=== PATIENT | male | born 1945 | race American Indian/Alaskan Native ===

== ENCOUNTER 2021-12-02 13:11 | Inpatient (IN) | payer OTHER, MEDICARE ==
[2021-12-02] MEDS ORDERED: fentaNYL 100 MCG/2 ML INJ IV ONE (13:50)
[2021-12-02] MEDS ORDERED: ONDANSETRON 4 MG/2 ML INJ IV ONE (13:50)
--- NOTE | 2021-12-02 13:57 | Emergency Department Report ---
HPI - General Time Seen by Provider: 12/02/21 13:38 - HPI HPI: Room 19 The patient is a 76-year-old male present with a chief complaint of back pain and shortness of breath. Patient has a history of lung CA and states he last received chemotherapy approximately 2.5 months ago. Patient also states he had a drain placed at the [place] 8 months ago to drain his lungs. The patient states approximate 4 hours ago he developed diffuse back pain. The patient states approximate 2 hours ago he developed shortness of breath. Patient denies history of cough or fever. Patient denies chest pain. Patient currently gives his back pain a score of 10/10. EMS was called and found the patient hypoxic in the 60s. The patient was placed on a nonrebreather and his sats increased to 87% ED Past Medical Hx - Past Medical History Hx Diabetes: Yes Hx of Cancer: Yes (Lung CA xrt ) - Surgical History Additional Surgical History: Bilateral BKA's, "drain for lungs" - Family History Family history: no significant - Social History Smoking Status: Former Smoker Substance Use Type: None ED Review of Systems ROS: Stated complaint: REA Other details as noted in HPI Constitutional: denies: fever Eyes: denies: eye pain ENT: denies: throat pain Respiratory: shortness of breath. denies: cough Cardiovascular: denies: chest pain Endocrine: no symptoms reported Gastrointestinal: denies: abdominal pain Genitourinary: denies: dysuria Musculoskeletal: back pain Neurological: denies: headache Physical Exam - Physical Exam Physical Exam: GENERAL: The patient is well-developed well-nourished male sitting on stretcher with nonrebreather in place exhibiting increased work of breathing HEENT: Normocephalic. Atraumatic. Extraocular motions are intact. Patient has moist mucous membranes. NECK: Supple. Trachea midline CHEST/LUNGS: Clear to auscultation. There is increased work of breathing HEART/CARDIOVASCULAR: Regular. There is no tachycardia. There is no gallop rub or murmur. ABDOMEN: Abdomen is soft, nontender. Patient has normal bowel sounds. There is no abdominal distention. SKIN: There is no rash. There is no edema. There is no diaphoresis. NEURO: The patient is awake, alert, and oriented. The patient is cooperative. The patient has no focal neurologic deficits. The patient has normal speech. GCS 15 MUSCULOSKELETAL: Bilateral BKA's ED Course - Consultations Consultation #1: 12/02/21 18:35 Nephrology paged 12/02/21 18:53 Case discussed with academic advising director Dr. Jaimes-recommends Kayexalate in addition to medications already administered. Redraw labs at approximately 2000/2099 ED Medical Decision Making - Lab Data Result diagrams: 12/02/21 15:21 12/02/21 17:22 Laboratory Tests 12/02/21 12/02/21 12/02/21 14:10 15:21 15:21 WBC 22.7 H RBC 4.96 Hgb 12.2 Hct 38.8 MCV 78 L MCH 25 L MCHC 32 RDW 20.2 H Plt Count 327 Add Manual Diff Complete Total Counted 100 Seg Neuts % (Manual) 87.0 H Band Neutrophils % 1.0 Lymphocytes % (Manual) 9.0 L Reactive Lymphs % (Man) 0 Monocytes % (Manual) 2.0 Eosinophils % (Manual) 1.0 Basophils % (Manual) 0 Metamyelocytes % 0 Myelocytes % 0 Promyelocytes % 0 Blast Cells % 0 Nucleated RBC % Not Reportable Seg Neutrophils # Man 19.7 H Band Neutrophils # 0.2 Lymphocytes # (Manual) 2.0 Abs React Lymphs (Man) 0.0 Monocytes # (Manual) 0.5 Eosinophils # (Manual) 0.2 Basophils # (Manual) 0.0 Metamyelocytes # 0.0 Myelocytes # 0.0 Promyelocytes # 0.0 Blast Cells # 0.0 WBC Morphology Not Reportable Hypersegmented Neuts Not Reportable Hyposegmented Neuts Not Reportable Hypogranular Neuts Not Reportable Smudge Cells Not Reportable Toxic Granulation Not Reportable Toxic Vacuolation Not Reportable Dohle Bodies Not Reportable Pelger-Huet Anomaly Not Reportable Chandra Rods Not Reportable Platelet Estimate Consistent w auto Clumped Platelets Not Reportable Plt Clumps, EDTA Not Reportable Large Platelets Not Reportable Giant Platelets Not Reportable Platelet Satelliting Not Reportable Plt Morphology Comment Not Reportable RBC Morphology Not Reportable Dimorphic RBCs Not Reportable Polychromasia Not Reportable Hypochromasia 1+ Poikilocytosis Not Reportable Anisocytosis 1+ Microcytosis Not Reportable Macrocytosis Not Reportable Spherocytes Not Reportable Pappenheimer Bodies Not Reportable Sickle Cells Not Reportable Target Cells Not Reportable Tear Drop Cells Not Reportable Ovalocytes Not Reportable Helmet Cells Not Reportable [place] Bodies Not Reportable [place] Rings Not Reportable [place] Cells Not Reportable Bite Cells Not Reportable Crenated Cell Not Reportable Elliptocytes Not Reportable Acanthocytes (Spur) Not Reportable Rouleaux Not Reportable Hemoglobin C Crystals Not Reportable Schistocytes Not Reportable Malaria parasites Not Reportable Josh Bodies Not Reportable Hem Pathologist Commnt No PT 19.7 H INR 1.48 H ABG pH TNR ABG pCO2 TNR ABG pO2 TNR ABG HCO3 TNR ABG O2 Saturation TNR ABG Base Excess TNR ABG Hemoglobin TNR ABG Carboxyhemoglobin TNR ABG Methemoglobin TNR Oxyhemoglobin TNR FiO2 100 Sodium Potassium Chloride Carbon Dioxide Anion Gap BUN Creatinine Estimated GFR BUN/Creatinine Ratio Glucose Lactic Acid Calcium Total Bilirubin AST ALT Alkaline Phosphatase Troponin T NT-Pro-B Natriuret Pep Total Protein Albumin Albumin/Globulin Ratio 12/02/21 12/02/21 12/02/21 15:21 16:39 17:22 WBC RBC Hgb Hct MCV MCH MCHC RDW Plt Count Add Manual Diff Total Counted Seg Neuts % (Manual) Band Neutrophils % Lymphocytes % (Manual) Reactive Lymphs % (Man) Monocytes % (Manual) Eosinophils % (Manual) Basophils % (Manual) Metamyelocytes % Myelocytes % Promyelocytes % Blast Cells % Nucleated RBC % Seg Neutrophils # Man Band Neutrophils # Lymphocytes # (Manual) Abs React Lymphs (Man) Monocytes # (Manual) Eosinophils # (Manual) Basophils # (Manual) Metamyelocytes # Myelocytes # Promyelocytes # Blast Cells # WBC Morphology Hypersegmented Neuts Hyposegmented Neuts Hypogranular Neuts Smudge Cells Toxic Granulation Toxic Vacuolation Dohle Bodies Pelger-Huet Anomaly Chandra Rods Platelet Estimate Clumped Platelets Plt Clumps, EDTA Large Platelets Giant Platelets Platelet Satelliting Plt Morphology Comment RBC Morphology Dimorphic RBCs Polychromasia Hypochromasia Poikilocytosis Anisocytosis Microcytosis Macrocytosis Spherocytes Pappenheimer Bodies Sickle Cells Target Cells Tear Drop Cells Ovalocytes Helmet Cells Agiular-[place] Bodies [place] Rings [place] Cells Bite Cells Crenated Cell Elliptocytes Acanthocytes (Spur) Rouleaux Hemoglobin C Crystals Schistocytes Malaria parasites Josh Bodies Hem Pathologist Commnt PT INR ABG pH ABG pCO2 ABG pO2 ABG HCO3 ABG O2 Saturation ABG Base Excess ABG Hemoglobin ABG Carboxyhemoglobin ABG Methemoglobin Oxyhemoglobin FiO2 Sodium 131 L Potassium 7.1 H* 7.2 H* Chloride 94.9 L Carbon Dioxide 10 L Anion Gap 33 BUN 89 H Creatinine 7.1 H Estimated GFR 9 BUN/Creatinine Ratio 13 Glucose 108 H Lactic Acid 6.80 H* Calcium 9.6 Total Bilirubin 0.30 AST 20 ALT 8 Alkaline Phosphatase 85 Troponin T 0.105 H* NT-Pro-B Natriuret Pep 453.1 Total Protein 7.1 Albumin 3.9 Albumin/Globulin Ratio 1.2 - EKG Data -: EKG Interpreted by Nh EKG shows normal: sinus rhythm Rate: normal - EKG Data When compared to previous EKG there are: previous EKG unavailable Interpretation: other (Peaked T waves) - Radiology Data Radiology results: report reviewed (Chest x-ray, VQ scan), image reviewed (Chest x-ray, VQ scan) [address] [address] Nuclear Medicine Report Signed Patient: DIPTI PURVIS MR#: [id number] : 1945 Acct:[id number] Age/Sex: 76 / M ADM Date: 12/02/21 Loc: ED Attending Dr: Ordering Physician: JAYLON MCLEOD MD Date of Service: 12/02/21 Procedure(s): NM perfusion only lung scan Accession Number(s): [id number] cc: JAYLON MCLEOD MD Nuclear medicine perfusion lung scan Indication: Shortness of breath Technique: 5.1 mCi of Tc 99m MAA were given by IV. Findings: Comparison with chest radiograph from chest radiograph earlier today.. Perfusion images are unremarkable; specifically, no wedge-shaped, pleural- based, segmental defects are seen. Impression: No segmental perfusion defects are identified. Signer Name: Galol Soliz MD Signed: 12/02/2021 4:40 PM Workstation Name: [id number] Transcribed By: Dictated By: Gallo Soliz MD Electronically Authenticated By: Gallo Soliz MD Signed Date/Time: 12/02/21 1640 DD/ 1639 TD/TT: [address] [address] XRay Report Signed Patient: DIPTI PURVIS MR#: [id number] : 1945 Acct:[id number] Age/Sex: 76 / M ADM Date: 12/02/21 Loc: ED Attending Dr: Ordering Physician: JAYLON MCLEOD MD Date of Service: 12/02/21 Procedure(s): XR chest 1V ap Accession Number(s): [id number] cc: JAYLON MCLEOD MD Fluoro Time In Minutes: XR chest 1V ap INDICATION / CLINICAL INFORMATION: Shortness of breath, h/o lung CA. COMPARISON: None available. FINDINGS: SUPPORT DEVICES: Right chest wall port catheter tip terminates over the right atrium. There is a left thoracostomy tube which projects along the left lateral lung apex. HEART /PULMONARY VASCULATURE: No significant abnormality. LUNGS / PLEURA: Small to moderate partially loculated left pleural fluid. There are streaky airspace opacities within both lung bases. 2.7 cm nodular density in the right midlung. Additional 1.5 cm nodular density suspected within the left lung apex. No pneumothorax. ADDITIONAL FINDINGS: No significant additional findings. IMPRESSION: 1. Left thoracostomy tube with small to moderate partially loculated left pleural fluid. No pneumothorax. 2. Bilateral pulmonary nodules suspicious for satellite metastases in this patient with a reported history of malignancy. 3. Patchy bibasilar airspace disease, concerning for pneumonia. Signer Name: Alejandro Dumont MD Signed: 12/02/2021 2:10 PM Workstation Name: [id number] Transcribed By: JS Dictated By: ALEJANDRO DUMONT MD Electronically Authenticated By: ALEJANDRO DUMONT MD Signed Date/Time: 12/02/21 1410 DD/ 1407 TD/TT: - Differential Diagnosis Lung CA, PE, pneumonia, bronchitis Critical care attestation.: If time is entered above; I have spent that time in minutes in the direct care of this critically ill patient, excluding procedure time. ED Disposition Clinical Impression: Pneumonia, Sepsis, Hypoxia, Acute renal failure, Hyperkalemia Disposition: ADMITTED INPATIENT Is pt being admited?: Yes Does the pt Need Aspirin: No Condition: Serious Instructions: Bacterial Pneumonia (ED) Referrals: CHRIS CASON MD [Primary Care Provider] - 3-5 Days Time of Disposition: 18:54 (Care transferred to hospitalist (Dr. Townsend))
--- NOTE | 2021-12-02 14:14 | XRay Report ---
XR chest 1V ap INDICATION / CLINICAL INFORMATION: Shortness of breath, h/o lung CA. COMPARISON: None available. FINDINGS: SUPPORT DEVICES: Right chest wall port catheter tip terminates over the right atrium. There is a left thoracostomy tube which projects along the left lateral lung apex. HEART /PULMONARY VASCULATURE: No significant abnormality. LUNGS / PLEURA: Small to moderate partially loculated left pleural fluid. There are streaky airspace opacities within both lung bases. 2.7 cm nodular density in the right midlung. Additional 1.5 cm nodu lar density suspected within the left lung apex. No pneumothorax. ADDITIONAL FINDINGS: No significant additional findings. IMPRESSION: 1. Left thoracostomy tube with small to moderate partially loculated left pleural fluid. No pneumotho rax. 2. Bilateral pulmonary nodules suspicious for satellite metastases in this patient with a reported hi story of malignancy. 3. Patchy bibasilar airspace disease, concerning for pneumonia. Signer Name: Yemi Dumont MD Signed: 12/02/2021 2:10 PM Workstation Name: [id number]
[2021-12-02 14:55] LABS: ABG PCO2 TNR mm Hg; ABG PH TNR pH Units (7.350-7.450); ABG PO2 TNR mm Hg (80.0-90.0)
[2021-12-02 14:56] LABS: ABG Base Excess TNR mmol/L (-2.0-3.0); ABG HCO3 TNR mmol/L (20.0-26.0); ABG Methemoglobin TNR % (0.0-1.5); ABG Oxygen Saturation TNR % (95.0-99.0)
[2021-12-02] MEDS ORDERED: SODIUM CHLORIDE 0.9% 1000 ML 1,000 ML IV ONE ×2 (15:38)
[2021-12-02] MEDS ORDERED: SODIUM CHLORIDE 0.9% 1000 ML 2,000 ML ONE (15:39)
[2021-12-02] MEDS ORDERED: cefTRIAXone/NS 1 GM/50 ML 1 GM/50 ML BAG IV ONE (15:39)
[2021-12-02] MEDS ORDERED: AZITHROMYCIN/NS 500 MG/250 ML 500 MG/250 ML BAG IV ONE (15:39)
[2021-12-02 15:51] LABS: Hematocrit 38.8 % (35.5-45.6); Hemoglobin 12.2 gm/dl (11.8-15.2); Mean Corpuscular HGB Conc 32 % (32-34); Mean Corpuscular Volume 78 fl (84-94); Platelet Count 327 K/mm3 (140-440); Red Blood Count 4.96 M/mm3 (3.65-5.03)
[2021-12-02 15:55] LABS: Red Cell Distribution Width 20.2 % (13.2-15.2)
[2021-12-02 15:58] LABS: INR 1.48 (0.87-1.13)
[2021-12-02 16:19] LABS: Albumin 3.9 g/dL (3.9-5); Calcium 9.6 mg/dL (8.4-10.2)
[2021-12-02 16:45] LABS: Band Neutrophils # (Manual) 0.2 K/mm3; Basophils % (Manual) 0 % (0.0-1.8); Total Cells Counted 100
--- NOTE | 2021-12-02 16:45 | Nuclear Medicine Report ---
Nuclear medicine perfusion lung scan Indication: Shortness of breath Technique: 5.1 mCi of Tc 99m MAA were given by IV. Findings: Comparison with chest radiograph from chest radiograph earlier today.. Perfusion images are unremarkable; specifically, no wedge-shaped, pleural-based, segmental defects ar e seen. Impression: No segmental perfusion defects are identified. Signer Name: Gallo Soliz MD Signed: 12/02/2021 4:40 PM Workstation Name: [id number]
[2021-12-02 16:46] LABS: Anisocytosis 1+; Hypochromasia 1+; Platelet Estimate Consistent w Auto
[2021-12-02] MEDS ORDERED: SODIUM BICARB 8.4% 50 MEQ/50 ML SYRINGE IV ONE ×2 (17:01→19:10)
[2021-12-02] MEDS ORDERED: CALCIUM GLUCONATE 1,000 MG in SODIUM CHLORIDE 0.9% 100 ML IV ONE (17:02)
[2021-12-02] MEDS ORDERED: CALC GLUCONATE 1GM/NS 100 ML 1 GM/100 ML BAG IV ONE (18:00)
[2021-12-02] MEDS ORDERED: INSULIN REGULAR, HUMAN 100 UNITS/1 ML IV ONE (18:34)
[2021-12-02] MEDS ORDERED: DEXTROSE 50% IN WATER (25GM) 50 ML SYRINGE IV ONE (18:34)
[2021-12-02] MEDS ORDERED: ALBUTEROL 2.5 MG/3 ML NEBU IH ONE (18:35)
[2021-12-02] MEDS ORDERED: SODIUM POLYSTYRENE 15 GM/60 ML ORAL LIQD PO ONE (18:53)
--- NOTE | 2021-12-02 19:04 | History and Physical Report ---
History of Present Illness Chief complaint: My back hurts and I am short of breath History of present illness: 76 YO Male with DM, Lung Cancer with metastatic disease and Malignant Pleural EffusioinS/P Pleural Drain Placement, PVD presents to ED for evaluation. Patient is reports "my back hurts and I am short of breath". Patient states that he has experienced shortness of breath over the past week with persistent and worsening symptoms over the same timeframe. Patient also acknowledges diffuse back pain. Patient states that his pain is 10/10, constant, worsened with movement, relieved with movement. Patient acknowledges pain is localized over his spine. Patient acknowledges increased use of nebulizer therapy without relief. Patient failed outpatient therapy. EMS was notified and upon arrival the patient was found to be in distress with a pulse oximetry in the 60s. Patient was placed on nonrebreather oxygen and transported to [facility] for further care and evaluation of the aforementioned symptoms. The patient was seen and evaluated emergency department. All lab and imaging studies reviewed. Patient found to have a pulse oximetry of 79% on room room air which is consistent with acute hypoxemic respiratory failure. Patient also found to have bilateral pneumonia complicated by septic shock, metabolic acidosis, PEDRO with ATN, hyperkalemia, volume depletion, and malignant pleural effusion. Patient admitted to ICU due to increased risk of worsening symptoms after medical stabilization. Patient initiated on sepsis protocol in the emergency department. Patient denies fever, chills, chest pain, palpitation, productive cough, skin rash, recent contact, known exposure to COVID-19. No prior a dmission for review. All medication listed at time of admission has been reconciled. Advanced care planning conducted in ED. Critical care team consulted in ED. Past History Past Medical History: cancer, diabetes, hypertension, PVD Past Surgical History: Other (Bilateral BKA) Social history: single. denies: smoking, alcohol abuse, prescription drug abuse Family history: diabetes, hypertension Medications and Allergies Allergies Allergy/AdvReac Type Severity Reaction Status Date / Time No Known Allergies Allergy Unverified 12/02/21 15:15 Active Meds: Active Medications NORepinephrine/NS 8 MG-250 ML (Norepinephrine/Ns 8 Mg-250 Ml (Double Conc)) 8 mg in 250 mls @ 12.247 mls/hr IV TITRATE PRN; Protocol PRN Reason: Hypotension Review of Systems Constitutional: no weight loss, no weight gain, no fever, no chills Ears, nose, mouth and throat: no ear pain, no ear discharge, no tinnitis, no decreased hearing, no nasal congestion, no nasal discharge Cardiovascular: shortness of breath, no chest pain Respiratory: no cough, no cough with sputum, no hemoptysis Gastrointestinal: no abdominal pain, no nausea, no vomiting, no diarrhea, no constipation Genitourinary Male: no hematuria, no flank pain, no discharge, no urinary freque ncy, no urinary hesitancy Rectal: no pain, no incontinence, no bleeding Musculoskeletal: no neck stiffness, no shooting arm pain, no arm numbness/ting ling Integumentary: no rash, no pruritis, no redness, no sores, no wounds Neurological: no head injury, no transient paralysis, no paralysis, no tingling, no seizures, no syncope Psychiatric: no anxiety, no insomnia, no change in appetite, no change in libido Endocrine: no cold intolerance, no excessive thirst, no polyuria, no nocturia Hematologic/Lymphatic: no easy bruising, no easy bleeding Allergic/Immunologic: no urticaria, no allergic rhinitis Exam - Constitutional Vitals: Temp Pulse Resp BP Pulse Ox 110 H 18 96/57 98 12/02/21 18:47 12/02/21 18:47 12/02/21 18:04 12/02/21 18:04 General appearance: Present: mild distress - EENT Eyes: Present: PERRL ENT: hearing intact, clear oral mucosa - Neck Neck: Present: supple, normal ROM - Respiratory Respiratory effort: labored, accessory muscle use Respiratory: bilateral: diminished, rhonchi - Cardiovascular Rhythm: regular (Tachycardia) - Extremities Extremities: no ischemia Peripheral Pulses: abnormal (Capillary refill greater than 3.5 seconds) - Abdominal General gastrointestinal: Present: soft, non-tender, non-distended, normal bowel sounds Male genitourinary: Present: normal - Integumentary Integumentary: Present: dry, clammy, decreased turgor - Musculoskeletal Musculoskeletal: strength equal bilaterally - Psychiatric Psychiatric: appropriate mood/affect, memory intact - Neurologic Neurologic: CNII-XII intact, no focal deficits, moves all extremities, no gait normal HEART Score - HEART Score Troponin: Troponin T 0.105 ng/mL (0.00-0.029) H* 12/02/21 15:21 Results - Labs CBC & Chem 7: 12/02/21 15:21 12/02/21 17:22 Labs: Abnormal lab results 12/02/21 12/02/21 12/02/21 Range/Units 15:21 15:21 15:21 WBC 22.7 H (4.5-11.0) K/mm3 MCV 78 L (84-94) fl MCH 25 L (28-32) pg RDW 20.2 H (13.2-15.2) % Seg Neuts % (Manual) 87.0 H (40.0-70.0) % Lymphocytes % (Manual) 9.0 L (13.4-35.0) % Seg Neutrophils # Man 19.7 H (1.8-7.7) K/mm3 PT 19.7 H (12.2-14.9) Sec. INR 1.48 H (0.87-1.13) Sodium 131 L (137-145) mmol/L Potassium 7.1 H* (3.6-5.0) mmol/L Chloride 94.9 L (98-107) mmol/L Carbon Dioxide 10 L (22-30) mmol/L BUN 89 H (9-20) mg/dL Creatinine 7.1 H (0.8-1.3) mg/dL Glucose 108 H (75-100) mg/dL Lactic Acid (0.7-2.0) mmol/L Troponin T 0.105 H* (0.00-0.029) ng/mL 12/02/21 12/02/21 Range/Units 16:39 17:22 WBC (4.5-11.0) K/mm3 MCV (84-94) fl MCH (28-32) pg RDW (13.2-15.2) % Seg Neuts % (Manual) (40.0-70.0) % Lymphocytes % (Manual) (13.4-35.0) % Seg Neutrophils # Man (1.8-7.7) K/mm3 PT (12.2-14.9) Sec. INR (0.87-1.13) Sodium (137-145) mmol/L Potassium 7.2 H* (3.6-5.0) mmol/L Chloride (98-107) mmol/L Carbon Dioxide (22-30) mmol/L BUN (9-20) mg/dL Creatinine (0.8-1.3) mg/dL Glucose (75-100) mg/dL Lactic Acid 6.80 H* (0.7-2.0) mmol/L Troponin T (0.00-0.029) ng/mL Assessment and Plan - Patient Problems (1) Septic shock Current Visit: Yes Status: Acute Plan to address problem: Sepsis protocol: Chest x-ray, CBC, urinalysis, IV fluid resuscitation therapy, IV antibiotic therapy, IV pressor support, maintain mean arterial pressure greater than equal to 65, serial lactic acid level, monitor fluid balance, blood culture. The high probability of a clinically significant, sudden or life threatening deterioration of the [cardiac, pulmonary, renal, neuro, infectious disease, heme-onc] system(s) required my full and direct attention, intervention and personal management. The aggregate critical care time was [90] minutes. This time is in addition to time spent performing reported procedures but includes the following: [x] Data Review and interpretation [x] Patient assessment and monitoring of vital signs [x] Documentation [x] Medication orders and management (2) Acute hypoxemic respiratory failure Current Visit: Yes Status: Acute Plan to address problem: Chest x-ray, supplemental oxygen, pulse oximetry, nebulizer therapy, noninvasive positive pressure ventilation as clinically indicated. Pulmonary toilet. (3) Pneumonia Current Visit: Yes Status: Acute Plan to address problem: Pneumonia protocol: Chest x-ray, CBC, CMP, supplemental oxygen, pulse oximetry, nebulizer therapy, IV antibiotic therapy, blood culture. (4) Acute kidney injury (PEDRO) with acute tubular necrosis (ATN) Current Visit: Yes Status: Acute Plan to address problem: IV fluid resuscitation therapy, monitor urine output every shift, daily weight, monitor fluid balance, urine electrolytes, nephrology team consulted. (5) Malignant pleural effusion Current Visit: Yes Status: Acute Plan to address problem: Pleurx drain in place, continue current therapy. Treat pneumonia. (6) Metabolic acidosis Current Visit: Yes Status: Acute Plan to address problem: IV for resuscitation therapy, BMP, IV bicarbonate therapy, repeat BMP in a.m., serial lactic acid level. (7) Diabetes mellitus Current Visit: Yes Status: Acute Plan to address problem: Consistent carbohydrate diet, Accu-Chek, insulin protocol, hypoglycemia protocol. (8) Metastatic lung cancer (metastasis from lung to other site) Current Visit: Yes Status: Acute Plan to address problem: Outpatient oncology follow-up. Supportive care. (9) Back pain Current Visit: Yes Status: Acute Plan to address problem: Suspect is secondary to metastatic disease. Pain control, supportive care. Acute returns. (10) Hyperkalemia Current Visit: Yes Status: Acute Plan to address problem: Calcium gluconate, insulin D50, no EKG changes. Nephrology team consulted. (11) DVT prophylaxis Current Visit: Yes Status: Acute Plan to address problem: SCD to bilateral lower extremities while in bed (12) Advance care planning Current Visit: Yes Status: Acute Plan to address problem: Disease education data, care plan discussed, diagnoses discussed, prognosis discussed, patient is full code, +30 minutes. (13) Preventative health care Current Visit: Yes Status: Acute Plan to address problem: Patient counseled regarding prognosis, outpatient follow-up with hematology oncology, outpatient follow-up with primary care physician for all age and risk factor appropriate screening test. +30 minutes.
[2021-12-02] MEDS ORDERED: SODIUM CHLORIDE 0.9% 1000 ML IV SOLN IV ONE (19:05)
[2021-12-02] MEDS ORDERED: oxyCODONE /ACETAMINOPHEN 5-325MG TAB PO PRN (19:05)
[2021-12-02] MEDS ORDERED: ALBUTEROL 2.5 MG/3 ML NEBU IH PRN (19:05)
[2021-12-02] MEDS ORDERED: VANCOMYCIN 1,250 MG in SODIUM CHLORIDE 0.9% 500 ML 500 ML IV ONE (19:05)
[2021-12-02] MEDS ORDERED: HYDROmorphone 0.5 MG/0.5 ML INJ IV PRN ×2 (19:05)
[2021-12-02] MEDS ORDERED: ACETAMINOPHEN 325 MG TAB PO PRN ×2 (19:05)
--- NOTE | 2021-12-02 19:24 | Consultation ---
History of Present Illness Consult date: 12/02/21 Requesting physician: ABHISHEK ELLIOTT Reason for consult: pneumonia, other (Sepsis) History of present illness: PCCM CONSULT NOTE (Full dictation # [id number]) Please see dictated notes for full details Medications and Allergies Allergies Allergy/AdvReac Type Severity Reaction Status Date / Time No Known Allergies Allergy Unverified 12/02/21 15:15 Active Meds: Active Medications Acetaminophen (Acetaminophen 325 Mg Tab) 650 mg PO Q6H PRN PRN Reason: Pain, Mild (1-3) Acetaminophen (Acetaminophen 325 Mg Tab) 650 mg PO Q6H PRN PRN Reason: Pain MILD(1-3)/Fever >100.5/FAJARDO Albuterol (Albuterol 2.5 Mg/3 Ml Nebu) 2.5 mg IH Q3HRT PRN PRN Reason: Shortness Of Breath Hydromorphone HCl (Hydromorphone 0.5 Mg/0.5 Ml Inj) 0.25 mg IV Q4H PRN PRN Reason: Pain, Moderate (4-6) Hydromorphone HCl (Hydromorphone 0.5 Mg/0.5 Ml Inj) 0.5 mg IV Q3H PRN PRN Reason: Pain , Severe (7-10) NORepinephrine/NS 8 MG-250 ML (Norepinephrine/Ns 8 Mg-250 Ml (Double Conc)) 8 mg in 250 mls @ 12.247 mls/hr IV TITRATE PRN; Protocol PRN Reason: Hypotension Vancomycin HCl 1,250 mg/ (Sodium Chloride) 525 mls @ 333 mls/hr IV ONCE ONE; Pr otocol Stop: 12/02/21 20:39 Cefepime HCl (Cefepime/Ns 2 Gm/100 Ml) 2 gm in 100 mls @ 200 mls/hr IV Q8H BRITNEY; Protocol Oxycodone/Acetaminophen (Oxycodone /Acetaminophen 5-325mg Tab) 1 tab PO Q6H PRN PRN Reason: Pain, Moderate (4-6) Sodium Bicarbonate (Sodium Bicarb 8.4% 50 Meq/50 Ml Syringe) 50 meq IV ONCE ONE Stop: 12/02/21 19:11 Sodium Chloride (Sodium Chloride 0.9% 10 Ml Flush Syringe) 10 ml IV BID BRITNEY Sodium Chloride (Sodium Chloride 0.9% 10 Ml Flush Syringe) 10 ml IV PRN PRN PRN Reason: LINE FLUSH Sodium Chloride (Sodium Chloride 0.9% 1000 Ml Iv Soln) 1,960 ml 30 ml/kg (1960 ml) IV ONCE ONE Stop: 12/02/21 19:06 Physical Examination Vital signs: Vital Signs BP Pulse Ox 60/29 78 L 12/02/21 15:00 12/02/21 15:00 Results - Laboratory Findings CBC and BMP: 12/02/21 15:21 12/02/21 17:22 ABG ABG pH TNR 12/02/21 14:10 ABG pCO2 TNR 12/02/21 14:10 ABG pO2 TNR 12/02/21 14:10 ABG O2 Saturation TNR 12/02/21 14:10 PT/INR, D-dimer PT 19.7 Sec. (12.2-14.9) H 12/02/21 15:21 INR 1.48 (0.87-1.13) H 12/02/21 15:21 Abnormal lab findings: Abnormal Labs 12/02/21 12/02/21 12/02/21 15:21 15:21 15:21 WBC 22.7 H MCV 78 L MCH 25 L RDW 20.2 H Seg Neuts % (Manual) 87.0 H Lymphocytes % (Manual) 9.0 L Seg Neutrophils # Man 19.7 H PT 19.7 H INR 1.48 H Sodium 131 L Potassium 7.1 H* Chloride 94.9 L Carbon Dioxide 10 L BUN 89 H Creatinine 7.1 H Glucose 108 H Lactic Acid Troponin T 0.105 H* 12/02/21 12/02/21 16:39 17:22 WBC MCV MCH RDW Seg Neuts % (Manual) Lymphocytes % (Manual) Seg Neutrophils # Man PT INR Sodium Potassium 7.2 H* Chloride Carbon Dioxide BUN Creatinine Glucose Lactic Acid 6.80 H* Troponin T
[2021-12-02] MEDS ORDERED: VANCOMYCIN 1,250 MG in SODIUM CHLORIDE 0.9% 250ML 250 ML IV ONE (19:30)
--- NOTE | 2021-12-02 19:47 | Procedure Note ---
Date of procedure: 12/02/21 Pre-op diagnosis: Sepsis Post-op diagnosis: same Procedure: Right femoral vein triple-lumen catheter placed under ultrasound guidance After informed consent was obtained. The patient was prepped and draped in the usual sterile fashion. A timeout was taken with the patient's nurse at bedside to verify the correct patient, the correct procedure, and the correct operative site. Local anesthesia obtained with 1% lidocaine. Ultrasound was utilized to localize the right femoral vein without difficulty. The Seldinger technique was utilized to access the right femoral vein with a seeker needle under ultrasound guidance. A guidewire was then advanced via the seeker needle into the right femoral vein without difficulty and the seeker needle subsequently moved. A scalpel was used to incise the skin at the insertion site. A dilator was then advanced over the guidewire into the right femoral vein and subsequently removed. A preflush triple-lumen catheter was then advanced to the right femoral vein and the guidewire subsequently removed. All 3 ports flush and drawl with ease. 3-0 silk suture was utilized to suture the line in place. A Biopatch was placed at the insertion site. A sterile dressing was utilized to cover the triple-lumen catheter. Estimated blood loss minimal. Complications none. Specimens none. Surgeon: ABHISHEK ELLIOTT Estimated blood loss: minimal Pathology: none Condition: critical Disposition: ICU
[2021-12-02] MEDS ORDERED: VANCOMYCIN PHARMACY TO DOSE IV SCH (20:00)
--- NOTE | 2021-12-02 20:58 | Event Note ---
Appreciate nephrology consult. In short, this is a patient who presents with creatinine 7.1, K 7.2 likely with PEDRO in setting of sepsis, no baseline labs available. Agree with aggressive medical measures for now, hopeful renal function and hyperkalemia improve without needing dialysis. Placed order for repeat BMP now- will need dialysis overnight if K not improving. Check imaging, serologies for PEDRO workup.
[2021-12-02] MEDS ORDERED: SODIUM BICARBONATE 150 MEQ in DEXTROSE 5% IN WATER 1,000 ML IV SCH (22:00)
[2021-12-02 22:45] LABS: ABG Base Excess -11.6 mmol/L (-2.0-3.0); ABG HCO3 12.9 mmol/L (20.0-26.0); ABG Methemoglobin 0.6 % (0.0-1.5); ABG Oxygen Saturation 99.4 % (95.0-99.0); ABG PCO2 25.5 mm Hg; ABG PH 7.322 pH Units (7.350-7.450); ABG PO2 240.4 mm Hg (80.0-90.0)
[2021-12-02 23:02] LABS: Calcium 8.9 mg/dL (8.4-10.2)
[2021-12-02] MEDS: NORepinephrine/NS 8 MG-250 ML 8 MG/250 ML INFUS..BTL IV PRN (23:43)
[2021-12-03] MEDS ORDERED: ONDANSETRON 4 MG/2 ML INJ IV PRN (00:52)
--- NOTE | 2021-12-03 02:45 | Consultation ---
DATE OF CONSULTATION: 12/02/2021 PULMONARY CRITICAL CARE CONSULT NOTE CONSULTING PHYSICIAN: Dr. Harjinder Townsend. REASON FOR CONSULTATION: Acute hypoxemic respiratory failure, septic shock, pneumonia. CHIEF COMPLAINT AND HISTORY OF PRESENT ILLNESS: The patient is a now 76-year-old male with a past medical history significant in this context for lung cancer that he says was diagnosed in March this year or last year at the latest, for which he is currently receiving chemotherapy. He called into the Emergency Room complaining of back pain and shortness of breath. He received his last chemotherapy treatment about 2-1/2 months ago. He also mentioned that he had, what appears to be, a PleurX pleural drain catheter to the right pleural space at the [place] in March according to him. Prior to coming to the Emergency Room, he had developed a sudden and diffuse back pain and then soon followed by shortness of breath. He denied any fevers or chills prior. He denies any cough or expectoration of significance and denies any hemoptysis. In particular, he also denies any saddle anesthesia or incontinence to urine or feces. He denies any trauma. He described his back pain as a 10/10 and had called the [facility]. They found him hypoxemic with O2 sats in the 60s. He was brought to the Emergency Room where he was placed on a nonrebreather. We are asked to assist with management. When I stopped by to see him, he was resting in bed, remained on the nonrebreather. Back pain was a little bit better. He said he has had this type of back pain before. With regards to tobacco use, he has a 10+ pack year tobacco smoking history, smoking as much as 1-1/2 packs per day prior to March when he was diagnosed with a lung cancer. He denies any new-onset leg pain or swelling, either unilaterally or bilaterally or any suggestion of a deep venous thrombosis. This really is as much of the history of presentation as I have. PAST MEDICAL HISTORY: Again, significant for lung cancer as well as a history of diabetes. MEDICATIONS: He was on at the time I stopped by to see him, according to the medication administration record included the following: Tylenol 650 mg p.o. q. 6 hours p.r.n. mild pain or fever, albuterol 2.5 mg nebulized q. 3 hours p.r.n. shortness of breath, cefepime 2 grams IV q. 8 hours, Dilaudid 0.25 mg IV q. 4 hours, morphine sulfate 0.5 mg IV q. 3 hours p.r.n. severe pain, Dilaudid 0.25 mg IV q. 4 hours p.r.n. moderate pain. Levophed drip had been ordered stat at 0.1 mcg per kilogram per minute. Percocet 5/325 one tablet p.o. q. 6 hours p.r.n. moderate pain. He received 1 amp of sodium bicarbonate earlier. He has received about 2 liters of sodium chloride resuscitation. He has also received 1.25 grams of IV vancomycin. ALLERGIES: No known drug allergies. DIET: Thin gentleman. Denies acute weight loss or gain in the preceding few weeks to months. FAMILY AND SOCIAL HISTORY: Lives in the community, has a 10+ pack year tobacco smoking history. Denies current alcohol, tobacco or illicit drug use or abuse. FAMILY HISTORY: Otherwise, noncontributory. REVIEW OF SYSTEMS: No loss of consciousness. No new onset seizures. No new onset focal weakness. Denies any gross hematochezia or melena. Denies gross hematuria or dysuria. No hematemesis, no hemoptysis. He has had the back pain. He has had the shortness of breath. He denies heat or cold intolerance. Denies polydipsia, polyuria. Complete 13-system review of system was obtained. Pertinent positives and/or negatives as in body of history above, otherwise noncontributory. PHYSICAL EXAMINATION: VITAL SIGNS: RN is working on getting the temperature. His pulse was 110 when he came in. Respiratory rate was about 24, blood pressure was 60/29 with a MAP of 39, O2 sats were 78%, inspired oxygen concentration at that time was not recorded. He is now 98% on the 100% nonrebreather. GENERAL: This is an elderly looking male. Normocephalic, atraumatic, resting in bed with mildly to moderately increased respiratory effort at rest. HEAD, EYES, EARS, NOSE AND THROAT: Anicteric. No conjunctival erythema. Oropharynx was dry. NECK: No gross jugular venous distention, no thyromegaly. Grossly, there were no palpable lymph nodes in the supraclavicular or submandibular lymph node chains. LUNGS: Auscultation of both lung brambila significant for bilateral rhonchi. No active wheezing. Slightly diminished breath sounds. HEART: Sounds 1 and 2 are heard at the time of my evaluation. Regular in rate and rhythm. Regular tachycardia without overt rubs or murmurs. ABDOMEN: Soft, full, bowel sounds are positive, nontender, no palpable hepatosplenomegaly. Of note, he does have a right upper chest wall Port-A-Cath for central venous access. EXTREMITIES: Without overt digital clubbing or cyanosis. No pedal edema. 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 NEUROLOGIC: Pupils are equal, round, about 4 mm, reactive to light. Extraocular muscle movements are intact. He moves all 4 extremities spontaneously. PSYCHIATRIC: His mood was normal. Affect was somewhat anxious. He did have intact judgment and insight. LABORATORY DATA: From my review are as follows: Admission white cell count 22,700 with hemoglobin of 12.2, hematocrit of 38.8, platelet count of 327. 1% band neutrophils on the manual differential. He does have a left shift. INR 1.48. Serum sodium was 131, potassium was 7.1, chloride was 95, bicarbonate was 10, BUN 89, creatinine 7.1, glucose was 108. Lactic acid level was 6.8. Liver function test within normal limits. Troponin was up at 0.105. No microbiology studies for my review. Radiographic studies show chest x-ray with a left PleurX catheter in place. A right Port-A-Cath with the tip in the distal SVC/right atrium. Chronic looking increased interstitial markings and some nodular infiltrates, particularly in the right lower lobe region and some peripheral opacifications that would probably represent a loculated effusion on the left side. No gross pneumothorax. No gross bony fractures. A nuclear medicine V/Q scan was done, it showed no perfusion defects. ASSESSMENT: 1. Acute hypoxemic respiratory failure, presumably secondary to #2. 2. Bilateral pneumonia 2. History of lung cancer. 3. Acute kidney injury. 4. Hyperkalemia. 5. Septic shock. 6. Lactic acidosis. 7. Non-ST elevation myocardial infarction. 8. History of diabetes. 9. Chronic left pleural effusion. PLAN: I do agree with empiric antibiotic therapy with cefepime and vancomycin. I will get a procalcitonin level, CRP level and trend the lactic acid levels to help guide clinical decision making. Aggressive volume resuscitation will be done. I will be sending urine for creatinine and sodium to calculate a fractional excretion of sodium. I do feel that maybe there is likely prerenal element to this. It is unclear where the disease is metastatic to. Hematology/Oncology evaluation will be requested and addressed. Central venous access is being acquired at this time. We will target mean arterial pressure of about 65 mmHg. I am awaiting the temperature. We will follow the white cell count and temperature call to shipyard helper clinical decision making. Oxygen will be weaned to keep sats greater than or equal to 90%. Empiric bilevel positive airway pressure ventilation therapy will be offered bedtime. Hopefully, he does not decompensate further. If he does, mechanical ventilatory support will be offered. I should mention he does have a Port-A-Cath in place. It is unclear if I am going to be able to get him hemodynamic measurements through there, but we will attempt to do that. He may benefit from a 2D echocardiogram in particular to ensure that we are not dealing also with tamponade physiology in this gentleman with metastatic lung cancer. Continued tobacco abstinence has been encouraged. He is going to be placed on GI prophylaxis with Pepcid as well as DVT prophylaxis with heparin. Flu and pneumonia vaccination will be addressed per protocol. He has received hyperkalemia cocktail. I will follow repeat potassium levels. Nephrology consultation has been placed. No acute indication for emergent dialysis at this time. A 12-lead EKG will be reviewed and addressed as necessary. Monitor does not show any hyperacute looking changes to the QRS complex. Flu and pneumonia vaccination will be addressed per protocol. Thank you very much for the consult. We will follow along. I should mention vasopressor support will be offered to keep mean arterial pressures greater than or equal to about 65 mmHg. He is critically ill, on life-sustaining interventions including vasopressors and 100% oxygen therapy and at very high risk of from cardiopulmonary as well as renal system decompensation. At this time, I should mention glycemic control will be for target blood glucose of 140-180 mg/dL while critically ill. Again, he is critically ill on life-sustaining interventions including the vasopressors as well as 100% oxygen. At this time, I spent about 35-40 minutes of critical care time without overlap and excluding any procedural time that may be necessary. TID: [id number] RECEIPT: [id number] CELINE/NATALIE
[2021-12-03 04:03] LABS: Creatinine,Urine 44.3 mg/dL (0.1-20.0)
[2021-12-03 05:09] LABS: Basophils % (Auto) 0.1 % (0.0-1.8); Eosinophils % (Auto) 0.1 % (0.0-4.3); Hemoglobin 10.7 gm/dl (11.8-15.2); Lymphocytes % (Auto) 12.5 % (13.4-35.0); Mean Corpuscular HGB Conc 32 % (32-34); Mean Corpuscular Volume 78 fl (84-94); Monocytes # (Auto) 1.4 K/mm3 (0.0-0.8); Monocytes % (Auto) 9.2 % (0.0-7.3); Platelet Count 290 K/mm3 (140-440); Red Blood Count 4.36 M/mm3 (3.65-5.03)
[2021-12-03 05:26] LABS: Albumin 3.1 g/dL (3.9-5); Calcium 8.9 mg/dL (8.4-10.2)
[2021-12-03] MEDS: CEFEPIME/NS 2 GM/100 ML 2 GM/100 ML BAG IV SCH ×2 (06:37→06:45)
--- NOTE | 2021-12-03 08:15 | Progress Note ---
Assessment and Plan Acute hypoxemic respiratory failure Bilateral pneumonia H/O Lung cancer Acute kidney injury Hyperkalemia Septic shock Lactic acidosis NSTEMI DM II Chronic left pleural effusion - consider heme/onc evaluation re: Lung CA on chemotherapy - prn Pleurx catheter drainage for symptomatic fluid accumulation - azotemia improved as is metabolic acidosis; continue gentle hydration - stop bicarbonate drip after 2 liters done - continue bicarbonate supplementation - vasopressors for target MAP > 65 mmHg - continue BIPAP qhs with prn daytime use - continue to wean supplemental oxygen for target O2 sat's > 90% acutely - aspiration precautions - bronchodilators with pulmonary hygiene per RT - continue to avoid benzodiazepine's, reduce the possibility of delirium - AB's per ID rec's (empiric Cefepime and Vancomycin) - prn analgesia per CPOT score - Maintenance of sleep-wake cycle, avoid delirium - G.I. & VTE prophylaxis - PT/OT/ROM exercises - mobility protocols for pressure ulcer prophylaxis - Monitor hemodynamics closely - continue other care per attending / other consultants - discharge planning ongoing concurrently .... Re-evaluate in am & prn CONDITION: CRITICAL PROGNOSIS: GUARDED CODE STATUS: FULL CODE The high probability of a clinically significant, sudden or life-threatening de terioration of the [respiratory, cardiovascular & renal] system(s) required my full and direct attention, intervention and personal management. The aggregate critical care time was [34] minutes without overlap. Time includes spent on; [x] Data Review and interpretation [x] Patient assessment and monitoring of vital signs [x] Documentation [x] Medication orders and management Subjective Date of service: 12/03/21 Principal diagnosis: AHRF; Pneumonia; Lung CA; PEDRO; Hyperkalemia; Septic shock; NSTEMI; DM II Interval history: Patient is seen today for: Acute hypoxemic respiratory failure; Bilateral pneumonia; Lung cancer; PEDRO; Hyperkalemia; Septic shock; NSTEMI; Chronic left pleural effusion Seen and examined at bedside; 24hour events reviewed; nursing and respiratory care staff consulted; no adverse overnight events reported to me; resting peace fully in bed; remains on supplemental oxygen; denies chest pain and SOB better; azotemia better; FENA calculates as post-renal; No N/V/F/C; + diarrhea Objective Vital Signs - 12hr 12/02/21 12/02/21 12/02/21 20:15 20:31 20:45 Temperature Pulse Rate 106 H 115 H 119 H Respiratory Rate Blood Pressure 87/55 94/52 95/59 O2 Sat by Pulse 78 L Oximetry 12/02/21 12/02/21 12/02/21 21:01 21:15 21:30 Temperature Pulse Rate 118 H 118 H 120 H Respiratory 15 21 13 Rate Blood Pressure 84/61 93/62 84/61 O2 Sat by Pulse 96 95 Oximetry 12/02/21 12/02/21 12/02/21 21:45 22:01 22:15 Temperature Pulse Rate 118 H 118 H 114 H Respiratory 23 19 18 Rate Blood Pressure 79/48 95/58 96/50 O2 Sat by Pulse 100 100 Oximetry 12/02/21 12/02/21 12/02/21 22:31 22:45 23:01 Temperature Pulse Rate 117 H 116 H 115 H Respiratory 22 19 23 Rate Blood Pressure 99/69 95/62 96/64 O2 Sat by Pulse 100 94 Oximetry 12/02/21 12/02/21 12/02/21 23:15 23:31 23:45 Temperature Pulse Rate 118 H 118 H 111 H Respiratory 21 14 18 Rate Blood Pressure 62/40 68/40 96/63 O2 Sat by Pulse 99 100 Oximetry 12/03/21 12/03/21 12/03/21 00:00 00:18 00:21 Temperature Pulse Rate 115 H 116 H Respiratory 19 26 H 23 Rate Blood Pressure O2 Sat by Pulse 93 98 98 Oximetry 12/03/21 12/03/21 12/03/21 00:31 00:40 00:51 Temperature Pulse Rate 113 H 113 H 114 H Respiratory 22 21 15 Rate Blood Pressure 95/66 95/66 O2 Sat by Pulse 98 98 Oximetry 12/03/21 12/03/21 12/03/21 01:00 01:01 01:02 Temperature 98.0 F Pulse Rate 111 H 115 H Respiratory 17 Rate Blood Pressure 96/70 O2 Sat by Pulse 98 Oximetry 12/03/21 12/03/21 12/03/21 01:07 01:11 01:21 Temperature Pulse Rate 110 H 111 H 121 H Respiratory 16 22 31 H Rate Blood Pressure 96/70 95/66 95/66 O2 Sat by Pulse 95 99 99 Oximetry 12/03/21 12/03/21 12/03/21 01:31 01:41 01:51 Temperature Pulse Rate 111 H 107 H 104 H Respiratory 22 21 22 Rate Blood Pressure 95/66 96/70 96/70 O2 Sat by Pulse 94 98 Oximetry 12/03/21 12/03/21 12/03/21 02:00 02:11 02:21 Temperature Pulse Rate 99 H 96 H 100 H Respiratory 21 13 18 Rate Blood Pressure 106/70 106/70 106/70 O2 Sat by Pulse 99 98 99 Oximetry 12/03/21 12/03/21 12/03/21 02:31 02:41 02:51 Temperature Pulse Rate 99 H 97 H 99 H Respiratory 13 17 18 Rate Blood Pressure 106/70 106/70 106/70 O2 Sat by Pulse 99 99 100 Oximetry 12/03/21 12/03/21 12/03/21 03:00 03:11 03:20 Temperature Pulse Rate 96 H 125 H 109 H Respiratory 13 23 20 Rate Blood Pressure 108/68 108/68 108/68 O2 Sat by Pulse 99 99 99 Oximetry 12/03/21 12/03/21 12/03/21 03:31 03:41 03:51 Temperature Pulse Rate 101 H 100 H 108 H Respiratory 16 16 24 Rate Blood Pressure 108/68 108/68 108/68 O2 Sat by Pulse 100 100 97 Oximetry 12/03/21 12/03/21 12/03/21 04:00 04:11 04:21 Temperature Pulse Rate 103 H 99 H 100 H Respiratory 15 18 24 Rate Blood Pressure 98/58 98/58 98/58 O2 Sat by Pulse 99 100 100 Oximetry 12/03/21 12/03/21 12/03/21 04:31 04:41 04:51 Temperature Pulse Rate 98 H 101 H 98 H Respiratory 22 18 22 Rate Blood Pressure 98/58 98/58 98/58 O2 Sat by Pulse 99 97 98 Oximetry 12/03/21 12/03/21 12/03/21 05:00 05:01 05:11 Temperature 98.7 F Pulse Rate 94 H 103 H Respiratory 23 28 H Rate Blood Pressure 106/74 106/74 O2 Sat by Pulse 98 99 Oximetry 12/03/21 12/03/21 12/03/21 05:21 05:31 05:41 Temperature Pulse Rate 116 H 119 H 103 H Respiratory 20 26 H 17 Rate Blood Pressure 106/74 106/74 106/74 O2 Sat by Pulse 100 89 Oximetry 0912/03/21 12/03/21 05:51 06:00 06:11 Temperature Pulse Rate 100 H 102 H 109 H Respiratory 14 14 28 H Rate Blood Pressure 106/74 104/62 104/62 O2 Sat by Pulse 99 99 99 Oximetry 12/03/21 12/03/21 12/03/21 06:21 06:31 06:41 Temperature Pulse Rate 97 H 101 H 97 H Respiratory 18 22 22 Rate Blood Pressure 104/62 104/62 104/62 O2 Sat by Pulse 100 99 99 Oximetry 12/03/21 12/03/21 12/03/21 06:51 07:00 07:11 Temperature Pulse Rate 112 H 94 H 104 H Respiratory 18 21 17 Rate Blood Pressure 104/62 108/69 108/69 O2 Sat by Pulse 100 100 99 Oximetry 12/03/21 12/03/21 12/03/21 07:21 07:31 07:41 Temperature Pulse Rate 96 H 99 H 117 H Respiratory 12 14 30 H Rate Blood Pressure 108/69 108/69 108/69 O2 Sat by Pulse 98 99 99 Oximetry 12/03/21 12/03/21 12/03/21 07:51 07:58 08:00 Temperature Pulse Rate 114 H 106 H 103 H Respiratory 17 29 H 22 Rate Blood Pressure 108/69 108/69 91/64 O2 Sat by Pulse 96 98 98 Oximetry 12/03/21 08:05 Temperature Pulse Rate Respiratory Rate Blood Pressure O2 Sat by Pulse 94 Oximetry Constitutional: appears uncomfortable, other (elderly male with mildly increased respiratory effort at rest) Eyes: non-icteric ENT: oropharynx moist Neck: supple, no lymphadenopathy, no JVD Effort: mildly labored Ascultation: Bilateral: diminished breath sounds, rhonchi (bases) Percussion: Bilateral: not dull Cardiovascular: regular rate and rhythm Gastrointestinal: normoactive bowel sounds, soft, non-tender, non-distended (protuberant) Integumentary: normal Extremities: no cyanosis, no edema, pulses normal, no ischemia or petechiae, other (bilateral BKA's) Neurologic: non-focal exam (grossly), pupils equal and round, CN II-XII normal, motor strength normal and Psychiatric: mood appropriate, affect normal CBC and BMP: 12/06/21 04:15 12/06/21 04:15 ABG, PT/INR, D-dimer: ABG ABG pH 7.322 pH Units (7.350-7.450) L 12/02/21 22:40 ABG pCO2 25.5 mm Hg 12/02/21 22:40 ABG pO2 240.4 mm Hg (80.0-90.0) H 12/02/21 22:40 ABG O2 Saturation 99.4 % (95.0-99.0) H 12/02/21 22:40 PT/INR, D-dimer PT 19.7 Sec. (12.2-14.9) H 12/02/21 15:21 INR 1.48 (0.87-1.13) H 12/02/21 15:21 Abnormal lab findings: Abnormal Labs 12/02/21 12/02/21 12/02/21 15:21 15:21 15:21 WBC 22.7 H Hgb Hct MCV 78 L MCH 25 L RDW 20.2 H Lymph % (Auto) [place] % (Auto) [place] # (Auto) Seg Neutrophils % Seg Neuts % (Manual) 87.0 H Lymphocytes % (Manual) 9.0 L Seg Neutrophils # Seg Neutrophils # Man 19.7 H PT 19.7 H INR 1.48 H ABG pH ABG pO2 ABG HCO3 ABG O2 Saturation ABG Base Excess ABG Hemoglobin Sodium 131 L Potassium 7.1 H* Chloride 94.9 L Carbon Dioxide 10 L BUN 89 H Creatinine 7.1 H Glucose 108 H Lactic Acid Troponin T 0.105 H* Total Protein Albumin PTH Intact Urine Creatinine 12/02/21 12/02/21 12/02/21 16:39 17:22 22:26 WBC Hgb Hct MCV MCH RDW Lymph % (Auto) [place] % (Auto) [place] # (Auto) Seg Neutrophils % Seg Neuts % (Manual) Lymphocytes % (Manual) Seg Neutrophils # Seg Neutrophils # Man PT INR ABG pH ABG pO2 ABG HCO3 ABG O2 Saturation ABG Base Excess ABG Hemoglobin Sodium Potassium 7.2 H* Chloride Carbon Dioxide BUN Creatinine Glucose Lactic Acid 6.80 H* 8.90 H* Troponin T Total Protein Albumin PTH Intact Urine Creatinine 12/02/21 12/02/21 12/03/21 22:26 22:40 00:01 WBC Hgb Hct MCV MCH RDW Lymph % (Auto) [place] % (Auto) [place] # (Auto) Seg Neutrophils % Seg Neuts % (Manual) Lymphocytes % (Manual) Seg Neutrophils # Seg Neutrophils # Man PT INR ABG pH 7.322 L ABG pO2 240.4 H ABG HCO3 12.9 L ABG O2 Saturation 99.4 H ABG Base Excess -11.6 L ABG Hemoglobin 11.1 L Sodium Potassium 5.2 H D Chloride Carbon Dioxide 15 L BUN 77 H Creatinine 6.0 H Glucose 58 L Lactic Acid Troponin T Total Protein Albumin PTH Intact 138.9 H Urine Creatinine 12/03/21 12/03/21 12/03/21 03:15 04:00 04:00 WBC 15.7 H Hgb 10.7 L Hct 34.0 L MCV 78 L MCH 25 L RDW 20.0 H Lymph % (Auto) 12.5 L [place] % (Auto) 9.2 H [place] # (Auto) 1.4 H Seg Neutrophils % 78.1 H Seg Neuts % (Manual) Lymphocytes % (Manual) Seg Neutrophils # 12.2 H Seg Neutrophils # Man PT INR ABG pH ABG pO2 ABG HCO3 ABG O2 Saturation ABG Base Excess ABG Hemoglobin Sodium Potassium Chloride Carbon Dioxide 18 L BUN 72 H Creatinine 5.3 H Glucose Lactic Acid Troponin T Total Protein 5.6 L D Albumin 3.1 L PTH Intact Urine Creatinine 44.3 H 12/03/21 04:05 WBC Hgb Hct MCV MCH RDW Lymph % (Auto) [place] % (Auto) [place] # (Auto) Seg Neutrophils % Seg Neuts % (Manual) Lymphocytes % (Manual) Seg Neutrophils # Seg Neutrophils # Man PT INR ABG pH ABG pO2 ABG HCO3 ABG O2 Saturation ABG Base Excess ABG Hemoglobin Sodium Potassium Chloride Carbon Dioxide BUN Creatinine Glucose Lactic Acid 4.00 H* Troponin T Total Protein Albumin PTH Intact Urine Creatinine Chest x-ray: other (none today) Allied health notes reviewed: nursing
[2021-12-03] MEDS: FAMOTIDINE 20 MG TAB PO SCH (11:00)
[2021-12-03] MEDS: SODIUM BICARBONATE 150 MEQ in WATER FOR INJECTION (PF) 1,000 ML IV SCH ×2 (11:02→20:08)
--- NOTE | 2021-12-03 11:10 | Progress Note ---
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 Patient reported he was recently hospitalized 3 weeks ago for pneumonia and was discharge with some PCN. Patient is afebrile with leukocytosis and Lactic acidosis, cultures and procal pending. Continue current IV abx for now. Patient is also reported frequent loose stools/diarrhea for the past 3 weeks. Will check for C.Diff and PO Vanc and Flagyl added. ID consulted for further recs. Renal function with some improvement, continue bcarb gtt per nephro. Obtain records from the [facility] in [place]. Assessment and Plan #Septic Shock #Bilateral Pneumonia #Leukocytosis #Metabolic Acidosis #R/o C.Diff #COVID PUI - Blood cultures and COVID PCR pending - Check imflam. markers and Procal - Continue current empiric IV abx- Cefepine and Vanco - With diarrheaX3 weeks- C.diff PCR pending - PO Vanc and IV Flagyl was also initiated - ID consulted - On Levophed and bcarb gtt per Nephro - Continue blood pressure monitor per protocol - Maintain MAP above 65 - F/U on cultures - Trend Lactic #Acute Hypoxic Respiratory Failure #Lung cancer with Metastatic Disease #Malignant Pleural Effusion s/p pleurix cath #COVID PUI - Currently stable on 2L NC - Continue current IV abx - Continue O2 supplemementation and wean as tolerated - Continue SPO2 monitoring for SPO2 goal above 92% - CCM is following #Acute Kidney Injury (PEDRO) most likely ATN #Hyperkalemia-resolved - secondary to above - Nephrology on consult, appreciated recommendation - Strict intake and output - Avoid nephrotoxic medications; Renally dose medications - Continue NaBcarb gtt per Nephro - Monitor and replace electrolytes as needed #Elevated Troponin, most likely type 2 - secondary to demand ischemia vs PEDRO - EKG with no significant ST changes - Troponin downtrending, continue to trend - VTE- Heparin Subq #Lung Cancer with Metastatic Disease #Former Smoker - Diagnosed in Jan, 2021 - Currently receiving Chemo treatment, last treatment was in August, - Next schedule treatment is in January 19, 2022 at the [facility] - Follow with oncology outpatient for further treatment #Type 2 Diabetes Mellitus - hypoglycemic this am, probably due to NPO status - Now on Renal diet - check BG and SSI ACHS - Avoid hypoglycemia - Hypoglycemic protocol #Chronic Back Pain - Continue supportive care - PRN Analgesia for pain control #GI/DVT Prophylaxis - PPI- Pepcid - Heaprin SubQ #Advance Care Planning - Disease education data, care plan, diagnoses, and prognosis were discussed with the patient at the bedside. Patient is a FULL code. Patient acknowledged understanding and agreed with current care plan. The high probability of a clinically significant, sudden or life threatening deterioration of the [multiple] system(s) required my full and direct attention, intervention and personal management. The aggregate critical care time was [60] minutes. This time is in addition to time spent performing reported procedures but includes the following: [x] Data Review and interpretation [x] Patient assessment and monitoring of vital signs [x] Documentation [x] Medication orders and management Disposition Plan: ICU Total Time Spent with Patient (Minutes): 60 History Interval history: Patient seen and examined at the bedside. Fully AAOX4, on 3L NC, denied any pain nor any discomfort at this time. Left pleurix Cath noted with no s/s of any complications. Patient is on Levophed and sodium bcarb gtts. ST on the monitor. JUDD overnight Hospitalist Physical - Constitutional Vitals: Temp Pulse Resp BP Pulse Ox 98.3 F 102 H 22 91/64 94 12/03/21 08:00 12/03/21 08:00 12/03/21 08:00 12/03/21 08:00 12/03/21 08:05 General appearance: Present: no acute distress, well-nourished, obese - EENT Eyes: Present: PERRL, EOM intact ENT: hearing intact - Neck Neck: Present: normal ROM - Respiratory Respiratory effort: normal Respiratory: left: other (left Pleurix Cath) - Cardiovascular Rhythm: regular Heart Sounds: Present: S1 & S2 - Extremities Extremities: no ischemia, pulses intact, pulses symmetrical, abnormal (Bilateral BKA) Extremity abnormal: edema - Peripheral Assessment Generalized Edema Type: Non-pitting Edema Degree: 1+ Capillary Refill: < 3 seconds Skin Temperature: Warm Peripheral Pulses: within normal limits (BUE only, bilateral BKA) - Abdominal General gastrointestinal: soft, non-distended, normal bowel sounds - Integumentary Integumentary: Present: warm, dry - Psychiatric Psychiatric: appropriate mood/affect, cooperative - Neurologic Neurologic: moves all extremities - Allied Health Allied health notes reviewed: nursing, case management HEART Score - HEART Score Troponin: Troponin T 0.105 ng/mL (0.00-0.029) H* 12/02/21 15:21 Results - Labs CBC & Chem 7: 12/03/21 04:00 12/03/21 04:00 Labs: Laboratory Last Values WBC 15.7 K/mm3 (4.5-11.0) H 12/03/21 04:00 RBC 4.36 M/mm3 (3.65-5.03) 12/03/21 04:00 Hgb 10.7 gm/dl (11.8-15.2) L 12/03/21 04:00 Hct 34.0 % (35.5-45.6) L 12/03/21 04:00 MCV 78 fl (84-94) L 12/03/21 04:00 MCH 25 pg (28-32) L 12/03/21 04:00 MCHC 32 % (32-34) 12/03/21 04:00 RDW 20.0 % (13.2-15.2) H 12/03/21 04:00 Plt Count 290 K/mm3 (140-440) 12/03/21 04:00 Lymph % (Auto) 12.5 % (13.4-35.0) L 12/03/21 04:00 [place]ama % (Auto) 9.2 % (0.0-7.3) H 12/03/21 04:00 Eos % (Auto) 0.1 % (0.0-4.3) 12/03/21 04:00 Baso % (Auto) 0.1 % (0.0-1.8) 12/03/21 04:00 Lymph # (Auto) 2.0 K/mm3 (1.2-5.4) 12/03/21 04:00 Tama # (Auto) 1.4 K/mm3 (0.0-0.8) H 12/03/21 04:00 Eos # (Auto) 0.0 K/mm3 (0.0-0.4) 12/03/21 04:00 Baso # (Auto) 0.0 K/mm3 (0.0-0.1) 12/03/21 04:00 Add Manual Diff Complete 12/02/21 15:21 Total Counted 100 12/02/21 15:21 Seg Neutrophils % 78.1 % (40.0-70.0) H 12/03/21 04:00 Seg Neuts % (Manual) 87.0 % (40.0-70.0) H 12/02/21 15:21 Band Neutrophils % 1.0 % 12/02/21 15:21 Lymphocytes % (Manual) 9.0 % (13.4-35.0) L 12/02/21 15:21 Reactive Lymphs % (Man) 0 % 12/02/21 15:21 Monocytes % (Manual) 2.0 % (0.0-7.3) 12/02/21 15:21 Eosinophils % (Manual) 1.0 % (0.0-4.3) 12/02/21 15:21 Basophils % (Manual) 0 % (0.0-1.8) 12/02/21 15:21 Metamyelocytes % 0 % 12/02/21 15:21 Myelocytes % 0 % 12/02/21 15:21 Promyelocytes % 0 % 12/02/21 15:21 Blast Cells % 0 % 12/02/21 15:21 Nucleated RBC % Not Reportable 12/02/21 15:21 Seg Neutrophils # 12.2 K/mm3 (1.8-7.7) H 12/03/21 04:00 Seg Neutrophils # Man 19.7 K/mm3 (1.8-7.7) H 12/02/21 15:21 Band Neutrophils # 0.2 K/mm3 12/02/21 15:21 Lymphocytes # (Manual) 2.0 K/mm3 (1.2-5.4) 12/02/21 15:21 Abs React Lymphs (Man) 0.0 K/mm3 12/02/21 15:21 Monocytes # (Manual) 0.5 K/mm3 (0.0-0.8) 12/02/21 15:21 Eosinophils # (Manual) 0.2 K/mm3 (0.0-0.4) 12/02/21 15:21 Basophils # (Manual) 0.0 K/mm3 (0.0-0.1) 12/02/21 15:21 Metamyelocytes # 0.0 K/mm3 12/02/21 15:21 Myelocytes # 0.0 K/mm3 12/02/21 15:21 Promyelocytes # 0.0 K/mm3 12/02/21 15:21 Blast Cells # 0.0 K/mm3 12/02/21 15:21 WBC Morphology Not Reportable 12/02/21 15:21 Hypersegmented Neuts Not Reportable 12/02/21 15:21 Hyposegmented Neuts Not Reportable 12/02/21 15:21 Hypogranular Neuts Not Reportable 12/02/21 15:21 Smudge Cells Not Reportable 12/02/21 15:21 Toxic Granulation Not Reportable 12/02/21 15:21 Toxic Vacuolation Not Reportable 12/02/21 15:21 Dohle Bodies Not Reportable 12/02/21 15:21 Pelger-Huet Anomaly Not Reportable 12/02/21 15:21 Chandra Rods Not Reportable 12/02/21 15:21 Platelet Estimate Consistent w auto 12/02/21 15:21 Clumped Platelets Not Reportable 12/02/21 15:21 Plt Clumps, EDTA Not Reportable 12/02/21 15:21 Large Platelets Not Reportable 12/02/21 15:21 Giant Platelets Not Reportable 12/02/21 15:21 Platelet Satelliting Not Reportable 12/02/21 15:21 Plt Morphology Comment Not Reportable 12/02/21 15:21 RBC Morphology Not Reportable 12/02/21 15:21 Dimorphic RBCs Not Reportable 12/02/21 15:21 Polychromasia Not Reportable 12/02/21 15:21 Hypochromasia 1+ 12/02/21 15:21 Poikilocytosis Not Reportable 12/02/21 15:21 Anisocytosis 1+ 12/02/21 15:21 Microcytosis Not Reportable 12/02/21 15:21 Macrocytosis Not Reportable 12/02/21 15:21 Spherocytes Not Reportable 12/02/21 15:21 Pappenheimer Bodies Not Reportable 12/02/21 15:21 Sickle Cells Not Reportable 12/02/21 15:21 Target Cells Not Reportable 12/02/21 15:21 Tear Drop Cells Not Reportable 12/02/21 15:21 Ovalocytes Not Reportable 12/02/21 15:21 Helmet Cells Not Reportable 12/02/21 15:21 [place] Bodies Not Reportable 12/02/21 15:21 [place] Rings Not Reportable 12/02/21 15:21 [place] Cells Not Reportable 12/02/21 15:21 Bite Cells Not Reportable 12/02/21 15:21 Crenated Cell Not Reportable 12/02/21 15:21 Elliptocytes Not Reportable 12/02/21 15:21 Acanthocytes (Spur) Not Reportable 12/02/21 15:21 Rouleaux Not Reportable 12/02/21 15:21 Hemoglobin C Crystals Not Reportable 12/02/21 15:21 Schistocytes Not Reportable 12/02/21 15:21 Malaria parasites Not Reportable 12/02/21 15:21 Josh Bodies Not Reportable 12/02/21 15:21 Hem Pathologist Commnt No 12/02/21 15:21 PT 19.7 Sec. (12.2-14.9) H 12/02/21 15:21 INR 1.48 (0.87-1.13) H 12/02/21 15:21 ABG pH 7.322 pH Units (7.350-7.450) L 12/02/21 22:40 ABG pCO2 25.5 mm Hg 12/02/21 22:40 ABG pO2 240.4 mm Hg (80.0-90.0) H 12/02/21 22:40 ABG HCO3 12.9 mmol/L (20.0-26.0) L 12/02/21 22:40 ABG O2 Saturation 99.4 % (95.0-99.0) H 12/02/21 22:40 ABG O2 Content 15.9 (0.0-44) 12/02/21 22:40 ABG Base Excess -11.6 mmol/L (-2.0-3.0) L 12/02/21 22:40 ABG Hemoglobin 11.1 gm/dl (14.0-18.0) L 12/02/21 22:40 ABG Carboxyhemoglobin 1.0 % (0.0-5.0) 12/02/21 22:40 ABG Methemoglobin 0.6 % (0.0-1.5) 12/02/21 22:40 Oxyhemoglobin 97.9 % (95.0-99.0) 12/02/21 22:40 FiO2 100 % 12/02/21 22:40 Sodium 144 mmol/L (137-145) 12/03/21 04:00 Potassium 4.5 mmol/L (3.6-5.0) 12/03/21 04:00 Chloride 105.9 mmol/L (98-107) 12/03/21 04:00 Carbon Dioxide 18 mmol/L (22-30) L 12/03/21 04:00 Anion Gap 25 mmol/L 12/03/21 04:00 BUN 72 mg/dL (9-20) H 12/03/21 04:00 Creatinine 5.3 mg/dL (0.8-1.3) H 12/03/21 04:00 Estimated GFR 13 ml/min 12/03/21 04:00 BUN/Creatinine Ratio 14 % 12/03/21 04:00 Glucose 92 mg/dL (75-100) 12/03/21 04:00 POC Glucose 65 mg/dL (70-105) L 12/03/21 00:48 Lactic Acid 4.00 mmol/L (0.7-2.0) H* 12/03/21 04:05 Calcium 8.9 mg/dL (8.4-10.2) 12/03/21 04:00 Total Bilirubin 0.20 mg/dL (0.1-1.2) 12/03/21 04:00 AST 27 units/L (5-40) 12/03/21 04:00 ALT 10 units/L (7-56) 12/03/21 04:00 Alkaline Phosphatase 71 units/L (35-129) 12/03/21 04:00 Troponin T 0.105 ng/mL (0.00-0.029) H* 12/02/21 15:21 C-Reactive Protein 0.30 mg/dL (0.00-1.30) 12/02/21 22:26 NT-Pro-B Natriuret Pep 453.1 pg/mL (0-900) 12/02/21 15:21 Total Protein 5.6 g/dL (6.3-8.2) L D 12/03/21 04:00 Albumin 3.1 g/dL (3.9-5) L 12/03/21 04:00 Albumin/Globulin Ratio 1.2 % 12/03/21 04:00 PTH Intact 138.9 pg/mL (15-65) H 12/03/21 00:01 Urine Creatinine 44.3 mg/dL (0.1-20.0) H 12/03/21 03:15 Urine Sodium 74 mmol/L 12/03/21 03:15 Blood Type A POSITIVE 12/02/21 22:26 Antibody Screen Negative 12/02/21 22:26 Microbiology: Microbiology 12/02/21 16:38 Peripheral/Venous Blood Culture - Preliminary Culture in Progress 12/02/21 16:38 Peripheral/Venous Blood Culture - Preliminary Culture in Progress Abad/IV: Voiding Method Urinal Active Medications - Current Medications Current Medications: Generic Name Dose Route Start Last Admin Trade Name Freq PRN Reason Stop Dose Admin Acetaminophen 650 mg 12/02/21 19:05 Acetaminophen 325 Mg Tab PO Q6H PRN Pain MILD(1-3)/Fever >100.5/FAJARDO Albuterol 2.5 mg 12/02/21 19:05 Albuterol 2.5 Mg/3 Ml Nebu IH Q3HRT PRN Shortness Of Breath Famotidine 20 mg 12/03/21 10:00 Famotidine 20 Mg Tab PO QDAY BRITNEY Heparin Sodium (Porcine) 5,000 unit 12/03/21 14:00 Heparin 5,000 Unit/1 Ml Vial SUB-Q Q8HR BRITNEY Hydromorphone HCl 0.25 mg 12/02/21 19:05 Hydromorphone 0.5 Mg/0.5 Ml Inj IV Q4H PRN Pain, Moderate (4-6) Hydromorphone HCl 0.5 mg 12/02/21 19:05 Hydromorphone 0.5 Mg/0.5 Ml Inj IV Q3H PRN Pain , Severe (7-10) NORepinephrine/NS 8 MG-250 ML 8 mg in 250 mls @ 12.247 mls/hr 12/02/21 18:38 12/02/21 23:43 Norepinephrine/Ns 8 Mg-250 Ml (Double Conc) IV 0.1 mcg/kg/min TITRATE PRN 12.247 mls/hr Hypotension Administration Protocol 0.1 MCG/KG/MIN Cefepime HCl 2 gm in 100 mls @ 200 mls/hr 12/04/21 06:00 Cefepime/Ns 2 Gm/100 Ml IV Q24H [facility]NEY Protocol Sodium Bicarbonate 150 meq/ 1,150 mls @ 150 mls/hr 12/03/21 11:00 12/03/21 11:02 Sterile Water IV 12/07/21 18:39 150 mls/hr DIRECT BRITNEY Administration Metronidazole 500 mg in 100 mls @ 100 mls/hr 12/03/21 11:00 Flagyl 500 Mg/100 Ml IV Q8H [facility] Protocol Ondansetron HCl 4 mg 12/03/21 00:52 12/03/21 00:59 Ondansetron 4 Mg/2 Ml Inj IV 4 mg Q8H PRN Administration Nausea And Vomiting Oxycodone/Acetaminophen 1 tab 12/02/21 19:05 Oxycodone /Acetaminophen 5-325mg Tab PO Q6H PRN Pain, Moderate (4-6) Sodium Chloride 10 ml 12/02/21 22:00 12/03/21 11:03 Sodium Chloride 0.9% 10 Ml Flush Syringe IV 10 ml BID BRITNEY Administration Sodium Chloride 10 ml 12/02/21 19:05 Sodium Chloride 0.9% 10 Ml Flush Syringe IV PRN PRN LINE FLUSH Vancomycin HCl 500 mg 12/03/21 12:00 Vancomycin 250 Mg/10 Ml Oral Liqd PO Q6HR [facility] Protocol Nutrition/Malnutrition Assess - Dietary Evaluation Nutrition/Malnutrition Findings: Nutrition Notes Start: 12/03/21 09:55 Freq: Status: Active Protocol: Document 12/03/21 09:55 CIERRA (Rec: 12/03/21 10:23 CIERRA [id number]) Nutrition Notes Need for Assessment generated from: MD Order Initial or Follow up Assessment Current Diagnosis Acute Kidney Injury,Diabetes, Respiratory Failure Other Pertinent Diagnosis NSTEMI, Dehydration, Pneumonia , Metastatic Lung CA/Pleural Effusion,... Current Diet Renal Diet + D Suppl (since L 12/03). Labs/Tests 12/03: CO2 18, BUN 72, Crea 5. 3/ Pertinent Medications 12/03: Nutritionally unremarkable. Height 5 ft 7 in Weight 64.3 kg [place] Body Weight (kg) 67.27 BMI 22.1 Intake Prior to Admission Good Weight change and time frame Pt denies having loss body weight [employer]. Weight Status Appropriate Subjective/Other Information RD consult for dietary supplementation assessment. No reports available on Pt's PO intake at the time, will assess at F/U. I will prescribe dietary supplements to compensate for poor or insufficient PO intake of meals during LOS. Pt is on NIV/Bi-PaP+, O2 saturation @ 98%, according to Physical Assessment History notes. Pt has missing teeth, according to Physical Assessment History notes. 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 Percent of energy/protein needs met: Prescribed Renal Diet provides for energy/protein needs (2, 072 Kcal/77 g) during LOS; additionally, Dietary Supplements will compensate for possible poor or insufficient PO intake of meals with 850 Kcal and 38 g of protein. Burn Absent Trauma Absent GI Symptoms Nausea,Vomiting,Diarrhea Food Allergy No Skin Integrity/Comment Assessment WNL. 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 As Evidenced by Signs and Symptoms No reports available on Pt's PO intake at the time, will assess at F/U. Is patient on ventilator? No Is Patient Ambulatory and/or Out of Bed Yes REE-([facility]-ambulatory/OOB) [ [id number] [id number]] Calculation Used for Recommendations [facility] Additional Notes Protein: 0.8-1.2 g/Kg ABW; 51- 77 g/day. Fluids: 1 ml/Kcal, or as per MD. Nutrition Intervention Change Diet Order: Continue Renal Diet as tolerated. Add Supplement/Snack (indicate name/kcal Start 8 fl oz Nepro w/ /protein ) CARBSTEADY; BID. Provides kCal: 850 Provides Protein (gm) 38 Goal #1 Compensate, through dietary supplementation, for possible poor or insufficient PO intake of meals during LOS. Follow-Up By: 12/09/21 Additional Comments Continue monitoring food tolerance, %PO intake of meals , dietary supplements, and BM. <ALFONSO PEREYRA - Last Filed: 12/04/21 07:33> Assessment and Plan Assessment and plan: I saw and evaluated the patient. I agree with the findings and the plan of care as documented in the Nurse Practitioner's~note, with the following corrections and additions. Hospitalist Physical - Constitutional Vitals: Temp Pulse Resp BP Pulse Ox 96.1 F L 63 14 126/67 96 12/04/21 04:27 12/04/21 06:00 12/04/21 06:00 12/04/21 06:00 12/04/21 06:00 HEART Score - HEART Score Troponin: Troponin T 0.045 ng/mL (0.00-0.029) H 12/03/21 23:16 Results - Labs CBC & Chem 7: 12/04/21 05:00 12/03/21 04:00 Labs: Laboratory Last Values WBC 12.2 K/mm3 (4.5-11.0) H 12/04/21 05:00 RBC 4.02 M/mm3 (3.65-5.03) 12/04/21 05:00 Hgb 9.8 gm/dl (11.8-15.2) L 12/04/21 05:00 Hct 31.2 % (35.5-45.6) L 12/04/21 05:00 MCV 78 fl (84-94) L 12/04/21 05:00 MCH 24 pg (28-32) L 12/04/21 05:00 MCHC 31 % (32-34) L 12/04/21 05:00 RDW 20.8 % (13.2-15.2) H 12/04/21 05:00 Plt Count 262 K/mm3 (140-440) 12/04/21 05:00 Lymph % (Auto) 12.5 % (13.4-35.0) L 12/03/21 04:00 Tama % (Auto) 9.2 % (0.0-7.3) H 12/03/21 04:00 Eos % (Auto) 0.1 % (0.0-4.3) 12/03/21 04:00 Baso % (Auto) 0.1 % (0.0-1.8) 12/03/21 04:00 Lymph # (Auto) 2.0 K/mm3 (1.2-5.4) 12/03/21 04:00 [place]ama # (Auto) 1.4 K/mm3 (0.0-0.8) H 12/03/21 04:00 Eos # (Auto) 0.0 K/mm3 (0.0-0.4) 12/03/21 04:00 Baso # (Auto) 0.0 K/mm3 (0.0-0.1) 12/03/21 04:00 Add Manual Diff Complete 12/02/21 15:21 Total Counted 100 12/02/21 15:21 Seg Neutrophils % 78.1 % (40.0-70.0) H 12/03/21 04:00 Seg Neuts % (Manual) 87.0 % (40.0-70.0) H 12/02/21 15:21 Band Neutrophils % 1.0 % 12/02/21 15:21 Lymphocytes % (Manual) 9.0 % (13.4-35.0) L 12/02/21 15:21 Reactive Lymphs % (Man) 0 % 12/02/21 15:21 Monocytes % (Manual) 2.0 % (0.0-7.3) 12/02/21 15:21 Eosinophils % (Manual) 1.0 % (0.0-4.3) 12/02/21 15:21 Basophils % (Manual) 0 % (0.0-1.8) 12/02/21 15:21 Metamyelocytes % 0 % 12/02/21 15:21 Myelocytes % 0 % 12/02/21 15:21 Promyelocytes % 0 % 12/02/21 15:21 Blast Cells % 0 % 12/02/21 15:21 Nucleated RBC % Not Reportable 12/02/21 15:21 Seg Neutrophils # 12.2 K/mm3 (1.8-7.7) H 12/03/21 04:00 Seg Neutrophils # Man 19.7 K/mm3 (1.8-7.7) H 12/02/21 15:21 Band Neutrophils # 0.2 K/mm3 12/02/21 15:21 Lymphocytes # (Manual) 2.0 K/mm3 (1.2-5.4) 12/02/21 15:21 Abs React Lymphs (Man) 0.0 K/mm3 12/02/21 15:21 Monocytes # (Manual) 0.5 K/mm3 (0.0-0.8) 12/02/21 15:21 Eosinophils # (Manual) 0.2 K/mm3 (0.0-0.4) 12/02/21 15:21 Basophils # (Manual) 0.0 K/mm3 (0.0-0.1) 12/02/21 15:21 Metamyelocytes # 0.0 K/mm3 12/02/21 15:21 Myelocytes # 0.0 K/mm3 12/02/21 15:21 Promyelocytes # 0.0 K/mm3 12/02/21 15:21 Blast Cells # 0.0 K/mm3 12/02/21 15:21 WBC Morphology Not Reportable 12/02/21 15:21 Hypersegmented Neuts Not Reportable 12/02/21 15:21 Hyposegmented Neuts Not Reportable 12/02/21 15:21 Hypogranular Neuts Not Reportable 12/02/21 15:21 Smudge Cells Not Reportable 12/02/21 15:21 Toxic Granulation Not Reportable 12/02/21 15:21 Toxic Vacuolation Not Reportable 12/02/21 15:21 Dohle Bodies Not Reportable 12/02/21 15:21 Pelger-Huet Anomaly Not Reportable 12/02/21 15:21 Chandra Rods Not Reportable 12/02/21 15:21 Platelet Estimate Consistent w auto 12/02/21 15:21 Clumped Platelets Not Reportable 12/02/21 15:21 Plt Clumps, EDTA Not Reportable 12/02/21 15:21 Large Platelets Not Reportable 12/02/21 15:21 Giant Platelets Not Reportable 12/02/21 15:21 Platelet Satelliting Not Reportable 12/02/21 15:21 Plt Morphology Comment Not Reportable 12/02/21 15:21 RBC Morphology Not Reportable 12/02/21 15:21 Dimorphic RBCs Not Reportable 12/02/21 15:21 Polychromasia Not Reportable 12/02/21 15:21 Hypochromasia 1+ 12/02/21 15:21 Poikilocytosis Not Reportable 12/02/21 15:21 Anisocytosis 1+ 12/02/21 15:21 Microcytosis Not Reportable 12/02/21 15:21 Macrocytosis Not Reportable 12/02/21 15:21 Spherocytes Not Reportable 12/02/21 15:21 Pappenheimer Bodies Not Reportable 12/02/21 15:21 Sickle Cells Not Reportable 12/02/21 15:21 Target Cells Not Reportable 12/02/21 15:21 Tear Drop Cells Not Reportable 12/02/21 15:21 Ovalocytes Not Reportable 12/02/21 15:21 Helmet Cells Not Reportable 12/02/21 15:21 [place] Bodies Not Reportable 12/02/21 15:21 [place] Rings Not Reportable 12/02/21 15:21 [place] Cells Not Reportable 12/02/21 15:21 Bite Cells Not Reportable 12/02/21 15:21 Crenated Cell Not Reportable 12/02/21 15:21 Elliptocytes Not Reportable 12/02/21 15:21 Acanthocytes (Spur) Not Reportable 12/02/21 15:21 Rouleaux Not Reportable 12/02/21 15:21 Hemoglobin C Crystals Not Reportable 12/02/21 15:21 Schistocytes Not Reportable 12/02/21 15:21 Malaria parasites Not Reportable 12/02/21 15:21 Josh Bodies Not Reportable 12/02/21 15:21 Hem Pathologist Commnt No 12/02/21 15:21 PT 19.7 Sec. (12.2-14.9) H 12/02/21 15:21 INR 1.48 (0.87-1.13) H 12/02/21 15:21 ABG pH 7.322 pH Units (7.350-7.450) L 12/02/21 22:40 ABG pCO2 25.5 mm Hg 12/02/21 22:40 ABG pO2 240.4 mm Hg (80.0-90.0) H 12/02/21 22:40 ABG HCO3 12.9 mmol/L (20.0-26.0) L 12/02/21 22:40 ABG O2 Saturation 99.4 % (95.0-99.0) H 12/02/21 22:40 ABG O2 Content 15.9 (0.0-44) 12/02/21 22:40 ABG Base Excess -11.6 mmol/L (-2.0-3.0) L 12/02/21 22:40 ABG Hemoglobin 11.1 gm/dl (14.0-18.0) L 12/02/21 22:40 ABG Carboxyhemoglobin 1.0 % (0.0-5.0) 12/02/21 22:40 ABG Methemoglobin 0.6 % (0.0-1.5) 12/02/21 22:40 Oxyhemoglobin 97.9 % (95.0-99.0) 12/02/21 22:40 FiO2 100 % 12/02/21 22:40 Sodium 144 mmol/L (137-145) 12/03/21 04:00 Potassium 4.5 mmol/L (3.6-5.0) 12/03/21 04:00 Chloride 105.9 mmol/L (98-107) 12/03/21 04:00 Carbon Dioxide 18 mmol/L (22-30) L 12/03/21 04:00 Anion Gap 25 mmol/L 12/03/21 04:00 BUN 72 mg/dL (9-20) H 12/03/21 04:00 Creatinine 5.3 mg/dL (0.8-1.3) H 12/03/21 04:00 Estimated GFR 13 ml/min 12/03/21 04:00 BUN/Creatinine Ratio 14 % 12/03/21 04:00 Glucose 92 mg/dL (75-100) 12/03/21 04:00 POC Glucose 171 mg/dL (70-105) H 12/03/21 21:48 Lactic Acid 6.80 mmol/L (0.7-2.0) H* 12/03/21 11:16 Calcium 8.9 mg/dL (8.4-10.2) 12/03/21 04:00 Total Bilirubin 0.20 mg/dL (0.1-1.2) 12/03/21 04:00 AST 27 units/L (5-40) 12/03/21 04:00 ALT 10 units/L (7-56) 12/03/21 04:00 Alkaline Phosphatase 71 units/L (35-129) 12/03/21 04:00 Troponin T 0.045 ng/mL (0.00-0.029) H 12/03/21 23:16 C-Reactive Protein 0.30 mg/dL (0.00-1.30) 12/02/21 22:26 NT-Pro-B Natriuret Pep 453.1 pg/mL (0-900) 12/02/21 15:21 Total Protein 5.6 g/dL (6.3-8.2) L D 12/03/21 04:00 Albumin 3.1 g/dL (3.9-5) L 12/03/21 04:00 Albumin/Globulin Ratio 1.2 % 12/03/21 04:00 Triglycerides 147 mg/dL (2-149) 12/03/21 11:16 Cholesterol 133 mg/dL (50-199) 12/03/21 11:16 LDL Cholesterol Direct 69 mg/dL (50-130) 12/03/21 11:16 HDL Cholesterol 48 mg/dL (40-59) 12/03/21 11:16 Cholesterol/HDL Ratio 2.77 % 12/03/21 11:16 Procalcitonin < 0.05 ng/mL (<0.15) 12/02/21 22:26 PTH Intact 138.9 pg/mL (15-65) H 12/03/21 00:01 Urine Creatinine 44.3 mg/dL (0.1-20.0) H 12/03/21 03:15 Protein/Creatinin Ratio 0.20 12/03/21 03:15 Urine Sodium 74 mmol/L 12/03/21 03:15 Urine Total Protein 9 mg/dL (5-11.8) 12/03/21 03:15 Nasal Screen MRSA (PCR) Negative (Negative) 12/03/21 07:55 Coronavirus (PCR) Negative (Negative) 12/03/21 07:55 Blood Type A POSITIVE 12/02/21 22:26 Antibody Screen Negative 12/02/21 22:26 Microbiology: Microbiology 12/02/21 16:38 Peripheral/Venous Blood Culture - Preliminary NO GROWTH AFTER 24 HOURS 12/02/21 16:38 Peripheral/Venous Blood Culture - Preliminary NO GROWTH AFTER 24 HOURS Abad/IV: Voiding Method Urinal Active Medications - Current Medications Current Medications: Generic Name Dose Route Start Last Admin Trade Name Freq PRN Reason Stop Dose Admin Acetaminophen 650 mg 12/02/21 19:05 Acetaminophen 325 Mg Tab PO Q6H PRN Pain MILD(1-3)/Fever >100.5/FAJARDO Albuterol 2.5 mg 12/02/21 19:05 Albuterol 2.5 Mg/3 Ml Nebu IH Q3HRT PRN Shortness Of Breath Dextrose 50 ml 12/03/21 18:00 Dextrose 50% In Water (25gm) 50 Ml Syringe IV Q30MIN PRN Hypoglycemia Protocol Famotidine 20 mg 12/03/21 10:00 12/03/21 11:00 Famotidine 20 Mg Tab PO 20 mg QDAY BRITNEY Administration Heparin Sodium (Porcine) 5,000 unit 12/03/21 14:00 12/03/21 22:21 Heparin 5,000 Unit/1 Ml Vial SUB-Q 5,000 unit Q8HR BRITNEY Administration Hydromorphone HCl 0.25 mg 12/02/21 19:05 Hydromorphone 0.5 Mg/0.5 Ml Inj IV Q4H PRN Pain, Moderate (4-6) Hydromorphone HCl 0.5 mg 12/02/21 19:05 Hydromorphone 0.5 Mg/0.5 Ml Inj IV Q3H PRN Pain , Severe (7-10) NORepinephrine/NS 8 MG-250 ML 8 mg in 250 mls @ 12.247 mls/hr 12/02/21 18:38 12/03/21 18:19 Norepinephrine/Ns 8 Mg-250 Ml (Double Conc) IV 0.04 mcg/kg/min TITRATE PRN 4.899 mls/hr Hypotension Administration Protocol 0.1 MCG/KG/MIN Cefepime HCl 2 gm in 100 mls @ 200 mls/hr 12/04/21 06:00 Cefepime/Ns 2 Gm/100 Ml IV Q24H BRITNEY Protocol Sodium Bicarbonate 150 meq/ 1,150 mls @ 150 mls/hr 12/03/21 11:00 12/04/21 04:16 Sterile Water IV 12/07/21 18:39 150 mls/hr DIRECT BRITNEY Administration Metronidazole 500 mg in 100 mls @ 100 mls/hr 12/03/21 11:00 12/03/21 20:11 Flagyl 500 Mg/100 Ml IV 100 mls/hr Q8H BRITNEY Administration Protocol Insulin Human Regular 0 units 12/03/21 22:00 12/03/21 22:22 Insulin Regular, Human 100 Units/1 Ml SUB-Q 2 units ACHS BRITNEY Administration Protocol Ondansetron HCl 4 mg 12/03/21 00:52 12/03/21 00:59 Ondansetron 4 Mg/2 Ml Inj IV 4 mg Q8H PRN Administration Nausea And Vomiting Oxycodone/Acetaminophen 1 tab 12/02/21 19:05 Oxycodone /Acetaminophen 5-325mg Tab PO Q6H PRN Pain, Moderate (4-6) Sodium Chloride 10 ml 12/02/21 22:00 12/03/21 11:03 Sodium Chloride 0.9% 10 Ml Flush Syringe IV 10 ml BID BRITNEY Administration Sodium Chloride 10 ml 12/02/21 19:05 Sodium Chloride 0.9% 10 Ml Flush Syringe IV PRN PRN LINE FLUSH Thiamine HCl 100 mg 12/03/21 19:00 12/03/21 20:11 Thiamine 100 Mg Tab PO 100 mg QDAY BRITNEY Administration Vancomycin HCl 500 mg 12/03/21 12:00 12/03/21 23:27 Vancomycin 250 Mg/10 Ml Oral Liqd PO 500 mg Q6HR BRITNEY Administration Protocol Nutrition/Malnutrition Assess - Dietary Evaluation Nutrition/Malnutrition Findings: Nutrition Notes Start: 12/03/21 09:55 Freq: Status: Active Protocol: Document 12/03/21 09:55 CIERRA (Rec: 12/03/21 10:23 CIERRA [id number]) Nutrition Notes Need for Assessment generated from: MD Order Initial or Follow up Assessment Current Diagnosis Acute Kidney Injury,Diabetes, Respiratory Failure Other Pertinent Diagnosis NSTEMI, Dehydration, Pneumonia , Metastatic Lung CA/Pleural Effusion,... Current Diet Renal Diet + D Suppl (since L 12/03). Labs/Tests 12/03: CO2 18, BUN 72, Crea 5. 3/ Pertinent Medications 12/03: Nutritionally unremarkable. Height 5 ft 7 in Weight 64.3 kg [place] Body Weight (kg) 67.27 BMI 22.1 Intake Prior to Admission Good Weight change and time frame Pt denies having loss body weight [employer]. Weight Status Appropriate Subjective/Other Information RD consult for dietary supplementation assessment. No reports available on Pt's PO intake at the time, will assess at F/U. I will prescribe dietary supplements to compensate for poor or insufficient PO intake of meals during LOS. Pt is on NIV/Bi-PaP+, O2 saturation @ 98%, according to Physical Assessment History notes. Pt has missing teeth, according to Physical Assessment History notes. 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 Percent of energy/protein needs met: Prescribed Renal Diet provides for energy/protein needs (2, 072 Kcal/77 g) during LOS; additionally, Dietary Supplements will compensate for possible poor or insufficient PO intake of meals with 850 Kcal and 38 g of protein. Burn Absent Trauma Absent GI Symptoms Nausea,Vomiting,Diarrhea Food Allergy No Skin Integrity/Comment Assessment WNL. 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 As Evidenced by Signs and Symptoms No reports available on Pt's PO intake at the time, will assess at F/U. Is patient on ventilator? No Is Patient Ambulatory and/or Out of Bed Yes REE-([facility]-ambulatory/OOB) [ [id number] [id number]] Calculation Used for Recommendations [facility] Additional Notes Protein: 0.8-1.2 g/Kg ABW; 51- 77 g/day. Fluids: 1 ml/Kcal, or as per MD. Nutrition Intervention Change Diet Order: Continue Renal Diet as tolerated. Add Supplement/Snack (indicate name/kcal Start 8 fl oz Nepro w/ /protein ) CARBSTEADY; BID. Provides kCal: 850 Provides Protein (gm) 38 Goal #1 Compensate, through dietary supplementation, for possible poor or insufficient PO intake of meals during LOS. Follow-Up By: 12/09/21 Additional Comments Continue monitoring food tolerance, %PO intake of meals , dietary supplements, and BM.
[2021-12-03] MEDS: metroNIDAZOLE/NS 500 MG/100 ML 500 MG/100 ML BAG IV SCH ×2 (11:11→20:11)
[2021-12-03 12:35] LABS: Chol/HDL Ratio 2.77 %
[2021-12-03] MEDS: VANCOMYCIN 250 MG/10 ML ORAL LIQD PO SCH ×3 (12:38→23:27)
--- NOTE | 2021-12-03 13:23 | Electrocardiograph Report ---
[facility] Test Date: 2021-12-02 Test Time: 18:53:24 Pat Name: DIPTI PURVIS Department: Room: A252 1 Gender: M Game Author: REZA : [id number] Requested By: JAYLON MCLEOD Order Number: [id number] Reading MD: Ruy Verde Measurements Intervals [place] Rate: 98 P: 48 UT: 142 QRS: 30 QRSD: 98 T: 34 QT: 333 QTc: 424 Interpretive Statements Sinus rhythm Probable left atrial enlargement Low voltage, extremity leads No previous ECG available for comparison Electronically Signed On 12-03-2021 13:22:59 EDT by Ruy Verde
--- NOTE | 2021-12-03 13:25 | Ultrasound Report ---
ULTRASOUND RENAL INDICATION / CLINICAL INFORMATION: PEDRO. COMPARISON: None available. FINDINGS: RIGHT KIDNEY: Length = 9.6 cm. - Echogenicity: Normal. - Parenchymal Thickness: Normal. - Hydronephrosis: None. - Cyst / Mass: None. - Stones: None seen. LEFT KIDNEY: Length = 10.4 cm. - Echogenicity: Normal. - Parenchymal Thickness: Normal. - Hydronephrosis: Mild pelvocaliectasis. - Cyst / Mass: None. - Stones: None seen. URINARY BLADDER: No significant abnormality. FREE FLUID: None. ADDITIONAL FINDINGS: Small left pleural effusion. IMPRESSION: 1. There is mild left pelvocaliectasis without krishan hydronephrosis. No sonographic evidence of obstr ucting mass or stone. 2. Incidental finding of a small left pleural effusion. Scribed by: Umm Emmanuel RDMS, RVT, ELIZABETH Scribed: 12/03/2021 10:35 AM I have reviewed the images, agree with this report, and edited this report as needed. Signer Name: Jasmin Rios MD Signed: 12/03/2021 1:21 PM Workstation Name: [email or web address]
[2021-12-03 13:46] LABS: Protein/Creatinine Ratio,Urine 0.2
[2021-12-03] MEDS: HEPARIN 5,000 UNIT/1 ML VIAL SUB-Q SCH ×2 (13:47→22:21)
[2021-12-03] MEDS ORDERED: DEXTROSE 50% IN WATER (25GM) 50 ML SYRINGE IV PRN (18:00)
[2021-12-03] MEDS: NORepinephrine/NS 8 MG-250 ML 8 MG/250 ML INFUS..BTL IV PRN (18:19)
--- NOTE | 2021-12-03 18:32 | Consultation ---
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 He was subsequently admitted for further work-up which also revealed acute kidney injury and hyperkalemia for which nephrology was consulted. Patient denies hematuria, dysuria and decreased urine output Past History Past Medical History: cancer, diabetes, hypertension, PVD Past Surgical History: Other (Bilateral BKA) Social history: single. denies: smoking, alcohol abuse, prescription drug abuse Family history: diabetes, hypertension Medications and Allergies Allergies Allergy/AdvReac Type Severity Reaction Status Date / Time No Known Allergies Allergy Unverified 12/02/21 15:15 Active Meds: Active Medications Acetaminophen (Acetaminophen 325 Mg Tab) 650 mg PO Q6H PRN PRN Reason: Pain MILD(1-3)/Fever >100.5/FAJARDO Albuterol (Albuterol 2.5 Mg/3 Ml Nebu) 2.5 mg IH Q3HRT PRN PRN Reason: Shortness Of Breath Dextrose (Dextrose 50% In Water (25gm) 50 Ml Syringe) 50 ml IV Q30MIN PRN; Protocol PRN Reason: Hypoglycemia Famotidine (Famotidine 20 Mg Tab) 20 mg PO QDAY [facility] Last Admin: 12/03/21 11:00 Dose: 20 mg Heparin Sodium (Porcine) (Heparin 5,000 Unit/1 Ml Vial) 5,000 unit SUB-Q Q8HR [facility] Last Admin: 12/03/21 13:47 Dose: 5,000 unit Hydromorphone HCl (Hydromorphone 0.5 Mg/0.5 Ml Inj) 0.25 mg IV Q4H PRN PRN Reason: Pain, Moderate (4-6) Hydromorphone HCl (Hydromorphone 0.5 Mg/0.5 Ml Inj) 0.5 mg IV Q3H PRN PRN Reason: Pain , Severe (7-10) NORepinephrine/NS 8 MG-250 ML (Norepinephrine/Ns 8 Mg-250 Ml (Double Conc)) 8 mg in 250 mls @ 12.247 mls/hr IV TITRATE PRN; Protocol PRN Reason: Hypotension Last Admin: 12/03/21 18:19 Dose: 0.04 mcg/kg/min, 4.899 mls/hr Cefepime HCl (Cefepime/Ns 2 Gm/100 Ml) 2 gm in 100 mls @ 200 mls/hr IV Q24H BRITNEY; Protocol Sodium Bicarbonate 150 meq/ (Sterile Water) 1,150 mls @ 150 mls/hr IV DIRECT BRITNEY Stop: 12/07/21 18:39 Last Admin: 12/03/21 11:02 Dose: 150 mls/hr Metronidazole (Flagyl 500 Mg/100 Ml) 500 mg in 100 mls @ 100 mls/hr IV Q8H BRITNEY; Protocol Last Admin: 12/03/21 11:11 Dose: 100 mls/hr Insulin Human Regular (Insulin Regular, Human 100 Units/1 Ml) 0 units SUB-Q ACHS BRITNEY; Protocol Ondansetron HCl (Ondansetron 4 Mg/2 Ml Inj) 4 mg IV Q8H PRN PRN Reason: Nausea And Vomiting Last Admin: 12/03/21 00:59 Dose: 4 mg Oxycodone/Acetaminophen (Oxycodone /Acetaminophen 5-325mg Tab) 1 tab PO Q6H PRN PRN Reason: Pain, Moderate (4-6) Sodium Chloride (Sodium Chloride 0.9% 10 Ml Flush Syringe) 10 ml IV BID BRITNEY Last Admin: 12/03/21 11:03 Dose: 10 ml Sodium Chloride (Sodium Chloride 0.9% 10 Ml Flush Syringe) 10 ml IV PRN PRN PRN Reason: LINE FLUSH Vancomycin HCl (Vancomycin 250 Mg/10 Ml Oral Liqd) 500 mg PO Q6HR BRITNEY; Protocol Last Admin: 12/03/21 18:18 Dose: 500 mg Review of Systems All systems: negative Constitutional: fatigue, weakness Respiratory: shortness of breath Exam - Vital Signs Vital signs: Vital Signs BP Pulse Ox 60/29 78 L 12/02/21 15:00 12/02/21 15:00 - Physical Exam Narrative exam: Constitutional: no acute distress Head: NC/AT Neck: supple Lungs: clear to auscultation, left pleurx catheter CV: RRR, no M/R/G Abdomen: soft, non-tender, bowel sounds present Back: nontender Extremities: no edema, pulses WNL Skin: intact Neuro: no focal deficits, alert and oriented x4 Results - Lab Results 12/03/21 04:00 12/03/21 04:00 Most recent lab results ABG pH 7.322 pH Units (7.350-7.450) L 12/02/21 22:40 ABG pCO2 25.5 mm Hg 12/02/21 22:40 ABG pO2 240.4 mm Hg (80.0-90.0) H 12/02/21 22:40 ABG HCO3 12.9 mmol/L (20.0-26.0) L 12/02/21 22:40 ABG O2 Saturation 99.4 % (95.0-99.0) H 12/02/21 22:40 Calcium 8.9 mg/dL (8.4-10.2) 12/03/21 04:00 Urine Creatinine 44.3 mg/dL (0.1-20.0) H 12/03/21 03:15 Urine Sodium 74 mmol/L 12/03/21 03:15 Urine Total Protein 9 mg/dL (5-11.8) 12/03/21 03:15 Assessment and Plan Acute kidney injury Hyperkalemia Metabolic acidosis Septic shock Lung cancer with malignant pleural effusion, status post drain placement Potassium and bicarb has improved status post resuscitation Started on IV bicarb fluids Start thiamine supplementation No immediate indication for dialysis Keep MAP more than 65, vasopressors as needed Antibiotics noted Renally dose medications Avoid nephrotoxins Renal diet
[2021-12-03] MEDS: THIAMINE 100 MG TAB PO SCH (20:11)
[2021-12-03] MEDS: INSULIN REGULAR, HUMAN 100 UNITS/1 ML SUB-Q SCH (22:22)
[2021-12-04] MEDS: SODIUM BICARBONATE 150 MEQ in WATER FOR INJECTION (PF) 1,000 ML IV SCH ×2 (04:16→12:40)
[2021-12-04 06:27] LABS: Hematocrit 31.2 % (35.5-45.6); Hemoglobin 9.8 gm/dl (11.8-15.2); Mean Corpuscular HGB Conc 31 % (32-34); Mean Corpuscular Volume 78 fl (84-94); Platelet Count 262 K/mm3 (140-440); Red Blood Count 4.02 M/mm3 (3.65-5.03); Red Cell Distribution Width 20.8 % (13.2-15.2)
[2021-12-04] MEDS: VANCOMYCIN 250 MG/10 ML ORAL LIQD PO SCH ×3 (07:53→17:35)
[2021-12-04] MEDS: HEPARIN 5,000 UNIT/1 ML VIAL SUB-Q SCH ×3 (07:53→21:51)
[2021-12-04] MEDS: CEFEPIME/NS 2 GM/100 ML 2 GM/100 ML BAG IV SCH (07:54)
[2021-12-04] MEDS: metroNIDAZOLE/NS 500 MG/100 ML 500 MG/100 ML BAG IV SCH ×3 (07:55→21:51)
[2021-12-04] MEDS: INSULIN REGULAR, HUMAN 100 UNITS/1 ML SUB-Q SCH ×4 (08:11→21:52)
--- NOTE | 2021-12-04 08:49 | Progress Note ---
Assessment and Plan 76 YO Male with DM, Lung Cancer with metastatic disease and Malignant Pleural EffusioinS/P Pleural Drain Placement, PVD presents to ED for evaluation. Patient states that he has experienced shortness of breath over the past week with persistent and worsening symptoms over the same timeframe. Patient also acknowledges diffuse back pain. Patient states that his pain is 10/10, constant, worsened with movement, relieved with movement. Patient acknowledges pain is localized over his spine. Patient acknowledges increased use of nebul izer therapy without relief. Patient failed outpatient therapy. EMS was notified and upon arrival the patient was found to be in distress with a pulse oximetry in the 60s. Patient was placed on nonrebreather oxygen and transported to [facility] for further care and evaluation of the aforementioned symptoms. Patient found to have a pulse oximetry of 79% on room room air which is consistent with acute hypoxemic respiratory failure. Patient also found to have bilateral pneumonia complicated by septic shock, metabolic acidosis, PEDRO with ATN, hyperkalemia, volume depletion, and malignant pleural effusion. Patient admitted to ICU due to increased risk of worsening symptoms after medical stabilization. Patient initiated on sepsis protocol in the emergency department. Patient denies fever, chills, chest pain, palpitation, productive cough, skin rash, recent contact, known exposure to COVID-19. Surgical history Bilateral BKA. Patient has History of smoking 1 pack x 50 years. Denies alcohol or drug abuse. Worked in [employer] before he retired. and has two children. and has two children. No known drug allergies. Patient awake. Resting on 3 litres O2. O2 saturation 96%. No acute respiratory distress. Denies chest pain, shortness of breath or cough at rest. Patient afebrile. Has leukocytosis. Blood pressure 94/44 , Pulse 116 , Respirations 15. Chest xray done 12/01/21 reported Left thoracostomy tube with small to moderate partially loculated left pleural fluid. No pneumothorax. Bilateral pulmonary nodules suspicious for satellite metastases in this patient with a reported history of malignancy. Patchy bibasilar airspace disease, concerning for pneumonia. Perfusion lung scan done 12/02/21 reported No segmental perfusion defects . Patient is on cefepime, Metronidazole,. vancomycin, S/C Heparin, Famotidine, Albuterol inhaler. Patient is on Norepinephrine drip. I spent critical care time of 45 minutes, talking to the patient, review the chart, examine the patient, review chest xray, perfusion lung scan, talking to the nursing staff, rspiratory therapy and work up plan of treatment in this critically ill patient. - Patient Problems (1) Acute hypoxemic respiratory failure Current Visit: Yes Status: Acute Plan to address problem: On 3 litres O2, O2 saturation 96%. Albuterol inhaler S/C Heparin Famotidine. (2) Acute kidney injury (PEDRO) with acute tubular necrosis (ATN) Current Visit: Yes Status: Acute Plan to address problem: Management as per nephrology. (3) Diabetes mellitus Current Visit: Yes Status: Acute Plan to address problem: Management as per primary care. (4) Malignant pleural effusion Current Visit: Yes Status: Acute Plan to address problem: Loculated right pleural effusion with thoracostomy tube reported on chest xray. (5) Metastatic lung cancer (metastasis from lung to other site) Current Visit: Yes Status: Acute Plan to address problem: Consult oncology. (6) Pneumonia Current Visit: Yes Status: Acute Plan to address problem: Patient is on Cefepime, Metronidazole, Vancomycin. (7) Sepsis Current Visit: Yes Status: Acute Plan to address problem: Patient is on Cefepime, Metronidazole, Vancomycin. (8) Septic shock Current Visit: Yes Status: Acute Plan to address problem: Patient is on Cefepime, Metronidazole, Vancomycin. Patient is on Norepinephrine. Subjective Date of service: 12/04/21 Principal diagnosis: AHRF; Pneumonia; Lung CA; PEDRO; Hyperkalemia; Septic shock; NSTEMI; DM II Interval history: 76 YO Male with DM, Lung Cancer with metastatic disease and Malignant Pleural EffusioinS/P Pleural Drain Placement, PVD presents to ED for evaluation. Patient states that he has experienced shortness of breath over the past week with persistent and worsening symptoms over the same timeframe. Patient also acknowledges diffuse back pain. Patient states that his pain is 10/10, constant, worsened with movement, relieved with movement. Patient acknowledges pain is localized over his spine. Patient acknowledges increased use of neb ulizer therapy without relief. Patient failed outpatient therapy. EMS was notified and upon arrival the patient was found to be in distress with a pulse oximetry in the 60s. Patient was placed on nonrebreather oxygen and transported to [facility] for further care and evaluation of the aforementioned symptoms. Patient found to have a pulse oximetry of 79% on room room air which is consistent with acute hypoxemic respiratory failure. Patient also found to have bilateral pneumonia complicated by septic shock, metabolic acidosis, PEDRO with ATN, hyperkalemia, volume depletion, and malignant pleural effusion. Patient admitted to ICU due to increased risk of worsening symptoms after medical stabilization. Patient initiated on sepsis protocol in the emergency department. Patient denies fever, chills, chest pain, palpitation, productive cough, skin rash, recent contact, known exposure to COVID-19. Surgical history Bilateral BKA. Patient has History of smoking 1 pack x 50 years. Denies alcohol or drug abuse. Worked in [employer] before he retired. and has two children. and has two children. No known drug allergies. Patient awake. Resting on 3 litres O2. O2 saturation 96%. No acute respiratory distress. Denies chest pain, shortness of breath or cough at rest. Patient afebrile. Has leukocytosis. Blood pressure 94/44 , Pulse 116 , Respirations 15. Chest xray done 12/01/21 reported Left thoracostomy tube with small to moderate partially loculated left pleural fluid. No pneumothorax. Bilateral pulmonary nodules suspicious for satellite metastases in this patient with a reported history of malignancy. Patchy bibasilar airspace disease, concerning for pneu monia. Perfusion lung scan done 12/02/21 reported No segmental perfusion defects . Patient is on cefepime, vancomycin, S/C Heparin, Famotidine, Albuterol inhaler. Patient is on Norepinephrine drip. Objective Vital Signs - 12hr 12/03/21 12/03/21 12/03/21 20:51 21:00 21:03 Temperature Pulse Rate 96 H 100 H 96 H Pulse Rate [ From Monitor] Respiratory 12 15 17 Rate Blood Pressure 103/75 115/67 115/67 O2 Sat by Pulse 97 99 98 Oximetry 12/03/21 12/03/21 12/03/21 21:11 21:21 21:30 Temperature Pulse Rate 92 H 93 H 91 H Pulse Rate [ From Monitor] Respiratory 12 12 14 Rate Blood Pressure 115/67 115/77 112/71 O2 Sat by Pulse 96 98 98 Oximetry 12/03/21 12/03/21 12/03/21 21:41 21:51 22:00 Temperature Pulse Rate 95 H 142 H 102 H Pulse Rate [ From Monitor] Respiratory 13 12 17 Rate Blood Pressure 112/71 118/72 114/76 O2 Sat by Pulse 99 89 99 Oximetry 12/03/21 12/03/21 12/03/21 22:11 22:20 22:30 Temperature Pulse Rate 97 H 92 H 89 Pulse Rate [ From Monitor] Respiratory 17 18 20 Rate Blood Pressure 114/76 104/77 104/77 O2 Sat by Pulse 98 98 99 Oximetry 12/03/21 12/03/21 12/03/21 22:40 22:50 23:00 Temperature 97.5 F L Pulse Rate 94 H 87 109 H Pulse Rate [ From Monitor] Respiratory 17 12 25 H Rate Blood Pressure 113/72 113/78 113/78 O2 Sat by Pulse 98 99 100 Oximetry 12/03/21 12/03/21 12/03/21 23:10 23:20 23:30 Temperature Pulse Rate 88 94 H 88 Pulse Rate [ From Monitor] Respiratory 17 17 17 Rate Blood Pressure 122/80 107/71 107/71 O2 Sat by Pulse 97 100 94 Oximetry 12/03/21 12/03/21 12/04/21 23:41 23:51 00:00 Temperature Pulse Rate 88 84 88 Pulse Rate [ 87 From Monitor] Respiratory 16 14 13 Rate Blood Pressure 113/72 101/67 107/73 O2 Sat by Pulse 97 98 98 Oximetry 12/04/21 12/04/21 12/04/21 00:11 00:21 00:30 Temperature Pulse Rate 115 H 88 86 Pulse Rate [ From Monitor] Respiratory 17 15 16 Rate Blood Pressure 107/73 104/80 115/75 O2 Sat by Pulse 100 98 97 Oximetry 12/04/21 12/04/21 12/04/21 00:41 00:51 01:00 Temperature Pulse Rate 80 82 82 Pulse Rate [ From Monitor] Respiratory 13 15 20 Rate Blood Pressure 115/75 115/75 112/77 O2 Sat by Pulse 98 97 98 Oximetry 12/04/21 12/04/21 12/04/21 01:11 01:21 01:31 Temperature Pulse Rate 72 83 139 H Pulse Rate [ From Monitor] Respiratory 10 L 19 14 Rate Blood Pressure 112/77 117/72 98/63 O2 Sat by Pulse 97 98 95 Oximetry 12/04/21 12/04/21 12/04/21 01:41 01:51 02:00 Temperature Pulse Rate 97 H 93 H 93 H Pulse Rate [ From Monitor] Respiratory 17 15 13 Rate Blood Pressure 98/63 108/73 92/64 O2 Sat by Pulse 98 98 98 Oximetry 12/04/21 12/04/21 12/04/21 02:11 02:21 02:30 Temperature Pulse Rate 93 H 114 H 97 H Pulse Rate [ From Monitor] Respiratory 12 24 16 Rate Blood Pressure 92/64 85/58 103/67 O2 Sat by Pulse 97 78 L 98 Oximetry 12/04/21 12/04/21 12/04/21 02:41 02:51 03:00 Temperature Pulse Rate 102 H 105 H 102 H Pulse Rate [ From Monitor] Respiratory 16 14 16 Rate Blood Pressure 103/67 92/61 97/56 O2 Sat by Pulse 99 95 100 Oximetry 12/04/21 12/04/21 12/04/21 03:10 03:21 03:30 Temperature Pulse Rate 92 H 122 H 92 H Pulse Rate [ From Monitor] Respiratory 18 11 L 22 Rate Blood Pressure 97/56 106/56 118/73 O2 Sat by Pulse 90 96 97 Oximetry 12/04/21 12/04/21 12/04/21 03:31 03:41 03:51 Temperature Pulse Rate 91 H 83 80 Pulse Rate [ From Monitor] Respiratory 21 25 H 12 Rate Blood Pressure 118/73 119/72 O2 Sat by Pulse 98 100 99 Oximetry 12/04/21 12/04/21 12/04/21 04:00 04:11 04:21 Temperature Pulse Rate 86 82 82 Pulse Rate [ 66 From Monitor] Respiratory 10 L 12 12 Rate Blood Pressure 110/74 110/74 108/66 O2 Sat by Pulse 99 100 100 Oximetry 12/04/21 12/04/21 12/04/21 04:27 04:30 04:41 Temperature 96.1 F L Pulse Rate 96 H 84 Pulse Rate [ From Monitor] Respiratory 12 12 Rate Blood Pressure 109/62 109/62 O2 Sat by Pulse 100 98 Oximetry 12/04/21 12/04/21 12/04/21 04:51 05:00 05:11 Temperature Pulse Rate 83 85 71 Pulse Rate [ From Monitor] Respiratory 16 20 12 Rate Blood Pressure 113/66 125/78 125/78 O2 Sat by Pulse 99 98 99 Oximetry 12/04/21 12/04/21 12/04/21 05:21 05:30 05:41 Temperature Pulse Rate 95 H 92 H 62 Pulse Rate [ From Monitor] Respiratory 17 13 12 Rate Blood Pressure 125/67 129/70 129/70 O2 Sat by Pulse 87 95 98 Oximetry 12/04/21 12/04/21 12/04/21 05:51 06:00 07:48 Temperature Pulse Rate 69 63 Pulse Rate [ From Monitor] Respiratory 12 14 Rate Blood Pressure 118/67 126/67 O2 Sat by Pulse 97 96 97 Oximetry Constitutional: no acute distress, alert, other (elderly male with mildly increased respiratory effort at rest) Eyes: non-icteric ENT: oropharynx moist Neck: supple, no lymphadenopathy, no JVD Effort: mildly labored Ascultation: Bilateral: diminished breath sounds, rhonchi (bases) Percussion: Bilateral: not dull Cardiovascular: regular rate and rhythm Gastrointestinal: normoactive bowel sounds, soft, non-tender, non-distended (protuberant) Integumentary: normal Extremities: no cyanosis, no edema, no ischemia or petechiae, other (bilateral BKA's) Neurologic: normal mental status, non-focal exam (grossly), pupils equal and round, CN II-XII normal Psychiatric: mood appropriate, affect normal CBC and BMP: 12/04/21 05:00 12/04/21 09:30 ABG, PT/INR, D-dimer: ABG ABG pH 7.322 pH Units (7.350-7.450) L 12/02/21 22:40 ABG pCO2 25.5 mm Hg 12/02/21 22:40 ABG pO2 240.4 mm Hg (80.0-90.0) H 12/02/21 22:40 ABG O2 Saturation 99.4 % (95.0-99.0) H 12/02/21 22:40 PT/INR, D-dimer PT 19.7 Sec. (12.2-14.9) H 12/02/21 15:21 INR 1.48 (0.87-1.13) H 12/02/21 15:21 Abnormal lab findings: Abnormal Labs 12/02/21 12/02/21 12/02/21 15:21 15:21 15:21 WBC 22.7 H Hgb Hct MCV 78 L MCH 25 L MCHC RDW 20.2 H Lymph % (Auto) [place] % (Auto) [place] # (Auto) Seg Neutrophils % Seg Neuts % (Manual) 87.0 H Lymphocytes % (Manual) 9.0 L Seg Neutrophils # Seg Neutrophils # Man 19.7 H PT 19.7 H INR 1.48 H ABG pH ABG pO2 ABG HCO3 ABG O2 Saturation ABG Base Excess ABG Hemoglobin Sodium 131 L Potassium 7.1 H* Chloride 94.9 L Carbon Dioxide 10 L BUN 89 H Creatinine 7.1 H Glucose 108 H POC Glucose Lactic Acid Troponin T 0.105 H* Total Protein Albumin PTH Intact Urine Creatinine 12/02/21 12/02/21 12/02/21 16:39 17:22 22:26 WBC Hgb Hct MCV MCH MCHC RDW Lymph % (Auto) [place] % (Auto) [place] # (Auto) Seg Neutrophils % Seg Neuts % (Manual) Lymphocytes % (Manual) Seg Neutrophils # Seg Neutrophils # Man PT INR ABG pH ABG pO2 ABG HCO3 ABG O2 Saturation ABG Base Excess ABG Hemoglobin Sodium Potassium 7.2 H* Chloride Carbon Dioxide BUN Creatinine Glucose POC Glucose Lactic Acid 6.80 H* 8.90 H* Troponin T Total Protein Albumin PTH Intact Urine Creatinine 12/02/21 12/02/21 12/03/21 22:26 22:40 00:01 WBC Hgb Hct MCV MCH MCHC RDW Lymph % (Auto) [place] % (Auto) [place] # (Auto) Seg Neutrophils % Seg Neuts % (Manual) Lymphocytes % (Manual) Seg Neutrophils # Seg Neutrophils # Man PT INR ABG pH 7.322 L ABG pO2 240.4 H ABG HCO3 12.9 L ABG O2 Saturation 99.4 H ABG Base Excess -11.6 L ABG Hemoglobin 11.1 L Sodium Potassium 5.2 H D Chloride Carbon Dioxide 15 L BUN 77 H Creatinine 6.0 H Glucose 58 L POC Glucose Lactic Acid Troponin T Total Protein Albumin PTH Intact 138.9 H Urine Creatinine 12/03/21 12/03/21 12/03/21 00:48 03:15 04:00 WBC 15.7 H Hgb 10.7 L Hct 34.0 L MCV 78 L MCH 25 L MCHC RDW 20.0 H Lymph % (Auto) 12.5 L [place] % (Auto) 9.2 H [place] # (Auto) 1.4 H Seg Neutrophils % 78.1 H Seg Neuts % (Manual) Lymphocytes % (Manual) Seg Neutrophils # 12.2 H Seg Neutrophils # Man PT INR ABG pH ABG pO2 ABG HCO3 ABG O2 Saturation ABG Base Excess ABG Hemoglobin Sodium Potassium Chloride Carbon Dioxide BUN Creatinine Glucose POC Glucose 65 L Lactic Acid Troponin T Total Protein Albumin PTH Intact Urine Creatinine 44.3 H 12/03/21 12/03/21 12/03/21 04:00 04:05 11:15 WBC Hgb Hct MCV MCH MCHC RDW Lymph % (Auto) [place] % (Auto) [place] # (Auto) Seg Neutrophils % Seg Neuts % (Manual) Lymphocytes % (Manual) Seg Neutrophils # Seg Neutrophils # Man PT INR ABG pH ABG pO2 ABG HCO3 ABG O2 Saturation ABG Base Excess ABG Hemoglobin Sodium Potassium Chloride Carbon Dioxide 18 L BUN 72 H Creatinine 5.3 H Glucose POC Glucose 164 H Lactic Acid 4.00 H* Troponin T Total Protein 5.6 L D Albumin 3.1 L PTH Intact Urine Creatinine 12/03/21 12/03/21 12/03/21 11:16 11:16 16:41 WBC Hgb Hct MCV MCH MCHC RDW Lymph % (Auto) [place] % (Auto) [place] # (Auto) Seg Neutrophils % Seg Neuts % (Manual) Lymphocytes % (Manual) Seg Neutrophils # Seg Neutrophils # Man PT INR ABG pH ABG pO2 ABG HCO3 ABG O2 Saturation ABG Base Excess ABG Hemoglobin Sodium Potassium Chloride Carbon Dioxide BUN Creatinine Glucose POC Glucose 167 H Lactic Acid 6.80 H* Troponin T 0.051 H D Total Protein Albumin PTH Intact Urine Creatinine 12/03/21 12/03/21 12/04/21 21:48 23:16 05:00 WBC 12.2 H Hgb 9.8 L Hct 31.2 L MCV 78 L MCH 24 L MCHC 31 L RDW 20.8 H Lymph % (Auto) [place] % (Auto) [place] # (Auto) Seg Neutrophils % Seg Neuts % (Manual) Lymphocytes % (Manual) Seg Neutrophils # Seg Neutrophils # Man PT INR ABG pH ABG pO2 ABG HCO3 ABG O2 Saturation ABG Base Excess ABG Hemoglobin Sodium Potassium Chloride Carbon Dioxide BUN Creatinine Glucose POC Glucose 171 H Lactic Acid Troponin T 0.045 H Total Protein Albumin PTH Intact Urine Creatinine Chest x-ray: report reviewed, image reviewed Additional Studies: XR chest 1V ap 12/02/21 INDICATION / CLINICAL INFORMATION: Shortness of breath, h/o lung CA. COMPARISON: None available. FINDINGS: SUPPORT DEVICES: Right chest wall port catheter tip terminates over the right atrium. There is a left thoracostomy tube which projects along the left lateral lung apex. HEART /PULMONARY VASCULATURE: No significant abnormality. LUNGS / PLEURA: Small to moderate partially loculated left pleural fluid. There are streaky airspace opacities within both lung bases. 2.7 cm nodular density in the right midlung. Additional 1.5 cm nodular density suspected within the left lung apex. No pneumothorax. ADDITIONAL FINDINGS: No significant additional findings. IMPRESSION: 1. Left thoracostomy tube with small to moderate partially loculated left pleural fluid. No pneumothorax. 2. Bilateral pulmonary nodules suspicious for satellite metastases in this patient with a reported history of malignancy. 3. Patchy bibasilar airspace disease, concerning for pneumonia. Nuclear medicine perfusion lung scan 12/02/21 Indication: Shortness of breath Technique: 5.1 mCi of Tc 99m MAA were given by IV. Findings: Comparison with chest radiograph from chest radiograph earlier today.. Perfusion images are unremarkable; specifically, no wedge-shaped, pleural- based, segmental defects are seen. Impression: No segmental perfusion defects are identified. Allied health notes reviewed: nursing
[2021-12-04 10:17] LABS: Calcium 7.6 mg/dL (8.4-10.2)
[2021-12-04] MEDS: THIAMINE 100 MG TAB PO SCH (10:32)
[2021-12-04] MEDS: FAMOTIDINE 20 MG TAB PO SCH (10:32)
[2021-12-04] MEDS ORDERED: metroNIDAZOLE/NS 500 MG/100 ML 500 MG/100 ML BAG IV SCH (11:00)
[2021-12-04] MEDS ORDERED: POTASSIUM CHLORIDE ER 20 MEQ TAB PO NR (12:00)
--- NOTE | 2021-12-04 12:01 | Progress Note ---
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 Patient reported he was recently hospitalized 3 weeks ago for pneumonia and was discharge with some PCN. Patient is afebrile with leukocytosis and Lactic acidosis, cultures and procal pending. Continue current IV abx for now. Patient is also reported frequent loose stools/diarrhea for the past 3 weeks. Will check for C.Diff and PO Vanc and Flagyl added. ID consulted for further recs. Renal function with some improvement, continue bcarb gtt per nephro. Obtain records from the [facility] in [place]. 12/04: Remains afebrile, ST on the monitor, still on Levophed and bcarb gtt. C.Diff PCR pending, procal and CRP are unremarkable. Continue current IV Abx for now, ID consult pending. Renal function continue to improved, continue bcab gtt per Nephro. Monitor and replace electrolytes as needed. Assessment and Plan #Septic Shock #Bilateral Pneumonia #Leukocytosis #Metabolic Acidosis #R/o C.Diff #COVID PUI - Blood cultures and COVID PCR pending - Check imflam. markers and Procal-unremarkable - Continue current empiric IV abx- Cefepine and Vanco - With diarrheaX3 weeks- C.diff PCR pending - PO Vanc and IV Flagyl was also initiated - ID consulted - On Levophed and bcarb gtt per Nephro - Continue blood pressure monitor per protocol - Maintain MAP above 65 - F/U on cultures - Trend Lactic #Acute Hypoxic Respiratory Failure #Lung cancer with Metastatic Disease #Malignant Pleural Effusion s/p pleurix cath #COVID PUI - Currently stable on 2L NC - Continue current IV abx - Continue O2 supplemementation and wean as tolerated - Continue SPO2 monitoring for SPO2 goal above 92% - CCM is following #Acute Kidney Injury (PEDRO) most likely ATN #Hyperkalemia-resolved - secondary to above - Nephrology on consult, appreciated recommendation - Strict intake and output - Avoid nephrotoxic medications; Renally dose medications - Continue NaBcarb gtt per Nephro - Monitor and replace electrolytes as needed #Elevated Troponin, most likely type 2 - secondary to demand ischemia vs PEDRO - EKG with no significant ST changes - Troponin downtrending, continue to trend - VTE- Heparin Subq #Lung Cancer with Metastatic Disease #Former Smoker - Diagnosed in Jan, 2021 - Currently receiving Chemo treatment, last treatment was in August, - Next schedule treatment is in January 19, 2022 at the [facility] - Follow with oncology outpatient for further treatment #Type 2 Diabetes Mellitus - hypoglycemic this am, probably due to NPO status - Now on Renal diet - check BG and SSI ACHS - Avoid hypoglycemia - Hypoglycemic protocol #Chronic Back Pain - Continue supportive care - PRN Analgesia for pain control #GI/DVT Prophylaxis - PPI- Pepcid - Heaprin SubQ #Advance Care Planning - Disease education data, care plan, diagnoses, and prognosis were discussed with the patient at the bedside. Patient is a FULL code. Patient acknowledged understanding and agreed with current care plan. The high probability of a clinically significant, sudden or life threatening deterioration of the [multiple] system(s) required my full and direct attention, intervention and personal management. The aggregate critical care time was [60] minutes. This time is in addition to time spent performing reported procedures but includes the following: [x] Data Review and interpretation [x] Patient assessment and monitoring of vital signs [x] Documentation [x] Medication orders and management Disposition Plan: ICU Total Time Spent with Patient (Minutes): 60 History Interval history: Patient seen and examined at the bedside. Remains AAO, on 3L NC this am. Left pleurix cath is intact. Remains on levophed, in ST on the monitor. JUDD overnight Hospitalist Physical - Physical exam Narrative exam: General appearance: Present: no acute distress, well-nourished, obese - EENT Eyes: Present: PERRL, EOM intact ENT: hearing intact - Neck Neck: Present: normal ROM - Respiratory Respiratory effort: normal Respiratory: left: other (left Pleurix Cath) - Cardiovascular Rhythm: regular Heart Sounds: Present: S1 & S2 - Extremities Extremities: no ischemia, pulses intact, pulses symmetrical, abnormal (Bilateral BKA) Extremity abnormal: edema - Peripheral Assessment Generalized Edema Type: Non-pitting Edema Degree: 1+ Capillary Refill: < 3 seconds Skin Temperature: Warm Peripheral Pulses: within normal limits (BUE only, bilateral BKA) - Abdominal General gastrointestinal: soft, non-distended, normal bowel sounds - Integumentary Integumentary: Present: warm, dry - Psychiatric Psychiatric: appropriate mood/affect, cooperative - Neurologic Neurologic: moves all extremities - Allied Health Allied health notes reviewed: nursing, case management - Constitutional Vitals: Temp Pulse Resp BP Pulse Ox 98.3 F 113 H 17 87/70 99 12/04/21 08:00 12/04/21 09:41 12/04/21 08:00 12/04/21 09:41 12/04/21 09:41 HEART Score - HEART Score Troponin: Troponin T 0.045 ng/mL (0.00-0.029) H 12/03/21 23:16 Results - Labs CBC & Chem 7: 12/04/21 05:00 12/04/21 09:30 Labs: Laboratory Last Values WBC 12.2 K/mm3 (4.5-11.0) H 12/04/21 05:00 RBC 4.02 M/mm3 (3.65-5.03) 12/04/21 05:00 Hgb 9.8 gm/dl (11.8-15.2) L 12/04/21 05:00 Hct 31.2 % (35.5-45.6) L 12/04/21 05:00 MCV 78 fl (84-94) L 12/04/21 05:00 MCH 24 pg (28-32) L 12/04/21 05:00 MCHC 31 % (32-34) L 12/04/21 05:00 RDW 20.8 % (13.2-15.2) H 12/04/21 05:00 Plt Count 262 K/mm3 (140-440) 12/04/21 05:00 Lymph % (Auto) 12.5 % (13.4-35.0) L 12/03/21 04:00 [place] % (Auto) 9.2 % (0.0-7.3) H 12/03/21 04:00 Eos % (Auto) 0.1 % (0.0-4.3) 12/03/21 04:00 Baso % (Auto) 0.1 % (0.0-1.8) 12/03/21 04:00 Lymph # (Auto) 2.0 K/mm3 (1.2-5.4) 12/03/21 04:00 [place] # (Auto) 1.4 K/mm3 (0.0-0.8) H 12/03/21 04:00 Eos # (Auto) 0.0 K/mm3 (0.0-0.4) 12/03/21 04:00 Baso # (Auto) 0.0 K/mm3 (0.0-0.1) 12/03/21 04:00 Add Manual Diff Complete 12/02/21 15:21 Total Counted 100 12/02/21 15:21 Seg Neutrophils % 78.1 % (40.0-70.0) H 12/03/21 04:00 Seg Neuts % (Manual) 87.0 % (40.0-70.0) H 12/02/21 15:21 Band Neutrophils % 1.0 % 12/02/21 15:21 Lymphocytes % (Manual) 9.0 % (13.4-35.0) L 12/02/21 15:21 Reactive Lymphs % (Man) 0 % 12/02/21 15:21 Monocytes % (Manual) 2.0 % (0.0-7.3) 12/02/21 15:21 Eosinophils % (Manual) 1.0 % (0.0-4.3) 12/02/21 15:21 Basophils % (Manual) 0 % (0.0-1.8) 12/02/21 15:21 Metamyelocytes % 0 % 12/02/21 15:21 Myelocytes % 0 % 12/02/21 15:21 Promyelocytes % 0 % 12/02/21 15:21 Blast Cells % 0 % 12/02/21 15:21 Nucleated RBC % Not Reportable 12/02/21 15:21 Seg Neutrophils # 12.2 K/mm3 (1.8-7.7) H 12/03/21 04:00 Seg Neutrophils # Man 19.7 K/mm3 (1.8-7.7) H 12/02/21 15:21 Band Neutrophils # 0.2 K/mm3 12/02/21 15:21 Lymphocytes # (Manual) 2.0 K/mm3 (1.2-5.4) 12/02/21 15:21 Abs React Lymphs (Man) 0.0 K/mm3 12/02/21 15:21 Monocytes # (Manual) 0.5 K/mm3 (0.0-0.8) 12/02/21 15:21 Eosinophils # (Manual) 0.2 K/mm3 (0.0-0.4) 12/02/21 15:21 Basophils # (Manual) 0.0 K/mm3 (0.0-0.1) 12/02/21 15:21 Metamyelocytes # 0.0 K/mm3 12/02/21 15:21 Myelocytes # 0.0 K/mm3 12/02/21 15:21 Promyelocytes # 0.0 K/mm3 12/02/21 15:21 Blast Cells # 0.0 K/mm3 12/02/21 15:21 WBC Morphology Not Reportable 12/02/21 15:21 Hypersegmented Neuts Not Reportable 12/02/21 15:21 Hyposegmented Neuts Not Reportable 12/02/21 15:21 Hypogranular Neuts Not Reportable 12/02/21 15:21 Smudge Cells Not Reportable 12/02/21 15:21 Toxic Granulation Not Reportable 12/02/21 15:21 Toxic Vacuolation Not Reportable 12/02/21 15:21 Dohle Bodies Not Reportable 12/02/21 15:21 Pelger-Huet Anomaly Not Reportable 12/02/21 15:21 Chandra Rods Not Reportable 12/02/21 15:21 Platelet Estimate Consistent w auto 12/02/21 15:21 Clumped Platelets Not Reportable 12/02/21 15:21 Plt Clumps, EDTA Not Reportable 12/02/21 15:21 Large Platelets Not Reportable 12/02/21 15:21 Giant Platelets Not Reportable 12/02/21 15:21 Platelet Satelliting Not Reportable 12/02/21 15:21 Plt Morphology Comment Not Reportable 12/02/21 15:21 RBC Morphology Not Reportable 12/02/21 15:21 Dimorphic RBCs Not Reportable 12/02/21 15:21 Polychromasia Not Reportable 12/02/21 15:21 Hypochromasia 1+ 12/02/21 15:21 Poikilocytosis Not Reportable 12/02/21 15:21 Anisocytosis 1+ 12/02/21 15:21 Microcytosis Not Reportable 12/02/21 15:21 Macrocytosis Not Reportable 12/02/21 15:21 Spherocytes Not Reportable 12/02/21 15:21 Pappenheimer Bodies Not Reportable 12/02/21 15:21 Sickle Cells Not Reportable 12/02/21 15:21 Target Cells Not Reportable 12/02/21 15:21 Tear Drop Cells Not Reportable 12/02/21 15:21 Ovalocytes Not Reportable 12/02/21 15:21 Helmet Cells Not Reportable 12/02/21 15:21 Aguilar-Sewaren Bodies Not Reportable 12/02/21 15:21 [place] Rings Not Reportable 12/02/21 15:21 [place] Cells Not Reportable 12/02/21 15:21 Bite Cells Not Reportable 12/02/21 15:21 Crenated Cell Not Reportable 12/02/21 15:21 Elliptocytes Not Reportable 12/02/21 15:21 Acanthocytes (Spur) Not Reportable 12/02/21 15:21 Rouleaux Not Reportable 12/02/21 15:21 Hemoglobin C Crystals Not Reportable 12/02/21 15:21 Schistocytes Not Reportable 12/02/21 15:21 Malaria parasites Not Reportable 12/02/21 15:21 Josh Bodies Not Reportable 12/02/21 15:21 Hem Pathologist Commnt No 12/02/21 15:21 PT 19.7 Sec. (12.2-14.9) H 12/02/21 15:21 INR 1.48 (0.87-1.13) H 12/02/21 15:21 ABG pH 7.322 pH Units (7.350-7.450) L 12/02/21 22:40 ABG pCO2 25.5 mm Hg 12/02/21 22:40 ABG pO2 240.4 mm Hg (80.0-90.0) H 12/02/21 22:40 ABG HCO3 12.9 mmol/L (20.0-26.0) L 12/02/21 22:40 ABG O2 Saturation 99.4 % (95.0-99.0) H 12/02/21 22:40 ABG O2 Content 15.9 (0.0-44) 12/02/21 22:40 ABG Base Excess -11.6 mmol/L (-2.0-3.0) L 12/02/21 22:40 ABG Hemoglobin 11.1 gm/dl (14.0-18.0) L 12/02/21 22:40 ABG Carboxyhemoglobin 1.0 % (0.0-5.0) 12/02/21 22:40 ABG Methemoglobin 0.6 % (0.0-1.5) 12/02/21 22:40 Oxyhemoglobin 97.9 % (95.0-99.0) 12/02/21 22:40 FiO2 100 % 12/02/21 22:40 Sodium 139 mmol/L (137-145) 12/04/21 09:30 Potassium 3.2 mmol/L (3.6-5.0) L D 12/04/21 09:30 Chloride 93.7 mmol/L (98-107) L 12/04/21 09:30 Carbon Dioxide 32 mmol/L (22-30) H D 12/04/21 09:30 Anion Gap 17 mmol/L 12/04/21 09:30 BUN 38 mg/dL (9-20) H 12/04/21 09:30 Creatinine 2.8 mg/dL (0.8-1.3) H 12/04/21 09:30 Estimated GFR 27 ml/min 12/04/21 09:30 BUN/Creatinine Ratio 14 % 12/04/21 09:30 Glucose 195 mg/dL (75-100) H 12/04/21 09:30 POC Glucose 171 mg/dL (70-105) H 12/03/21 21:48 Lactic Acid 6.80 mmol/L (0.7-2.0) H* 12/03/21 11:16 Calcium 7.6 mg/dL (8.4-10.2) L 12/04/21 09:30 Total Bilirubin 0.20 mg/dL (0.1-1.2) 12/03/21 04:00 AST 27 units/L (5-40) 12/03/21 04:00 ALT 10 units/L (7-56) 12/03/21 04:00 Alkaline Phosphatase 71 units/L (35-129) 12/03/21 04:00 Troponin T 0.045 ng/mL (0.00-0.029) H 12/03/21 23:16 C-Reactive Protein 0.30 mg/dL (0.00-1.30) 12/02/21 22:26 NT-Pro-B Natriuret Pep 453.1 pg/mL (0-900) 12/02/21 15:21 Total Protein 5.6 g/dL (6.3-8.2) L D 12/03/21 04:00 Albumin 3.1 g/dL (3.9-5) L 12/03/21 04:00 Albumin/Globulin Ratio 1.2 % 12/03/21 04:00 Triglycerides 147 mg/dL (2-149) 12/03/21 11:16 Cholesterol 133 mg/dL (50-199) 12/03/21 11:16 LDL Cholesterol Direct 69 mg/dL (50-130) 12/03/21 11:16 HDL Cholesterol 48 mg/dL (40-59) 12/03/21 11:16 Cholesterol/HDL Ratio 2.77 % 12/03/21 11:16 Procalcitonin < 0.05 ng/mL (<0.15) 12/02/21 22: PTH Intact 138.9 pg/mL (15-65) H 12/03/21 00:01 Urine Creatinine 44.3 mg/dL (0.1-20.0) H 12/03/21 03:15 Protein/Creatinin Ratio 0.20 12/03/21 03:15 Urine Sodium 74 mmol/L 12/03/21 03:15 Urine Total Protein 9 mg/dL (5-11.8) 12/03/21 03:15 Nasal Screen MRSA (PCR) Negative (Negative) 12/03/21 07:55 Random Vancomycin 8.0 ug/mL (0-40.0) 12/04/21 05:00 Coronavirus (PCR) Negative (Negative) 12/03/21 07:55 Blood Type A POSITIVE 12/02/21 22:26 Antibody Screen Negative 12/02/21 22:26 Microbiology: Microbiology 12/02/21 16:38 Peripheral/Venous Blood Culture - Preliminary NO GROWTH AFTER 24 HOURS 12/02/21 16:38 Peripheral/Venous Blood Culture - Preliminary NO GROWTH AFTER 24 HOURS Abad/IV: Voiding Method Urinal Active Medications - Current Medications Current Medications: Generic Name Dose Route Start Last Admin Trade Name Freq PRN Reason Stop Dose Admin Acetaminophen 650 mg 12/02/21 19:05 Acetaminophen 325 Mg Tab PO Q6H PRN Pain MILD(1-3)/Fever >100.5/FAJARDO Albuterol 2.5 mg 12/02/21 19:05 Albuterol 2.5 Mg/3 Ml Nebu IH Q3HRT PRN Shortness Of Breath Dextrose 50 ml 12/03/21 18:00 Dextrose 50% In Water (25gm) 50 Ml Syringe IV Q30MIN PRN Hypoglycemia Protocol Famotidine 20 mg 12/03/21 10:00 12/04/21 10:32 Famotidine 20 Mg Tab PO 20 mg QDAY BRITNEY Administration Heparin Sodium (Porcine) 5,000 unit 12/03/21 14:00 12/04/21 07:53 Heparin 5,000 Unit/1 Ml Vial SUB-Q 5,000 unit Q8HR BRITNEY Administration Hydromorphone HCl 0.25 mg 12/02/21 19:05 Hydromorphone 0.5 Mg/0.5 Ml Inj IV Q4H PRN Pain, Moderate (4-6) Hydromorphone HCl 0.5 mg 12/02/21 19:05 Hydromorphone 0.5 Mg/0.5 Ml Inj IV Q3H PRN Pain , Severe (7-10) NORepinephrine/NS 8 MG-250 ML 8 mg in 250 mls @ 12.247 mls/hr 12/02/21 18:38 12/03/21 18:19 Norepinephrine/Ns 8 Mg-250 Ml (Double Conc) IV 0.04 mcg/kg/min TITRATE PRN 4.899 mls/hr Hypotension Administration Protocol 0.1 MCG/KG/MIN Cefepime HCl 2 gm in 100 mls @ 200 mls/hr 12/04/21 06:00 12/04/21 07:54 Cefepime/Ns 2 Gm/100 Ml IV 200 mls/hr Q24H BRITNEY Administration Protocol Sodium Bicarbonate 150 meq/ 1,150 mls @ 150 mls/hr 12/03/21 11:00 12/04/21 04:16 Sterile Water IV 12/07/21 18:39 150 mls/hr DIRECT BRITNEY Administration Metronidazole 500 mg in 100 mls @ 100 mls/hr 12/04/21 14:00 Flagyl 500 Mg/100 Ml IV Q8H BRITNEY Protocol Insulin Human Regular 0 units 12/03/21 22:00 12/04/21 11:44 Insulin Regular, Human 100 Units/1 Ml SUB-Q 4 units ACHS BRITNEY Administration Protocol Ondansetron HCl 4 mg 12/03/21 00:52 12/03/21 00:59 Ondansetron 4 Mg/2 Ml Inj IV 4 mg Q8H PRN Administration Nausea And Vomiting Oxycodone/Acetaminophen 1 tab 12/02/21 19:05 Oxycodone /Acetaminophen 5-325mg Tab PO Q6H PRN Pain, Moderate (4-6) Sodium Chloride 10 ml 12/02/21 22:00 12/04/21 10:32 Sodium Chloride 0.9% 10 Ml Flush Syringe IV 10 ml BID BRITNEY Administration Sodium Chloride 10 ml 12/02/21 19:05 Sodium Chloride 0.9% 10 Ml Flush Syringe IV PRN PRN LINE FLUSH Thiamine HCl 100 mg 12/03/21 19:00 12/04/21 10:32 Thiamine 100 Mg Tab PO 100 mg QDAY BRITNEY Administration Vancomycin HCl 500 mg 12/03/21 12:00 12/04/21 07:53 Vancomycin 250 Mg/10 Ml Oral Liqd PO 500 mg Q6HR BRITNEY Administration Protocol Nutrition/Malnutrition Assess - Dietary Evaluation Nutrition/Malnutrition Findings: Nutrition Notes Start: 12/03/21 09:55 Freq: Status: Active Protocol: Document 12/03/21 09:55 CIERRA (Rec: 12/03/21 10:23 CIERRA [id number]) Nutrition Notes Need for Assessment generated from: MD Order Initial or Follow up Assessment Current Diagnosis Acute Kidney Injury,Diabetes, Respiratory Failure Other Pertinent Diagnosis NSTEMI, Dehydration, Pneumonia , Metastatic Lung CA/Pleural Effusion,... Current Diet Renal Diet + D Suppl (since L 12/03). Labs/Tests 12/03: CO2 18, BUN 72, Crea 5. 3/ Pertinent Medications 12/03: Nutritionally unremarkable. 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 Weight Status Appropriate Subjective/Other Information RD consult for dietary supplementation assessment. No reports available on Pt's PO intake at the time, will assess at F/U. I will prescribe dietary supplements to compensate for poor or insufficient PO intake of meals during LOS. Pt is on NIV/Bi-PaP+, O2 saturation @ 98%, according to Physical Assessment History notes. Pt has missing teeth, according to Physical Assessment History notes. 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 Percent of energy/protein needs met: Prescribed Renal Diet provides for energy/protein needs (2, 072 Kcal/77 g) during LOS; additionally, Dietary Supplements will compensate for possible poor or insufficient PO intake of meals with 850 Kcal and 38 g of protein. Burn Absent Trauma Absent GI Symptoms Nausea,Vomiting,Diarrhea Food Allergy No Skin Integrity/Comment Assessment WNL. Minimum of two criteria No Fluid Accumulation N/A Reduced Seafood Processor Strength Measurably Reduced (severe) Protein-Calorie Malnutrition N\A #1 Nutrition Diagnosis Predicted suboptimal energy intake Etiology PEDRO, Dehydration, Pneumonia, Metastatic Lung CA. As Evidenced by Signs and Symptoms No reports available on Pt's PO intake at the time, will assess at F/U. Is patient on ventilator? No Is Patient Ambulatory and/or Out of Bed Yes REE-([facility]-ambulatory/OOB) [ 1744.119 [id number]] Calculation Used for Recommendations [facility] Additional Notes Protein: 0.8-1.2 g/Kg ABW; 51- 77 g/day. Fluids: 1 ml/Kcal, or as per MD. Nutrition Intervention Change Diet Order: Continue Renal Diet as tolerated. Add Supplement/Snack (indicate name/kcal Start 8 fl oz Nepro w/ /protein ) CARBSTEADY; BID. Provides kCal: 850 Provides Protein (gm) 38 Goal #1 Compensate, through dietary supplementation, for possible poor or insufficient PO intake of meals during LOS. Follow-Up By: 12/09/21 Additional Comments Continue monitoring food tolerance, %PO intake of meals , dietary supplements, and BM. <ALFONSO PEREYRA - Last Filed: 12/05/21 12:36> Assessment and Plan Assessment and plan: I saw and evaluated the patient. I agree with the findings and the plan of care as documented in the Nurse Practitioner's~note, with the following corrections and additions. Hospitalist Physical - Constitutional Vitals: Temp Pulse Resp BP Pulse Ox 97.4 F L 75 23 125/68 99 12/05/21 11:37 12/05/21 11:50 12/05/21 11:50 12/05/21 11:50 12/05/21 11:50 HEART Score - HEART Score Troponin: Troponin T 0.045 ng/mL (0.00-0.029) H 12/03/21 23:16 Results - Labs CBC & Chem 7: 12/05/21 04:50 12/05/21 04:50 Labs: Laboratory Last Values WBC 11.2 K/mm3 (4.5-11.0) H 12/05/21 04:50 RBC 3.73 M/mm3 (3.65-5.03) 12/05/21 04:50 Hgb 9.2 gm/dl (11.8-15.2) L 12/05/21 04:50 Hct 29.0 % (35.5-45.6) L 12/05/21 04:50 MCV 78 fl (84-94) L 12/05/21 04:50 MCH 25 pg (28-32) L 12/05/21 04:50 MCHC 32 % (32-34) 12/05/21 04:50 RDW 20.4 % (13.2-15.2) H 12/05/21 04:50 Plt Count 211 K/mm3 (140-440) 12/05/21 04:50 Lymph % (Auto) 12.5 % (13.4-35.0) L 12/03/21 04:00 [place] % (Auto) 9.2 % (0.0-7.3) H 12/03/21 04:00 Eos % (Auto) 0.1 % (0.0-4.3) 12/03/21 04:00 Baso % (Auto) 0.1 % (0.0-1.8) 12/03/21 04:00 Lymph # (Auto) 2.0 K/mm3 (1.2-5.4) 12/03/21 04:00 [place] # (Auto) 1.4 K/mm3 (0.0-0.8) H 12/03/21 04:00 Eos # (Auto) 0.0 K/mm3 (0.0-0.4) 12/03/21 04:00 Baso # (Auto) 0.0 K/mm3 (0.0-0.1) 12/03/21 04:00 Add Manual Diff Complete 12/02/21 15:21 Total Counted 100 12/02/21 15:21 Seg Neutrophils % 78.1 % (40.0-70.0) H 12/03/21 04:00 Seg Neuts % (Manual) 87.0 % (40.0-70.0) H 12/02/21 15:21 Band Neutrophils % 1.0 % 12/02/21 15:21 Lymphocytes % (Manual) 9.0 % (13.4-35.0) L 12/02/21 15:21 Reactive Lymphs % (Man) 0 % 12/02/21 15:21 Monocytes % (Manual) 2.0 % (0.0-7.3) 12/02/21 15:21 Eosinophils % (Manual) 1.0 % (0.0-4.3) 12/02/21 15:21 Basophils % (Manual) 0 % (0.0-1.8) 12/02/21 15:21 Metamyelocytes % 0 % 12/02/21 15:21 Myelocytes % 0 % 12/02/21 15:21 Promyelocytes % 0 % 12/02/21 15:21 Blast Cells % 0 % 12/02/21 15:21 Nucleated RBC % Not Reportable 12/02/21 15:21 Seg Neutrophils # 12.2 K/mm3 (1.8-7.7) H 12/03/21 04:00 Seg Neutrophils # Man 19.7 K/mm3 (1.8-7.7) H 12/02/21 15:21 Band Neutrophils # 0.2 K/mm3 12/02/21 15:21 Lymphocytes # (Manual) 2.0 K/mm3 (1.2-5.4) 12/02/21 15:21 Abs React Lymphs (Man) 0.0 K/mm3 12/02/21 15:21 Monocytes # (Manual) 0.5 K/mm3 (0.0-0.8) 12/02/21 15:21 Eosinophils # (Manual) 0.2 K/mm3 (0.0-0.4) 12/02/21 15:21 Basophils # (Manual) 0.0 K/mm3 (0.0-0.1) 12/02/21 15:21 Metamyelocytes # 0.0 K/mm3 12/02/21 15:21 Myelocytes # 0.0 K/mm3 12/02/21 15:21 Promyelocytes # 0.0 K/mm3 12/02/21 15:21 Blast Cells # 0.0 K/mm3 12/02/21 15:21 WBC Morphology Not Reportable 12/02/21 15:21 Hypersegmented Neuts Not Reportable 12/02/21 15:21 Hyposegmented Neuts Not Reportable 12/02/21 15:21 Hypogranular Neuts Not Reportable 12/02/21 15:21 Smudge Cells Not Reportable 12/02/21 15:21 Toxic Granulation Not Reportable 12/02/21 15:21 Toxic Vacuolation Not Reportable 12/02/21 15:21 Dohle Bodies Not Reportable 12/02/21 15:21 Pelger-Huet Anomaly Not Reportable 12/02/21 15:21 Chandra Rods Not Reportable 12/02/21 15:21 Platelet Estimate Consistent w auto 12/02/21 15:21 Clumped Platelets Not Reportable 12/02/21 15:21 Plt Clumps, EDTA Not Reportable 12/02/21 15:21 Large Platelets Not Reportable 12/02/21 15:21 Giant Platelets Not Reportable 12/02/21 15:21 Platelet Satelliting Not Reportable 12/02/21 15:21 Plt Morphology Comment Not Reportable 12/02/21 15:21 RBC Morphology Not Reportable 12/02/21 15:21 Dimorphic RBCs Not Reportable 12/02/21 15:21 Polychromasia Not Reportable 12/02/21 15:21 Hypochromasia 1+ 12/02/21 15:21 Poikilocytosis Not Reportable 12/02/21 15:21 Anisocytosis 1+ 12/02/21 15:21 Microcytosis Not Reportable 12/02/21 15:21 Macrocytosis Not Reportable 12/02/21 15:21 Spherocytes Not Reportable 12/02/21 15:21 Pappenheimer Bodies Not Reportable 12/02/21 15:21 Sickle Cells Not Reportable 12/02/21 15:21 Target Cells Not Reportable 12/02/21 15:21 Tear Drop Cells Not Reportable 12/02/21 15:21 Ovalocytes Not Reportable 12/02/21 15:21 Helmet Cells Not Reportable 12/02/21 15:21 Aguilar-Sewaren Bodies Not Reportable 12/02/21 15:21 [place] Rings Not Reportable 12/02/21 15:21 [place] Cells Not Reportable 12/02/21 15:21 Bite Cells Not Reportable 12/02/21 15:21 Crenated Cell Not Reportable 12/02/21 15:21 Elliptocytes Not Reportable 12/02/21 15:21 Acanthocytes (Spur) Not Reportable 12/02/21 15:21 Rouleaux Not Reportable 12/02/21 15:21 Hemoglobin C Crystals Not Reportable 12/02/21 15:21 Schistocytes Not Reportable 12/02/21 15:21 Malaria parasites Not Reportable 12/02/21 15:21 Josh Bodies Not Reportable 12/02/21 15:21 Hem Pathologist Commnt No 12/02/21 15:21 PT 19.7 Sec. (12.2-14.9) H 12/02/21 15:21 INR 1.48 (0.87-1.13) H 12/02/21 15:21 ABG pH 7.322 pH Units (7.350-7.450) L 12/02/21 22:40 ABG pCO2 25.5 mm Hg 12/02/21 22:40 ABG pO2 240.4 mm Hg (80.0-90.0) H 12/02/21 22:40 ABG HCO3 12.9 mmol/L (20.0-26.0) L 12/02/21 22:40 ABG O2 Saturation 99.4 % (95.0-99.0) H 12/02/21 22:40 ABG O2 Content 15.9 (0.0-44) 12/02/21 22:40 ABG Base Excess -11.6 mmol/L (-2.0-3.0) L 12/02/21 22:40 ABG Hemoglobin 11.1 gm/dl (14.0-18.0) L 12/02/21 22:40 ABG Carboxyhemoglobin 1.0 % (0.0-5.0) 12/02/21 22:40 ABG Methemoglobin 0.6 % (0.0-1.5) 12/02/21 22:40 Oxyhemoglobin 97.9 % (95.0-99.0) 12/02/21 22:40 FiO2 100 % 12/02/21 22:40 Sodium 138 mmol/L (137-145) 12/05/21 04:50 Potassium 3.2 mmol/L (3.6-5.0) L 12/05/21 04:50 Chloride 92.8 mmol/L (98-107) L 12/05/21 04:50 Carbon Dioxide 36 mmol/L (22-30) H 12/05/21 04:50 Anion Gap 12 mmol/L 12/05/21 04:50 BUN 29 mg/dL (9-20) H 12/05/21 04:50 Creatinine 2.2 mg/dL (0.8-1.3) H 12/05/21 04:50 Estimated GFR 36 ml/min 12/05/21 04:50 BUN/Creatinine Ratio 13 % 12/05/21 04:50 Glucose 189 mg/dL (75-100) H 12/05/21 04:50 POC Glucose 140 mg/dL (70-105) H 12/05/21 07:34 Lactic Acid 1.90 mmol/L (0.7-2.0) 12/05/21 04:50 Calcium 7.5 mg/dL (8.4-10.2) L 12/05/21 04:50 Phosphorus 2.50 mg/dL (2.5-4.5) D 12/05/21 04:50 Magnesium 1.10 mg/dL (1.7-2.3) L 12/05/21 04:50 Total Bilirubin 0.20 mg/dL (0.1-1.2) 12/03/21 04:00 AST 27 units/L (5-40) 12/03/21 04:00 ALT 10 units/L (7-56) 12/03/21 04:00 Alkaline Phosphatase 71 units/L (35-129) 12/03/21 04:00 Troponin T 0.045 ng/mL (0.00-0.029) H 12/03/21 23:16 C-Reactive Protein 0.30 mg/dL (0.00-1.30) 12/02/21 22:26 NT-Pro-B Natriuret Pep 453.1 pg/mL (0-900) 12/02/21 15:21 Total Protein 5.6 g/dL (6.3-8.2) L D 12/03/21 04:00 Albumin 3.1 g/dL (3.9-5) L 12/03/21 04:00 Albumin/Globulin Ratio 1.2 % 12/03/21 04:00 Triglycerides 147 mg/dL (2-149) 12/03/21 11:16 Cholesterol 133 mg/dL (50-199) 12/03/21 11:16 LDL Cholesterol Direct 69 mg/dL (50-130) 12/03/21 11:16 HDL Cholesterol 48 mg/dL (40-59) 12/03/21 11:16 Cholesterol/HDL Ratio 2.77 % 12/03/21 11:16 Procalcitonin < 0.05 ng/mL (<0.15) 12/02/21 22:26 PTH Intact 138.9 pg/mL (15-65) H 12/03/21 00:01 Urine Creatinine 44.3 mg/dL (0.1-20.0) H 12/03/21 03:15 Protein/Creatinin Ratio 0.20 12/03/21 03:15 Urine Sodium 74 mmol/L 12/03/21 03:15 Urine Total Protein 9 mg/dL (5-11.8) 12/03/21 03:15 Nasal Screen MRSA (PCR) Negative (Negative) 12/03/21 07:55 Random Vancomycin 8.0 ug/mL (0-40.0) 12/04/21 05:00 C. difficile Tox (PCR) Negative (Negative) 12/03/21 10:55 Coronavirus (PCR) Negative (Negative) 12/03/21 07:55 Blood Type A POSITIVE 12/02/21 22:26 Antibody Screen Negative 12/02/21 22:26 Microbiology: Microbiology 12/02/21 16:38 Peripheral/Venous Blood Culture - Preliminary NO GROWTH AFTER 48 HOURS 12/02/21 16:38 Peripheral/Venous Blood Culture - Preliminary NO GROWTH AFTER 48 HOURS Abad/IV: Voiding Method Urinal Active Medications - Current Medications Current Medications: Generic Name Dose Route Start Last Admin Trade Name Freq PRN Reason Stop Dose Admin Acetaminophen 650 mg 12/02/21 19:05 Acetaminophen 325 Mg Tab PO Q6H PRN Pain MILD(1-3)/Fever >100.5/FAJARDO Albuterol 2.5 mg 12/02/21 19:05 Albuterol 2.5 Mg/3 Ml Nebu IH Q3HRT PRN Shortness Of Breath Dextrose 50 ml 12/03/21 18:00 Dextrose 50% In Water (25gm) 50 Ml Syringe IV Q30MIN PRN Hypoglycemia Protocol Famotidine 20 mg 12/03/21 10:00 12/05/21 10:53 Famotidine 20 Mg Tab PO 20 mg QDAY BRITNEY Administration Heparin Sodium (Porcine) 5,000 unit 12/03/21 14:00 12/05/21 05:57 Heparin 5,000 Unit/1 Ml Vial SUB-Q 5,000 unit Q8HR BRITNEY Administration Hydromorphone HCl 0.25 mg 12/02/21 19:05 Hydromorphone 0.5 Mg/0.5 Ml Inj IV Q4H PRN Pain, Moderate (4-6) Hydromorphone HCl 0.5 mg 12/02/21 19:05 Hydromorphone 0.5 Mg/0.5 Ml Inj IV Q3H PRN Pain , Severe (7-10) NORepinephrine/NS 8 MG-250 ML 8 mg in 250 mls @ 12.247 mls/hr 12/02/21 18:38 12/05/21 10:30 Norepinephrine/Ns 8 Mg-250 Ml (Double Conc) IV 0 mcg/kg/min TITRATE PRN 0 mls/hr Hypotension Titration Protocol 0.1 MCG/KG/MIN Cefepime HCl 2 gm in 100 mls @ 200 mls/hr 12/04/21 06:00 12/05/21 05:57 Cefepime/Ns 2 Gm/100 Ml IV 200 mls/hr Q24H BRITNEY Administration Protocol Magnesium Sulfate 4 gm in 100 mls @ 25 mls/hr 12/05/21 09:00 12/05/21 10:53 Magnesium Sulfate 4gm/100ml IV 12/05/21 12:59 25 mls/hr ONCE ONE Administration Insulin Human Regular 0 units 12/03/21 22:00 12/05/21 07:00 Insulin Regular, Human 100 Units/1 Ml SUB-Q Not Given ACHS BRITNEY Protocol Ondansetron HCl 4 mg 12/03/21 00:52 12/03/21 00:59 Ondansetron 4 Mg/2 Ml Inj IV 4 mg Q8H PRN Administration Nausea And Vomiting Oxycodone/Acetaminophen 1 tab 12/02/21 19:05 Oxycodone /Acetaminophen 5-325mg Tab PO Q6H PRN Pain, Moderate (4-6) Sodium Chloride 10 ml 12/02/21 22:00 12/05/21 11:56 Sodium Chloride 0.9% 10 Ml Flush Syringe IV Not Given BID BRITNEY Sodium Chloride 10 ml 12/02/21 19:05 Sodium Chloride 0.9% 10 Ml Flush Syringe IV PRN PRN LINE FLUSH Thiamine HCl 100 mg 12/03/21 19:00 12/05/21 10:53 Thiamine 100 Mg Tab PO 100 mg QDAY BRITNEY Administration Nutrition/Malnutrition Assess - Dietary Evaluation Nutrition/Malnutrition Findings: Nutrition Notes Start: 12/03/21 09:55 Freq: Status: Active Protocol: Document 12/03/21 09:55 CIERRA (Rec: 12/03/21 10:23 CIERRA [id number]) Nutrition Notes Need for Assessment generated from: MD Order Initial or Follow up Assessment Current Diagnosis Acute Kidney Injury,Diabetes, Respiratory Failure Other Pertinent Diagnosis NSTEMI, Dehydration, Pneumonia , Metastatic Lung CA/Pleural Effusion,... Current Diet Renal Diet + D Suppl (since L 12/03). Labs/Tests 12/03: CO2 18, BUN 72, Crea 5. 3/ Pertinent Medications 12/03: Nutritionally unremarkable. 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 Weight Status Appropriate Subjective/Other Information RD consult for dietary supplementation assessment. No reports available on Pt's PO intake at the time, will assess at F/U. I will prescribe dietary supplements to compensate for poor or insufficient PO intake of meals during LOS. Pt is on NIV/Bi-PaP+, O2 saturation @ 98%, according to Physical Assessment History notes. Pt has missing teeth, according to Physical Assessment History notes. 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 Percent of energy/protein needs met: Prescribed Renal Diet provides for energy/protein needs (2, 072 Kcal/77 g) during LOS; additionally, Dietary Supplements will compensate for possible poor or insufficient PO intake of meals with 850 Kcal and 38 g of protein. Burn Absent Trauma Absent GI Symptoms Nausea,Vomiting,Diarrhea Food Allergy No Skin Integrity/Comment Assessment WNL. Minimum of two criteria No Fluid Accumulation N/A Reduced Seafood Processor Strength Measurably Reduced (severe) Protein-Calorie Malnutrition N\A #1 Nutrition Diagnosis Predicted suboptimal energy intake Etiology PEDRO, Dehydration, Pneumonia, Metastatic Lung CA. As Evidenced by Signs and Symptoms No reports available on Pt's PO intake at the time, will assess at F/U. Is patient on ventilator? No Is Patient Ambulatory and/or Out of Bed Yes REE-([facility]-ambulatory/OOB) [ [id number] [id number]] Calculation Used for Recommendations [facility] Additional Notes Protein: 0.8-1.2 g/Kg ABW; 51- 77 g/day. Fluids: 1 ml/Kcal, or as per MD. Nutrition Intervention Change Diet Order: Continue Renal Diet as tolerated. Add Supplement/Snack (indicate name/kcal Start 8 fl oz Nepro w/ /protein ) CARBSTEADY; BID. Provides kCal: 850 Provides Protein (gm) 38 Goal #1 Compensate, through dietary supplementation, for possible poor or insufficient PO intake of meals during LOS. Follow-Up By: 12/09/21 Additional Comments Continue monitoring food tolerance, %PO intake of meals , dietary supplements, and BM.
[2021-12-04 12:52] LABS: Calcium 7.8 mg/dL (8.4-10.2)
[2021-12-04] MEDS ORDERED: VANCOMYCIN/NS 1 GM/250 ML 1 GM/250 ML BAG IV ONE (14:00)
[2021-12-04] MEDS ORDERED: VANCOMYCIN 1,250 MG in SODIUM CHLORIDE 0.9% 250ML 250 ML IV ONE (14:00)
[2021-12-04] MEDS: NORepinephrine/NS 8 MG-250 ML 8 MG/250 ML INFUS..BTL IV PRN (15:58)
--- NOTE | 2021-12-04 21:44 | Progress Note ---
Assessment and Plan Acute kidney injury Hyperkalemia Metabolic acidosis Septic shock Lung cancer with malignant pleural effusion, status post drain placement Potassium and bicarb has improved status post resuscitation Status post IV bicarb fluids, discontinued today Status post potassium repletion again today Continue thiamine supplementation No immediate indication for dialysis Keep MAP more than 65, vasopressors as needed Antibiotics noted Renally dose medications Avoid nephrotoxins Renal diet Subjective Date of service: 12/04/21 Principal diagnosis: AHRF; Pneumonia; Lung CA; PEDRO; Hyperkalemia; Septic shock; NSTEMI; DM II Interval history: Seen in ICU Vitals, labs and I/os reviewed Interdisciplinary notes and consults reviewed Objective - Exam Narrative Exam: Constitutional: no acute distress Head: NC/AT Neck: supple Lungs: clear to auscultation, left pleurx catheter CV: RRR, no M/R/G Abdomen: soft, non-tender, bowel sounds present Back: nontender Extremities: no edema, pulses WNL Skin: intact Neuro: no focal deficits, alert and oriented x4 - Vital Signs Vital signs: Vital Signs - 12hr 12/04/21 12/04/21 12/04/21 09:51 10:00 10:11 Temperature Pulse Rate 112 H 108 H 112 H Pulse Rate [ From Monitor] Respiratory Rate Blood Pressure 99/65 105/67 105/67 O2 Sat by Pulse 97 98 95 Oximetry 12/04/21 12/04/21 12/04/21 10:21 10:30 10:41 Temperature Pulse Rate 107 H 103 H 105 H Pulse Rate [ From Monitor] Respiratory Rate Blood Pressure 100/65 98/66 98/66 O2 Sat by Pulse 97 98 96 Oximetry 12/04/21 12/04/21 12/04/21 10:51 11:00 11:11 Temperature Pulse Rate 102 H 102 H 100 H Pulse Rate [ From Monitor] Respiratory Rate Blood Pressure 93/55 106/58 106/58 O2 Sat by Pulse 98 98 98 Oximetry 12/04/21 12/04/21 12/04/21 11:21 11:30 11:41 Temperature Pulse Rate 112 H 110 H 110 H Pulse Rate [ From Monitor] Respiratory Rate Blood Pressure 94/44 65/37 65/37 O2 Sat by Pulse 97 96 96 Oximetry 12/04/21 12/04/21 12/04/21 11:50 12:00 12:10 Temperature 98.5 F Pulse Rate 109 H 118 H 115 H Pulse Rate [ 118 H From Monitor] Respiratory 18 Rate Blood Pressure 85/51 85/51 94/61 O2 Sat by Pulse 98 90 90 Oximetry 12/04/21 12/04/21 12/04/21 12:21 12:30 12:41 Temperature Pulse Rate 113 H 106 H 109 H Pulse Rate [ From Monitor] Respiratory Rate Blood Pressure 97/64 109/70 109/70 O2 Sat by Pulse 97 98 97 Oximetry 12/04/21 12/04/21 12/04/21 12:51 13:00 13:11 Temperature Pulse Rate 108 H 103 H 101 H Pulse Rate [ From Monitor] Respiratory Rate Blood Pressure 92/64 102/66 102/66 O2 Sat by Pulse 100 100 99 Oximetry 12/04/21 12/04/21 12/04/21 13:21 13:30 13:41 Temperature Pulse Rate 108 H 104 H 102 H Pulse Rate [ From Monitor] Respiratory Rate Blood Pressure 111/69 105/63 105/63 O2 Sat by Pulse 98 99 99 Oximetry 12/04/21 12/04/21 12/04/21 13:51 14:00 14:11 Temperature Pulse Rate 109 H 110 H 112 H Pulse Rate [ From Monitor] Respiratory Rate Blood Pressure 76/41 77/44 77/44 O2 Sat by Pulse 99 98 97 Oximetry 12/04/21 12/04/21 12/04/21 14:21 14:30 14:41 Temperature Pulse Rate 112 H 104 H 106 H Pulse Rate [ From Monitor] Respiratory Rate Blood Pressure 71/44 124/79 124/79 O2 Sat by Pulse 100 99 94 Oximetry 12/04/21 12/04/21 12/04/21 14:51 15:00 15:11 Temperature Pulse Rate 89 93 H 94 H Pulse Rate [ From Monitor] Respiratory Rate Blood Pressure 111/70 107/61 107/61 O2 Sat by Pulse 100 98 96 Oximetry 12/04/21 12/04/21 12/04/21 15:21 15:31 15:41 Temperature Pulse Rate 60 69 84 Pulse Rate [ From Monitor] Respiratory Rate Blood Pressure 53/27 150/67 150/67 O2 Sat by Pulse 98 99 99 Oximetry 12/04/21 12/04/21 12/04/21 15:51 16:00 16:11 Temperature 98.1 F Pulse Rate 91 H 148 H 62 Pulse Rate [ 60 From Monitor] Respiratory 18 Rate Blood Pressure 56/29 117/60 117/60 O2 Sat by Pulse 96 90 99 Oximetry 12/04/21 12/04/21 12/04/21 16:21 16:30 16:41 Temperature Pulse Rate 142 H 140 H Pulse Rate [ From Monitor] Respiratory Rate Blood Pressure 149/67 146/73 149/67 O2 Sat by Pulse 98 98 92 Oximetry 12/04/21 12/04/21 12/04/21 16:51 17:00 17:11 Temperature Pulse Rate 83 105 H 103 H Pulse Rate [ From Monitor] Respiratory Rate Blood Pressure 103/59 133/85 103/59 O2 Sat by Pulse 96 90 93 Oximetry 12/04/21 12/04/21 12/04/21 17:21 17:30 17:41 Temperature Pulse Rate 98 H 84 96 H Pulse Rate [ From Monitor] Respiratory 14 Rate Blood Pressure 107/66 114/73 114/73 O2 Sat by Pulse 74 L 97 100 Oximetry 12/04/21 12/04/21 12/04/21 17:51 18:00 18:11 Temperature Pulse Rate 97 H 83 95 H Pulse Rate [ From Monitor] Respiratory 15 17 12 Rate Blood Pressure 98/65 108/73 108/73 O2 Sat by Pulse 90 80 L Oximetry 12/04/21 12/04/21 12/04/21 18:21 18:30 19:30 Temperature 98.9 F Pulse Rate 64 80 Pulse Rate [ From Monitor] Respiratory 18 11 L Rate Blood Pressure 117/71 124/77 O2 Sat by Pulse 98 100 Oximetry - Lab 12/04/21 05:00 12/04/21 09:30 Most recent lab results ABG pH 7.322 pH Units (7.350-7.450) L 12/02/21 22:40 ABG pCO2 25.5 mm Hg 12/02/21 22:40 ABG pO2 240.4 mm Hg (80.0-90.0) H 12/02/21 22:40 ABG HCO3 12.9 mmol/L (20.0-26.0) L 12/02/21 22:40 ABG O2 Saturation 99.4 % (95.0-99.0) H 12/02/21 22:40 Calcium 7.6 mg/dL (8.4-10.2) L 12/04/21 09:30 Phosphorus 3.50 mg/dL (2.5-4.5) 12/04/21 04:00 Magnesium 1.10 mg/dL (1.7-2.3) L 12/04/21 04:00 Urine Creatinine 44.3 mg/dL (0.1-20.0) H 12/03/21 03:15 Urine Sodium 74 mmol/L 12/03/21 03:15 Urine Total Protein 9 mg/dL (5-11.8) 12/03/21 03:15 Medications & Allergies - Medications Allergies/Adverse Reactions: Allergies No Known Allergies Allergy (Unverified 12/02/21 15:15) Active Medications: Generic Name Dose Route Start Last Admin Trade Name Freq PRN Reason Stop Dose Admin Acetaminophen 650 mg 12/02/21 19:05 Acetaminophen 325 Mg Tab PO Q6H PRN Pain MILD(1-3)/Fever >100.5/FAJARDO Albuterol 2.5 mg 12/02/21 19:05 Albuterol 2.5 Mg/3 Ml Nebu IH Q3HRT PRN Shortness Of Breath Dextrose 50 ml 12/03/21 18:00 Dextrose 50% In Water (25gm) 50 Ml Syringe IV Q30MIN PRN Hypoglycemia Protocol Famotidine 20 mg 12/03/21 10:00 12/04/21 10:32 Famotidine 20 Mg Tab PO 20 mg QDAY BRITNEY Administration Heparin Sodium (Porcine) 5,000 unit 12/03/21 14:00 12/04/21 14:22 Heparin 5,000 Unit/1 Ml Vial SUB-Q 5,000 unit Q8HR BRITNEY Administration Hydromorphone HCl 0.25 mg 12/02/21 19:05 Hydromorphone 0.5 Mg/0.5 Ml Inj IV Q4H PRN Pain, Moderate (4-6) Hydromorphone HCl 0.5 mg 12/02/21 19:05 Hydromorphone 0.5 Mg/0.5 Ml Inj IV Q3H PRN Pain , Severe (7-10) NORepinephrine/NS 8 MG-250 ML 8 mg in 250 mls @ 12.247 mls/hr 12/02/21 18:38 12/04/21 15:58 Norepinephrine/Ns 8 Mg-250 Ml (Double Conc) IV 0.04 mcg/kg/min TITRATE PRN 4.899 mls/hr Hypotension Administration Protocol 0.1 MCG/KG/MIN Cefepime HCl 2 gm in 100 mls @ 200 mls/hr 12/04/21 06:00 12/04/21 07:54 Cefepime/Ns 2 Gm/100 Ml IV 200 mls/hr Q24H BRITNEY Administration Protocol Sodium Bicarbonate 150 meq/ 1,150 mls @ 150 mls/hr 12/03/21 11:00 12/04/21 12:40 Sterile Water IV 12/07/21 18:39 150 mls/hr DIRECT BRITNEY Administration Metronidazole 500 mg in 100 mls @ 100 mls/hr 12/04/21 14:00 12/04/21 14:23 Flagyl 500 Mg/100 Ml IV 100 mls/hr Q8H BRITNEY Administration Protocol Insulin Human Regular 0 units 12/03/21 22:00 12/04/21 17:07 Insulin Regular, Human 100 Units/1 Ml SUB-Q Not Given ACHS BRITNEY Protocol Ondansetron HCl 4 mg 12/03/21 00:52 12/03/21 00:59 Ondansetron 4 Mg/2 Ml Inj IV 4 mg Q8H PRN Administration Nausea And Vomiting Oxycodone/Acetaminophen 1 tab 12/02/21 19:05 Oxycodone /Acetaminophen 5-325mg Tab PO Q6H PRN Pain, Moderate (4-6) Sodium Chloride 10 ml 12/02/21 22:00 12/04/21 10:32 Sodium Chloride 0.9% 10 Ml Flush Syringe IV 10 ml BID BRITNEY Administration Sodium Chloride 10 ml 12/02/21 19:05 Sodium Chloride 0.9% 10 Ml Flush Syringe IV PRN PRN LINE FLUSH Thiamine HCl 100 mg 12/03/21 19:00 12/04/21 10:32 Thiamine 100 Mg Tab PO 100 mg QDAY BRITNEY Administration Vancomycin HCl 500 mg 12/03/21 12:00 12/04/21 17:35 Vancomycin 250 Mg/10 Ml Oral Liqd PO 500 mg Q6HR BRITNEY Administration Protocol
[2021-12-05] MEDS: VANCOMYCIN 250 MG/10 ML ORAL LIQD PO SCH ×2 (00:53→05:58)
[2021-12-05] MEDS: HEPARIN 5,000 UNIT/1 ML VIAL SUB-Q SCH ×3 (05:57→21:22)
[2021-12-05] MEDS: CEFEPIME/NS 2 GM/100 ML 2 GM/100 ML BAG IV SCH (05:57)
[2021-12-05] MEDS: metroNIDAZOLE/NS 500 MG/100 ML 500 MG/100 ML BAG IV SCH (05:57)
--- NOTE | 2021-12-05 06:04 | XRay Report ---
CHEST 1 VIEW INDICATION / CLINICAL INFORMATION: Follow up respiratory failure. COMPARISON: 12/02/2021 FINDINGS: SUPPORT DEVICES: Stable positioning of venous access catheter. HEART / MEDIASTINUM: No significant abnormality. LUNGS / PLEURA: Bilateral multifocal pulmonary opacities persist not appreciably changed. Loculated a ppearing left pleural effusion appears slightly increased in size. No pneumothorax. ADDITIONAL FINDINGS: No significant additional findings. IMPRESSION: 1. Slight interval increase in size of loculated appearing left pleural effusion. 2. Previously noted bilateral pulmonary opacities are grossly stable. Signer Name: Nanda Soto MD Signed: 12/05/2021 5:59 AM Workstation Name: [id number]
[2021-12-05 06:25] LABS: Hemoglobin 9.2 gm/dl (11.8-15.2); Mean Corpuscular HGB Conc 32 % (32-34); Mean Corpuscular Volume 78 fl (84-94); Platelet Count 211 K/mm3 (140-440); Red Blood Count 3.73 M/mm3 (3.65-5.03); Red Cell Distribution Width 20.4 % (13.2-15.2)
[2021-12-05] MEDS: INSULIN REGULAR, HUMAN 100 UNITS/1 ML SUB-Q SCH ×4 (07:00→21:28)
[2021-12-05] MEDS: NORepinephrine/NS 8 MG-250 ML 8 MG/250 ML INFUS..BTL IV PRN (07:11)
[2021-12-05 07:24] LABS: Calcium 7.5 mg/dL (8.4-10.2)
[2021-12-05] MEDS ORDERED: POTASSIUM CHLORIDE ER 20 MEQ TAB PO SCH (09:00)
[2021-12-05] MEDS ORDERED: MAGNESIUM SULFATE 4 GM/100 ML BAG IV ONE (09:00)
[2021-12-05] MEDS: FAMOTIDINE 20 MG TAB PO SCH (10:53)
[2021-12-05] MEDS: THIAMINE 100 MG TAB PO SCH (10:53)
--- NOTE | 2021-12-05 11:32 | Progress Note ---
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 Patient reported he was recently hospitalized 3 weeks ago for pneumonia and was discharge with some PCN. Patient is afebrile with leukocytosis and Lactic acidosis, cultures and procal pending. Continue current IV abx for now. Patient is also reported frequent loose stools/diarrhea for the past 3 weeks. Will check for C.Diff and PO Vanc and Flagyl added. ID consulted for further recs. Renal function with some improvement, continue bcarb gtt per nephro. Obtain records from the [facility] in [place]. 12/04: Remains afebrile, ST on the monitor, still on Levophed and bcarb gtt. C.Diff PCR pending, procal and CRP are unremarkable. Continue current IV Abx for now, ID consult pending. Renal function continue to improved, continue bcab gtt per Nephro. Monitor and replace electrolytes as needed. 12/05: Remains on low dose Levophed gtt, off bcarb gtt, renal funstion continue to improve. Will add Midodrine TID, titrate pressors for MAP above 65. CDiff PCR came back negative, PO vanco and Flagyl D/karen. Pleurix cath drained this am, sample sent to the lab. Continue current IV abx, ID consulted. Right upper chest Port accessed, removed Right fem CVC. Monitor and replace electrolytes as needed. Assessment and Plan #Septic Shock #Bilateral Pneumonia #Leukocytosis #Metabolic Acidosis #R/o C.Diff #COVID PUI - Blood cultures and COVID PCR pending - Check imflam. markers and Procal-unremarkable - Continue current empiric IV abx- Cefepine and Vanco - With diarrheaX3 weeks- C.diff PCR negative - PO Vanc and IV Flagyl D/Karen - Pleurix cath drained this am, sample sent to the lab - ID consulted - Remains on low dose Levophed gtt, Midodrine added TID - Continue blood pressure monitor per protocol - Titrate pressors to maintain MAP above 65 - F/U on cultures #Acute Hypoxic Respiratory Failure #Lung cancer with Metastatic Disease #Malignant Pleural Effusion s/p pleurix cath #COVID PUI - Currently stable on 3L NC - Continue current IV abx - Continue O2 supplemementation and wean as tolerated - Continue SPO2 monitoring for SPO2 goal above 92% - [facility] #Acute Kidney Injury (PEDRO) most likely ATN #Hyperkalemia-resolved - secondary to above - Nephrology on consult, appreciated recommendation - Strict intake and output - Avoid nephrotoxic medications; Renally dose medications - Monitor and replace electrolytes as needed #Elevated Troponin, most likely type 2 - secondary to demand ischemia vs PEDRO - EKG with no significant ST changes - Troponin downtrending, continue to trend - VTE- Heparin Subq #Lung Cancer with Metastatic Disease #Former Smoker - Diagnosed in Jan, 2021 - Currently receiving Chemo treatment, last treatment was in August, - Next schedule treatment is in January 19, 2022 at the [facility] - Follow with oncology outpatient for further treatment #Type 2 Diabetes Mellitus - hypoglycemic this am, probably due to NPO status - Now on Renal diet - check BG and SSI ACHS - Avoid hypoglycemia - Hypoglycemic protocol #Chronic Back Pain - Continue supportive care - PRN Analgesia for pain control #GI/DVT Prophylaxis - PPI- Pepcid - Heaprin SubQ #Advance Care Planning - Disease education data, care plan, diagnoses, and prognosis were discussed with the patient at the bedside. Patient is a FULL code. Patient acknowledged understanding and agreed with current care plan. The high probability of a clinically significant, sudden or life threatening deterioration of the [multiple] system(s) required my full and direct attention, intervention and personal management. The aggregate critical care time was [60] minutes. This time is in addition to time spent performing reported procedures but includes the following: [x] Data Review and interpretation [x] Patient assessment and monitoring of vital signs [x] Documentation [x] Medication orders and management Disposition Plan: ICU Total Time Spent with Patient (Minutes): 60 History Interval history: Patient seen and examined at the bedside. Remains AAO, on 3L NC this am. Left pleurix cath drained by patient's this am. Remains on low dose levophed this morning, in ST on the monitor. Right upper chest port accessed. JUDD overnight Hospitalist Physical - Physical exam Narrative exam: General appearance: Present: no acute distress, well-nourished, obese - EENT Eyes: Present: PERRL, EOM intact ENT: hearing intact - Neck Neck: Present: normal ROM - Respiratory Respiratory effort: normal Respiratory: left: other (left Pleurix Cath) - Cardiovascular Rhythm: regular Heart Sounds: Present: S1 & S2 - Extremities Extremities: no ischemia, pulses intact, pulses symmetrical, abnormal (Bilateral BKA) Extremity abnormal: edema - Peripheral Assessment Generalized Edema Type: Non-pitting Edema Degree: 1+ Capillary Refill: < 3 seconds Skin Temperature: Warm Peripheral Pulses: within normal limits (BUE only, bilateral BKA) - Abdominal General gastrointestinal: soft, non-distended, normal bowel sounds - Integumentary Integumentary: Present: warm, dry - Psychiatric Psychiatric: appropriate mood/affect, cooperative - Neurologic Neurologic: moves all extremities - Allied Health Allied health notes reviewed: nursing, case management - Constitutional Vitals: Temp Pulse Resp BP Pulse Ox 97.5 F L 68 14 109/76 95 12/05/21 07:13 12/05/21 07:41 12/05/21 07:41 12/05/21 07:41 12/05/21 07:44 HEART Score - HEART Score Troponin: Troponin T 0.045 ng/mL (0.00-0.029) H 12/03/21 23:16 Results - Labs CBC & Chem 7: 12/05/21 04:50 12/05/21 04:50 Labs: Laboratory Last Values WBC 11.2 K/mm3 (4.5-11.0) H 12/05/21 04:50 RBC 3.73 M/mm3 (3.65-5.03) 12/05/21 04:50 Hgb 9.2 gm/dl (11.8-15.2) L 12/05/21 04:50 Hct 29.0 % (35.5-45.6) L 12/05/21 04:50 MCV 78 fl (84-94) L 12/05/21 04:50 MCH 25 pg (28-32) L 12/05/21 04:50 MCHC 32 % (32-34) 12/05/21 04:50 RDW 20.4 % (13.2-15.2) H 12/05/21 04:50 Plt Count 211 K/mm3 (140-440) 12/05/21 04:50 Lymph % (Auto) 12.5 % (13.4-35.0) L 12/03/21 04:00 Morton % (Auto) 9.2 % (0.0-7.3) H 12/03/21 04:00 Eos % (Auto) 0.1 % (0.0-4.3) 12/03/21 04:00 Baso % (Auto) 0.1 % (0.0-1.8) 12/03/21 04:00 Lymph # (Auto) 2.0 K/mm3 (1.2-5.4) 12/03/21 04:00 Morton # (Auto) 1.4 K/mm3 (0.0-0.8) H 12/03/21 04:00 Eos # (Auto) 0.0 K/mm3 (0.0-0.4) 12/03/21 04:00 Baso # (Auto) 0.0 K/mm3 (0.0-0.1) 12/03/21 04:00 Add Manual Diff Complete 12/02/21 15:21 Total Counted 100 12/02/21 15:21 Seg Neutrophils % 78.1 % (40.0-70.0) H 12/03/21 04:00 Seg Neuts % (Manual) 87.0 % (40.0-70.0) H 12/02/21 15:21 Band Neutrophils % 1.0 % 12/02/21 15:21 Lymphocytes % (Manual) 9.0 % (13.4-35.0) L 12/02/21 15:21 Reactive Lymphs % (Man) 0 % 12/02/21 15:21 Monocytes % (Manual) 2.0 % (0.0-7.3) 12/02/21 15:21 Eosinophils % (Manual) 1.0 % (0.0-4.3) 12/02/21 15:21 Basophils % (Manual) 0 % (0.0-1.8) 12/02/21 15:21 Metamyelocytes % 0 % 12/02/21 15:21 Myelocytes % 0 % 12/02/21 15:21 Promyelocytes % 0 % 12/02/21 15:21 Blast Cells % 0 % 12/02/21 15:21 Nucleated RBC % Not Reportable 12/02/21 15:21 Seg Neutrophils # 12.2 K/mm3 (1.8-7.7) H 12/03/21 04:00 Seg Neutrophils # Man 19.7 K/mm3 (1.8-7.7) H 12/02/21 15:21 Band Neutrophils # 0.2 K/mm3 12/02/21 15:21 Lymphocytes # (Manual) 2.0 K/mm3 (1.2-5.4) 12/02/21 15:21 Abs React Lymphs (Man) 0.0 K/mm3 12/02/21 15:21 Monocytes # (Manual) 0.5 K/mm3 (0.0-0.8) 12/02/21 15:21 Eosinophils # (Manual) 0.2 K/mm3 (0.0-0.4) 12/02/21 15:21 Basophils # (Manual) 0.0 K/mm3 (0.0-0.1) 12/02/21 15:21 Metamyelocytes # 0.0 K/mm3 12/02/21 15:21 Myelocytes # 0.0 K/mm3 12/02/21 15:21 Promyelocytes # 0.0 K/mm3 12/02/21 15:21 Blast Cells # 0.0 K/mm3 12/02/21 15:21 WBC Morphology Not Reportable 12/02/21 15:21 Hypersegmented Neuts Not Reportable 12/02/21 15:21 Hyposegmented Neuts Not Reportable 12/02/21 15:21 Hypogranular Neuts Not Reportable 12/02/21 15:21 Smudge Cells Not Reportable 12/02/21 15:21 Toxic Granulation Not Reportable 12/02/21 15:21 Toxic Vacuolation Not Reportable 12/02/21 15:21 Dohle Bodies Not Reportable 12/02/21 15:21 Pelger-Huet Anomaly Not Reportable 12/02/21 15:21 Chandra Rods Not Reportable 12/02/21 15:21 Platelet Estimate Consistent w auto 12/02/21 15:21 Clumped Platelets Not Reportable 12/02/21 15:21 Plt Clumps, EDTA Not Reportable 12/02/21 15:21 Large Platelets Not Reportable 12/02/21 15:21 Giant Platelets Not Reportable 12/02/21 15:21 Platelet Satelliting Not Reportable 12/02/21 15:21 Plt Morphology Comment Not Reportable 12/02/21 15:21 RBC Morphology Not Reportable 12/02/21 15:21 Dimorphic RBCs Not Reportable 12/02/21 15:21 Polychromasia Not Reportable 12/02/21 15:21 Hypochromasia 1+ 12/02/21 15:21 Poikilocytosis Not Reportable 12/02/21 15:21 Anisocytosis 1+ 12/02/21 15:21 Microcytosis Not Reportable 12/02/21 15:21 Macrocytosis Not Reportable 12/02/21 15:21 Spherocytes Not Reportable 12/02/21 15:21 Pappenheimer Bodies Not Reportable 12/02/21 15:21 Sickle Cells Not Reportable 12/02/21 15:21 Target Cells Not Reportable 12/02/21 15:21 Tear Drop Cells Not Reportable 12/02/21 15:21 Ovalocytes Not Reportable 12/02/21 15:21 Helmet Cells Not Reportable 12/02/21 15:21 Aguilar-Stinnett Bodies Not Reportable 12/02/21 15:21 [place] Rings Not Reportable 12/02/21 15:21 Shirley Cells Not Reportable 12/02/21 15:21 Bite Cells Not Reportable 12/02/21 15:21 Crenated Cell Not Reportable 12/02/21 15:21 Elliptocytes Not Reportable 12/02/21 15:21 Acanthocytes (Spur) Not Reportable 12/02/21 15:21 Rouleaux Not Reportable 12/02/21 15:21 Hemoglobin C Crystals Not Reportable 12/02/21 15:21 Schistocytes Not Reportable 12/02/21 15:21 Malaria parasites Not Reportable 12/02/21 15:21 Josh Bodies Not Reportable 12/02/21 15:21 Hem Pathologist Commnt No 12/02/21 15:21 PT 19.7 Sec. (12.2-14.9) H 12/02/21 15:21 INR 1.48 (0.87-1.13) H 12/02/21 15:21 ABG pH 7.322 pH Units (7.350-7.450) L 12/02/21 22:40 ABG pCO2 25.5 mm Hg 12/02/21 22:40 ABG pO2 240.4 mm Hg (80.0-90.0) H 12/02/21 22:40 ABG HCO3 12.9 mmol/L (20.0-26.0) L 12/02/21 22:40 ABG O2 Saturation 99.4 % (95.0-99.0) H 12/02/21 22:40 ABG O2 Content 15.9 (0.0-44) 12/02/21 22:40 ABG Base Excess -11.6 mmol/L (-2.0-3.0) L 12/02/21 22:40 ABG Hemoglobin 11.1 gm/dl (14.0-18.0) L 12/02/21 22:40 ABG Carboxyhemoglobin 1.0 % (0.0-5.0) 12/02/21 22:40 ABG Methemoglobin 0.6 % (0.0-1.5) 12/02/21 22:40 Oxyhemoglobin 97.9 % (95.0-99.0) 12/02/21 22:40 FiO2 100 % 12/02/21 22:40 Sodium 138 mmol/L (137-145) 12/05/21 04:50 Potassium 3.2 mmol/L (3.6-5.0) L 12/05/21 04:50 Chloride 92.8 mmol/L (98-107) L 12/05/21 04:50 Carbon Dioxide 36 mmol/L (22-30) H 12/05/21 04:50 Anion Gap 12 mmol/L 12/05/21 04:50 BUN 29 mg/dL (9-20) H 12/05/21 04:50 Creatinine 2.2 mg/dL (0.8-1.3) H 12/05/21 04:50 Estimated GFR 36 ml/min 12/05/21 04:50 BUN/Creatinine Ratio 13 % 12/05/21 04:50 Glucose 189 mg/dL (75-100) H 12/05/21 04:50 POC Glucose 140 mg/dL (70-105) H 12/05/21 07:34 Lactic Acid 1.90 mmol/L (0.7-2.0) 12/05/21 04:50 Calcium 7.5 mg/dL (8.4-10.2) L 12/05/21 04:50 Phosphorus 2.50 mg/dL (2.5-4.5) D 12/05/21 04:50 Magnesium 1.10 mg/dL (1.7-2.3) L 12/05/21 04:50 Total Bilirubin 0.20 mg/dL (0.1-1.2) 12/03/21 04:00 AST 27 units/L (5-40) 12/03/21 04:00 ALT 10 units/L (7-56) 12/03/21 04:00 Alkaline Phosphatase 71 units/L (35-129) 12/03/21 04:00 Troponin T 0.045 ng/mL (0.00-0.029) H 12/03/21 23:16 C-Reactive Protein 0.30 mg/dL (0.00-1.30) 12/02/21 22:26 NT-Pro-B Natriuret Pep 453.1 pg/mL (0-900) 12/02/21 15:21 Total Protein 5.6 g/dL (6.3-8.2) L D 12/03/21 04:00 Albumin 3.1 g/dL (3.9-5) L 12/03/21 04:00 Albumin/Globulin Ratio 1.2 % 12/03/21 04:00 Triglycerides 147 mg/dL (2-149) 12/03/21 11:16 Cholesterol 133 mg/dL (50-199) 12/03/21 11:16 LDL Cholesterol Direct 69 mg/dL (50-130) 12/03/21 11:16 HDL Cholesterol 48 mg/dL (40-59) 12/03/21 11:16 Cholesterol/HDL Ratio 2.77 % 12/03/21 11:16 Procalcitonin < 0.05 ng/mL (<0.15) 12/02/21 22:26 PTH Intact 138.9 pg/mL (15-65) H 12/03/21 00:01 Urine Creatinine 44.3 mg/dL (0.1-20.0) H 12/03/21 03:15 Protein/Creatinin Ratio 0.20 12/03/21 03:15 Urine Sodium 74 mmol/L 12/03/21 03:15 Urine Total Protein 9 mg/dL (5-11.8) 12/03/21 03:15 Nasal Screen MRSA (PCR) Negative (Negative) 12/03/21 07:55 Random Vancomycin 8.0 ug/mL (0-40.0) 12/04/21 05:00 C. difficile Tox (PCR) Negative (Negative) 12/03/21 10:55 Coronavirus (PCR) Negative (Negative) 12/03/21 07:55 Blood Type A POSITIVE 12/02/21 22:26 Antibody Screen Negative 12/02/21 22:26 Microbiology: Microbiology 12/02/21 16:38 Peripheral/Venous Blood Culture - Preliminary NO GROWTH AFTER 48 HOURS 12/02/21 16:38 Peripheral/Venous Blood Culture - Preliminary NO GROWTH AFTER 48 HOURS Abad/IV: Voiding Method Urinal Active Medications - Current Medications Current Medications: Generic Name Dose Route Start Last Admin Trade Name Freq PRN Reason Stop Dose Admin Acetaminophen 650 mg 12/02/21 19:05 Acetaminophen 325 Mg Tab PO Q6H PRN Pain MILD(1-3)/Fever >100.5/FAJARDO Albuterol 2.5 mg 12/02/21 19:05 Albuterol 2.5 Mg/3 Ml Nebu IH Q3HRT PRN Shortness Of Breath Dextrose 50 ml 12/03/21 18:00 Dextrose 50% In Water (25gm) 50 Ml Syringe IV Q30MIN PRN Hypoglycemia Protocol Famotidine 20 mg 12/03/21 10:00 12/05/21 10:53 Famotidine 20 Mg Tab PO 20 mg QDAY BRITNEY Administration Heparin Sodium (Porcine) 5,000 unit 12/03/21 14:00 12/05/21 05:57 Heparin 5,000 Unit/1 Ml Vial SUB-Q 5,000 unit Q8HR BRITNEY Administration Hydromorphone HCl 0.25 mg 12/02/21 19:05 Hydromorphone 0.5 Mg/0.5 Ml Inj IV Q4H PRN Pain, Moderate (4-6) Hydromorphone HCl 0.5 mg 12/02/21 19:05 Hydromorphone 0.5 Mg/0.5 Ml Inj IV Q3H PRN Pain , Severe (7-10) NORepinephrine/NS 8 MG-250 ML 8 mg in 250 mls @ 12.247 mls/hr 12/02/21 18:38 12/05/21 07:11 Norepinephrine/Ns 8 Mg-250 Ml (Double Conc) IV 0.04 mcg/kg/min TITRATE PRN 4.899 mls/hr Hypotension Administration Protocol 0.1 MCG/KG/MIN Cefepime HCl 2 gm in 100 mls @ 200 mls/hr 12/04/21 06:00 12/05/21 05:57 Cefepime/Ns 2 Gm/100 Ml IV 200 mls/hr Q24H BRITNEY Administration Protocol Magnesium Sulfate 4 gm in 100 mls @ 25 mls/hr 12/05/21 09:00 12/05/21 10:53 Magnesium Sulfate 4gm/100ml IV 12/05/21 12:59 25 mls/hr ONCE ONE Administration Insulin Human Regular 0 units 12/03/21 22:00 12/04/21 21:52 Insulin Regular, Human 100 Units/1 Ml SUB-Q 3 units ACHS BRITNEY Administration Protocol Ondansetron HCl 4 mg 12/03/21 00:52 12/03/21 00:59 Ondansetron 4 Mg/2 Ml Inj IV 4 mg Q8H PRN Administration Nausea And Vomiting Oxycodone/Acetaminophen 1 tab 12/02/21 19:05 Oxycodone /Acetaminophen 5-325mg Tab PO Q6H PRN Pain, Moderate (4-6) Sodium Chloride 10 ml 12/02/21 22:00 12/04/21 10:32 Sodium Chloride 0.9% 10 Ml Flush Syringe IV 10 ml BID BRITNEY Administration Sodium Chloride 10 ml 12/02/21 19:05 Sodium Chloride 0.9% 10 Ml Flush Syringe IV PRN PRN LINE FLUSH Thiamine HCl 100 mg 12/03/21 19:00 12/05/21 10:53 Thiamine 100 Mg Tab PO 100 mg QDAY BRITNEY Administration Nutrition/Malnutrition Assess - Dietary Evaluation Nutrition/Malnutrition Findings: Nutrition Notes Start: 12/03/21 09:55 Freq: Status: Active Protocol: Document 12/03/21 09:55 CIERRA (Rec: 12/03/21 10:23 CIERRA [id number]) Nutrition Notes Need for Assessment generated from: MD Order Initial or Follow up Assessment Current Diagnosis Acute Kidney Injury,Diabetes, Respiratory Failure Other Pertinent Diagnosis NSTEMI, Dehydration, Pneumonia , Metastatic Lung CA/Pleural Effusion,... Current Diet Renal Diet + D Suppl (since L 12/03). Labs/Tests 12/03: CO2 18, BUN 72, Crea 5. 3/ Pertinent Medications 12/03: Nutritionally unremarkable. 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 No reports available on Pt's PO intake at the time, will assess at F/U. I will prescribe dietary supplements to compensate for poor or insufficient PO intake of meals during LOS. Pt is on NIV/Bi-PaP+, O2 saturation @ 98%, according to Physical Assessment History notes. Pt has missing teeth, according to Physical Assessment History notes. 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 Percent of energy/protein needs met: Prescribed Renal Diet provides for energy/protein needs (2, 072 Kcal/77 g) during LOS; additionally, Dietary Supplements will compensate for possible poor or insufficient PO intake of meals with 850 Kcal and 38 g of protein. Burn Absent Trauma Absent GI Symptoms Nausea,Vomiting,Diarrhea Food Allergy No Skin Integrity/Comment Assessment WNL. 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 As Evidenced by Signs and Symptoms No reports available on Pt's PO intake at the time, will assess at F/U. Is patient on ventilator? No Is Patient Ambulatory and/or Out of Bed Yes REE-([facility]-ambulatory/OOB) [ 1744.119 [id number]] Calculation Used for Recommendations [facility] Additional Notes Protein: 0.8-1.2 g/Kg ABW; 51- 77 g/day. Fluids: 1 ml/Kcal, or as per MD. Nutrition Intervention Change Diet Order: Continue Renal Diet as tolerated. Add Supplement/Snack (indicate name/kcal Start 8 fl oz Nepro w/ /protein ) CARBSTEADY; BID. Provides kCal: 850 Provides Protein (gm) 38 Goal #1 Compensate, through dietary supplementation, for possible poor or insufficient PO intake of meals during LOS. Follow-Up By: 12/09/21 Additional Comments Continue monitoring food tolerance, %PO intake of meals , dietary supplements, and BM. <ALFONSO PEREYRA - Last Filed: 12/06/21 07:16> Assessment and Plan Assessment and plan: I saw and evaluated the patient. I agree with the findings and the plan of care as documented in the Nurse Practitioner's~note, with the following corrections and additions. Hospitalist Physical - Constitutional Vitals: Temp Pulse Resp BP Pulse Ox 97.6 F 59 L 14 108/64 95 12/06/21 07:15 12/06/21 07:00 12/06/21 07:00 12/06/21 07:00 12/06/21 07:00 HEART Score - HEART Score Troponin: Troponin T 0.045 ng/mL (0.00-0.029) H 12/03/21 23:16 Results - Labs CBC & Chem 7: 12/06/21 04:15 12/06/21 04:15 Labs: Laboratory Last Values WBC 7.8 K/mm3 (4.5-11.0) 12/06/21 04:15 RBC 3.58 M/mm3 (3.65-5.03) L 12/06/21 04:15 Hgb 9.1 gm/dl (11.8-15.2) L 12/06/21 04:15 Hct 28.2 % (35.5-45.6) L 12/06/21 04:15 MCV 79 fl (84-94) L 12/06/21 04:15 MCH 26 pg (28-32) L 12/06/21 04:15 MCHC 32 % (32-34) 12/06/21 04:15 RDW 20.2 % (13.2-15.2) H 12/06/21 04:15 Plt Count 166 K/mm3 (140-440) 12/06/21 04:15 Lymph % (Auto) 12.5 % (13.4-35.0) L 12/03/21 04:00 Morton % (Auto) 9.2 % (0.0-7.3) H 12/03/21 04:00 Eos % (Auto) 0.1 % (0.0-4.3) 12/03/21 04:00 Baso % (Auto) 0.1 % (0.0-1.8) 12/03/21 04:00 Lymph # (Auto) 2.0 K/mm3 (1.2-5.4) 12/03/21 04:00 Morton # (Auto) 1.4 K/mm3 (0.0-0.8) H 12/03/21 04:00 Eos # (Auto) 0.0 K/mm3 (0.0-0.4) 12/03/21 04:00 Baso # (Auto) 0.0 K/mm3 (0.0-0.1) 12/03/21 04:00 Add Manual Diff Complete 12/02/21 15:21 Total Counted 100 12/02/21 15:21 Seg Neutrophils % 78.1 % (40.0-70.0) H 12/03/21 04:00 Seg Neuts % (Manual) 87.0 % (40.0-70.0) H 12/02/21 15:21 Band Neutrophils % 1.0 % 12/02/21 15:21 Lymphocytes % (Manual) 9.0 % (13.4-35.0) L 12/02/21 15:21 Reactive Lymphs % (Man) 0 % 12/02/21 15:21 Monocytes % (Manual) 2.0 % (0.0-7.3) 12/02/21 15:21 Eosinophils % (Manual) 1.0 % (0.0-4.3) 12/02/21 15:21 Basophils % (Manual) 0 % (0.0-1.8) 12/02/21 15:21 Metamyelocytes % 0 % 12/02/21 15:21 Myelocytes % 0 % 12/02/21 15:21 Promyelocytes % 0 % 12/02/21 15:21 Blast Cells % 0 % 12/02/21 15:21 Nucleated RBC % Not Reportable 12/02/21 15:21 Seg Neutrophils # 12.2 K/mm3 (1.8-7.7) H 12/03/21 04:00 Seg Neutrophils # Man 19.7 K/mm3 (1.8-7.7) H 12/02/21 15:21 Band Neutrophils # 0.2 K/mm3 12/02/21 15:21 Lymphocytes # (Manual) 2.0 K/mm3 (1.2-5.4) 12/02/21 15:21 Abs React Lymphs (Man) 0.0 K/mm3 12/02/21 15:21 Monocytes # (Manual) 0.5 K/mm3 (0.0-0.8) 12/02/21 15:21 Eosinophils # (Manual) 0.2 K/mm3 (0.0-0.4) 12/02/21 15:21 Basophils # (Manual) 0.0 K/mm3 (0.0-0.1) 12/02/21 15:21 Metamyelocytes # 0.0 K/mm3 12/02/21 15:21 Myelocytes # 0.0 K/mm3 12/02/21 15:21 Promyelocytes # 0.0 K/mm3 12/02/21 15:21 Blast Cells # 0.0 K/mm3 12/02/21 15:21 WBC Morphology Not Reportable 12/02/21 15:21 Hypersegmented Neuts Not Reportable 12/02/21 15:21 Hyposegmented Neuts Not Reportable 12/02/21 15:21 Hypogranular Neuts Not Reportable 12/02/21 15:21 Smudge Cells Not Reportable 12/02/21 15:21 Toxic Granulation Not Reportable 12/02/21 15:21 Toxic Vacuolation Not Reportable 12/02/21 15:21 Dohle Bodies Not Reportable 12/02/21 15:21 Pelger-Huet Anomaly Not Reportable 12/02/21 15:21 Chandra Rods Not Reportable 12/02/21 15:21 Platelet Estimate Consistent w auto 12/02/21 15:21 Clumped Platelets Not Reportable 12/02/21 15:21 Plt Clumps, EDTA Not Reportable 12/02/21 15:21 Large Platelets Not Reportable 12/02/21 15:21 Giant Platelets Not Reportable 12/02/21 15:21 Platelet Satelliting Not Reportable 12/02/21 15:21 Plt Morphology Comment Not Reportable 12/02/21 15:21 RBC Morphology Not Reportable 12/02/21 15:21 Dimorphic RBCs Not Reportable 12/02/21 15:21 Polychromasia Not Reportable 12/02/21 15:21 Hypochromasia 1+ 12/02/21 15:21 Poikilocytosis Not Reportable 12/02/21 15:21 Anisocytosis 1+ 12/02/21 15:21 Microcytosis Not Reportable 12/02/21 15:21 Macrocytosis Not Reportable 12/02/21 15:21 Spherocytes Not Reportable 12/02/21 15:21 Pappenheimer Bodies Not Reportable 12/02/21 15:21 Sickle Cells Not Reportable 12/02/21 15:21 Target Cells Not Reportable 12/02/21 15:21 Tear Drop Cells Not Reportable 12/02/21 15:21 Ovalocytes Not Reportable 12/02/21 15:21 Helmet Cells Not Reportable 12/02/21 15:21 Aguilar-Stinnett Bodies Not Reportable 12/02/21 15:21 [place] Rings Not Reportable 12/02/21 15:21 Shirley Cells Not Reportable 12/02/21 15:21 Bite Cells Not Reportable 12/02/21 15:21 Crenated Cell Not Reportable 12/02/21 15:21 Elliptocytes Not Reportable 12/02/21 15:21 Acanthocytes (Spur) Not Reportable 12/02/21 15:21 Rouleaux Not Reportable 12/02/21 15:21 Hemoglobin C Crystals Not Reportable 12/02/21 15:21 Schistocytes Not Reportable 12/02/21 15:21 Malaria parasites Not Reportable 12/02/21 15:21 Josh Bodies Not Reportable 12/02/21 15:21 Hem Pathologist Commnt No 12/02/21 15:21 PT 19.7 Sec. (12.2-14.9) H 12/02/21 15:21 INR 1.48 (0.87-1.13) H 12/02/21 15:21 ABG pH 7.322 pH Units (7.350-7.450) L 12/02/21 22:40 ABG pCO2 25.5 mm Hg 12/02/21 22:40 ABG pO2 240.4 mm Hg (80.0-90.0) H 12/02/21 22:40 ABG HCO3 12.9 mmol/L (20.0-26.0) L 12/02/21 22:40 ABG O2 Saturation 99.4 % (95.0-99.0) H 12/02/21 22:40 ABG O2 Content 15.9 (0.0-44) 12/02/21 22:40 ABG Base Excess -11.6 mmol/L (-2.0-3.0) L 12/02/21 22:40 ABG Hemoglobin 11.1 gm/dl (14.0-18.0) L 12/02/21 22:40 ABG Carboxyhemoglobin 1.0 % (0.0-5.0) 12/02/21 22:40 ABG Methemoglobin 0.6 % (0.0-1.5) 12/02/21 22:40 Oxyhemoglobin 97.9 % (95.0-99.0) 12/02/21 22:40 FiO2 100 % 12/02/21 22:40 Sodium 141 mmol/L (137-145) 12/06/21 04:15 Potassium 3.3 mmol/L (3.6-5.0) L 12/06/21 04:15 Chloride 98.5 mmol/L (98-107) 12/06/21 04:15 Carbon Dioxide 35 mmol/L (22-30) H 12/06/21 04:15 Anion Gap 11 mmol/L 12/06/21 04:15 BUN 22 mg/dL (9-20) H 12/06/21 04:15 Creatinine 1.7 mg/dL (0.8-1.3) H 12/06/21 04:15 Estimated GFR 48 ml/min 12/06/21 04:15 BUN/Creatinine Ratio 13 % 12/06/21 04:15 Glucose 122 mg/dL (75-100) H 12/06/21 04:15 POC Glucose 237 mg/dL (70-105) H 12/05/21 21:24 Lactic Acid 1.90 mmol/L (0.7-2.0) 12/05/21 04:50 Calcium 7.6 mg/dL (8.4-10.2) L 12/06/21 04:15 Phosphorus 2.30 mg/dL (2.5-4.5) L 12/06/21 04:15 Magnesium 1.80 mg/dL (1.7-2.3) 12/06/21 04:15 Total Bilirubin 0.20 mg/dL (0.1-1.2) 12/03/21 04:00 AST 27 units/L (5-40) 12/03/21 04:00 ALT 10 units/L (7-56) 12/03/21 04:00 Alkaline Phosphatase 71 units/L (35-129) 12/03/21 04:00 Troponin T 0.045 ng/mL (0.00-0.029) H 12/03/21 23:16 C-Reactive Protein 0.30 mg/dL (0.00-1.30) 12/02/21 22:26 NT-Pro-B Natriuret Pep 453.1 pg/mL (0-900) 12/02/21 15:21 Total Protein 5.6 g/dL (6.3-8.2) L D 12/03/21 04:00 Albumin 3.1 g/dL (3.9-5) L 12/03/21 04:00 Albumin/Globulin Ratio 1.2 % 12/03/21 04:00 Triglycerides 147 mg/dL (2-149) 12/03/21 11:16 Cholesterol 133 mg/dL (50-199) 12/03/21 11:16 LDL Cholesterol Direct 69 mg/dL (50-130) 12/03/21 11:16 HDL Cholesterol 48 mg/dL (40-59) 12/03/21 11:16 Cholesterol/HDL Ratio 2.77 % 12/03/21 11:16 Procalcitonin < 0.05 ng/mL (<0.15) 12/02/21 22:26 PTH Intact 138.9 pg/mL (15-65) H 12/03/21 00:01 Urine Creatinine 44.3 mg/dL (0.1-20.0) H 12/03/21 03:15 Protein/Creatinin Ratio 0.20 12/03/21 03:15 Urine Sodium 74 mmol/L 12/03/21 03:15 Urine Total Protein 9 mg/dL (5-11.8) 12/03/21 03:15 Fluid Type Pleural 12/05/21 12:15 Fluid Color [place] 12/05/21 12:15 Fluid Appearance Cloudy 12/05/21 12:15 Fluid WBC 2100 /mm3 12/05/21 12:15 Fluid RBC 9150 /mm3 12/05/21 12:15 Fluid Seg Neutrophils 94.0 % 12/05/21 12:15 Fluid Lymphocytes 4.0 % 12/05/21 12:15 Fluid Reactive Lymphs Not Reportable 12/05/21 12:15 Fluid Monocytes 2.0 % 12/05/21 12:15 Fluid Eosinophils Not Reportable 12/05/21 12:15 Fluid Basophils Not Reportable 12/05/21 12:15 Nasal Screen MRSA (PCR) Negative (Negative) 12/03/21 07:55 Random Vancomycin 8.0 ug/mL (0-40.0) 12/04/21 05:00 C. difficile Tox (PCR) Negative (Negative) 12/03/21 10:55 Coronavirus (PCR) Negative (Negative) 12/03/21 07:55 Blood Type A POSITIVE 12/02/21 22:26 Antibody Screen Negative 12/02/21 22:26 Microbiology: Microbiology 12/02/21 16:38 Peripheral/Venous Blood Culture - Preliminary NO GROWTH AFTER 72 HOURS 12/02/21 16:38 Peripheral/Venous Blood Culture - Preliminary NO GROWTH AFTER 72 HOURS 12/05/21 12:15 Pleural Fluid - Pleura,Lt Lung Body Fluid Culture - Preliminary Abad/IV: Voiding Method Urinal Active Medications - Current Medications Current Medications: Generic Name Dose Route Start Last Admin Trade Name Freq PRN Reason Stop Dose Admin Acetaminophen 650 mg 12/02/21 19:05 Acetaminophen 325 Mg Tab PO Q6H PRN Pain MILD(1-3)/Fever >100.5/FAJARDO Albuterol 2.5 mg 12/02/21 19:05 Albuterol 2.5 Mg/3 Ml Nebu IH Q3HRT PRN Shortness Of Breath Dextrose 50 ml 12/03/21 18:00 Dextrose 50% In Water (25gm) 50 Ml Syringe IV Q30MIN PRN Hypoglycemia Protocol Famotidine 20 mg 12/03/21 10:00 12/05/21 10:53 Famotidine 20 Mg Tab PO 20 mg QDAY BRITNEY Administration Heparin Sodium (Porcine) 5,000 unit 12/03/21 14:00 12/06/21 06:39 Heparin 5,000 Unit/1 Ml Vial SUB-Q 5,000 unit Q8HR BRITNEY Administration Hydromorphone HCl 0.25 mg 12/02/21 19:05 12/06/21 00:01 Hydromorphone 0.5 Mg/0.5 Ml Inj IV 0.25 mg Q4H PRN Administration Pain, Moderate (4-6) Hydromorphone HCl 0.5 mg 12/02/21 19:05 Hydromorphone 0.5 Mg/0.5 Ml Inj IV Q3H PRN Pain , Severe (7-10) NORepinephrine/NS 8 MG-250 ML 8 mg in 250 mls @ 12.247 mls/hr 12/02/21 18:38 12/06/21 00:00 Norepinephrine/Ns 8 Mg-250 Ml (Double Conc) IV 0 mcg/kg/min TITRATE PRN 0 mls/hr Hypotension Titration Protocol 0.1 MCG/KG/MIN Potassium Phosphate 30 mmol/ 510 mls @ 83 mls/hr 12/06/21 07:25 Sodium Chloride IV 12/06/21 13:33 ONCE ONE Cefepime HCl 2 gm in 100 mls @ 200 mls/hr 12/06/21 20:00 Cefepime/Ns 2 Gm/100 Ml IV 12/08/21 08:29 Q12H BRITNEY Protocol Insulin Human Regular 0 units 12/03/21 22:00 12/05/21 21:28 Insulin Regular, Human 100 Units/1 Ml SUB-Q 3 units ACHS BRITNEY Administration Protocol Midodrine 10 mg 12/05/21 16:00 12/05/21 16:58 Midodrine 10 Mg Tab PO 10 mg TID@0800,1200,1600 BRITNEY Administration Ondansetron HCl 4 mg 12/03/21 00:52 12/03/21 00:59 Ondansetron 4 Mg/2 Ml Inj IV 4 mg Q8H PRN Administration Nausea And Vomiting Oxycodone/Acetaminophen 1 tab 12/02/21 19:05 Oxycodone /Acetaminophen 5-325mg Tab PO Q6H PRN Pain, Moderate (4-6) Sodium Chloride 10 ml 12/02/21 22:00 12/05/21 21:22 Sodium Chloride 0.9% 10 Ml Flush Syringe IV 10 ml BID BRITNEY Administration Sodium Chloride 10 ml 12/02/21 19:05 Sodium Chloride 0.9% 10 Ml Flush Syringe IV PRN PRN LINE FLUSH Thiamine HCl 100 mg 12/03/21 19:00 12/05/21 10:53 Thiamine 100 Mg Tab PO 100 mg QDAY BRITNEY Administration Nutrition/Malnutrition Assess - Dietary Evaluation Nutrition/Malnutrition Findings: Nutrition Notes Start: 12/03/21 09:55 Freq: Status: Active Protocol: Document 12/03/21 09:55 CIERRA (Rec: 12/03/21 10:23 CIERRA [id number]) Nutrition Notes Need for Assessment generated from: MD Order Initial or Follow up Assessment Current Diagnosis Acute Kidney Injury,Diabetes, Respiratory Failure Other Pertinent Diagnosis NSTEMI, Dehydration, Pneumonia , Metastatic Lung CA/Pleural Effusion,... Current Diet Renal Diet + D Suppl (since L 12/03). Labs/Tests 12/03: CO2 18, BUN 72, Crea 5. 3/ Pertinent Medications 12/03: Nutritionally unremarkable. 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 No reports available on Pt's PO intake at the time, will assess at F/U. I will prescribe dietary supplements to compensate for poor or insufficient PO intake of meals during LOS. Pt is on NIV/Bi-PaP+, O2 saturation @ 98%, according to Physical Assessment History notes. Pt has missing teeth, according to Physical Assessment History notes. 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 Percent of energy/protein needs met: Prescribed Renal Diet provides for energy/protein needs (2, 072 Kcal/77 g) during LOS; additionally, Dietary Supplements will compensate for possible poor or insufficient PO intake of meals with 850 Kcal and 38 g of protein. Burn Absent Trauma Absent GI Symptoms Nausea,Vomiting,Diarrhea Food Allergy No Skin Integrity/Comment Assessment WNL. 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 As Evidenced by Signs and Symptoms No reports available on Pt's PO intake at the time, will assess at F/U. Is patient on ventilator? No Is Patient Ambulatory and/or Out of Bed Yes REE-(Sprague-St. Jeor-ambulatory/OOB) [ [id number] [id number]] Calculation Used for Recommendations Sprague-St Jeor Additional Notes Protein: 0.8-1.2 g/Kg ABW; 51- 77 g/day. Fluids: 1 ml/Kcal, or as per MD. Nutrition Intervention Change Diet Order: Continue Renal Diet as tolerated. Add Supplement/Snack (indicate name/kcal Start 8 fl oz Nepro w/ /protein ) CARBSTEADY; BID. Provides kCal: 850 Provides Protein (gm) 38 Goal #1 Compensate, through dietary supplementation, for possible poor or insufficient PO intake of meals during LOS. Follow-Up By: 12/09/21 Additional Comments Continue monitoring food tolerance, %PO intake of meals , dietary supplements, and BM.
--- NOTE | 2021-12-05 13:00 | Progress Note ---
Assessment and Plan 76 YO Male with DM, Lung Cancer with metastatic disease and Malignant Pleural EffusioinS/P Pleural Drain Placement, PVD presents to ED for evaluation. Patient states that he has experienced shortness of breath over the past week with persistent and worsening symptoms over the same timeframe. Patient also acknowledges diffuse back pain. Patient states that his pain is 10/10, constant, worsened with movement, relieved with movement. Patient acknowledges pain is localized over his spine. Patient acknowledges increased use of nebul izer therapy without relief. Patient failed outpatient therapy. EMS was notified and upon arrival the patient was found to be in distress with a pulse oximetry in the 60s. Patient was placed on nonrebreather oxygen and transported to [facility] for further care and evaluation of the aforementioned symptoms. Patient found to have a pulse oximetry of 79% on room room air which is consistent with acute hypoxemic respiratory failure. Patient also found to have bilateral pneumonia complicated by septic shock, metabolic acidosis, PEDRO with ATN, hyperkalemia, volume depletion, and malignant pleural effusion. Patient admitted to ICU due to increased risk of worsening symptoms after medical stabilization. Patient initiated on sepsis protocol in the emergency department. Patient denies fever, chills, chest pain, palpitation, productive cough, skin rash, recent contact, known exposure to COVID-19. Surgical history Bilateral BKA. Patient has History of smoking 1 pack x 50 years. Denies alcohol or drug abuse. Worked in [employer] house before he retired. and has two children. and has two children. No known drug allergies. Patient awake. Resting on 3 litres O2. O2 saturation 97%. No acute respiratory distress. Denies chest pain, shortness of breath or cough at rest. Patient afebrile. Has leukocytosis. Blood pressure 91/50 , Pulse 73 , Respirations 17. Chest xray done 12/01/21 reported Left thoracostomy tube with small to moderate partially loculated left pleural fluid. No pneumothorax. Bilateral pulmonary nodules suspicious for satellite metastases in this patient with a reported history of malignancy. Patchy bibasilar airspace disease, concerning for pneumonia. Perfusion lung scan done 12/02/21 reported No segmental perfusion defects . Chest xray done 12/05/21 reported Slight interval increase in size of loculated appearing left pleural effusion. Previously noted bilateral pulmonary opacities are grossly stable. Patient is on cefepime, S/C Heparin, Famotidine, Albuterol inhaler. Patient is on Norepinephrine drip. I spent critical care time of 35 minutes, talking to the patient, review the chart, examine the patient, review chest xray, perfusion lung scan, talking to the nursing staff, rspiratory therapy and work up plan of treatment in this critically ill patient. - Patient Problems (1) Acute hypoxemic respiratory failure Current Visit: Yes Status: Acute Plan to address problem: On 3 litres O2, O2 saturation 97%. Albuterol inhaler S/C Heparin Famotidine. (2) Acute kidney injury (PEDRO) with acute tubular necrosis (ATN) Current Visit: Yes Status: Acute Plan to address problem: Management as per nephrology. (3) Diabetes mellitus Current Visit: Yes Status: Acute Plan to address problem: Management as per primary care. (4) Malignant pleural effusion Current Visit: Yes Status: Acute Plan to address problem: Loculated right pleural effusion with thoracostomy tube reported on chest xray. (5) Metastatic lung cancer (metastasis from lung to other site) Current Visit: Yes Status: Acute Plan to address problem: Consult oncology. (6) Pneumonia Current Visit: Yes Status: Acute Plan to address problem: Patient is on Cefepime, (7) Sepsis Current Visit: Yes Status: Acute Plan to address problem: Patient is on Cefepime. (8) Septic shock Current Visit: Yes Status: Acute Plan to address problem: Patient is on Cefepime, Patient is on Norepinephrine. Subjective Date of service: 12/05/21 Principal diagnosis: AHRF; Pneumonia; Lung CA; PEDRO; Hyperkalemia; Septic shock; NSTEMI; DM II Interval history: 76 YO Male with DM, Lung Cancer with metastatic disease and Malignant Pleural EffusioinS/P Pleural Drain Placement, PVD presents to ED for evaluation. Patient states that he has experienced shortness of breath over the past week with persistent and worsening symptoms over the same timeframe. Patient also acknowledges diffuse back pain. Patient states that his pain is 10/10, constant, worsened with movement, relieved with movement. Patient acknowledges pain is localized over his spine. Patient acknowledges increased use of nebulizer therapy without relief. Patient failed outpatient therapy. EMS was notified and upon arrival the patient was found to be in distress with a pulse oximetry in the 60s. Patient was placed on nonrebreather oxygen and transported to [facility] for further care and evaluation of the aforementioned symptoms. Patient found to have a pulse oximetry of 79% on room room air which is consistent with acute hypoxemic respiratory failure. Patient also found to have bilateral pneumonia complicated by septic shock, metabolic acidosis, PEDRO with ATN, hyperkalemia, volume depletion, and malignant pleural effusion. Patient admitted to ICU due to increased risk of worsening symptoms after medical stabilization. Patient initiated on sepsis protocol in the emergency department. Patient denies fever, chills, chest pain, palpitation, productive cough, skin rash, recent contact, known exposure to COVID-19. Surgical history Bilateral BKA. Patient has History of smoking 1 pack x 50 years. Denies alcohol or drug abuse. Worked in [employer] house before he retired. and has two children. and has two children. No known drug allergies. Patient awake. Resting on 3 litres O2. O2 saturation 97%. No acute respiratory distress. Denies chest pain, shortness of breath or cough at rest. Patient afebrile. Has leukocytosis. Blood pressure 91/50 , Pulse 73 , Respirations 17. Chest xray done 12/01/21 reported Left thoracostomy tube with small to moderate partially loculated left pleural fluid. No pneumothorax. Bilateral pulmonary nodules suspicious for satellite metastases in this patient with a reported history of malignancy. Patchy bibasilar airspace disease, concerning for pneumonia. Perfusion lung scan done 12/02/21 reported No segmental perfusion defects . Chest xray done 12/05/21 reported Slight interval increase in size of loculated appearing left pleural effusion. Previously noted bilateral pulmonary opacities are grossly stable. Patient is on cefepime, S/C Heparin, Famotidine, Albuterol inhaler. Patient is on Norepinephrine drip. Objective Vital Signs - 12hr 12/05/21 12/05/21 12/05/21 01:00 01:10 01:20 Temperature Pulse Rate 85 77 74 Pulse Rate [ From Monitor] Respiratory 18 18 14 Rate Blood Pressure 107/68 107/68 120/72 O2 Sat by Pulse 100 100 100 Oximetry 12/05/21 12/05/21 12/05/21 01:30 01:40 01:50 Temperature Pulse Rate 61 79 91 H Pulse Rate [ From Monitor] Respiratory 13 16 19 Rate Blood Pressure 122/67 122/67 111/67 O2 Sat by Pulse 100 100 98 Oximetry 12/05/21 12/05/21 12/05/21 02:00 02:10 02:20 Temperature Pulse Rate 77 63 57 L Pulse Rate [ From Monitor] Respiratory 19 14 14 Rate Blood Pressure 104/68 104/68 112/64 O2 Sat by Pulse 99 100 99 Oximetry 12/05/21 12/05/21 12/05/21 02:30 02:40 02:50 Temperature Pulse Rate 67 71 83 Pulse Rate [ From Monitor] Respiratory 14 14 16 Rate Blood Pressure 121/70 121/70 92/54 O2 Sat by Pulse 98 99 99 Oximetry 12/05/21 12/05/21 12/05/21 03:00 03:10 03:20 Temperature Pulse Rate 74 61 61 Pulse Rate [ From Monitor] Respiratory 12 11 L 12 Rate Blood Pressure 109/65 109/65 111/65 O2 Sat by Pulse 99 99 98 Oximetry 12/05/21 12/05/21 12/05/21 03:30 03:40 03:50 Temperature Pulse Rate 67 69 77 Pulse Rate [ From Monitor] Respiratory 12 12 14 Rate Blood Pressure 118/64 118/64 125/57 O2 Sat by Pulse 99 99 99 Oximetry 12/05/21 12/05/21 12/05/21 04:00 04:10 04:20 Temperature 98.9 F Pulse Rate 69 60 60 Pulse Rate [ 70 From Monitor] Respiratory 16 13 13 Rate Blood Pressure 97/57 97/57 101/56 O2 Sat by Pulse 100 100 100 Oximetry 12/05/21 12/05/21 12/05/21 04:30 04:40 04:50 Temperature Pulse Rate 66 58 L 67 Pulse Rate [ From Monitor] Respiratory 16 14 16 Rate Blood Pressure 101/57 101/57 114/63 O2 Sat by Pulse 99 99 99 Oximetry 12/05/21 12/05/21 12/05/21 05:00 05:10 05:20 Temperature Pulse Rate 72 68 65 Pulse Rate [ From Monitor] Respiratory 17 16 17 Rate Blood Pressure 102/63 102/63 114/63 O2 Sat by Pulse 97 98 98 Oximetry 12/05/21 12/05/21 12/05/21 05:30 05:40 05:50 Temperature Pulse Rate 69 73 69 Pulse Rate [ From Monitor] Respiratory 17 14 17 Rate Blood Pressure 109/58 109/58 101/58 O2 Sat by Pulse 98 98 98 Oximetry 12/05/21 12/05/21 12/05/21 06:00 06:10 06:20 Temperature Pulse Rate 82 71 75 Pulse Rate [ From Monitor] Respiratory 16 21 16 Rate Blood Pressure 101/58 129/76 115/64 O2 Sat by Pulse 95 96 97 Oximetry 12/05/21 12/05/21 12/05/21 06:30 06:40 06:50 Temperature Pulse Rate 65 67 71 Pulse Rate [ From Monitor] Respiratory 9 L 14 12 Rate Blood Pressure 133/76 133/76 98/62 O2 Sat by Pulse 96 96 94 Oximetry 12/05/21 12/05/21 12/05/21 07:00 07:10 07:13 Temperature 97.5 F L Pulse Rate 72 67 Pulse Rate [ From Monitor] Respiratory 13 17 Rate Blood Pressure 74/47 93/66 O2 Sat by Pulse 94 97 Oximetry 12/05/21 12/05/21 12/05/21 07:20 07:30 07:40 Temperature Pulse Rate 60 57 L 65 Pulse Rate [ From Monitor] Respiratory 15 11 L 19 Rate Blood Pressure 94/68 109/76 109/76 O2 Sat by Pulse 97 97 96 Oximetry 12/05/21 12/05/21 12/05/21 07:41 07:44 07:50 Temperature Pulse Rate 68 98 H Pulse Rate [ From Monitor] Respiratory 14 16 Rate Blood Pressure 109/76 131/74 O2 Sat by Pulse 95 95 95 Oximetry 12/05/21 12/05/21 12/05/21 08:00 08:10 08:20 Temperature Pulse Rate 70 70 92 H Pulse Rate [ From Monitor] Respiratory 18 22 12 Rate Blood Pressure 123/71 123/71 117/64 O2 Sat by Pulse 98 98 94 Oximetry 12/05/21 12/05/21 12/05/21 08:30 08:40 08:50 Temperature Pulse Rate 94 H 97 H 94 H Pulse Rate [ From Monitor] Respiratory 14 15 16 Rate Blood Pressure 103/63 103/63 103/63 O2 Sat by Pulse 96 95 96 Oximetry 12/05/21 12/05/21 12/05/21 09:00 09:10 09:20 Temperature Pulse Rate 88 91 H 74 Pulse Rate [ From Monitor] Respiratory 25 H 25 H 17 Rate Blood Pressure 103/63 99/63 103/67 O2 Sat by Pulse 98 99 99 Oximetry 12/05/21 12/05/21 12/05/21 09:30 09:40 09:50 Temperature Pulse Rate 68 72 74 Pulse Rate [ From Monitor] Respiratory 15 14 15 Rate Blood Pressure 105/69 105/69 114/63 O2 Sat by Pulse 100 100 100 Oximetry 12/05/21 12/05/21 12/05/21 10:00 10:10 10:20 Temperature Pulse Rate 80 72 120 H Pulse Rate [ From Monitor] Respiratory 16 14 15 Rate Blood Pressure 135/76 135/76 114/62 O2 Sat by Pulse 100 100 77 L Oximetry 12/05/21 12/05/21 12/05/21 10:30 10:40 10:50 Temperature Pulse Rate 95 H 91 H 86 Pulse Rate [ From Monitor] Respiratory 31 H 20 20 Rate Blood Pressure 58/40 58/40 73/40 O2 Sat by Pulse 96 95 97 Oximetry 12/05/21 12/05/21 12/05/21 11:00 11:10 11:20 Temperature Pulse Rate 60 65 61 Pulse Rate [ From Monitor] Respiratory 21 19 15 Rate Blood Pressure 131/71 131/71 128/74 O2 Sat by Pulse 99 97 100 Oximetry 12/05/21 12/05/21 12/05/21 11:30 11:37 11:40 Temperature 97.4 F L Pulse Rate 73 64 Pulse Rate [ From Monitor] Respiratory 15 16 Rate Blood Pressure 128/71 128/71 O2 Sat by Pulse 98 84 Oximetry 12/05/21 11:50 Temperature Pulse Rate 75 Pulse Rate [ From Monitor] Respiratory 23 Rate Blood Pressure 125/68 O2 Sat by Pulse 99 Oximetry Constitutional: no acute distress, alert, other (elderly male with mildly increased respiratory effort at rest) Eyes: non-icteric ENT: oropharynx moist Neck: supple, no lymphadenopathy, no JVD Effort: mildly labored Ascultation: Bilateral: diminished breath sounds, rhonchi (bases) Percussion: Bilateral: not dull Cardiovascular: regular rate and rhythm Gastrointestinal: normoactive bowel sounds, soft, non-tender, non-distended (protuberant) Integumentary: normal Extremities: no cyanosis, no edema, no ischemia or petechiae, other (bilateral BKA's) Neurologic: normal mental status, non-focal exam (grossly), pupils equal and round, CN II-XII normal Psychiatric: mood appropriate, affect normal CBC and BMP: 12/06/21 04:15 12/06/21 04:15 ABG, PT/INR, D-dimer: ABG ABG pH 7.322 pH Units (7.350-7.450) L 12/02/21 22:40 ABG pCO2 25.5 mm Hg 12/02/21 22:40 ABG pO2 240.4 mm Hg (80.0-90.0) H 12/02/21 22:40 ABG O2 Saturation 99.4 % (95.0-99.0) H 12/02/21 22:40 PT/INR, D-dimer PT 19.7 Sec. (12.2-14.9) H 12/02/21 15:21 INR 1.48 (0.87-1.13) H 12/02/21 15:21 Abnormal lab findings: Abnormal Labs 12/02/21 12/02/21 12/02/21 15:21 15:21 15:21 WBC 22.7 H Hgb Hct MCV 78 L MCH 25 L MCHC RDW 20.2 H Lymph % (Auto) [place] % (Auto) [place] # (Auto) Seg Neutrophils % Seg Neuts % (Manual) 87.0 H Lymphocytes % (Manual) 9.0 L Seg Neutrophils # Seg Neutrophils # Man 19.7 H PT 19.7 H INR 1.48 H ABG pH ABG pO2 ABG HCO3 ABG O2 Saturation ABG Base Excess ABG Hemoglobin Sodium 131 L Potassium 7.1 H* Chloride 94.9 L Carbon Dioxide 10 L BUN 89 H Creatinine 7.1 H Glucose 108 H POC Glucose Lactic Acid Calcium Magnesium Troponin T 0.105 H* Total Protein Albumin PTH Intact Urine Creatinine 12/02/21 12/02/21 12/02/21 16:39 17:22 22:26 WBC Hgb Hct MCV MCH MCHC RDW Lymph % (Auto) [place] % (Auto) [place] # (Auto) Seg Neutrophils % Seg Neuts % (Manual) Lymphocytes % (Manual) Seg Neutrophils # Seg Neutrophils # Man PT INR ABG pH ABG pO2 ABG HCO3 ABG O2 Saturation ABG Base Excess ABG Hemoglobin Sodium Potassium 7.2 H* Chloride Carbon Dioxide BUN Creatinine Glucose POC Glucose Lactic Acid 6.80 H* 8.90 H* Calcium Magnesium Troponin T Total Protein Albumin PTH Intact Urine Creatinine 12/02/21 12/02/21 12/03/21 22:26 22:40 00:01 WBC Hgb Hct MCV MCH MCHC RDW Lymph % (Auto) [place] % (Auto) [place] # (Auto) Seg Neutrophils % Seg Neuts % (Manual) Lymphocytes % (Manual) Seg Neutrophils # Seg Neutrophils # Man PT INR ABG pH 7.322 L ABG pO2 240.4 H ABG HCO3 12.9 L ABG O2 Saturation 99.4 H ABG Base Excess -11.6 L ABG Hemoglobin 11.1 L Sodium Potassium 5.2 H D Chloride Carbon Dioxide 15 L BUN 77 H Creatinine 6.0 H Glucose 58 L POC Glucose Lactic Acid Calcium Magnesium Troponin T Total Protein Albumin PTH Intact 138.9 H Urine Creatinine 12/03/21 12/03/21 12/03/21 00:48 03:15 04:00 WBC 15.7 H Hgb 10.7 L Hct 34.0 L MCV 78 L MCH 25 L MCHC RDW 20.0 H Lymph % (Auto) 12.5 L [place] % (Auto) 9.2 H [place] # (Auto) 1.4 H Seg Neutrophils % 78.1 H Seg Neuts % (Manual) Lymphocytes % (Manual) Seg Neutrophils # 12.2 H Seg Neutrophils # Man PT INR ABG pH ABG pO2 ABG HCO3 ABG O2 Saturation ABG Base Excess ABG Hemoglobin Sodium Potassium Chloride Carbon Dioxide BUN Creatinine Glucose POC Glucose 65 L Lactic Acid Calcium Magnesium Troponin T Total Protein Albumin PTH Intact Urine Creatinine 44.3 H 12/03/21 12/03/21 12/03/21 04:00 04:05 11:15 WBC Hgb Hct MCV MCH MCHC RDW Lymph % (Auto) [place] % (Auto) [place] # (Auto) Seg Neutrophils % Seg Neuts % (Manual) Lymphocytes % (Manual) Seg Neutrophils # Seg Neutrophils # Man PT INR ABG pH ABG pO2 ABG HCO3 ABG O2 Saturation ABG Base Excess ABG Hemoglobin Sodium Potassium Chloride Carbon Dioxide 18 L BUN 72 H Creatinine 5.3 H Glucose POC Glucose 164 H Lactic Acid 4.00 H* Calcium Magnesium Troponin T Total Protein 5.6 L D Albumin 3.1 L PTH Intact Urine Creatinine 12/03/21 12/03/21 12/03/21 11:16 11:16 16:41 WBC Hgb Hct MCV MCH MCHC RDW Lymph % (Auto) [place] % (Auto) [place] # (Auto) Seg Neutrophils % Seg Neuts % (Manual) Lymphocytes % (Manual) Seg Neutrophils # Seg Neutrophils # Man PT INR ABG pH ABG pO2 ABG HCO3 ABG O2 Saturation ABG Base Excess ABG Hemoglobin Sodium Potassium Chloride Carbon Dioxide BUN Creatinine Glucose POC Glucose 167 H Lactic Acid 6.80 H* Calcium Magnesium Troponin T 0.051 H D Total Protein Albumin PTH Intact Urine Creatinine 12/03/21 12/03/21 12/04/21 21:48 23:16 04:00 WBC Hgb Hct MCV MCH MCHC RDW Lymph % (Auto) [place] % (Auto) [place] # (Auto) Seg Neutrophils % Seg Neuts % (Manual) Lymphocytes % (Manual) Seg Neutrophils # Seg Neutrophils # Man PT INR ABG pH ABG pO2 ABG HCO3 ABG O2 Saturation ABG Base Excess ABG Hemoglobin Sodium Potassium 3.4 L D Chloride 91.5 L Carbon Dioxide 32 H D BUN 38 H Creatinine 3.0 H Glucose 264 H POC Glucose 171 H Lactic Acid Calcium 7.8 L Magnesium 1.10 L Troponin T 0.045 H Total Protein Albumin PTH Intact Urine Creatinine 12/04/21 12/04/21 12/04/21 05:00 08:03 09:30 WBC 12.2 H Hgb 9.8 L Hct 31.2 L MCV 78 L MCH 24 L MCHC 31 L RDW 20.8 H Lymph % (Auto) [place] % (Auto) [place] # (Auto) Seg Neutrophils % Seg Neuts % (Manual) Lymphocytes % (Manual) Seg Neutrophils # Seg Neutrophils # Man PT INR ABG pH ABG pO2 ABG HCO3 ABG O2 Saturation ABG Base Excess ABG Hemoglobin Sodium Potassium 3.2 L Chloride 93.7 L Carbon Dioxide 32 H BUN 38 H Creatinine 2.8 H Glucose 195 H POC Glucose 146 H Lactic Acid Calcium 7.6 L Magnesium Troponin T Total Protein Albumin PTH Intact Urine Creatinine 12/04/21 12/04/21 12/04/21 11:00 11:31 16:21 WBC Hgb Hct MCV MCH MCHC RDW Lymph % (Auto) [place] % (Auto) [place] # (Auto) Seg Neutrophils % Seg Neuts % (Manual) Lymphocytes % (Manual) Seg Neutrophils # Seg Neutrophils # Man PT INR ABG pH ABG pO2 ABG HCO3 ABG O2 Saturation ABG Base Excess ABG Hemoglobin Sodium Potassium Chloride Carbon Dioxide BUN Creatinine Glucose POC Glucose 271 H 175 H Lactic Acid 5.30 H* Calcium Magnesium Troponin T Total Protein Albumin PTH Intact Urine Creatinine 12/04/21 12/04/21 12/05/21 17:16 21:35 04:50 WBC 11.2 H Hgb 9.2 L Hct 29.0 L MCV 78 L MCH 25 L MCHC RDW 20.4 H Lymph % (Auto) [place] % (Auto) [place] # (Auto) Seg Neutrophils % Seg Neuts % (Manual) Lymphocytes % (Manual) Seg Neutrophils # Seg Neutrophils # Man PT INR ABG pH ABG pO2 ABG HCO3 ABG O2 Saturation ABG Base Excess ABG Hemoglobin Sodium Potassium Chloride Carbon Dioxide BUN Creatinine Glucose POC Glucose 202 H Lactic Acid 3.90 H* Calcium Magnesium Troponin T Total Protein Albumin PTH Intact Urine Creatinine 12/05/21 12/05/21 04:50 07:34 WBC Hgb Hct MCV MCH MCHC RDW Lymph % (Auto) [place] % (Auto) [place] # (Auto) Seg Neutrophils % Seg Neuts % (Manual) Lymphocytes % (Manual) Seg Neutrophils # Seg Neutrophils # Man PT INR ABG pH ABG pO2 ABG HCO3 ABG O2 Saturation ABG Base Excess ABG Hemoglobin Sodium Potassium 3.2 L Chloride 92.8 L Carbon Dioxide 36 H BUN 29 H Creatinine 2.2 H Glucose 189 H POC Glucose 140 H Lactic Acid Calcium 7.5 L Magnesium 1.10 L Troponin T Total Protein Albumin PTH Intact Urine Creatinine Chest x-ray: report reviewed, image reviewed Additional Studies: CHEST 1 VIEW 12/05/21 INDICATION / CLINICAL INFORMATION: Follow up respiratory failure. COMPARISON: 12/02/2021 FINDINGS: SUPPORT DEVICES: Stable positioning of venous access catheter. HEART / MEDIASTINUM: No significant abnormality. LUNGS / PLEURA: Bilateral multifocal pulmonary opacities persist not appreciably changed. Loculated appearing left pleural effusion appears slightly increased in size. No pneumothorax. ADDITIONAL FINDINGS: No significant additional findings. IMPRESSION: 1. Slight interval increase in size of loculated appearing left pleural effusion. 2. Previously noted bilateral pulmonary opacities are grossly stable. Allied health notes reviewed: nursing
[2021-12-05 14:45] LABS: Total Cells Counted 100 /mm3
[2021-12-05] MEDS: MIDODRINE 10 MG TAB PO SCH (16:58)
--- NOTE | 2021-12-05 18:25 | Progress Note ---
Assessment and Plan Acute kidney injury Hyperkalemia, now with hypokalemia Metabolic acidosis Septic shock Lung cancer with malignant pleural effusion, status post drain placement Potassium and bicarb has improved status post resuscitation Status post IV bicarb fluids Status post potassium repletion Monitor BMP Continue thiamine supplementation No immediate indication for dialysis Keep MAP more than 65, vasopressors as needed Antibiotics noted Renally dose medications Avoid nephrotoxins Renal diet Subjective Date of service: 12/05/21 Principal diagnosis: AHRF; Pneumonia; Lung CA; PEDRO; Hyperkalemia; Septic shock; NSTEMI; DM II Interval history: Seen in ICU Vitals, labs and I/os reviewed Interdisciplinary notes and consults reviewed Objective - Exam Narrative Exam: Constitutional: no acute distress Head: NC/AT Neck: supple Lungs: clear to auscultation, left pleurx catheter CV: RRR, no M/R/G Abdomen: soft, non-tender, bowel sounds present Back: nontender Extremities: no edema, pulses WNL Skin: intact Neuro: no focal deficits, alert and oriented x4 - Vital Signs Vital signs: Vital Signs - 12hr 12/05/21 12/05/21 12/05/21 06:30 06:40 06:50 Temperature Pulse Rate 65 67 71 Respiratory 9 L 14 12 Rate Blood Pressure 133/76 133/76 98/62 O2 Sat by Pulse 96 96 94 Oximetry 12/05/21 12/05/21 12/05/21 07:00 07:10 07:13 Temperature 97.5 F L Pulse Rate 72 67 Respiratory 13 17 Rate Blood Pressure 74/47 93/66 O2 Sat by Pulse 94 97 Oximetry 12/05/21 12/05/21 12/05/21 07:20 07:30 07:40 Temperature Pulse Rate 60 57 L 65 Respiratory 15 11 L 19 Rate Blood Pressure 94/68 109/76 109/76 O2 Sat by Pulse 97 97 96 Oximetry 12/05/21 12/05/21 12/05/21 07:41 07:44 07:50 Temperature Pulse Rate 68 98 H Respiratory 14 16 Rate Blood Pressure 109/76 131/74 O2 Sat by Pulse 95 95 95 Oximetry 12/05/21 12/05/21 12/05/21 08:00 08:10 08:15 Temperature Pulse Rate 85 70 Respiratory 18 22 Rate Blood Pressure 123/71 123/71 O2 Sat by Pulse 98 98 96 Oximetry 12/05/21 12/05/21 12/05/21 08:20 08:30 08:40 Temperature Pulse Rate 92 H 94 H 97 H Respiratory 12 14 15 Rate Blood Pressure 117/64 103/63 103/63 O2 Sat by Pulse 94 96 95 Oximetry 12/05/21 12/05/21 12/05/21 08:50 09:00 09:10 Temperature Pulse Rate 94 H 88 91 H Respiratory 16 25 H 25 H Rate Blood Pressure 103/63 103/63 99/63 O2 Sat by Pulse 96 98 99 Oximetry 12/05/21 12/05/21 12/05/21 09:20 09:30 09:40 Temperature Pulse Rate 74 68 72 Respiratory 17 15 14 Rate Blood Pressure 103/67 105/69 105/69 O2 Sat by Pulse 99 100 100 Oximetry 12/05/21 12/05/21 12/05/21 09:50 10:00 10:10 Temperature Pulse Rate 74 80 72 Respiratory 15 16 14 Rate Blood Pressure 114/63 135/76 135/76 O2 Sat by Pulse 100 100 100 Oximetry 12/05/21 12/05/21 12/05/21 10:20 10:30 10:40 Temperature Pulse Rate 120 H 95 H 91 H Respiratory 15 31 H 20 Rate Blood Pressure 114/62 58/40 58/40 O2 Sat by Pulse 77 L 96 95 Oximetry 12/05/21 12/05/21 12/05/21 10:50 11:00 11:10 Temperature Pulse Rate 86 60 65 Respiratory 20 21 19 Rate Blood Pressure 73/40 131/71 131/71 O2 Sat by Pulse 97 99 97 Oximetry 12/05/21 12/05/21 12/05/21 11:20 11:30 11:37 Temperature 97.4 F L Pulse Rate 61 73 Respiratory 15 15 Rate Blood Pressure 128/74 128/71 O2 Sat by Pulse 100 98 Oximetry 12/05/21 12/05/21 12/05/21 11:40 11:50 12:00 Temperature Pulse Rate 64 75 82 Respiratory 16 23 21 Rate Blood Pressure 128/71 125/68 98/64 O2 Sat by Pulse 84 99 93 Oximetry 12/05/21 12/05/21 12/05/21 12:10 12:20 12:30 Temperature Pulse Rate 94 H 90 81 Respiratory 21 31 H 27 H Rate Blood Pressure 98/64 105/72 O2 Sat by Pulse 97 98 98 Oximetry 12/05/21 12/05/21 12/05/21 12:41 12:51 13:01 Temperature Pulse Rate 72 72 91 H Respiratory 21 22 26 H Rate Blood Pressure 105/72 110/65 106/76 O2 Sat by Pulse 99 97 98 Oximetry 12/05/21 12/05/21 12/05/21 13:11 13:21 13:30 Temperature Pulse Rate 66 77 78 Respiratory 17 19 17 Rate Blood Pressure 106/76 113/71 91/60 O2 Sat by Pulse 99 97 98 Oximetry 12/05/21 12/05/21 12/05/21 13:40 13:50 14:00 Temperature Pulse Rate 72 69 64 Respiratory 19 18 24 Rate Blood Pressure 109/69 130/71 127/67 O2 Sat by Pulse 95 98 98 Oximetry 12/05/21 12/05/21 12/05/21 14:10 14:20 14:30 Temperature Pulse Rate 59 L 57 L 57 L Respiratory 15 11 L 16 Rate Blood Pressure 131/70 126/70 131/72 O2 Sat by Pulse 99 98 99 Oximetry 12/05/21 12/05/21 12/05/21 14:40 14:50 15:00 Temperature Pulse Rate 63 73 73 Respiratory 13 35 H 18 Rate Blood Pressure 141/74 126/71 116/72 O2 Sat by Pulse 99 97 98 Oximetry 12/05/21 12/05/21 12/05/21 15:10 15:21 15:30 Temperature Pulse Rate 69 81 71 Respiratory 17 23 20 Rate Blood Pressure 128/73 93/62 129/72 O2 Sat by Pulse 99 98 Oximetry 12/05/21 12/05/21 12/05/21 15:40 15:50 16:00 Temperature Pulse Rate 68 74 72 Respiratory 18 20 20 Rate Blood Pressure 143/82 133/78 124/74 O2 Sat by Pulse 99 99 98 Oximetry 12/05/21 12/05/21 12/05/21 16:10 16:20 16:25 Temperature 98.6 F Pulse Rate 73 66 Respiratory 20 15 Rate Blood Pressure 114/74 132/77 O2 Sat by Pulse 98 98 Oximetry 12/05/21 12/05/21 12/05/21 16:30 16:41 16:51 Temperature Pulse Rate 65 71 71 Respiratory 18 26 H 19 Rate Blood Pressure 128/70 108/51 132/77 O2 Sat by Pulse 98 99 97 Oximetry 12/05/21 12/05/21 12/05/21 17:00 17:11 17:21 Temperature Pulse Rate 94 H 94 H 91 H Respiratory 17 16 12 Rate Blood Pressure 133/78 133/78 129/79 O2 Sat by Pulse 94 97 96 Oximetry 12/05/21 12/05/21 12/05/21 17:31 17:41 17:51 Temperature Pulse Rate 86 76 76 Respiratory 11 L 12 16 Rate Blood Pressure 105/68 105/68 113/68 O2 Sat by Pulse 93 94 99 Oximetry 12/05/21 12/05/21 18:00 18:11 Temperature Pulse Rate 73 64 Respiratory 18 16 Rate Blood Pressure 113/68 117/78 O2 Sat by Pulse 95 99 Oximetry - Lab 12/05/21 04:50 12/05/21 04:50 Most recent lab results ABG pH 7.322 pH Units (7.350-7.450) L 12/02/21 22:40 ABG pCO2 25.5 mm Hg 12/02/21 22:40 ABG pO2 240.4 mm Hg (80.0-90.0) H 12/02/21 22:40 ABG HCO3 12.9 mmol/L (20.0-26.0) L 12/02/21 22:40 ABG O2 Saturation 99.4 % (95.0-99.0) H 12/02/21 22:40 Calcium 7.5 mg/dL (8.4-10.2) L 12/05/21 04:50 Phosphorus 2.50 mg/dL (2.5-4.5) D 12/05/21 04:50 Magnesium 1.10 mg/dL (1.7-2.3) L 12/05/21 04:50 Urine Creatinine 44.3 mg/dL (0.1-20.0) H 12/03/21 03:15 Urine Sodium 74 mmol/L 12/03/21 03:15 Urine Total Protein 9 mg/dL (5-11.8) 12/03/21 03:15 Medications & Allergies - Medications Allergies/Adverse Reactions: Allergies No Known Allergies Allergy (Unverified 12/02/21 15:15) Active Medications: Generic Name Dose Route Start Last Admin Trade Name Freq PRN Reason Stop Dose Admin Acetaminophen 650 mg 12/02/21 19:05 Acetaminophen 325 Mg Tab PO Q6H PRN Pain MILD(1-3)/Fever >100.5/FAJARDO Albuterol 2.5 mg 12/02/21 19:05 Albuterol 2.5 Mg/3 Ml Nebu IH Q3HRT PRN Shortness Of Breath Dextrose 50 ml 12/03/21 18:00 Dextrose 50% In Water (25gm) 50 Ml Syringe IV Q30MIN PRN Hypoglycemia Protocol Famotidine 20 mg 12/03/21 10:00 12/05/21 10:53 Famotidine 20 Mg Tab PO 20 mg QDAY BRITNEY Administration Heparin Sodium (Porcine) 5,000 unit 12/03/21 14:00 12/05/21 13:00 Heparin 5,000 Unit/1 Ml Vial SUB-Q 5,000 unit Q8HR BRITNEY Administration Hydromorphone HCl 0.25 mg 12/02/21 19:05 Hydromorphone 0.5 Mg/0.5 Ml Inj IV Q4H PRN Pain, Moderate (4-6) Hydromorphone HCl 0.5 mg 12/02/21 19:05 Hydromorphone 0.5 Mg/0.5 Ml Inj IV Q3H PRN Pain , Severe (7-10) NORepinephrine/NS 8 MG-250 ML 8 mg in 250 mls @ 12.247 mls/hr 12/02/21 18:38 12/05/21 14:29 Norepinephrine/Ns 8 Mg-250 Ml (Double Conc) IV 0.1 mcg/kg/min TITRATE PRN 12.247 mls/hr Hypotension Titration Protocol 0.1 MCG/KG/MIN Cefepime HCl 2 gm in 100 mls @ 200 mls/hr 12/04/21 06:00 12/05/21 05:57 Cefepime/Ns 2 Gm/100 Ml IV 200 mls/hr Q24H BRITNEY Administration Protocol Insulin Human Regular 0 units 12/03/21 22:00 12/05/21 16:59 Insulin Regular, Human 100 Units/1 Ml SUB-Q 3 units ACHS BRITNEY Administration Protocol Midodrine 10 mg 12/05/21 16:00 12/05/21 16:58 Midodrine 10 Mg Tab PO 10 mg TID@0800,1200,1600 BRITNEY Administration Ondansetron HCl 4 mg 12/03/21 00:52 12/03/21 00:59 Ondansetron 4 Mg/2 Ml Inj IV 4 mg Q8H PRN Administration Nausea And Vomiting Oxycodone/Acetaminophen 1 tab 12/02/21 19:05 Oxycodone /Acetaminophen 5-325mg Tab PO Q6H PRN Pain, Moderate (4-6) Sodium Chloride 10 ml 12/02/21 22:00 12/05/21 11:56 Sodium Chloride 0.9% 10 Ml Flush Syringe IV Not Given BID BRITNEY Sodium Chloride 10 ml 12/02/21 19:05 Sodium Chloride 0.9% 10 Ml Flush Syringe IV PRN PRN LINE FLUSH Thiamine HCl 100 mg 12/03/21 19:00 12/05/21 10:53 Thiamine 100 Mg Tab PO 100 mg QDAY BRITNEY Administration
[2021-12-06 04:51] LABS: Hematocrit 28.2 % (35.5-45.6); Hemoglobin 9.1 gm/dl (11.8-15.2); Mean Corpuscular HGB Conc 32 % (32-34); Mean Corpuscular Volume 79 fl (84-94); Platelet Count 166 K/mm3 (140-440); Red Blood Count 3.58 M/mm3 (3.65-5.03)
[2021-12-06 04:55] LABS: Red Cell Distribution Width 20.2 % (13.2-15.2)
[2021-12-06 05:55] LABS: Calcium 7.6 mg/dL (8.4-10.2)
[2021-12-06] MEDS: HEPARIN 5,000 UNIT/1 ML VIAL SUB-Q SCH ×3 (06:39→22:26)
[2021-12-06] MEDS: CEFEPIME/NS 2 GM/100 ML 2 GM/100 ML BAG IV SCH ×2 (06:39→20:45)
[2021-12-06] MEDS ORDERED: POTASSIUM PHOSPHATE 30 MMOL in SODIUM CHLORIDE 0.9% 500 ML 500 ML IV ONE (07:25)
[2021-12-06] MEDS: INSULIN REGULAR, HUMAN 100 UNITS/1 ML SUB-Q SCH ×4 (07:52→22:27)
[2021-12-06] MEDS: MIDODRINE 10 MG TAB PO SCH ×3 (08:17→16:50)
[2021-12-06] MEDS: THIAMINE 100 MG TAB PO SCH (09:07)
[2021-12-06] MEDS: FAMOTIDINE 20 MG TAB PO SCH (09:07)
--- NOTE | 2021-12-06 13:11 | Progress Note ---
<ASHLEEGIGI MinaCira - Last Filed: 12/06/21 13:36> Assessment and Plan Assessment and plan: This is a 49-year-old male with type 2 DM, former smoker, Lung cancer with Metastatic disease and malignant pleural effusion s/p pleurix cath placement, PVD s/p bilateral AKA admitted for acute kidney injury(PEDRO) and septic shock r equiring vasopressors Neuro: h/o chronic back pain -Reorientation as needed -Maintain sleep-wake cycle -As needed analgesia Cardiac: Hypotension, elevated troponin -S/p vasopressor support with Levophed -Midodrine 3 times daily -Blood pressure monitoring per protocol -Troponin 0.105, 0.051, 0.045 Respiratory: Acute hypoxic respiratory failure -CCM consulted, appreciate recommendations -NIPPV q hs -Supplemental oxygenation as needed -Pulmonary hygiene -SPO2 monitor per protocol GI: Mild protein calorie malnutrition -24 hours -57 mL -PPI -CC renal diet with supplementation : Hypokalemia, Hypophosphatemia, acute kidney injury -Nephrology consulted, appreciate recommendations -Strict intake and output -Renally dose medications -Avoid nephrotoxic medications -s/p bicarb gtt -Trend BMP ID: Septic shock -Infectious disease consulted, appreciate recommendation -COVID PCR (-), C diff PCR (-) -Antibiotic therapy with cefepime (12/06-12/08) -f/u blood culture -blood culture with no growth to date for 72 hours -Monitor WBC and temperature curve Endo: h/o DM -Avoid hypoglycemia -SSI -Accu-Cheks ACHS -Long-acting insulin, titrate as needed Heme: NAD -Trend CBC -Transfuse hemoglobin less than 7 -SCDs to BLE while in bed Oncology: Lung cancer with metastatic disease and malignant pleural effusions s/p pleural drain placement -Currently undergoing chemotherapy -s/p Pleural drain -Pleural fluid is pink, cloudy, WBC 2100, RBC 9150, Seg neutrophils 94, lymphocy marianna 4, monocytes 2 -Continue supportive care The high probability of a clinically significant, sudden or life threatening deterioration of the [multi] system(s) required my full and direct attention, intervention and personal management. The aggregate critical care time was [60] minutes. This time is in addition to time spent performing reported procedures but includes the following: [x] Data Review and interpretation [x] Patient assessment and monitoring of vital signs [x] Documentation [x] Medication orders and management Disposition Plan: transfer to tele Total Time Spent with Patient (Minutes): 60 History Interval history: This is a 76-year-old male with DM, lung cancer with metastatic disease and malignant pleural effusions s/p pleural drain placement, chronic back pain and PVD s/p bilateral AKA who presented to the emergency department on with complaints of back pain 10/10, constant, worsened with movement and relieved without movement localized over the spine with the and shortness of breath over the past week on 12/02. Patient was hypoxic in the emergency department to 79% on room air and CXR revealed bilateral pneumonia which was complicated by septic shock, metabolic acidosis, acute kidney injury, hyperkalemia, volume depletion and malignant pleural effusion. Patient was admitted to the ICU on sepsis protocol with acute hypoxic respiratory failure, PEDRO, hyperkalemia and volume depletion with consults to CCM and nephrology. Hospital Course to Date: 12/03: Patient remains on Levophed and NaBcarb gtts. Patient reported he was recently hospitalized 3 weeks ago for pneumonia and was discharge with some PCN. Patient is afebrile with leukocytosis and Lactic acidosis, cultures and procal pending. Continue current IV abx for now. Patient is also reported frequent loose stools/diarrhea for the past 3 weeks. Will check for C.Diff and PO Vanc and Flagyl added. ID consulted for further recs. Renal function with some improvement, continue bcarb gtt per nephro. Obtain records from the CT in [place]. 12/04: Remains afebrile, ST on the monitor, still on Levophed and bcarb gtt. C.Diff PCR pending, procal and CRP are unremarkable. Continue current IV Abx for now, ID consult pending. Renal function continue to improved, continue bcab gtt per Nephro. Monitor and replace electrolytes as needed. 12/05: Remains on low dose Levophed gtt, off bcarb gtt, renal funstion continue to improve. Will add Midodrine TID, titrate pressors for MAP above 65. CDiff PCR came back negative, PO vanco and Flagyl D/karen. Pleurix cath drained this am, sample sent to the lab. Continue current IV abx, ID consulted. Right upper chest Port accessed, removed Right fem CVC. Monitor and replace electrolytes as needed. 12/06: Remains off levophed, repelte K and phos today. Will transfer to floor. Hospitalist Physical - Constitutional Vitals: Temp Pulse Resp BP Pulse Ox 98.1 F 79 17 110/65 96 12/06/21 11:40 12/06/21 13:00 12/06/21 13:00 12/06/21 13:00 12/06/21 13:00 General appearance: Present: no acute distress, well-nourished, obese - EENT Eyes: Present: PERRL, EOM intact ENT: hearing intact, poor dentition - Neck Neck: Present: normal ROM - Respiratory Respiratory effort: normal Respiratory: bilateral: diminished - Cardiovascular Rhythm: regular Heart Sounds: Present: S1 & S2. Absent: systolic murmur, diastolic murmur - Extremities Extremities: no ischemia, pulses intact, pulses symmetrical, No edema, normal temperature, normal color Peripheral Pulses: within normal limits (except bka) - Abdominal General gastrointestinal: soft, non-tender, non-distended - Integumentary Integumentary: Present: warm, dry - Psychiatric Psychiatric: appropriate mood/affect, cooperative - Neurologic Neurologic: CNII-XII intact, moves all extremities - Allied Health Allied health notes reviewed: nursing, RT, social work HEART Score - HEART Score Troponin: Troponin T 0.045 ng/mL (0.00-0.029) H 12/03/21 23:16 Results - Labs CBC & Chem 7: 12/06/21 04:15 12/06/21 04:15 Labs: Laboratory Last Values WBC 7.8 K/mm3 (4.5-11.0) 12/06/21 04:15 RBC 3.58 M/mm3 (3.65-5.03) L 12/06/21 04:15 Hgb 9.1 gm/dl (11.8-15.2) L 12/06/21 04:15 Hct 28.2 % (35.5-45.6) L 12/06/21 04:15 MCV 79 fl (84-94) L 12/06/21 04:15 MCH 26 pg (28-32) L 12/06/21 04:15 MCHC 32 % (32-34) 12/06/21 04:15 RDW 20.2 % (13.2-15.2) H 12/06/21 04:15 Plt Count 166 K/mm3 (140-440) 12/06/21 04:15 Lymph % (Auto) 12.5 % (13.4-35.0) L 12/03/21 04:00 [place] % (Auto) 9.2 % (0.0-7.3) H 12/03/21 04:00 Eos % (Auto) 0.1 % (0.0-4.3) 12/03/21 04:00 Baso % (Auto) 0.1 % (0.0-1.8) 12/03/21 04:00 Lymph # (Auto) 2.0 K/mm3 (1.2-5.4) 12/03/21 04:00 [place] # (Auto) 1.4 K/mm3 (0.0-0.8) H 12/03/21 04:00 Eos # (Auto) 0.0 K/mm3 (0.0-0.4) 12/03/21 04:00 Baso # (Auto) 0.0 K/mm3 (0.0-0.1) 12/03/21 04:00 Add Manual Diff Complete 12/02/21 15:21 Total Counted 100 12/02/21 15:21 Seg Neutrophils % 78.1 % (40.0-70.0) H 12/03/21 04:00 Seg Neuts % (Manual) 87.0 % (40.0-70.0) H 12/02/21 15:21 Band Neutrophils % 1.0 % 12/02/21 15:21 Lymphocytes % (Manual) 9.0 % (13.4-35.0) L 12/02/21 15:21 Reactive Lymphs % (Man) 0 % 12/02/21 15:21 Monocytes % (Manual) 2.0 % (0.0-7.3) 12/02/21 15:21 Eosinophils % (Manual) 1.0 % (0.0-4.3) 12/02/21 15:21 Basophils % (Manual) 0 % (0.0-1.8) 12/02/21 15:21 Metamyelocytes % 0 % 12/02/21 15:21 Myelocytes % 0 % 12/02/21 15:21 Promyelocytes % 0 % 12/02/21 15:21 Blast Cells % 0 % 12/02/21 15:21 Nucleated RBC % Not Reportable 12/02/21 15:21 Seg Neutrophils # 12.2 K/mm3 (1.8-7.7) H 12/03/21 04:00 Seg Neutrophils # Man 19.7 K/mm3 (1.8-7.7) H 12/02/21 15:21 Band Neutrophils # 0.2 K/mm3 12/02/21 15:21 Lymphocytes # (Manual) 2.0 K/mm3 (1.2-5.4) 12/02/21 15:21 Abs React Lymphs (Man) 0.0 K/mm3 12/02/21 15:21 Monocytes # (Manual) 0.5 K/mm3 (0.0-0.8) 12/02/21 15:21 Eosinophils # (Manual) 0.2 K/mm3 (0.0-0.4) 12/02/21 15:21 Basophils # (Manual) 0.0 K/mm3 (0.0-0.1) 12/02/21 15:21 Metamyelocytes # 0.0 K/mm3 12/02/21 15:21 Myelocytes # 0.0 K/mm3 12/02/21 15:21 Promyelocytes # 0.0 K/mm3 12/02/21 15:21 Blast Cells # 0.0 K/mm3 12/02/21 15:21 WBC Morphology Not Reportable 12/02/21 15:21 Hypersegmented Neuts Not Reportable 12/02/21 15:21 Hyposegmented Neuts Not Reportable 12/02/21 15:21 Hypogranular Neuts Not Reportable 12/02/21 15:21 Smudge Cells Not Reportable 12/02/21 15:21 Toxic Granulation Not Reportable 12/02/21 15:21 Toxic Vacuolation Not Reportable 12/02/21 15:21 Dohle Bodies Not Reportable 12/02/21 15:21 Pelger-Huet Anomaly Not Reportable 12/02/21 15:21 Chandra Rods Not Reportable 12/02/21 15:21 Platelet Estimate Consistent w auto 12/02/21 15:21 Clumped Platelets Not Reportable 12/02/21 15:21 Plt Clumps, EDTA Not Reportable 12/02/21 15:21 Large Platelets Not Reportable 12/02/21 15:21 Giant Platelets Not Reportable 12/02/21 15:21 Platelet Satelliting Not Reportable 12/02/21 15:21 Plt Morphology Comment Not Reportable 12/02/21 15:21 RBC Morphology Not Reportable 12/02/21 15:21 Dimorphic RBCs Not Reportable 12/02/21 15:21 Polychromasia Not Reportable 12/02/21 15:21 Hypochromasia 1+ 12/02/21 15:21 Poikilocytosis Not Reportable 12/02/21 15:21 Anisocytosis 1+ 12/02/21 15:21 Microcytosis Not Reportable 12/02/21 15:21 Macrocytosis Not Reportable 12/02/21 15:21 Spherocytes Not Reportable 12/02/21 15:21 Pappenheimer Bodies Not Reportable 12/02/21 15:21 Sickle Cells Not Reportable 12/02/21 15:21 Target Cells Not Reportable 12/02/21 15:21 Tear Drop Cells Not Reportable 12/02/21 15:21 Ovalocytes Not Reportable 12/02/21 15:21 Helmet Cells Not Reportable 12/02/21 15:21 [place] Bodies Not Reportable 12/02/21 15:21 [place] Rings Not Reportable 12/02/21 15:21 [place] Cells Not Reportable 12/02/21 15:21 Bite Cells Not Reportable 12/02/21 15:21 Crenated Cell Not Reportable 12/02/21 15:21 Elliptocytes Not Reportable 12/02/21 15:21 Acanthocytes (Spur) Not Reportable 12/02/21 15:21 Rouleaux Not Reportable 12/02/21 15:21 Hemoglobin C Crystals Not Reportable 12/02/21 15:21 Schistocytes Not Reportable 12/02/21 15:21 Malaria parasites Not Reportable 12/02/21 15:21 Josh Bodies Not Reportable 12/02/21 15:21 Hem Pathologist Commnt No 12/02/21 15:21 PT 19.7 Sec. (12.2-14.9) H 12/02/21 15:21 INR 1.48 (0.87-1.13) H 12/02/21 15:21 ABG pH 7.322 pH Units (7.350-7.450) L 12/02/21 22:40 ABG pCO2 25.5 mm Hg 12/02/21 22:40 ABG pO2 240.4 mm Hg (80.0-90.0) H 12/02/21 22:40 ABG HCO3 12.9 mmol/L (20.0-26.0) L 12/02/21 22:40 ABG O2 Saturation 99.4 % (95.0-99.0) H 12/02/21 22:40 ABG O2 Content 15.9 (0.0-44) 12/02/21 22:40 ABG Base Excess -11.6 mmol/L (-2.0-3.0) L 12/02/21 22:40 ABG Hemoglobin 11.1 gm/dl (14.0-18.0) L 12/02/21 22:40 ABG Carboxyhemoglobin 1.0 % (0.0-5.0) 12/02/21 22:40 ABG Methemoglobin 0.6 % (0.0-1.5) 12/02/21 22:40 Oxyhemoglobin 97.9 % (95.0-99.0) 12/02/21 22:40 FiO2 100 % 12/02/21 22:40 Sodium 141 mmol/L (137-145) 12/06/21 04:15 Potassium 3.3 mmol/L (3.6-5.0) L 12/06/21 04:15 Chloride 98.5 mmol/L (98-107) 12/06/21 04:15 Carbon Dioxide 35 mmol/L (22-30) H 12/06/21 04:15 Anion Gap 11 mmol/L 12/06/21 04:15 BUN 22 mg/dL (9-20) H 12/06/21 04:15 Creatinine 1.7 mg/dL (0.8-1.3) H 12/06/21 04:15 Estimated GFR 48 ml/min 12/06/21 04:15 BUN/Creatinine Ratio 13 % 12/06/21 04:15 Glucose 122 mg/dL (75-100) H 12/06/21 04:15 POC Glucose 285 mg/dL (70-105) H 12/06/21 11:16 Lactic Acid 1.90 mmol/L (0.7-2.0) 12/05/21 04:50 Calcium 7.6 mg/dL (8.4-10.2) L 12/06/21 04:15 Phosphorus 2.30 mg/dL (2.5-4.5) L 12/06/21 04:15 Magnesium 1.80 mg/dL (1.7-2.3) 12/06/21 04:15 Total Bilirubin 0.20 mg/dL (0.1-1.2) 12/03/21 04:00 AST 27 units/L (5-40) 12/03/21 04:00 ALT 10 units/L (7-56) 12/03/21 04:00 Alkaline Phosphatase 71 units/L (35-129) 12/03/21 04:00 Troponin T 0.045 ng/mL (0.00-0.029) H 12/03/21 23:16 C-Reactive Protein 0.30 mg/dL (0.00-1.30) 12/02/21 22:26 NT-Pro-B Natriuret Pep 453.1 pg/mL (0-900) 12/02/21 15:21 Total Protein 5.6 g/dL (6.3-8.2) L D 12/03/21 04:00 Albumin 3.1 g/dL (3.9-5) L 12/03/21 04:00 Albumin/Globulin Ratio 1.2 % 12/03/21 04:00 Triglycerides 147 mg/dL (2-149) 12/03/21 11:16 Cholesterol 133 mg/dL (50-199) 12/03/21 11:16 LDL Cholesterol Direct 69 mg/dL (50-130) 12/03/21 11:16 HDL Cholesterol 48 mg/dL (40-59) 12/03/21 11:16 Cholesterol/HDL Ratio 2.77 % 12/03/21 11:16 Procalcitonin < 0.05 ng/mL (<0.15) 12/02/21 22:26 PTH Intact 138.9 pg/mL (15-65) H 12/03/21 00:01 Urine Creatinine 44.3 mg/dL (0.1-20.0) H 12/03/21 03:15 Protein/Creatinin Ratio 0.20 12/03/21 03:15 Urine Sodium 74 mmol/L 12/03/21 03:15 Urine Total Protein 9 mg/dL (5-11.8) 12/03/21 03:15 Fluid Type Pleural 12/05/21 12:15 Fluid Color [place] 12/05/21 12:15 Fluid Appearance Cloudy 12/05/21 12:15 Fluid WBC 2100 /mm3 12/05/21 12:15 Fluid RBC 9150 /mm3 12/05/21 12:15 Fluid Seg Neutrophils 94.0 % 12/05/21 12:15 Fluid Lymphocytes 4.0 % 12/05/21 12:15 Fluid Reactive Lymphs Not Reportable 12/05/21 12:15 Fluid Monocytes 2.0 % 12/05/21 12:15 Fluid Eosinophils Not Reportable 12/05/21 12:15 Fluid Basophils Not Reportable 12/05/21 12:15 Nasal Screen MRSA (PCR) Negative (Negative) 12/03/21 07:55 Random Vancomycin 8.0 ug/mL (0-40.0) 12/04/21 05:00 C. difficile Tox (PCR) Negative (Negative) 12/03/21 10:55 Coronavirus (PCR) Negative (Negative) 12/03/21 07:55 Blood Type A POSITIVE 12/02/21 22:26 Antibody Screen Negative 12/02/21 22:26 Microbiology: Microbiology 12/02/21 16:38 Peripheral/Venous Blood Culture - Preliminary NO GROWTH AFTER 72 HOURS 12/02/21 16:38 Peripheral/Venous Blood Culture - Preliminary NO GROWTH AFTER 72 HOURS 12/05/21 12:15 Pleural Fluid - Pleura,Lt Lung Body Fluid Culture - Preliminary Abad/IV: Voiding Method Urinal Active Medications - Current Medications Current Medications: Generic Name Dose Route Start Last Admin Trade Name Freq PRN Reason Stop Dose Admin Acetaminophen 650 mg 12/02/21 19:05 Acetaminophen 325 Mg Tab PO Q6H PRN Pain MILD(1-3)/Fever >100.5/FAJARDO Albuterol 2.5 mg 12/02/21 19:05 Albuterol 2.5 Mg/3 Ml Nebu IH Q3HRT PRN Shortness Of Breath Dextrose 50 ml 12/03/21 18:00 Dextrose 50% In Water (25gm) 50 Ml Syringe IV Q30MIN PRN Hypoglycemia Protocol Famotidine 20 mg 12/03/21 10:00 12/06/21 09:07 Famotidine 20 Mg Tab PO 20 mg QDAY BRITNEY Administration Heparin Sodium (Porcine) 5,000 unit 12/03/21 14:00 12/06/21 06:39 Heparin 5,000 Unit/1 Ml Vial SUB-Q 5,000 unit Q8HR BRITNEY Administration Hydromorphone HCl 0.25 mg 12/02/21 19:05 12/06/21 00:01 Hydromorphone 0.5 Mg/0.5 Ml Inj IV 0.25 mg Q4H PRN Administration Pain, Moderate (4-6) Hydromorphone HCl 0.5 mg 12/02/21 19:05 Hydromorphone 0.5 Mg/0.5 Ml Inj IV Q3H PRN Pain , Severe (7-10) NORepinephrine/NS 8 MG-250 ML 8 mg in 250 mls @ 12.247 mls/hr 12/02/21 18:38 12/06/21 00:00 Norepinephrine/Ns 8 Mg-250 Ml (Double Conc) IV 0 mcg/kg/min TITRATE PRN 0 mls/hr Hypotension Titration Protocol 0.1 MCG/KG/MIN Potassium Phosphate 30 mmol/ 510 mls @ 83 mls/hr 12/06/21 07:25 12/06/21 08:37 Sodium Chloride IV 12/06/21 13:33 83 mls/hr ONCE ONE Administration Cefepime HCl 2 gm in 100 mls @ 200 mls/hr 12/06/21 20:00 Cefepime/Ns 2 Gm/100 Ml IV 12/08/21 08:29 Q12H BRITNEY Protocol Insulin Human Regular 0 units 12/03/21 22:00 12/06/21 11:56 Insulin Regular, Human 100 Units/1 Ml SUB-Q 4 units ACHS BRITNEY Administration Protocol Midodrine 10 mg 12/05/21 16:00 12/06/21 11:57 Midodrine 10 Mg Tab PO 10 mg TID@0800,1200,1600 [facility] Administration Ondansetron HCl 4 mg 12/03/21 00:52 12/03/21 00:59 Ondansetron 4 Mg/2 Ml Inj IV 4 mg Q8H PRN Administration Nausea And Vomiting Oxycodone/Acetaminophen 1 tab 12/02/21 19:05 Oxycodone /Acetaminophen 5-325mg Tab PO Q6H PRN Pain, Moderate (4-6) Sodium Chloride 10 ml 12/02/21 22:00 12/06/21 09:08 Sodium Chloride 0.9% 10 Ml Flush Syringe IV Not Given BID BRITNEY Sodium Chloride 10 ml 12/02/21 19:05 12/06/21 09:09 Sodium Chloride 0.9% 10 Ml Flush Syringe IV 10 ml PRN PRN Administration LINE FLUSH Thiamine HCl 100 mg 12/03/21 19:00 12/06/21 09:07 Thiamine 100 Mg Tab PO 100 mg QDAY BRITNEY Administration Nutrition/Malnutrition Assess - Dietary Evaluation Nutrition/Malnutrition Findings: Nutrition Notes Start: 12/03/21 09:55 Freq: Status: Active Protocol: Document 12/03/21 09:55 CIERRA (Rec: 12/03/21 10:23 CIERRA [id number]) Nutrition Notes Need for Assessment generated from: MD Order Initial or Follow up Assessment Current Diagnosis Acute Kidney Injury,Diabetes, Respiratory Failure Other Pertinent Diagnosis NSTEMI, Dehydration, Pneumonia , Metastatic Lung CA/Pleural Effusion,... Current Diet Renal Diet + D Suppl (since L 12/03). Labs/Tests 12/03: CO2 18, BUN 72, Crea 5. 3/ Pertinent Medications 12/03: Nutritionally unremarkable. 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 Weight Status Appropriate Subjective/Other Information RD consult for dietary supplementation assessment. No reports available on Pt's PO intake at the time, will assess at F/U. I will prescribe dietary supplements to compensate for poor or insufficient PO intake of meals during LOS. Pt is on NIV/Bi-PaP+, O2 saturation @ 98%, according to Physical Assessment History notes. Pt has missing teeth, according to Physical Assessment History notes. 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 Percent of energy/protein needs met: Prescribed Renal Diet provides for energy/protein needs (2, 072 Kcal/77 g) during LOS; additionally, Dietary Supplements will compensate for possible poor or insufficient PO intake of meals with 850 Kcal and 38 g of protein. Burn Absent Trauma Absent GI Symptoms Nausea,Vomiting,Diarrhea Food Allergy No Skin Integrity/Comment Assessment WNL. Minimum of two criteria No Fluid Accumulation N/A Reduced Almond Sorter Strength Measurably Reduced (severe) Protein-Calorie Malnutrition N\A #1 Nutrition Diagnosis Predicted suboptimal energy intake Etiology PEDRO, Dehydration, Pneumonia, Metastatic Lung CA. As Evidenced by Signs and Symptoms No reports available on Pt's PO intake at the time, will assess at F/U. Is patient on ventilator? No Is Patient Ambulatory and/or Out of Bed Yes REE-([facility]-ambulatory/OOB) [ [id number] [id number]] Calculation Used for Recommendations [facility] Additional Notes Protein: 0.8-1.2 g/Kg ABW; 51- 77 g/day. Fluids: 1 ml/Kcal, or as per MD. Nutrition Intervention Change Diet Order: Continue Renal Diet as tolerated. Add Supplement/Snack (indicate name/kcal Start 8 fl oz Nepro w/ /protein ) CARBSTEADY; BID. Provides kCal: 850 Provides Protein (gm) 38 Goal #1 Compensate, through dietary supplementation, for possible poor or insufficient PO intake of meals during LOS. Follow-Up By: 12/09/21 Additional Comments Continue monitoring food tolerance, %PO intake of meals , dietary supplements, and BM. <ALFONSO PEREYRA - Last Filed: 12/06/21 19:23> Assessment and Plan Assessment and plan: I saw and evaluated the patient. I agree with the findings and the plan of care as documented in the Nurse Practitioner's~note, with the following corrections and additions. Hospitalist Physical - Constitutional Vitals: Temp Pulse Resp BP Pulse Ox 98.2 F 120 H 13 138/58 96 12/06/21 16:27 12/06/21 18:00 12/06/21 16:20 12/06/21 18:00 12/06/21 18:00 HEART Score - HEART Score Troponin: Troponin T 0.045 ng/mL (0.00-0.029) H 12/03/21 23:16 Results - Labs CBC & Chem 7: 12/06/21 04:15 12/06/21 04:15 Labs: Laboratory Last Values WBC 7.8 K/mm3 (4.5-11.0) 12/06/21 04:15 RBC 3.58 M/mm3 (3.65-5.03) L 12/06/21 04:15 Hgb 9.1 gm/dl (11.8-15.2) L 12/06/21 04:15 Hct 28.2 % (35.5-45.6) L 12/06/21 04:15 MCV 79 fl (84-94) L 12/06/21 04:15 MCH 26 pg (28-32) L 12/06/21 04:15 MCHC 32 % (32-34) 12/06/21 04:15 RDW 20.2 % (13.2-15.2) H 12/06/21 04:15 Plt Count 166 K/mm3 (140-440) 12/06/21 04:15 Lymph % (Auto) 12.5 % (13.4-35.0) L 12/03/21 04:00 [place] % (Auto) 9.2 % (0.0-7.3) H 12/03/21 04:00 Eos % (Auto) 0.1 % (0.0-4.3) 12/03/21 04:00 Baso % (Auto) 0.1 % (0.0-1.8) 12/03/21 04:00 Lymph # (Auto) 2.0 K/mm3 (1.2-5.4) 12/03/21 04:00 [place] # (Auto) 1.4 K/mm3 (0.0-0.8) H 12/03/21 04:00 Eos # (Auto) 0.0 K/mm3 (0.0-0.4) 12/03/21 04:00 Baso # (Auto) 0.0 K/mm3 (0.0-0.1) 12/03/21 04:00 Add Manual Diff Complete 12/02/21 15:21 Total Counted 100 12/02/21 15:21 Seg Neutrophils % 78.1 % (40.0-70.0) H 12/03/21 04:00 Seg Neuts % (Manual) 87.0 % (40.0-70.0) H 12/02/21 15:21 Band Neutrophils % 1.0 % 12/02/21 15:21 Lymphocytes % (Manual) 9.0 % (13.4-35.0) L 12/02/21 15:21 Reactive Lymphs % (Man) 0 % 12/02/21 15:21 Monocytes % (Manual) 2.0 % (0.0-7.3) 12/02/21 15:21 Eosinophils % (Manual) 1.0 % (0.0-4.3) 12/02/21 15:21 Basophils % (Manual) 0 % (0.0-1.8) 12/02/21 15:21 Metamyelocytes % 0 % 12/02/21 15:21 Myelocytes % 0 % 12/02/21 15:21 Promyelocytes % 0 % 12/02/21 15:21 Blast Cells % 0 % 12/02/21 15:21 Nucleated RBC % Not Reportable 12/02/21 15:21 Seg Neutrophils # 12.2 K/mm3 (1.8-7.7) H 12/03/21 04:00 Seg Neutrophils # Man 19.7 K/mm3 (1.8-7.7) H 12/02/21 15:21 Band Neutrophils # 0.2 K/mm3 12/02/21 15:21 Lymphocytes # (Manual) 2.0 K/mm3 (1.2-5.4) 12/02/21 15:21 Abs React Lymphs (Man) 0.0 K/mm3 12/02/21 15:21 Monocytes # (Manual) 0.5 K/mm3 (0.0-0.8) 12/02/21 15:21 Eosinophils # (Manual) 0.2 K/mm3 (0.0-0.4) 12/02/21 15:21 Basophils # (Manual) 0.0 K/mm3 (0.0-0.1) 12/02/21 15:21 Metamyelocytes # 0.0 K/mm3 12/02/21 15:21 Myelocytes # 0.0 K/mm3 12/02/21 15:21 Promyelocytes # 0.0 K/mm3 12/02/21 15:21 Blast Cells # 0.0 K/mm3 12/02/21 15:21 WBC Morphology Not Reportable 12/02/21 15:21 Hypersegmented Neuts Not Reportable 12/02/21 15:21 Hyposegmented Neuts Not Reportable 12/02/21 15:21 Hypogranular Neuts Not Reportable 12/02/21 15:21 Smudge Cells Not Reportable 12/02/21 15:21 Toxic Granulation Not Reportable 12/02/21 15:21 Toxic Vacuolation Not Reportable 12/02/21 15:21 Dohle Bodies Not Reportable 12/02/21 15:21 Pelger-Huet Anomaly Not Reportable 12/02/21 15:21 Chandra Rods Not Reportable 12/02/21 15:21 Platelet Estimate Consistent w auto 12/02/21 15:21 Clumped Platelets Not Reportable 12/02/21 15:21 Plt Clumps, EDTA Not Reportable 12/02/21 15:21 Large Platelets Not Reportable 12/02/21 15:21 Giant Platelets Not Reportable 12/02/21 15:21 Platelet Satelliting Not Reportable 12/02/21 15:21 Plt Morphology Comment Not Reportable 12/02/21 15:21 RBC Morphology Not Reportable 12/02/21 15:21 Dimorphic RBCs Not Reportable 12/02/21 15:21 Polychromasia Not Reportable 12/02/21 15:21 Hypochromasia 1+ 12/02/21 15:21 Poikilocytosis Not Reportable 12/02/21 15:21 Anisocytosis 1+ 12/02/21 15:21 Microcytosis Not Reportable 12/02/21 15:21 Macrocytosis Not Reportable 12/02/21 15:21 Spherocytes Not Reportable 12/02/21 15:21 Pappenheimer Bodies Not Reportable 12/02/21 15:21 Sickle Cells Not Reportable 12/02/21 15:21 Target Cells Not Reportable 12/02/21 15:21 Tear Drop Cells Not Reportable 12/02/21 15:21 Ovalocytes Not Reportable 12/02/21 15:21 Helmet Cells Not Reportable 12/02/21 15:21 [place] Bodies Not Reportable 12/02/21 15:21 [place] Rings Not Reportable 12/02/21 15:21 [place] Cells Not Reportable 12/02/21 15:21 Bite Cells Not Reportable 12/02/21 15:21 Crenated Cell Not Reportable 12/02/21 15:21 Elliptocytes Not Reportable 12/02/21 15:21 Acanthocytes (Spur) Not Reportable 12/02/21 15:21 Rouleaux Not Reportable 12/02/21 15:21 Hemoglobin C Crystals Not Reportable 12/02/21 15:21 Schistocytes Not Reportable 12/02/21 15:21 Malaria parasites Not Reportable 12/02/21 15:21 Josh Bodies Not Reportable 12/02/21 15:21 Hem Pathologist Commnt No 12/02/21 15:21 PT 19.7 Sec. (12.2-14.9) H 12/02/21 15:21 INR 1.48 (0.87-1.13) H 12/02/21 15:21 ABG pH 7.322 pH Units (7.350-7.450) L 12/02/21 22:40 ABG pCO2 25.5 mm Hg 12/02/21 22:40 ABG pO2 240.4 mm Hg (80.0-90.0) H 12/02/21 22:40 ABG HCO3 12.9 mmol/L (20.0-26.0) L 12/02/21 22:40 ABG O2 Saturation 99.4 % (95.0-99.0) H 12/02/21 22:40 ABG O2 Content 15.9 (0.0-44) 12/02/21 22:40 ABG Base Excess -11.6 mmol/L (-2.0-3.0) L 12/02/21 22:40 ABG Hemoglobin 11.1 gm/dl (14.0-18.0) L 12/02/21 22:40 ABG Carboxyhemoglobin 1.0 % (0.0-5.0) 12/02/21 22:40 ABG Methemoglobin 0.6 % (0.0-1.5) 12/02/21 22:40 Oxyhemoglobin 97.9 % (95.0-99.0) 12/02/21 22:40 FiO2 100 % 12/02/21 22:40 Sodium 141 mmol/L (137-145) 12/06/21 04:15 Potassium 3.3 mmol/L (3.6-5.0) L 12/06/21 04:15 Chloride 98.5 mmol/L (98-107) 12/06/21 04:15 Carbon Dioxide 35 mmol/L (22-30) H 12/06/21 04:15 Anion Gap 11 mmol/L 12/06/21 04:15 BUN 22 mg/dL (9-20) H 12/06/21 04:15 Creatinine 1.7 mg/dL (0.8-1.3) H 12/06/21 04:15 Estimated GFR 48 ml/min 12/06/21 04:15 BUN/Creatinine Ratio 13 % 12/06/21 04:15 Glucose 122 mg/dL (75-100) H 12/06/21 04:15 POC Glucose 144 mg/dL (70-105) H 12/06/21 15:58 Lactic Acid 1.90 mmol/L (0.7-2.0) 12/05/21 04:50 Calcium 7.6 mg/dL (8.4-10.2) L 12/06/21 04:15 Phosphorus 2.30 mg/dL (2.5-4.5) L 12/06/21 04:15 Magnesium 1.80 mg/dL (1.7-2.3) 12/06/21 04:15 Total Bilirubin 0.20 mg/dL (0.1-1.2) 12/03/21 04:00 AST 27 units/L (5-40) 12/03/21 04:00 ALT 10 units/L (7-56) 12/03/21 04:00 Alkaline Phosphatase 71 units/L (35-129) 12/03/21 04:00 Troponin T 0.045 ng/mL (0.00-0.029) H 12/03/21 23:16 C-Reactive Protein 0.30 mg/dL (0.00-1.30) 12/02/21 22:26 NT-Pro-B Natriuret Pep 453.1 pg/mL (0-900) 12/02/21 15:21 Total Protein 5.6 g/dL (6.3-8.2) L D 12/03/21 04:00 Albumin 3.1 g/dL (3.9-5) L 12/03/21 04:00 Albumin/Globulin Ratio 1.2 % 12/03/21 04:00 Triglycerides 147 mg/dL (2-149) 12/03/21 11:16 Cholesterol 133 mg/dL (50-199) 12/03/21 11:16 LDL Cholesterol Direct 69 mg/dL (50-130) 12/03/21 11:16 HDL Cholesterol 48 mg/dL (40-59) 12/03/21 11:16 Cholesterol/HDL Ratio 2.77 % 12/03/21 11:16 Procalcitonin < 0.05 ng/mL (<0.15) 12/02/21 22:26 PTH Intact 138.9 pg/mL (15-65) H 12/03/21 00:01 Urine Creatinine 44.3 mg/dL (0.1-20.0) H 12/03/21 03:15 Protein/Creatinin Ratio 0.20 12/03/21 03:15 Urine Sodium 74 mmol/L 12/03/21 03:15 Urine Total Protein 9 mg/dL (5-11.8) 12/03/21 03:15 Fluid Type Pleural 12/05/21 12:15 Fluid Color [place] 12/05/21 12:15 Fluid Appearance Cloudy 12/05/21 12:15 Fluid WBC 2100 /mm3 12/05/21 12:15 Fluid RBC 9150 /mm3 12/05/21 12:15 Fluid Seg Neutrophils 94.0 % 12/05/21 12:15 Fluid Lymphocytes 4.0 % 12/05/21 12:15 Fluid Reactive Lymphs Not Reportable 12/05/21 12:15 Fluid Monocytes 2.0 % 12/05/21 12:15 Fluid Eosinophils Not Reportable 12/05/21 12:15 Fluid Basophils Not Reportable 12/05/21 12:15 Nasal Screen MRSA (PCR) Negative (Negative) 12/03/21 07:55 Random Vancomycin 8.0 ug/mL (0-40.0) 12/04/21 05:00 C. difficile Tox (PCR) Negative (Negative) 12/03/21 10:55 Coronavirus (PCR) Negative (Negative) 12/03/21 07:55 Blood Type A POSITIVE 12/02/21 22:26 Antibody Screen Negative 12/02/21 22:26 Microbiology: Microbiology 12/02/21 16:38 Peripheral/Venous Blood Culture - Preliminary NO GROWTH AFTER 72 HOURS 12/02/21 16:38 Peripheral/Venous Blood Culture - Preliminary NO GROWTH AFTER 72 HOURS 12/05/21 12:15 Pleural Fluid - Pleura,Lt Lung Body Fluid Culture - Preliminary Abad/IV: Voiding Method Urinal Active Medications - Current Medications Current Medications: Generic Name Dose Route Start Last Admin Trade Name Freq PRN Reason Stop Dose Admin Acetaminophen 650 mg 12/02/21 19:05 Acetaminophen 325 Mg Tab PO Q6H PRN Pain MILD(1-3)/Fever >100.5/FAJARDO Albuterol 2.5 mg 12/02/21 19:05 Albuterol 2.5 Mg/3 Ml Nebu IH Q3HRT PRN Shortness Of Breath Dextrose 50 ml 12/03/21 18:00 Dextrose 50% In Water (25gm) 50 Ml Syringe IV Q30MIN PRN Hypoglycemia Protocol Famotidine 20 mg 12/03/21 10:00 12/06/21 09:07 Famotidine 20 Mg Tab PO 20 mg QDAY BRITNEY Administration Heparin Sodium (Porcine) 5,000 unit 12/03/21 14:00 12/06/21 13:21 Heparin 5,000 Unit/1 Ml Vial SUB-Q 5,000 unit Q8HR BRITNEY Administration Hydromorphone HCl 0.25 mg 12/02/21 19:05 12/06/21 00:01 Hydromorphone 0.5 Mg/0.5 Ml Inj IV 0.25 mg Q4H PRN Administration Pain, Moderate (4-6) Hydromorphone HCl 0.5 mg 12/02/21 19:05 Hydromorphone 0.5 Mg/0.5 Ml Inj IV Q3H PRN Pain , Severe (7-10) Cefepime HCl 2 gm in 100 mls @ 200 mls/hr 12/06/21 20:00 Cefepime/Ns 2 Gm/100 Ml IV 12/08/21 08:29 Q12H [facility] Protocol Insulin Human Regular 0 units 12/03/21 22:00 12/06/21 16:17 Insulin Regular, Human 100 Units/1 Ml SUB-Q Not Given ACHS [facility] Protocol Midodrine 10 mg 12/05/21 16:00 12/06/21 16:50 Midodrine 10 Mg Tab PO 10 mg TID@0800,1200,1600 [facility] Administration Ondansetron HCl 4 mg 12/03/21 00:52 12/03/21 00:59 Ondansetron 4 Mg/2 Ml Inj IV 4 mg Q8H PRN Administration Nausea And Vomiting Oxycodone/Acetaminophen 1 tab 12/02/21 19:05 Oxycodone /Acetaminophen 5-325mg Tab PO Q6H PRN Pain, Moderate (4-6) Sodium Chloride 10 ml 12/02/21 22:00 12/06/21 18:27 Sodium Chloride 0.9% 10 Ml Flush Syringe IV Not Given BID BRITNEY Sodium Chloride 10 ml 12/02/21 19:05 12/06/21 09:09 Sodium Chloride 0.9% 10 Ml Flush Syringe IV 10 ml PRN PRN Administration LINE FLUSH Tamsulosin HCl 0.4 mg 12/06/21 18:00 12/06/21 17:39 Tamsulosin 0.4 Mg Cap PO 0.4 mg QDAY BIRTNEY Administration Thiamine HCl 100 mg 12/03/21 19:00 12/06/21 09:07 Thiamine 100 Mg Tab PO 100 mg QDAY BRITNEY Administration Nutrition/Malnutrition Assess - Dietary Evaluation Nutrition/Malnutrition Findings: Nutrition Notes Start: 12/03/21 09:55 Freq: Status: Active Protocol: Document 12/03/21 09:55 CIERRA (Rec: 12/03/21 10:23 CIERRA [id number]) Nutrition Notes Need for Assessment generated from: MD Order Initial or Follow up Assessment Current Diagnosis Acute Kidney Injury,Diabetes, Respiratory Failure Other Pertinent Diagnosis NSTEMI, Dehydration, Pneumonia , Metastatic Lung CA/Pleural Effusion,... Current Diet Renal Diet + D Suppl (since L 12/03). Labs/Tests 12/03: CO2 18, BUN 72, Crea 5. 3/ Pertinent Medications 12/03: Nutritionally unremarkable. 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 Weight Status Appropriate Subjective/Other Information RD consult for dietary supplementation assessment. No reports available on Pt's PO intake at the time, will assess at F/U. I will prescribe dietary supplements to compensate for poor or insufficient PO intake of meals during LOS. Pt is on NIV/Bi-PaP+, O2 saturation @ 98%, according to Physical Assessment History notes. Pt has missing teeth, according to Physical Assessment History notes. 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 Percent of energy/protein needs met: Prescribed Renal Diet provides for energy/protein needs (2, 072 Kcal/77 g) during LOS; additionally, Dietary Supplements will compensate for possible poor or insufficient PO intake of meals with 850 Kcal and 38 g of protein. Burn Absent Trauma Absent GI Symptoms Nausea,Vomiting,Diarrhea Food Allergy No Skin Integrity/Comment Assessment WNL. Minimum of two criteria No Fluid Accumulation N/A Reduced Almond Sorter Strength Measurably Reduced (severe) Protein-Calorie Malnutrition N\A #1 Nutrition Diagnosis Predicted suboptimal energy intake Etiology PEDRO, Dehydration, Pneumonia, Metastatic Lung CA. As Evidenced by Signs and Symptoms No reports available on Pt's PO intake at the time, will assess at F/U. Is patient on ventilator? No Is Patient Ambulatory and/or Out of Bed Yes REE-([facility]-ambulatory/OOB) [ [id number] [id number]] Calculation Used for Recommendations [facility] Additional Notes Protein: 0.8-1.2 g/Kg ABW; 51- 77 g/day. Fluids: 1 ml/Kcal, or as per MD. Nutrition Intervention Change Diet Order: Continue Renal Diet as tolerated. Add Supplement/Snack (indicate name/kcal Start 8 fl oz Nepro w/ /protein ) CARBSTEADY; BID. Provides kCal: 850 Provides Protein (gm) 38 Goal #1 Compensate, through dietary supplementation, for possible poor or insufficient PO intake of meals during LOS. Follow-Up By: 12/09/21 Additional Comments Continue monitoring food tolerance, %PO intake of meals , dietary supplements, and BM.
--- NOTE | 2021-12-06 13:31 | Progress Note ---
Assessment and Plan Acute hypoxemic respiratory failure Bilateral pneumonia H/O Lung cancer Acute kidney injury Hyperkalemia Septic shock Lactic acidosis NSTEMI DM II Chronic left pleural effusion - urology consultation for thomas placement and management of retention - Vancomycin stopped and tpo complete 7 days of Cefepime Rx - to transfer to medical floor - continue care as below otherwise; - prn Pleurx catheter drainage for symptomatic fluid accumulation - azotemia improved as is metabolic acidosis; continue gentle hydration - continue BIPAP qhs with prn daytime use - continue to wean supplemental oxygen for target O2 sat's > 90% acutely - aspiration precautions - continue accuchecks with glycemic control per SSI for target blood glucose < 180 mg/dL - bronchodilators with pulmonary hygiene per RT - continue to avoid benzodiazepine's, reduce the possibility of delirium - prn analgesia per pain score - Maintenance of sleep-wake cycle, avoid delirium - G.I. & VTE prophylaxis - PT/OT/ROM exercises - mobility protocols for pressure ulcer prophylaxis - continue other care per attending / other consultants - discharge planning ongoing concurrently .... Re-evaluate in am & prn Subjective Date of service: 12/06/21 Principal diagnosis: AHRF; Pneumonia; Lung CA; PEDRO; Hyperkalemia; Septic shock; NSTEMI; DM II Interval history: Patient is seen today for: Acute hypoxemic respiratory failure; Bilateral pneumonia; Lung cancer; PEDRO; Hyperkalemia; Septic shock; NSTEMI; Chronic left p leural effusion Seen and examined at bedside; 24hour events reviewed; nursing and respiratory care staff consulted; no adverse overnight events reported to me; resting peacef ully in bed; complaining of dysuria and with retained urine in bladder; unable to get straight catheter in; denies acute chest pains or SOB; Objective Vital Signs - 12hr 12/06/21 12/06/21 12/06/21 01:40 01:50 02:00 Temperature Pulse Rate 62 62 61 Pulse Rate [ From Monitor] Respiratory 17 14 12 Rate Blood Pressure 124/72 136/73 132/79 O2 Sat by Pulse 97 98 97 Oximetry 12/06/21 12/06/21 12/06/21 02:10 02:20 02:30 Temperature Pulse Rate 75 74 75 Pulse Rate [ From Monitor] Respiratory 11 L 19 23 Rate Blood Pressure 132/79 103/58 97/58 O2 Sat by Pulse 95 96 95 Oximetry 12/06/21 12/06/21 12/06/21 02:40 02:50 03:00 Temperature Pulse Rate 74 72 71 Pulse Rate [ From Monitor] Respiratory 16 20 14 Rate Blood Pressure 97/58 97/59 99/61 O2 Sat by Pulse 97 97 97 Oximetry 12/06/21 12/06/21 12/06/21 03:10 03:20 03:30 Temperature Pulse Rate 65 66 69 Pulse Rate [ From Monitor] Respiratory 10 L 10 L 16 Rate Blood Pressure 99/61 106/60 101/62 O2 Sat by Pulse 97 97 96 Oximetry 12/06/21 12/06/21 12/06/21 03:40 03:50 04:00 Temperature 97.6 F Pulse Rate 66 72 68 Pulse Rate [ From Monitor] Respiratory 9 L 13 13 Rate Blood Pressure 101/62 95/60 109/70 O2 Sat by Pulse 98 97 93 Oximetry 12/06/21 12/06/21 12/06/21 04:10 04:20 04:30 Temperature Pulse Rate 63 66 66 Pulse Rate [ From Monitor] Respiratory 13 15 17 Rate Blood Pressure 101/62 99/60 105/68 O2 Sat by Pulse 94 96 96 Oximetry 12/06/21 12/06/21 12/06/21 04:40 04:50 05:00 Temperature Pulse Rate 65 85 63 Pulse Rate [ From Monitor] Respiratory 14 20 15 Rate Blood Pressure 109/70 99/64 106/64 O2 Sat by Pulse 97 92 96 Oximetry 12/06/21 12/06/21 12/06/21 05:10 05:20 05:30 Temperature Pulse Rate 61 61 62 Pulse Rate [ From Monitor] Respiratory 16 18 17 Rate Blood Pressure 106/64 101/62 92/62 O2 Sat by Pulse 93 94 Oximetry 12/06/21 12/06/21 12/06/21 05:40 05:50 06:00 Temperature Pulse Rate 61 61 64 Pulse Rate [ From Monitor] Respiratory 16 15 19 Rate Blood Pressure 106/64 95/58 94/64 O2 Sat by Pulse 95 97 97 Oximetry 12/06/21 12/06/21 12/06/21 06:10 06:20 06:30 Temperature Pulse Rate 61 61 66 Pulse Rate [ From Monitor] Respiratory 16 13 22 Rate Blood Pressure 95/58 91/67 96/65 O2 Sat by Pulse 96 96 95 Oximetry 0912/06/21 12/06/21 06:40 06:50 07:00 Temperature Pulse Rate 64 62 59 L Pulse Rate [ From Monitor] Respiratory 11 L 16 14 Rate Blood Pressure 94/64 93/57 108/64 O2 Sat by Pulse 96 95 95 Oximetry 12/06/21 12/06/21 12/06/21 07:10 07:15 07:20 Temperature 97.6 F Pulse Rate 59 L 57 L Pulse Rate [ From Monitor] Respiratory 18 10 L Rate Blood Pressure 93/57 114/65 O2 Sat by Pulse 95 95 Oximetry 12/06/21 12/06/21 12/06/21 07:30 07:40 07:50 Temperature Pulse Rate 58 L 81 97 H Pulse Rate [ From Monitor] Respiratory 13 16 13 Rate Blood Pressure 106/65 106/65 120/72 O2 Sat by Pulse 95 93 89 Oximetry 12/06/21 12/06/21 12/06/21 07:55 08:00 08:10 Temperature Pulse Rate 86 90 72 Pulse Rate [ 88 From Monitor] Respiratory 11 L 14 Rate Blood Pressure 120/72 94/64 O2 Sat by Pulse 87 93 Oximetry 12/06/21 12/06/21 12/06/21 08:20 08:30 08:40 Temperature Pulse Rate 72 71 73 Pulse Rate [ From Monitor] Respiratory 17 17 24 Rate Blood Pressure 95/60 102/63 102/63 O2 Sat by Pulse 91 93 95 Oximetry 12/06/21 12/06/21 12/06/21 08:50 09:00 09:10 Temperature Pulse Rate 67 90 80 Pulse Rate [ From Monitor] Respiratory 12 19 19 Rate Blood Pressure 109/63 117/69 109/63 O2 Sat by Pulse 94 89 95 Oximetry 12/06/21 12/06/21 12/06/21 09:20 09:30 09:40 Temperature Pulse Rate 109 H 69 70 Pulse Rate [ From Monitor] Respiratory 22 16 12 Rate Blood Pressure 127/68 125/67 125/67 O2 Sat by Pulse 87 94 96 Oximetry 12/06/21 12/06/21 12/06/21 09:50 10:09 10:10 Temperature Pulse Rate 88 71 71 Pulse Rate [ From Monitor] Respiratory 17 14 12 Rate Blood Pressure 120/73 O2 Sat by Pulse 92 96 95 Oximetry 12/06/21 12/06/21 12/06/21 10:20 10:30 10:40 Temperature Pulse Rate 71 80 72 Pulse Rate [ From Monitor] Respiratory 14 14 12 Rate Blood Pressure 116/89 113/66 113/66 O2 Sat by Pulse 97 96 98 Oximetry 12/06/21 12/06/21 12/06/21 10:50 11:00 11:10 Temperature Pulse Rate 74 72 81 Pulse Rate [ From Monitor] Respiratory 22 12 17 Rate Blood Pressure 124/67 132/66 132/66 O2 Sat by Pulse 98 98 97 Oximetry 12/06/21 12/06/21 12/06/21 11:20 11:30 11:40 Temperature 98.1 F Pulse Rate 84 97 H 86 Pulse Rate [ From Monitor] Respiratory 15 14 15 Rate Blood Pressure 99/60 93/66 93/66 O2 Sat by Pulse 97 96 Oximetry 12/06/21 12/06/21 12/06/21 11:50 12:00 12:10 Temperature Pulse Rate 80 85 104 H Pulse Rate [ 97 H From Monitor] Respiratory 18 17 16 Rate Blood Pressure 101/57 93/63 93/63 O2 Sat by Pulse 97 96 92 Oximetry 12/06/21 12/06/21 12/06/21 12:20 12:30 12:40 Temperature Pulse Rate 83 84 87 Pulse Rate [ From Monitor] Respiratory 14 10 L 14 Rate Blood Pressure 101/66 97/54 97/54 O2 Sat by Pulse 96 94 Oximetry 12/06/21 12/06/21 12:50 13:00 Temperature Pulse Rate 88 79 Pulse Rate [ From Monitor] Respiratory 16 17 Rate Blood Pressure 113/71 110/65 O2 Sat by Pulse 97 96 Oximetry Constitutional: appears uncomfortable, other (elderly male with mildly increased respiratory effort at rest) Eyes: non-icteric ENT: oropharynx moist Neck: supple, no lymphadenopathy, no JVD Effort: mildly labored Ascultation: Bilateral: diminished breath sounds, rhonchi (bases) Percussion: Bilateral: not dull Cardiovascular: regular rate and rhythm Gastrointestinal: normoactive bowel sounds, soft, non-tender, non-distended (protuberant) Integumentary: normal Extremities: no cyanosis, no edema, pulses normal, no ischemia or petechiae, other (bilateral BKA's) Neurologic: non-focal exam (grossly), pupils equal and round, CN II-XII normal, motor strength normal and Psychiatric: anxious CBC and BMP: 09/19/22 04:15 12/06/21 04:15 ABG, PT/INR, D-dimer: ABG ABG pH 7.322 pH Units (7.350-7.450) L 12/02/21 22:40 ABG pCO2 25.5 mm Hg 12/02/21 22:40 ABG pO2 240.4 mm Hg (80.0-90.0) H 12/02/21 22:40 ABG O2 Saturation 99.4 % (95.0-99.0) H 12/02/21 22:40 PT/INR, D-dimer PT 19.7 Sec. (12.2-14.9) H 12/02/21 15:21 INR 1.48 (0.87-1.13) H 12/02/21 15:21 Abnormal lab findings: Abnormal Labs 12/02/21 12/02/21 12/02/21 15:21 15:21 15:21 WBC 22.7 H RBC Hgb Hct MCV 78 L MCH 25 L MCHC RDW 20.2 H Lymph % (Auto) [place] % (Auto) [place] # (Auto) Seg Neutrophils % Seg Neuts % (Manual) 87.0 H Lymphocytes % (Manual) 9.0 L Seg Neutrophils # Seg Neutrophils # Man 19.7 H PT 19.7 H INR 1.48 H ABG pH ABG pO2 ABG HCO3 ABG O2 Saturation ABG Base Excess ABG Hemoglobin Sodium 131 L Potassium 7.1 H* Chloride 94.9 L Carbon Dioxide 10 L BUN 89 H Creatinine 7.1 H Glucose 108 H POC Glucose Lactic Acid Calcium Phosphorus Magnesium Troponin T 0.105 H* Total Protein Albumin PTH Intact Urine Creatinine 12/02/21 12/02/21 12/02/21 16:39 17:22 22:26 WBC RBC Hgb Hct MCV MCH MCHC RDW Lymph % (Auto) [place] % (Auto) [place] # (Auto) Seg Neutrophils % Seg Neuts % (Manual) Lymphocytes % (Manual) Seg Neutrophils # Seg Neutrophils # Man PT INR ABG pH ABG pO2 ABG HCO3 ABG O2 Saturation ABG Base Excess ABG Hemoglobin Sodium Potassium 7.2 H* Chloride Carbon Dioxide BUN Creatinine Glucose POC Glucose Lactic Acid 6.80 H* 8.90 H* Calcium Phosphorus Magnesium Troponin T Total Protein Albumin PTH Intact Urine Creatinine 12/02/21 12/02/21 12/03/21 22:26 22:40 00:01 WBC RBC Hgb Hct MCV MCH MCHC RDW Lymph % (Auto) [place] % (Auto) [place] # (Auto) Seg Neutrophils % Seg Neuts % (Manual) Lymphocytes % (Manual) Seg Neutrophils # Seg Neutrophils # Man PT INR ABG pH 7.322 L ABG pO2 240.4 H ABG HCO3 12.9 L ABG O2 Saturation 99.4 H ABG Base Excess -11.6 L ABG Hemoglobin 11.1 L Sodium Potassium 5.2 H D Chloride Carbon Dioxide 15 L BUN 77 H Creatinine 6.0 H Glucose 58 L POC Glucose Lactic Acid Calcium Phosphorus Magnesium Troponin T Total Protein Albumin PTH Intact 138.9 H Urine Creatinine 12/03/21 12/03/21 12/03/21 00:48 03:15 04:00 WBC 15.7 H RBC Hgb 10.7 L Hct 34.0 L MCV 78 L MCH 25 L MCHC RDW 20.0 H Lymph % (Auto) 12.5 L [place] % (Auto) 9.2 H [place] # (Auto) 1.4 H Seg Neutrophils % 78.1 H Seg Neuts % (Manual) Lymphocytes % (Manual) Seg Neutrophils # 12.2 H Seg Neutrophils # Man PT INR ABG pH ABG pO2 ABG HCO3 ABG O2 Saturation ABG Base Excess ABG Hemoglobin Sodium Potassium Chloride Carbon Dioxide BUN Creatinine Glucose POC Glucose 65 L Lactic Acid Calcium Phosphorus Magnesium Troponin T Total Protein Albumin PTH Intact Urine Creatinine 44.3 H 12/03/21 12/03/21 12/03/21 04:00 04:05 11:15 WBC RBC Hgb Hct MCV MCH MCHC RDW Lymph % (Auto) [place] % (Auto) [place] # (Auto) Seg Neutrophils % Seg Neuts % (Manual) Lymphocytes % (Manual) Seg Neutrophils # Seg Neutrophils # Man PT INR ABG pH ABG pO2 ABG HCO3 ABG O2 Saturation ABG Base Excess ABG Hemoglobin Sodium Potassium Chloride Carbon Dioxide 18 L BUN 72 H Creatinine 5.3 H Glucose POC Glucose 164 H Lactic Acid 4.00 H* Calcium Phosphorus Magnesium Troponin T Total Protein 5.6 L D Albumin 3.1 L PTH Intact Urine Creatinine 12/03/21 12/03/21 12/03/21 11:16 11:16 16:41 WBC RBC Hgb Hct MCV MCH MCHC RDW Lymph % (Auto) [place] % (Auto) [place] # (Auto) Seg Neutrophils % Seg Neuts % (Manual) Lymphocytes % (Manual) Seg Neutrophils # Seg Neutrophils # Man PT INR ABG pH ABG pO2 ABG HCO3 ABG O2 Saturation ABG Base Excess ABG Hemoglobin Sodium Potassium Chloride Carbon Dioxide BUN Creatinine Glucose POC Glucose 167 H Lactic Acid 6.80 H* Calcium Phosphorus Magnesium Troponin T 0.051 H D Total Protein Albumin PTH Intact Urine Creatinine 12/03/21 12/03/21 12/04/21 21:48 23:16 04:00 WBC RBC Hgb Hct MCV MCH MCHC RDW Lymph % (Auto) [place] % (Auto) [place] # (Auto) Seg Neutrophils % Seg Neuts % (Manual) Lymphocytes % (Manual) Seg Neutrophils # Seg Neutrophils # Man PT INR ABG pH ABG pO2 ABG HCO3 ABG O2 Saturation ABG Base Excess ABG Hemoglobin Sodium Potassium 3.4 L D Chloride 91.5 L Carbon Dioxide 32 H D BUN 38 H Creatinine 3.0 H Glucose 264 H POC Glucose 171 H Lactic Acid Calcium 7.8 L Phosphorus Magnesium 1.10 L Troponin T 0.045 H Total Protein Albumin PTH Intact Urine Creatinine 12/04/21 12/04/21 12/04/21 05:00 08:03 09:30 WBC 12.2 H RBC Hgb 9.8 L Hct 31.2 L MCV 78 L MCH 24 L MCHC 31 L RDW 20.8 H Lymph % (Auto) [place] % (Auto) [place] # (Auto) Seg Neutrophils % Seg Neuts % (Manual) Lymphocytes % (Manual) Seg Neutrophils # Seg Neutrophils # Man PT INR ABG pH ABG pO2 ABG HCO3 ABG O2 Saturation ABG Base Excess ABG Hemoglobin Sodium Potassium 3.2 L Chloride 93.7 L Carbon Dioxide 32 H BUN 38 H Creatinine 2.8 H Glucose 195 H POC Glucose 146 H Lactic Acid Calcium 7.6 L Phosphorus Magnesium Troponin T Total Protein Albumin PTH Intact Urine Creatinine 12/04/21 12/04/21 12/04/21 11:00 11:31 16:21 WBC RBC Hgb Hct MCV MCH MCHC RDW Lymph % (Auto) [place] % (Auto) [place] # (Auto) Seg Neutrophils % Seg Neuts % (Manual) Lymphocytes % (Manual) Seg Neutrophils # Seg Neutrophils # Man PT INR ABG pH ABG pO2 ABG HCO3 ABG O2 Saturation ABG Base Excess ABG Hemoglobin Sodium Potassium Chloride Carbon Dioxide BUN Creatinine Glucose POC Glucose 271 H 175 H Lactic Acid 5.30 H* Calcium Phosphorus Magnesium Troponin T Total Protein Albumin PTH Intact Urine Creatinine 12/04/21 12/04/21 12/05/21 17:16 21:35 04:50 WBC 11.2 H RBC Hgb 9.2 L Hct 29.0 L MCV 78 L MCH 25 L MCHC RDW 20.4 H Lymph % (Auto) [place] % (Auto) [place] # (Auto) Seg Neutrophils % Seg Neuts % (Manual) Lymphocytes % (Manual) Seg Neutrophils # Seg Neutrophils # Man PT INR ABG pH ABG pO2 ABG HCO3 ABG O2 Saturation ABG Base Excess ABG Hemoglobin Sodium Potassium Chloride Carbon Dioxide BUN Creatinine Glucose POC Glucose 202 H Lactic Acid 3.90 H* Calcium Phosphorus Magnesium Troponin T Total Protein Albumin PTH Intact Urine Creatinine 12/05/21 12/05/21 12/05/21 04:50 07:34 11:05 WBC RBC Hgb Hct MCV MCH MCHC RDW Lymph % (Auto) [place] % (Auto) [place] # (Auto) Seg Neutrophils % Seg Neuts % (Manual) Lymphocytes % (Manual) Seg Neutrophils # Seg Neutrophils # Man PT INR ABG pH ABG pO2 ABG HCO3 ABG O2 Saturation ABG Base Excess ABG Hemoglobin Sodium Potassium 3.2 L Chloride 92.8 L Carbon Dioxide 36 H BUN 29 H Creatinine 2.2 H Glucose 189 H POC Glucose 140 H 246 H Lactic Acid Calcium 7.5 L Phosphorus Magnesium 1.10 L Troponin T Total Protein Albumin PTH Intact Urine Creatinine 12/05/21 12/05/21 12/06/21 15:59 21:24 04:15 WBC RBC 3.58 L Hgb 9.1 L Hct 28.2 L MCV 79 L MCH 26 L MCHC RDW 20.2 H Lymph % (Auto) [place] % (Auto) [place] # (Auto) Seg Neutrophils % Seg Neuts % (Manual) Lymphocytes % (Manual) Seg Neutrophils # Seg Neutrophils # Man PT INR ABG pH ABG pO2 ABG HCO3 ABG O2 Saturation ABG Base Excess ABG Hemoglobin Sodium Potassium Chloride Carbon Dioxide BUN Creatinine Glucose POC Glucose 240 H 237 H Lactic Acid Calcium Phosphorus Magnesium Troponin T Total Protein Albumin PTH Intact Urine Creatinine 12/06/21 12/06/21 12/06/21 04:15 07:26 11:16 WBC RBC Hgb Hct MCV MCH MCHC RDW Lymph % (Auto) [place] % (Auto) [place] # (Auto) Seg Neutrophils % Seg Neuts % (Manual) Lymphocytes % (Manual) Seg Neutrophils # Seg Neutrophils # Man PT INR ABG pH ABG pO2 ABG HCO3 ABG O2 Saturation ABG Base Excess ABG Hemoglobin Sodium Potassium 3.3 L Chloride Carbon Dioxide 35 H BUN 22 H Creatinine 1.7 H Glucose 122 H POC Glucose 124 H 285 H Lactic Acid Calcium 7.6 L Phosphorus 2.30 L Magnesium Troponin T Total Protein Albumin PTH Intact Urine Creatinine Allied health notes reviewed: nursing
[2021-12-06] MEDS: TAMSULOSIN 0.4 MG CAP PO SCH (17:39)
--- NOTE | 2021-12-06 18:04 | Consultation ---
History of Present Illness - Reason for Consult Consult date: 12/06/21 - History of Present Illness 76-year-old man past medical history diabetes, metastatic lung cancer, malignant pleural effusions presented to hospital complaining with pain. This began approximately prior to admission has been worsening since onset. He was admitted to the ICU due to severe hypoxia. Afebrile, normal white count, which is improved since admission when it was 22.7. eGFR 48 which is improving blood cultures no growth so far. Pleural fluid cultures with many polymorphonuclear cells, cultures negative so far. On 3 L nasal cannula. Imaging personally reviewed: CXR: increasing left Pleural effusion Review of Systems: Bold if positive, otherwise negative General: fevers, chills, rigors HEENT: visual disturbance, diplopia, eye pain Respiratory: cough, sputum, hemoptysis, shortness of breath Cardiovascular: chest pain, syncope Gastrointestinal: nausea, vomiting, diarrhea, abdominal pain Genitourinary: dysuria, hematuria, flank pain Musculoskeletal: neck pain, back pain, joint pain, edema Neurologic: headaches, seizures Hematologic: easy bruising or bleeding Endocrine: night sweats, acute weight loss Skin: rash, jaundice, redness Psychiatric: suicidal, homicidal ideation Past History Past Medical History: cancer, diabetes, hypertension, PVD Past Surgical History: Other (Bilateral BKA) Social history: single. denies: smoking, alcohol abuse, prescription drug abuse Family history: diabetes, hypertension Medications and Allergies Allergies Allergy/AdvReac Type Severity Reaction Status Date / Time No Known Allergies Allergy Unverified 12/02/21 15:15 Active Meds: Active Medications Acetaminophen (Acetaminophen 325 Mg Tab) 650 mg PO Q6H PRN PRN Reason: Pain MILD(1-3)/Fever >100.5/FAJARDO Albuterol (Albuterol 2.5 Mg/3 Ml Nebu) 2.5 mg IH Q3HRT PRN PRN Reason: Shortness Of Breath Dextrose (Dextrose 50% In Water (25gm) 50 Ml Syringe) 50 ml IV Q30MIN PRN; Protocol PRN Reason: Hypoglycemia Famotidine (Famotidine 20 Mg Tab) 20 mg PO QDAY [facility] Last Admin: 12/06/21 09:07 Dose: 20 mg Heparin Sodium (Porcine) (Heparin 5,000 Unit/1 Ml Vial) 5,000 unit SUB-Q Q8HR [facility] Last Admin: 12/06/21 13:21 Dose: 5,000 unit Hydromorphone HCl (Hydromorphone 0.5 Mg/0.5 Ml Inj) 0.25 mg IV Q4H PRN PRN Reason: Pain, Moderate (4-6) Last Admin: 12/06/21 00:01 Dose: 0.25 mg Hydromorphone HCl (Hydromorphone 0.5 Mg/0.5 Ml Inj) 0.5 mg IV Q3H PRN PRN Reason: Pain , Severe (7-10) NORepinephrine/NS 8 MG-250 ML (Norepinephrine/Ns 8 Mg-250 Ml (Double Conc)) 8 mg in 250 mls @ 12.247 mls/hr IV TITRATE PRN; Protocol PRN Reason: Hypotension Last Titration: 12/06/21 00:00 Dose: 0 mcg/kg/min, 0 mls/hr Cefepime HCl (Cefepime/Ns 2 Gm/100 Ml) 2 gm in 100 mls @ 200 mls/hr IV Q12H [facility]; Protocol Stop: 12/08/21 08:29 Insulin Human Regular (Insulin Regular, Human 100 Units/1 Ml) 0 units SUB-Q ACHS [facility]; Protocol Last Admin: 12/06/21 16:17 Dose: Not Given Midodrine (Midodrine 10 Mg Tab) 10 mg PO TID@0800,1200,1600 [facility] Last Admin: 12/06/21 16:50 Dose: 10 mg Ondansetron HCl (Ondansetron 4 Mg/2 Ml Inj) 4 mg IV Q8H PRN PRN Reason: Nausea And Vomiting Last Admin: 12/03/21 00:59 Dose: 4 mg Oxycodone/Acetaminophen (Oxycodone /Acetaminophen 5-325mg Tab) 1 tab PO Q6H PRN PRN Reason: Pain, Moderate (4-6) Sodium Chloride (Sodium Chloride 0.9% 10 Ml Flush Syringe) 10 ml IV BID [facility] Last Admin: 12/06/21 09:08 Dose: Not Given Sodium Chloride (Sodium Chloride 0.9% 10 Ml Flush Syringe) 10 ml IV PRN PRN PRN Reason: LINE FLUSH Last Admin: 12/06/21 09:09 Dose: 10 ml Tamsulosin HCl (Tamsulosin 0.4 Mg Cap) 0.4 mg PO QDAY [facility] Last Admin: 12/06/21 17:39 Dose: 0.4 mg Thiamine HCl (Thiamine 100 Mg Tab) 100 mg PO QDAY [facility] Last Admin: 12/06/21 09:07 Dose: 100 mg Physical Examination - Physical Exam Narrative exam: Physical Exam: Constitutional: Alert, cooperative. No acute distress Head, Ears, Nose: Normocephalic, atraumatic. External ears, nose normal Eyes: Conjunctivae/corneas clear. No icterus. No ptosis. Neck: Supple, no meningeal signs Oral: dentition fair, no thrush Cardiovascular: S1, S2 normal. Respiratory: Good air entry, clear to auscultation bilaterally GI: Soft, non-tender; bowel sounds normal. No peritoneal signs. Musculoskeletal: No pedal edema, no cyanosis. +Pleur-x Skin: No rash or abscess Hem/Lymphatic: No palpable cervical or supraclavicular nodes. No lymphangitis Psych: Mood ok. Affect normal Neurological: Awake, alert, oriented. No gross abnormality - Constitutional Vitals: Vital Signs Temp Pulse Resp BP Pulse Ox 98.2 F 120 H 13 109/49 95 12/06/21 16:27 12/06/21 17:10 12/06/21 16:20 12/06/21 17:10 12/06/21 17:10 Temperature -Last 24 Hours Temperature 98.2 F Temperature 98.1 F Temperature 97.6 F Temperature 97.6 F Temperature 99.2 F Temperature 98.5 F Results - Labs CBC & Chem 7: 12/06/21 04:15 12/06/21 04:15 Labs: Abnormal lab results 12/05/21 12/06/21 12/06/21 Range/Units 21:24 04:15 04:15 RBC 3.58 L (3.65-5.03) M/mm3 Hgb 9.1 L (11.8-15.2) gm/dl Hct 28.2 L (35.5-45.6) % MCV 79 L (84-94) fl MCH 26 L (28-32) pg RDW 20.2 H (13.2-15.2) % Potassium 3.3 L (3.6-5.0) mmol/L Carbon Dioxide 35 H (22-30) mmol/L BUN 22 H (9-20) mg/dL Creatinine 1.7 H (0.8-1.3) mg/dL Glucose 122 H (75-100) mg/dL POC Glucose 237 H (70-105) mg/dL Calcium 7.6 L (8.4-10.2) mg/dL Phosphorus 2.30 L (2.5-4.5) mg/dL 12/06/21 12/06/21 12/06/21 Range/Units 07:26 11:16 15:58 RBC (3.65-5.03) M/mm3 Hgb (11.8-15.2) gm/dl Hct (35.5-45.6) % MCV (84-94) fl MCH (28-32) pg RDW (13.2-15.2) % Potassium (3.6-5.0) mmol/L Carbon Dioxide (22-30) mmol/L BUN (9-20) mg/dL Creatinine (0.8-1.3) mg/dL Glucose (75-100) mg/dL POC Glucose 124 H 285 H 144 H (70-105) mg/dL Calcium (8.4-10.2) mg/dL Phosphorus (2.5-4.5) mg/dL Assessment and Plan Cultures: Blood culture 12/02/2021 no growth so far Pleural effusion culture 12/05/2021 no growth so far A/P: 76-year-old man past medical history diabetes, metastatic lung cancer, malignant pleural effusions now with: #Acute hypoxic resp failure: due to mlaignant effusions and likely pneumonia #Malignant pleural effusions: fluid analysis with only 2100 WBC, as such not likely to be an empyema #PEDRO: improving #Metastatic lung cancer Recs: -Agree with pulmonary's plan for 7 days of cefepime as pleural lesion not likely to be infected. -Follow-up cultures for finalization Thank you for the consult, we will continue to follow. Pj Andres MD [facility] ([facility] O: [phone] F: [phone]
--- NOTE | 2021-12-06 19:02 | Progress Note ---
Assessment and Plan Acute kidney injury: likely due to tubular injury in setting of sepsis Hyperkalemia, now with hypokalemia Metabolic acidosis Septic shock Lung cancer with malignant pleural effusion, status post drain placement Hypotension PEDRO improving, creatinine 1.7 this AM Continue supportive measures, replete K/other lytes prn Monitor BMP Continue thiamine supplementation No immediate indication for dialysis Keep MAP more than 65, vasopressors as needed: agree with midodrine Antibiotics noted Renally dose medications Avoid nephrotoxins Renal diet Subjective Date of service: 12/06/21 Principal diagnosis: AHRF; Pneumonia; Lung CA; PEDRO; Hyperkalemia; Septic shock; NSTEMI; DM II Interval history: Seen in ICU Vitals, labs and I/os reviewed Interdisciplinary notes and consults reviewed Objective - Exam Narrative Exam: Constitutional: no acute distress Head: NC/AT Neck: supple Lungs: clear to auscultation, left pleurx catheter CV: RRR, no M/R/G Abdomen: soft, non-tender, bowel sounds present Back: nontender Extremities: no edema, pulses WNL Skin: intact Neuro: no focal deficits, alert and oriented x4 - Vital Signs Vital signs: Vital Signs - 12hr 12/06/21 12/06/21 12/06/21 07:10 07:15 07:20 Temperature 97.6 F Pulse Rate 59 L 57 L Pulse Rate [ From Monitor] Respiratory 18 10 L Rate Blood Pressure 93/57 114/65 O2 Sat by Pulse 95 95 Oximetry 12/06/21 12/06/21 12/06/21 07:30 07:40 07:50 Temperature Pulse Rate 58 L 81 97 H Pulse Rate [ From Monitor] Respiratory 13 16 13 Rate Blood Pressure 106/65 106/65 120/72 O2 Sat by Pulse 95 93 89 Oximetry 12/06/21 12/06/21 12/06/21 07:55 08:00 08:10 Temperature Pulse Rate 86 90 72 Pulse Rate [ 88 From Monitor] Respiratory 11 L 14 Rate Blood Pressure 120/72 94/64 O2 Sat by Pulse 87 93 Oximetry 12/06/21 12/06/21 12/06/21 08:20 08:30 08:40 Temperature Pulse Rate 72 71 73 Pulse Rate [ From Monitor] Respiratory 17 17 24 Rate Blood Pressure 95/60 102/63 102/63 O2 Sat by Pulse 91 93 95 Oximetry 12/06/21 12/06/2112/06/22 08:50 09:00 09:10 Temperature Pulse Rate 67 90 80 Pulse Rate [ From Monitor] Respiratory 12 19 19 Rate Blood Pressure 109/63 117/69 109/63 O2 Sat by Pulse 94 89 95 Oximetry 12/06/21 12/06/21 12/06/21 09:20 09:30 09:40 Temperature Pulse Rate 109 H 69 70 Pulse Rate [ From Monitor] Respiratory 22 16 12 Rate Blood Pressure 127/68 125/67 125/67 O2 Sat by Pulse 87 94 96 Oximetry 12/06/21 12/06/21 12/06/21 09:50 10:00 10:09 Temperature Pulse Rate 88 71 Pulse Rate [ From Monitor] Respiratory 17 14 Rate Blood Pressure 120/73 O2 Sat by Pulse 92 98 96 Oximetry 12/06/21 12/06/21 12/06/21 10:10 10:20 10:30 Temperature Pulse Rate 71 71 80 Pulse Rate [ From Monitor] Respiratory 12 14 14 Rate Blood Pressure 116/89 113/66 O2 Sat by Pulse 95 97 96 Oximetry 12/06/21 12/06/21 12/06/21 10:40 10:50 11:00 Temperature Pulse Rate 72 74 72 Pulse Rate [ From Monitor] Respiratory 12 22 12 Rate Blood Pressure 113/66 124/67 132/66 O2 Sat by Pulse 98 98 98 Oximetry 12/06/21 12/06/21 12/06/21 11:10 11:20 11:30 Temperature Pulse Rate 81 84 97 H Pulse Rate [ From Monitor] Respiratory 17 15 14 Rate Blood Pressure 132/66 99/60 93/66 O2 Sat by Pulse 97 97 Oximetry 12/06/21 12/06/21 12/06/21 11:40 11:50 12:00 Temperature 98.1 F Pulse Rate 86 80 85 Pulse Rate [ 97 H From Monitor] Respiratory 15 18 17 Rate Blood Pressure 93/66 101/57 93/63 O2 Sat by Pulse 96 97 96 Oximetry 12/06/21 12/06/21 12/06/21 12:10 12:20 12:30 Temperature Pulse Rate 104 H 83 84 Pulse Rate [ From Monitor] Respiratory 16 14 10 L Rate Blood Pressure 93/63 101/66 97/54 O2 Sat by Pulse 92 96 Oximetry 12/06/21 12/06/21 12/06/21 12:40 12:50 13:00 Temperature Pulse Rate 87 88 79 Pulse Rate [ From Monitor] Respiratory 14 16 17 Rate Blood Pressure 97/54 113/71 110/65 O2 Sat by Pulse 94 97 96 Oximetry 12/06/21 12/06/21 12/06/21 13:10 13:20 13:30 Temperature Pulse Rate 83 91 H 100 H Pulse Rate [ From Monitor] Respiratory 14 21 18 Rate Blood Pressure 110/65 113/66 125/74 O2 Sat by Pulse 96 95 97 Oximetry 12/06/21 12/06/21 12/06/21 13:40 13:50 14:00 Temperature Pulse Rate 72 80 120 H Pulse Rate [ From Monitor] Respiratory 18 12 17 Rate Blood Pressure 125/74 119/69 119/69 O2 Sat by Pulse 99 98 95 Oximetry 12/06/21 12/06/21 12/06/21 14:10 14:20 14:30 Temperature Pulse Rate 98 H 57 L 111 H Pulse Rate [ From Monitor] Respiratory 17 12 25 H Rate Blood Pressure 119/69 136/70 111/59 O2 Sat by Pulse 95 98 88 Oximetry 12/06/21 12/06/21 12/06/21 14:40 14:50 15:00 Temperature Pulse Rate 68 128 H 70 Pulse Rate [ From Monitor] Respiratory 17 20 15 Rate Blood Pressure 111/59 119/79 114/67 O2 Sat by Pulse 97 94 97 Oximetry 12/06/21 12/06/21 12/06/21 15:10 15:20 15:30 Temperature Pulse Rate 93 H 59 L 87 Pulse Rate [ From Monitor] Respiratory 22 25 H 22 Rate Blood Pressure 114/67 118/76 118/76 O2 Sat by Pulse 98 98 95 Oximetry 12/06/21 12/06/21 12/06/21 15:40 15:50 16:00 Temperature Pulse Rate 64 115 H 59 L Pulse Rate [ 56 L From Monitor] Respiratory 18 14 13 Rate Blood Pressure 121/85 115/67 113/61 O2 Sat by Pulse 98 95 96 Oximetry 12/06/21 12/06/21 12/06/21 16:10 16:20 16:27 Temperature 98.2 F Pulse Rate 55 L Pulse Rate [ From Monitor] Respiratory 16 13 Rate Blood Pressure 115/67 115/67 O2 Sat by Pulse 99 80 L Oximetry 12/06/21 12/06/21 12/06/21 16:30 16:40 16:50 Temperature Pulse Rate 77 76 76 Pulse Rate [ From Monitor] Respiratory Rate Blood Pressure 145/94 112/78 99/68 O2 Sat by Pulse 97 94 95 Oximetry 12/06/21 12/06/21 12/06/21 17:00 17:10 17:20 Temperature Pulse Rate 68 120 H 116 H Pulse Rate [ From Monitor] Respiratory Rate Blood Pressure 109/49 109/49 161/68 O2 Sat by Pulse 96 95 94 Oximetry 12/06/21 12/06/21 12/06/21 17:30 17:40 17:50 Temperature Pulse Rate 83 77 58 L Pulse Rate [ From Monitor] Respiratory Rate Blood Pressure 161/68 123/72 138/58 O2 Sat by Pulse 95 94 94 Oximetry 12/06/21 18:00 Temperature Pulse Rate 120 H Pulse Rate [ From Monitor] Respiratory Rate Blood Pressure 138/58 O2 Sat by Pulse 96 Oximetry - Lab 12/06/21 04:15 12/06/21 04:15 Most recent lab results ABG pH 7.322 pH Units (7.350-7.450) L 12/02/21 22:40 ABG pCO2 25.5 mm Hg 12/02/21 22:40 ABG pO2 240.4 mm Hg (80.0-90.0) H 12/02/21 22:40 ABG HCO3 12.9 mmol/L (20.0-26.0) L 12/02/21 22:40 ABG O2 Saturation 99.4 % (95.0-99.0) H 12/02/21 22:40 Calcium 7.6 mg/dL (8.4-10.2) L 12/06/21 04:15 Phosphorus 2.30 mg/dL (2.5-4.5) L 12/06/21 04:15 Magnesium 1.80 mg/dL (1.7-2.3) 12/06/21 04:15 Urine Creatinine 44.3 mg/dL (0.1-20.0) H 12/03/21 03:15 Urine Sodium 74 mmol/L 12/03/21 03:15 Urine Total Protein 9 mg/dL (5-11.8) 12/03/21 03:15 Medications & Allergies - Medications Allergies/Adverse Reactions: Allergies No Known Allergies Allergy (Unverified 12/02/21 15:15) Active Medications: Generic Name Dose Route Start Last Admin Trade Name Freq PRN Reason Stop Dose Admin Acetaminophen 650 mg 12/02/21 19:05 Acetaminophen 325 Mg Tab PO Q6H PRN Pain MILD(1-3)/Fever >100.5/FAJARDO Albuterol 2.5 mg 12/02/21 19:05 Albuterol 2.5 Mg/3 Ml Nebu IH Q3HRT PRN Shortness Of Breath Dextrose 50 ml 12/03/21 18:00 Dextrose 50% In Water (25gm) 50 Ml Syringe IV Q30MIN PRN Hypoglycemia Protocol Famotidine 20 mg 12/03/21 10:00 12/06/21 09:07 Famotidine 20 Mg Tab PO 20 mg QDAY [facility] Administration Heparin Sodium (Porcine) 5,000 unit 12/03/21 14:00 12/06/21 13:21 Heparin 5,000 Unit/1 Ml Vial SUB-Q 5,000 unit Q8HR [facility] Administration Hydromorphone HCl 0.25 mg 12/02/21 19:05 12/06/21 00:01 Hydromorphone 0.5 Mg/0.5 Ml Inj IV 0.25 mg Q4H PRN Administration Pain, Moderate (4-6) Hydromorphone HCl 0.5 mg 12/02/21 19:05 Hydromorphone 0.5 Mg/0.5 Ml Inj IV Q3H PRN Pain , Severe (7-10) Cefepime HCl 2 gm in 100 mls @ 200 mls/hr 12/06/21 20:00 Cefepime/Ns 2 Gm/100 Ml IV 12/08/21 08:29 Q12H REPLACED BY [facility] Protocol Insulin Human Regular 0 units 12/03/21 22:00 12/06/21 16:17 Insulin Regular, Human 100 Units/1 Ml SUB-Q Not Given ACHS REPLACED BY [facility] Protocol Midodrine 10 mg 12/05/21 16:00 12/06/21 16:50 Midodrine 10 Mg Tab PO 10 mg TID@0800,1200,1600 [facility] Administration Ondansetron HCl 4 mg 12/03/21 00:52 12/03/21 00:59 Ondansetron 4 Mg/2 Ml Inj IV 4 mg Q8H PRN Administration Nausea And Vomiting Oxycodone/Acetaminophen 1 tab 12/02/21 19:05 Oxycodone /Acetaminophen 5-325mg Tab PO Q6H PRN Pain, Moderate (4-6) Sodium Chloride 10 ml 12/02/21 22:00 12/06/21 18:27 Sodium Chloride 0.9% 10 Ml Flush Syringe IV Not Given BID [facility] Sodium Chloride 10 ml 12/02/21 19:05 12/06/21 09:09 Sodium Chloride 0.9% 10 Ml Flush Syringe IV 10 ml PRN PRN Administration LINE FLUSH Tamsulosin HCl 0.4 mg 12/06/21 18:00 12/06/21 17:39 Tamsulosin 0.4 Mg Cap PO 0.4 mg QDAY [facility] Administration Thiamine HCl 100 mg 12/03/21 19:00 12/06/21 09:07 Thiamine 100 Mg Tab PO 100 mg QDAY [facility] Administration
[2021-12-07] MEDS: HEPARIN 5,000 UNIT/1 ML VIAL SUB-Q SCH ×3 (05:41→22:58)
[2021-12-07 05:52] VITALS: BP 91/57
[2021-12-07 06:15] LABS: Hematocrit 26.4 % (35.5-45.6); Hemoglobin 8.6 gm/dl (11.8-15.2); Mean Corpuscular HGB Conc 33 % (32-34); Mean Corpuscular Volume 78 fl (84-94); Platelet Count 152 K/mm3 (140-440); Red Blood Count 3.41 M/mm3 (3.65-5.03)
[2021-12-07 06:28] LABS: Red Cell Distribution Width 20.6 % (13.2-15.2)
--- NOTE | 2021-12-07 06:34 | Progress Note ---
Assessment and Plan Acute hypoxemic respiratory failure Bilateral pneumonia H/O Lung cancer Acute kidney injury Hyperkalemia Septic shock Lactic acidosis NSTEMI DM II Chronic left pleural effusion - urology evaluation ongoing - complete 7 days of Cefepime Rx - continue care as below otherwise; - prn Pleurx catheter drainage for symptomatic fluid accumulation - azotemia improved as is metabolic acidosis; continue gentle hydration - continue BIPAP qhs with prn daytime use - continue to wean supplemental oxygen for target O2 sat's > 90% acutely - aspiration precautions - continue accuchecks with glycemic control per SSI for target blood glucose < 180 mg/dL - bronchodilators with pulmonary hygiene per RT - continue to avoid benzodiazepine's, reduce the possibility of delirium - prn analgesia per pain score - Maintenance of sleep-wake cycle, avoid delirium - G.I. & VTE prophylaxis - PT/OT/ROM exercises - mobility protocols for pressure ulcer prophylaxis - continue other care per attending / other consultants - discharge planning ongoing concurrently .... Re-evaluate in am & prn Subjective Date of service: 12/07/21 Principal diagnosis: AHRF; Pneumonia; Lung CA; PEDRO; Hyperkalemia; Septic shock; NSTEMI; DM II Interval history: Patient is seen today for: Acute hypoxemic respiratory failure; Bilateral pneumonia; Lung cancer; PEDRO; Hyperkalemia; Septic shock; NSTEMI; Chronic left pleural effusion Seen and examined at bedside; 24hour events reviewed; nursing and respiratory care staff consulted; no adverse overnight events reported to me; resting peacefully in bed; denies acute chest pains or palpitations; awaiting urology ev aluation; denies chest pain or increased SOB; remains on supplemental oxygen Objective Vital Signs - 12hr 12/06/21 12/06/21 12/06/21 20:00 22:26 22:59 Temperature 97.8 F Pulse Rate 80 Pulse Rate [ From Monitor] Pulse Rate [ 78 Radial] Respiratory 20 Rate Blood Pressure 91/58 O2 Sat by Pulse 97 99 Oximetry 12/07/21 12/07/21 12/07/21 00:00 01:27 04:00 Temperature 97.8 F Pulse Rate 72 Pulse Rate [ 72 From Monitor] Pulse Rate [ 78 Radial] Respiratory 20 18 Rate Blood Pressure 97/58 O2 Sat by Pulse 100 96 Oximetry 12/07/21 05:50 Temperature 98.7 F Pulse Rate Pulse Rate [ From Monitor] Pulse Rate [ 78 Radial] Respiratory 20 Rate Blood Pressure 91/57 O2 Sat by Pulse 97 Oximetry Constitutional: no acute distress, other (elderly male with mildly increased respiratory effort at rest) Eyes: non-icteric ENT: oropharynx moist Neck: supple, no lymphadenopathy, no JVD Effort: mildly labored Ascultation: Bilateral: diminished breath sounds, rhonchi (bases) Percussion: Bilateral: not dull Cardiovascular: regular rate and rhythm Gastrointestinal: normoactive bowel sounds, soft, non-tender, non-distended (protuberant) Integumentary: normal Extremities: no cyanosis, no edema, pulses normal, no ischemia or petechiae, other (bilateral BKA's) Neurologic: non-focal exam (grossly), pupils equal and round, CN II-XII normal, motor strength normal and Psychiatric: anxious CBC and BMP: 12/07/21 05:50 12/07/21 05:50 ABG, PT/INR, D-dimer: ABG ABG pH 7.322 pH Units (7.350-7.450) L 12/02/21 22:40 ABG pCO2 25.5 mm Hg 12/02/21 22:40 ABG pO2 240.4 mm Hg (80.0-90.0) H 12/02/21 22:40 ABG O2 Saturation 99.4 % (95.0-99.0) H 12/02/21 22:40 PT/INR, D-dimer PT 19.7 Sec. (12.2-14.9) H 12/02/21 15:21 INR 1.48 (0.87-1.13) H 12/02/21 15:21 Abnormal lab findings: Abnormal Labs 12/02/21 12/02/21 12/02/21 15:21 15:21 15:21 WBC 22.7 H RBC Hgb Hct MCV 78 L MCH 25 L MCHC RDW 20.2 H Lymph % (Auto) [place] % (Auto) [place] # (Auto) Seg Neutrophils % Seg Neuts % (Manual) 87.0 H Lymphocytes % (Manual) 9.0 L Seg Neutrophils # Seg Neutrophils # Man 19.7 H PT 19.7 H INR 1.48 H ABG pH ABG pO2 ABG HCO3 ABG O2 Saturation ABG Base Excess ABG Hemoglobin Sodium 131 L Potassium 7.1 H* Chloride 94.9 L Carbon Dioxide 10 L BUN 89 H Creatinine 7.1 H Glucose 108 H POC Glucose Lactic Acid Calcium Phosphorus Magnesium Troponin T 0.105 H* Total Protein Albumin PTH Intact Urine Creatinine 12/02/21 12/02/21 12/02/21 16:39 17:22 22:26 WBC RBC Hgb Hct MCV MCH MCHC RDW Lymph % (Auto) [place] % (Auto) [place] # (Auto) Seg Neutrophils % Seg Neuts % (Manual) Lymphocytes % (Manual) Seg Neutrophils # Seg Neutrophils # Man PT INR ABG pH ABG pO2 ABG HCO3 ABG O2 Saturation ABG Base Excess ABG Hemoglobin Sodium Potassium 7.2 H* Chloride Carbon Dioxide BUN Creatinine Glucose POC Glucose Lactic Acid 6.80 H* 8.90 H* Calcium Phosphorus Magnesium Troponin T Total Protein Albumin PTH Intact Urine Creatinine 12/02/21 12/02/21 12/03/21 22:26 22:40 00:01 WBC RBC Hgb Hct MCV MCH MCHC RDW Lymph % (Auto) [place] % (Auto) [place] # (Auto) Seg Neutrophils % Seg Neuts % (Manual) Lymphocytes % (Manual) Seg Neutrophils # Seg Neutrophils # Man PT INR ABG pH 7.322 L ABG pO2 240.4 H ABG HCO3 12.9 L ABG O2 Saturation 99.4 H ABG Base Excess -11.6 L ABG Hemoglobin 11.1 L Sodium Potassium 5.2 H D Chloride Carbon Dioxide 15 L BUN 77 H Creatinine 6.0 H Glucose 58 L POC Glucose Lactic Acid Calcium Phosphorus Magnesium Troponin T Total Protein Albumin PTH Intact 138.9 H Urine Creatinine 12/03/21 12/03/21 12/03/21 00:48 03:15 04:00 WBC 15.7 H RBC Hgb 10.7 L Hct 34.0 L MCV 78 L MCH 25 L MCHC RDW 20.0 H Lymph % (Auto) 12.5 L [place] % (Auto) 9.2 H [place] # (Auto) 1.4 H Seg Neutrophils % 78.1 H Seg Neuts % (Manual) Lymphocytes % (Manual) Seg Neutrophils # 12.2 H Seg Neutrophils # Man PT INR ABG pH ABG pO2 ABG HCO3 ABG O2 Saturation ABG Base Excess ABG Hemoglobin Sodium Potassium Chloride Carbon Dioxide BUN Creatinine Glucose POC Glucose 65 L Lactic Acid Calcium Phosphorus Magnesium Troponin T Total Protein Albumin PTH Intact Urine Creatinine 44.3 H 12/03/21 12/03/21 12/03/21 04:00 04:05 11:15 WBC RBC Hgb Hct MCV MCH MCHC RDW Lymph % (Auto) [place] % (Auto) [place] # (Auto) Seg Neutrophils % Seg Neuts % (Manual) Lymphocytes % (Manual) Seg Neutrophils # Seg Neutrophils # Man PT INR ABG pH ABG pO2 ABG HCO3 ABG O2 Saturation ABG Base Excess ABG Hemoglobin Sodium Potassium Chloride Carbon Dioxide 18 L BUN 72 H Creatinine 5.3 H Glucose POC Glucose 164 H Lactic Acid 4.00 H* Calcium Phosphorus Magnesium Troponin T Total Protein 5.6 L D Albumin 3.1 L PTH Intact Urine Creatinine 12/03/21 12/03/21 12/03/21 11:16 11:16 16:41 WBC RBC Hgb Hct MCV MCH MCHC RDW Lymph % (Auto) [place] % (Auto) [place] # (Auto) Seg Neutrophils % Seg Neuts % (Manual) Lymphocytes % (Manual) Seg Neutrophils # Seg Neutrophils # Man PT INR ABG pH ABG pO2 ABG HCO3 ABG O2 Saturation ABG Base Excess ABG Hemoglobin Sodium Potassium Chloride Carbon Dioxide BUN Creatinine Glucose POC Glucose 167 H Lactic Acid 6.80 H* Calcium Phosphorus Magnesium Troponin T 0.051 H D Total Protein Albumin PTH Intact Urine Creatinine 12/03/21 12/03/21 12/04/21 21:48 23:16 04:00 WBC RBC Hgb Hct MCV MCH MCHC RDW Lymph % (Auto) [place] % (Auto) [place] # (Auto) Seg Neutrophils % Seg Neuts % (Manual) Lymphocytes % (Manual) Seg Neutrophils # Seg Neutrophils # Man PT INR ABG pH ABG pO2 ABG HCO3 ABG O2 Saturation ABG Base Excess ABG Hemoglobin Sodium Potassium 3.4 L D Chloride 91.5 L Carbon Dioxide 32 H D BUN 38 H Creatinine 3.0 H Glucose 264 H POC Glucose 171 H Lactic Acid Calcium 7.8 L Phosphorus Magnesium 1.10 L Troponin T 0.045 H Total Protein Albumin PTH Intact Urine Creatinine 12/04/21 12/04/21 12/04/21 05:00 08:03 09:30 WBC 12.2 H RBC Hgb 9.8 L Hct 31.2 L MCV 78 L MCH 24 L MCHC 31 L RDW 20.8 H Lymph % (Auto) [place] % (Auto) [place] # (Auto) Seg Neutrophils % Seg Neuts % (Manual) Lymphocytes % (Manual) Seg Neutrophils # Seg Neutrophils # Man PT INR ABG pH ABG pO2 ABG HCO3 ABG O2 Saturation ABG Base Excess ABG Hemoglobin Sodium Potassium 3.2 L Chloride 93.7 L Carbon Dioxide 32 H BUN 38 H Creatinine 2.8 H Glucose 195 H POC Glucose 146 H Lactic Acid Calcium 7.6 L Phosphorus Magnesium Troponin T Total Protein Albumin PTH Intact Urine Creatinine 12/04/21 12/04/21 12/04/21 11:00 11:31 16:21 WBC RBC Hgb Hct MCV MCH MCHC RDW Lymph % (Auto) [place] % (Auto) [place] # (Auto) Seg Neutrophils % Seg Neuts % (Manual) Lymphocytes % (Manual) Seg Neutrophils # Seg Neutrophils # Man PT INR ABG pH ABG pO2 ABG HCO3 ABG O2 Saturation ABG Base Excess ABG Hemoglobin Sodium Potassium Chloride Carbon Dioxide BUN Creatinine Glucose POC Glucose 271 H 175 H Lactic Acid 5.30 H* Calcium Phosphorus Magnesium Troponin T Total Protein Albumin PTH Intact Urine Creatinine 12/04/21 12/04/21 12/05/21 17:16 21:35 04:50 WBC 11.2 H RBC Hgb 9.2 L Hct 29.0 L MCV 78 L MCH 25 L MCHC RDW 20.4 H Lymph % (Auto) [place] % (Auto) [place] # (Auto) Seg Neutrophils % Seg Neuts % (Manual) Lymphocytes % (Manual) Seg Neutrophils # Seg Neutrophils # Man PT INR ABG pH ABG pO2 ABG HCO3 ABG O2 Saturation ABG Base Excess ABG Hemoglobin Sodium Potassium Chloride Carbon Dioxide BUN Creatinine Glucose POC Glucose 202 H Lactic Acid 3.90 H* Calcium Phosphorus Magnesium Troponin T Total Protein Albumin PTH Intact Urine Creatinine 12/05/21 12/05/21 12/05/21 04:50 07:34 11:05 WBC RBC Hgb Hct MCV MCH MCHC RDW Lymph % (Auto) [place] % (Auto) [place] # (Auto) Seg Neutrophils % Seg Neuts % (Manual) Lymphocytes % (Manual) Seg Neutrophils # Seg Neutrophils # Man PT INR ABG pH ABG pO2 ABG HCO3 ABG O2 Saturation ABG Base Excess ABG Hemoglobin Sodium Potassium 3.2 L Chloride 92.8 L Carbon Dioxide 36 H BUN 29 H Creatinine 2.2 H Glucose 189 H POC Glucose 140 H 246 H Lactic Acid Calcium 7.5 L Phosphorus Magnesium 1.10 L Troponin T Total Protein Albumin PTH Intact Urine Creatinine 12/05/21 12/05/21 12/06/21 15:59 21:24 04:15 WBC RBC 3.58 L Hgb 9.1 L Hct 28.2 L MCV 79 L MCH 26 L MCHC RDW 20.2 H Lymph % (Auto) [place] % (Auto) [place] # (Auto) Seg Neutrophils % Seg Neuts % (Manual) Lymphocytes % (Manual) Seg Neutrophils # Seg Neutrophils # Man PT INR ABG pH ABG pO2 ABG HCO3 ABG O2 Saturation ABG Base Excess ABG Hemoglobin Sodium Potassium Chloride Carbon Dioxide BUN Creatinine Glucose POC Glucose 240 H 237 H Lactic Acid Calcium Phosphorus Magnesium Troponin T Total Protein Albumin PTH Intact Urine Creatinine 12/06/21 12/06/21 12/06/21 04:15 07:26 11:16 WBC RBC Hgb Hct MCV MCH MCHC RDW Lymph % (Auto) [place] % (Auto) [place] # (Auto) Seg Neutrophils % Seg Neuts % (Manual) Lymphocytes % (Manual) Seg Neutrophils # Seg Neutrophils # Man PT INR ABG pH ABG pO2 ABG HCO3 ABG O2 Saturation ABG Base Excess ABG Hemoglobin Sodium Potassium 3.3 L Chloride Carbon Dioxide 35 H BUN 22 H Creatinine 1.7 H Glucose 122 H POC Glucose 124 H 285 H Lactic Acid Calcium 7.6 L Phosphorus 2.30 L Magnesium Troponin T Total Protein Albumin PTH Intact Urine Creatinine 12/06/21 12/06/21 12/07/21 15:58 21:59 05:50 WBC RBC 3.41 L Hgb 8.6 L Hct 26.4 L MCV 78 L MCH 25 L MCHC RDW 20.6 H Lymph % (Auto) [place] % (Auto) [place] # (Auto) Seg Neutrophils % Seg Neuts % (Manual) Lymphocytes % (Manual) Seg Neutrophils # Seg Neutrophils # Man PT INR ABG pH ABG pO2 ABG HCO3 ABG O2 Saturation ABG Base Excess ABG Hemoglobin Sodium Potassium Chloride Carbon Dioxide BUN Creatinine Glucose POC Glucose 144 H 258 H Lactic Acid Calcium Phosphorus Magnesium Troponin T Total Protein Albumin PTH Intact Urine Creatinine Allied health notes reviewed: nursing
[2021-12-07] MEDS: INSULIN REGULAR, HUMAN 100 UNITS/1 ML SUB-Q SCH ×4 (08:00→22:59)
[2021-12-07] MEDS: MIDODRINE 10 MG TAB PO SCH ×3 (09:00→17:17)
--- NOTE | 2021-12-07 10:36 | Progress Note ---
Assessment and Plan Acute kidney injury: likely due to tubular injury in setting of sepsis Hyperkalemia, now with hypokalemia Metabolic acidosis Septic shock Lung cancer with malignant pleural effusion, status post drain placement Hypotension Alkalosis PEDRO improving, creatinine 1.6 this AM Continue supportive measures, replete K/other lytes prn Unclear why alkalotic, not on diuretic or HCO3 repletion, may be respiratory Monitor BMP Continue thiamine supplementation No immediate indication for dialysis Keep MAP more than 65, vasopressors as needed: agree with midodrine Antibiotics noted Renally dose medications Avoid nephrotoxins Renal diet Subjective Date of service: 12/07/21 Principal diagnosis: AHRF; Pneumonia; Lung CA; PEDRO; Hyperkalemia; Septic shock; NSTEMI; DM II Interval history: Seen in floor, sitting up in bed, no acute concerns noted Vitals, labs and I/os reviewed Interdisciplinary notes and consults reviewed Objective - Exam Narrative Exam: Constitutional: no acute distress Head: NC/AT Neck: supple Lungs: clear to auscultation, left pleurx catheter, nasal cannula in place CV: RRR, no M/R/G Abdomen: soft, non-tender, bowel sounds present Back: nontender Extremities: no edema, pulses WNL Skin: intact Neuro: no focal deficits, alert and oriented x4 - Vital Signs Vital signs: Vital Signs - 12hr 12/06/21 12/07/21 12/07/21 22:59 00:00 01:27 Temperature 97.8 F Pulse Rate 72 Pulse Rate [ From Monitor] Pulse Rate [ 78 Radial] Respiratory 20 Rate Blood Pressure 97/58 O2 Sat by Pulse 99 100 Oximetry 12/07/21 12/07/21 04:00 05:50 Temperature 98.7 F Pulse Rate 72 Pulse Rate [ 72 From Monitor] Pulse Rate [ 78 Radial] Respiratory 18 20 Rate Blood Pressure 91/57 O2 Sat by Pulse 96 97 Oximetry - Lab 12/07/21 05:50 12/07/21 05:50 Most recent lab results ABG pH 7.322 pH Units (7.350-7.450) L 12/02/21 22:40 ABG pCO2 25.5 mm Hg 12/02/21 22:40 ABG pO2 240.4 mm Hg (80.0-90.0) H 12/02/21 22:40 ABG HCO3 12.9 mmol/L (20.0-26.0) L 12/02/21 22:40 ABG O2 Saturation 99.4 % (95.0-99.0) H 12/02/21 22:40 Calcium 8.0 mg/dL (8.4-10.2) L 12/07/21 05:50 Phosphorus 3.00 mg/dL (2.5-4.5) D 12/07/21 05:50 Magnesium 1.50 mg/dL (1.7-2.3) L 12/07/21 05:50 Urine Creatinine 44.3 mg/dL (0.1-20.0) H 12/03/21 03:15 Urine Sodium 74 mmol/L 12/03/21 03:15 Urine Total Protein 9 mg/dL (5-11.8) 12/03/21 03:15 Medications & Allergies - Medications Allergies/Adverse Reactions: Allergies No Known Allergies Allergy (Unverified 12/02/21 15:15) Active Medications: Generic Name Dose Route Start Last Admin Trade Name Freq PRN Reason Stop Dose Admin Acetaminophen 650 mg 12/02/21 19:05 Acetaminophen 325 Mg Tab PO Q6H PRN Pain MILD(1-3)/Fever >100.5/FAJARDO Albuterol 2.5 mg 12/02/21 19:05 Albuterol 2.5 Mg/3 Ml Nebu IH Q3HRT PRN Shortness Of Breath Dextrose 50 ml 12/03/21 18:00 Dextrose 50% In Water (25gm) 50 Ml Syringe IV Q30MIN PRN Hypoglycemia Protocol Famotidine 20 mg 12/03/21 10:00 12/06/21 09:07 Famotidine 20 Mg Tab PO 20 mg QDAY BRITNEY Administration Heparin Sodium (Porcine) 5,000 unit 12/03/21 14:00 12/07/21 05:41 Heparin 5,000 Unit/1 Ml Vial SUB-Q 5,000 unit Q8HR BRITNEY Administration Hydromorphone HCl 0.25 mg 12/02/21 19:05 12/06/21 00:01 Hydromorphone 0.5 Mg/0.5 Ml Inj IV 0.25 mg Q4H PRN Administration Pain, Moderate (4-6) Hydromorphone HCl 0.5 mg 12/02/21 19:05 Hydromorphone 0.5 Mg/0.5 Ml Inj IV Q3H PRN Pain , Severe (7-10) Cefepime HCl 2 gm in 100 mls @ 200 mls/hr 12/06/21 20:00 12/06/21 20:45 Cefepime/Ns 2 Gm/100 Ml IV 12/08/21 08:29 200 mls/hr Q12H BRITNEY Administration Protocol Insulin Human Regular 0 units 12/03/21 22:00 12/06/21 22:27 Insulin Regular, Human 100 Units/1 Ml SUB-Q 4 units ACHS BRITNEY Administration Protocol Midodrine 10 mg 12/05/21 16:00 12/06/21 16:50 Midodrine 10 Mg Tab PO 10 mg TID@0800,1200,1600 BRITNEY Administration Ondansetron HCl 4 mg 12/03/21 00:52 12/03/21 00:59 Ondansetron 4 Mg/2 Ml Inj IV 4 mg Q8H PRN Administration Nausea And Vomiting Oxycodone/Acetaminophen 1 tab 12/02/21 19:05 Oxycodone /Acetaminophen 5-325mg Tab PO Q6H PRN Pain, Moderate (4-6) Sodium Chloride 10 ml 12/02/21 22:00 12/06/21 22:27 Sodium Chloride 0.9% 10 Ml Flush Syringe IV 10 ml BID BRITNEY Administration Sodium Chloride 10 ml 12/02/21 19:05 12/06/21 09:09 Sodium Chloride 0.9% 10 Ml Flush Syringe IV 10 ml PRN PRN Administration LINE FLUSH Tamsulosin HCl 0.4 mg 12/06/21 18:00 12/06/21 17:39 Tamsulosin 0.4 Mg Cap PO 0.4 mg QDAY BRITNEY Administration Thiamine HCl 100 mg 12/03/21 19:00 12/06/21 09:07 Thiamine 100 Mg Tab PO 100 mg QDAY BRITNEY Administration
--- NOTE | 2021-12-07 11:18 | Progress Note ---
Assessment and Plan Cultures: Blood culture 12/02/2021 no growth so far Pleural effusion culture 12/05/2021 no growth so far A/P: 76-year-old man past medical history diabetes, metastatic lung cancer, malignant pleural effusions now with: #Acute hypoxic resp failure: due to mlaignant effusions and likely pneumonia #Malignant pleural effusions: fluid analysis with only 2100 WBC, as such not likely to be an empyema #PEDRO: improving #Metastatic lung cancer Recs: -Agree with pulmonary's plan for 7 days of cefepime as pleural lesion not likely to be infected. -Follow-up cultures for finalization -If discharging can complete course with ciprofloxacin 500 mg every 12 hours Thank you for the consult, we will sign off. Please call questions. Pj Andres MD [facility] O: [phone] F: [phone] Subjective Date of service: 12/07/21 Principal diagnosis: AHRF; Pneumonia; Lung CA; PEDRO; Hyperkalemia; Septic shock; NSTEMI; DM II Interval history: Afebrile, normal white count. Cultures remain negative. Objective - Exam Narrative Exam: Physical Exam: Constitutional: Alert, cooperative. No acute distress Head, Ears, Nose: Normocephalic, atraumatic. External ears, nose normal Eyes: Conjunctivae/corneas clear. No icterus. No ptosis. Neck: Supple, no meningeal signs Oral: dentition fair, no thrush Cardiovascular: S1, S2 normal. Respiratory: Good air entry, clear to auscultation bilaterally GI: Soft, non-tender; bowel sounds normal. No peritoneal signs. Musculoskeletal: No pedal edema, no cyanosis. +Pleur-x Skin: No rash or abscess Hem/Lymphatic: No palpable cervical or supraclavicular nodes. No lymphangitis Psych: Mood ok. Affect normal Neurological: Awake, alert, oriented. No gross abnormality - Constitutional Vitals: Vital Signs Temp Pulse Resp BP Pulse Ox 98.7 F 78 20 91/57 97 12/07/21 05:50 12/07/21 05:50 12/07/21 05:50 12/07/21 05:50 12/07/21 05:50 Temperature -Last 24 Hours Temperature 98.7 F Temperature 98.7 F Temperature 97.8 F Temperature 97.8 F Temperature 98.2 F Temperature 98.1 F - Labs CBC & Chem 7: 12/07/21 05:50 12/07/21 05:50 Labs: Abnormal lab results 12/06/21 12/06/21 12/06/21 Range/Units 11:16 15:58 21:59 RBC (3.65-5.03) M/mm3 Hgb (11.8-15.2) gm/dl Hct (35.5-45.6) % MCV (84-94) fl MCH (28-32) pg RDW (13.2-15.2) % Potassium (3.6-5.0) mmol/L Carbon Dioxide (22-30) mmol/L Creatinine (0.8-1.3) mg/dL Glucose (75-100) mg/dL POC Glucose 285 H 144 H 258 H (70-105) mg/dL Calcium (8.4-10.2) mg/dL Magnesium (1.7-2.3) mg/dL 12/07/21 12/07/21 12/07/21 Range/Units 05:50 05:50 08:54 RBC 3.41 L (3.65-5.03) M/mm3 Hgb 8.6 L (11.8-15.2) gm/dl Hct 26.4 L (35.5-45.6) % MCV 78 L (84-94) fl MCH 25 L (28-32) pg RDW 20.6 H (13.2-15.2) % Potassium 3.4 L (3.6-5.0) mmol/L Carbon Dioxide 34 H (22-30) mmol/L Creatinine 1.6 H (0.8-1.3) mg/dL Glucose 118 H (75-100) mg/dL POC Glucose 122 H (70-105) mg/dL Calcium 8.0 L (8.4-10.2) mg/dL Magnesium 1.50 L (1.7-2.3) mg/dL
[2021-12-07] MEDS: FAMOTIDINE 20 MG TAB PO SCH (12:31)
[2021-12-07] MEDS: THIAMINE 100 MG TAB PO SCH (12:31)
[2021-12-07] MEDS: TAMSULOSIN 0.4 MG CAP PO SCH (12:32)
--- NOTE | 2021-12-07 12:34 | Progress Note ---
Assessment and Plan partial retention difficult cath urine clear keep thomas prev stones Subjective Date of service: 12/07/21 Principal diagnosis: AHRF; Pneumonia; Lung CA; PEDRO; Hyperkalemia; Septic shock; NSTEMI; DM II Objective - Constitutional Vitals: Vital Signs - 12hr 12/07/21 12/07/21 12/07/21 01:27 04:00 05:50 Temperature 97.8 F 98.7 F Pulse Rate 72 Pulse Rate [ 72 From Monitor] Pulse Rate [ 78 78 Radial] Respiratory 20 18 20 Rate Blood Pressure 97/58 91/57 O2 Sat by Pulse 100 96 97 Oximetry General appearance: Present: no acute distress - Gastrointestinal General gastrointestinal: Present: soft, tender - Labs CBC & Chem 7: 12/07/21 05:50 12/07/21 05:50 Labs: Abnormal lab results 12/06/21 12/06/21 12/07/21 Range/Units 15:58 21:59 05:50 RBC 3.41 L (3.65-5.03) M/mm3 Hgb 8.6 L (11.8-15.2) gm/dl Hct 26.4 L (35.5-45.6) % MCV 78 L (84-94) fl MCH 25 L (28-32) pg RDW 20.6 H (13.2-15.2) % Potassium (3.6-5.0) mmol/L Carbon Dioxide (22-30) mmol/L Creatinine (0.8-1.3) mg/dL Glucose (75-100) mg/dL POC Glucose 144 H 258 H (70-105) mg/dL Calcium (8.4-10.2) mg/dL Magnesium (1.7-2.3) mg/dL 12/07/21 12/07/21 Range/Units 05:50 08:54 RBC (3.65-5.03) M/mm3 Hgb (11.8-15.2) gm/dl Hct (35.5-45.6) % MCV (84-94) fl MCH (28-32) pg RDW (13.2-15.2) % Potassium 3.4 L (3.6-5.0) mmol/L Carbon Dioxide 34 H (22-30) mmol/L Creatinine 1.6 H (0.8-1.3) mg/dL Glucose 118 H (75-100) mg/dL POC Glucose 122 H (70-105) mg/dL Calcium 8.0 L (8.4-10.2) mg/dL Magnesium 1.50 L (1.7-2.3) mg/dL Medications & Allergies - Medications Allergies/Adverse Reactions: Allergies No Known Allergies Allergy (Unverified 12/02/21 15:15) Active Medications: Generic Name Dose Route Start Last Admin Trade Name Freq PRN Reason Stop Dose Admin Acetaminophen 650 mg 12/02/21 19:05 Acetaminophen 325 Mg Tab PO Q6H PRN Pain MILD(1-3)/Fever >100.5/FAJARDO Albuterol 2.5 mg 12/02/21 19:05 Albuterol 2.5 Mg/3 Ml Nebu IH Q3HRT PRN Shortness Of Breath Dextrose 50 ml 12/03/21 18:00 Dextrose 50% In Water (25gm) 50 Ml Syringe IV Q30MIN PRN Hypoglycemia Protocol Famotidine 20 mg 12/03/21 10:00 12/07/21 12:31 Famotidine 20 Mg Tab PO 20 mg QDAY BRITNEY Administration Heparin Sodium (Porcine) 5,000 unit 12/03/21 14:00 12/07/21 05:41 Heparin 5,000 Unit/1 Ml Vial SUB-Q 5,000 unit Q8HR BRITNEY Administration Hydromorphone HCl 0.25 mg 12/02/21 19:05 12/06/21 00:01 Hydromorphone 0.5 Mg/0.5 Ml Inj IV 0.25 mg Q4H PRN Administration Pain, Moderate (4-6) Hydromorphone HCl 0.5 mg 12/02/21 19:05 Hydromorphone 0.5 Mg/0.5 Ml Inj IV Q3H PRN Pain , Severe (7-10) Cefepime HCl 2 gm in 100 mls @ 200 mls/hr 12/06/21 20:00 12/06/21 20:45 Cefepime/Ns 2 Gm/100 Ml IV 12/08/21 08:29 200 mls/hr Q12H BRITNEY Administration Protocol Insulin Human Regular 0 units 12/03/21 22:00 12/07/21 08:00 Insulin Regular, Human 100 Units/1 Ml SUB-Q Not Given ACHS BRITNEY Protocol Midodrine 10 mg 12/05/21 16:00 12/06/21 16:50 Midodrine 10 Mg Tab PO 10 mg TID@0800,1200,1600 BRITNEY Administration Ondansetron HCl 4 mg 12/03/21 00:52 12/03/21 00:59 Ondansetron 4 Mg/2 Ml Inj IV 4 mg Q8H PRN Administration Nausea And Vomiting Oxycodone/Acetaminophen 1 tab 12/02/21 19:05 Oxycodone /Acetaminophen 5-325mg Tab PO Q6H PRN Pain, Moderate (4-6) Sodium Chloride 10 ml 12/02/21 22:00 12/06/21 22:27 Sodium Chloride 0.9% 10 Ml Flush Syringe IV 10 ml BID BRTINEY Administration Sodium Chloride 10 ml 12/02/21 19:05 12/06/21 09:09 Sodium Chloride 0.9% 10 Ml Flush Syringe IV 10 ml PRN PRN Administration LINE FLUSH Tamsulosin HCl 0.4 mg 12/06/21 18:00 12/07/21 12:32 Tamsulosin 0.4 Mg Cap PO 0.4 mg QDAY BRITNEY Administration Thiamine HCl 100 mg 12/03/21 19:00 12/07/21 12:31 Thiamine 100 Mg Tab PO 100 mg QDAY BRITNEY Administration HEART Score - HEART Score Troponin: Troponin T 0.045 ng/mL (0.00-0.029) H 12/03/21 23:16
[2021-12-07] MEDS: CEFEPIME/NS 2 GM/100 ML 2 GM/100 ML BAG IV SCH ×2 (12:41→20:40)
--- NOTE | 2021-12-07 15:26 | Progress Note ---
Assessment and Plan Assessment and plan: History Interval history: This is a 76-year-old male with DM, lung cancer with metastatic disease and malignant pleural effusions s/p pleural drain placement, chronic back pain and PVD s/p bilateral AKA who presented to the emergency department on with complaints of back pain 10/10, constant, worsened with movement and relieved without movement localized over the spine with the and shortness of breath over the past week on 12/02. Patient was hypoxic in the emergency department to 79% on room air and CXR revealed bilateral pneumonia which was complicated by septic shock, metabolic acidosis, acute kidney injury, hyperkalemia, volume depletion and malignant pleural effusion. Patient was admitted to the ICU on sepsis protocol with acute hypoxic respiratory failure, PEDRO, hyperkalemia and volume depletion with consults to [facility] and nephrology. Hospital Course to Date: 12/03: Patient remains on Levophed and NaBcarb gtts. Patient reported he was r ecently hospitalized 3 weeks ago for pneumonia and was discharge with some PCN. Patient is afebrile with leukocytosis and Lactic acidosis, cultures and procal pending. Continue current IV abx for now. Patient is also reported frequent loose stools/diarrhea for the past 3 weeks. Will check for C.Diff and PO Vanc and Flagyl added. ID consulted for further recs. Renal function with some improvement, continue bcarb gtt per nephro. Obtain records from the NH in [place]. 12/04: Remains afebrile, ST on the monitor, still on Levophed and bcarb gtt. C.Diff PCR pending, procal and CRP are unremarkable. Continue current IV Abx for now, ID consult pending. Renal function continue to improved, continue bcab gtt per Nephro. Monitor and replace electrolytes as needed. 12/05: Remains on low dose Levophed gtt, off bcarb gtt, renal funstion continue to improve. Will add Midodrine TID, titrate pressors for MAP above 65. CDiff PCR came back negative, PO vanco and Flagyl D/karen. Pleurix cath drained this am, sample sent to the lab. Continue current IV abx, ID consulted. Right upper chest Port accessed, removed Right fem CVC. Monitor and replace electrolytes as needed. 12/06: Remains off levophed, repelte K and phos today. Will transfer to floor. 12/07: Hemodynamically stable. Urology consulted yesterday for thomas, s/p placement. Anticipate d/c tomorrow. Assessment and Plan: Neuro: h/o chronic back pain -Reorientation as needed -Maintain sleep-wake cycle -As needed analgesia Cardiac: Hypotension, elevated troponin -S/p vasopressor support with Levophed -Midodrine 3 times daily -Blood pressure monitoring per protocol -Troponin 0.105, 0.051, 0.045 Respiratory: Acute hypoxic respiratory failure -CCM consulted, appreciate recommendations -NIPPV q hs -Supplemental oxygenation as needed -Pulmonary hygiene -SPO2 monitor per protocol GI: Mild protein calorie malnutrition -24 hours -57 mL -PPI -CC renal diet with supplementation : Hypokalemia, Hypophosphatemia, acute kidney injury -Nephrology consulted, appreciate recommendations -Strict intake and output -Renally dose medications -Avoid nephrotoxic medications -s/p bicarb gtt -Trend BMP ID: Septic shock -Infectious disease consulted, appreciate recommendation -COVID PCR (-), C diff PCR (-) -Antibiotic therapy with cefepime (12/06-12/08) -f/u blood culture -blood culture with no growth to date for 72 hours -Monitor WBC and temperature curve Endo: h/o DM -Avoid hypoglycemia -SSI -Accu-Cheks ACHS -Long-acting insulin, titrate as needed Heme: NAD -Trend CBC -Transfuse hemoglobin less than 7 -SCDs to BLE while in bed Oncology: Metastatic Lung Cancer and left sided malignant pleural effusions s/p left pleural drain placement -Currently undergoing chemotherapy -s/p Pleural drain -Pleural fluid is pink, cloudy, WBC 2100, RBC 9150, Seg neutrophils 94, lymphocytes 4, monocytes 2 -Continue supportive care History Interval history: No acute complaints. S/p thomas placement. Hospitalist Physical - Physical exam Narrative exam: General appearance: Present: no acute distress, well-nourished, obese - EENT Eyes: Present: PERRL, EOM intact ENT: hearing intact, poor dentition - Neck Neck: Present: normal ROM - Respiratory Respiratory effort: normal Respiratory: bilateral: diminished - Cardiovascular Rhythm: regular Heart Sounds: Present: S1 & S2. Absent: systolic murmur, diastolic murmur - Extremities Extremities: no ischemia, pulses intact, pulses symmetrical, No edema, normal temperature, normal color Peripheral Pulses: within normal limits (except bka) - Abdominal General gastrointestinal: soft, non-tender, non-distended - Integumentary Integumentary: Present: warm, dry - Psychiatric Psychiatric: appropriate mood/affect, cooperative - Neurologic Neurologic: CNII-XII intact, moves all extremities - Allied Health Allied health notes reviewed: nursing, RT, social work - Constitutional Vitals: Temp Pulse Resp BP Pulse Ox 98.7 F 78 20 91/57 97 12/07/21 05:50 12/07/21 05:50 12/07/21 05:50 12/07/21 05:50 12/07/21 05:50 General appearance: Present: no acute distress HEART Score - HEART Score Troponin: Troponin T 0.045 ng/mL (0.00-0.029) H 12/03/21 23:16 Results - Labs CBC & Chem 7: 12/07/21 05:50 12/07/21 05:50 Labs: Laboratory Last Values WBC 7.5 K/mm3 (4.5-11.0) 12/07/21 05:50 RBC 3.41 M/mm3 (3.65-5.03) L 12/07/21 05:50 Hgb 8.6 gm/dl (11.8-15.2) L 12/07/21 05:50 Hct 26.4 % (35.5-45.6) L 12/07/21 05:50 MCV 78 fl (84-94) L 12/07/21 05:50 MCH 25 pg (28-32) L 12/07/21 05:50 MCHC 33 % (32-34) 12/07/21 05:50 RDW 20.6 % (13.2-15.2) H 12/07/21 05:50 Plt Count 152 K/mm3 (140-440) 12/07/21 05:50 Lymph % (Auto) 12.5 % (13.4-35.0) L 12/03/21 04:00 Towner % (Auto) 9.2 % (0.0-7.3) H 12/03/21 04:00 Eos % (Auto) 0.1 % (0.0-4.3) 12/03/21 04:00 Baso % (Auto) 0.1 % (0.0-1.8) 12/03/21 04:00 Lymph # (Auto) 2.0 K/mm3 (1.2-5.4) 12/03/21 04:00 Towner # (Auto) 1.4 K/mm3 (0.0-0.8) H 12/03/21 04:00 Eos # (Auto) 0.0 K/mm3 (0.0-0.4) 12/03/21 04:00 Baso # (Auto) 0.0 K/mm3 (0.0-0.1) 12/03/21 04:00 Add Manual Diff Complete 12/02/21 15:21 Total Counted 100 12/02/21 15:21 Seg Neutrophils % 78.1 % (40.0-70.0) H 12/03/21 04:00 Seg Neuts % (Manual) 87.0 % (40.0-70.0) H 12/02/21 15:21 Band Neutrophils % 1.0 % 12/02/21 15:21 Lymphocytes % (Manual) 9.0 % (13.4-35.0) L 12/02/21 15:21 Reactive Lymphs % (Man) 0 % 12/02/21 15:21 Monocytes % (Manual) 2.0 % (0.0-7.3) 12/02/21 15:21 Eosinophils % (Manual) 1.0 % (0.0-4.3) 12/02/21 15:21 Basophils % (Manual) 0 % (0.0-1.8) 12/02/21 15:21 Metamyelocytes % 0 % 12/02/21 15:21 Myelocytes % 0 % 12/02/21 15:21 Promyelocytes % 0 % 12/02/21 15:21 Blast Cells % 0 % 12/02/21 15:21 Nucleated RBC % Not Reportable 12/02/21 15:21 Seg Neutrophils # 12.2 K/mm3 (1.8-7.7) H 12/03/21 04:00 Seg Neutrophils # Man 19.7 K/mm3 (1.8-7.7) H 12/02/21 15:21 Band Neutrophils # 0.2 K/mm3 12/02/21 15:21 Lymphocytes # (Manual) 2.0 K/mm3 (1.2-5.4) 12/02/21 15:21 Abs React Lymphs (Man) 0.0 K/mm3 12/02/21 15:21 Monocytes # (Manual) 0.5 K/mm3 (0.0-0.8) 12/02/21 15:21 Eosinophils # (Manual) 0.2 K/mm3 (0.0-0.4) 12/02/21 15:21 Basophils # (Manual) 0.0 K/mm3 (0.0-0.1) 12/02/21 15:21 Metamyelocytes # 0.0 K/mm3 12/02/21 15:21 Myelocytes # 0.0 K/mm3 12/02/21 15:21 Promyelocytes # 0.0 K/mm3 12/02/21 15:21 Blast Cells # 0.0 K/mm3 12/02/21 15:21 WBC Morphology Not Reportable 12/02/21 15:21 Hypersegmented Neuts Not Reportable 12/02/21 15:21 Hyposegmented Neuts Not Reportable 12/02/21 15:21 Hypogranular Neuts Not Reportable 12/02/21 15:21 Smudge Cells Not Reportable 12/02/21 15:21 Toxic Granulation Not Reportable 12/02/21 15:21 Toxic Vacuolation Not Reportable 12/02/21 15:21 Dohle Bodies Not Reportable 12/02/21 15:21 Pelger-Huet Anomaly Not Reportable 12/02/21 15:21 Chandra Rods Not Reportable 12/02/21 15:21 Platelet Estimate Consistent w auto 12/02/21 15:21 Clumped Platelets Not Reportable 12/02/21 15:21 Plt Clumps, EDTA Not Reportable 12/02/21 15:21 Large Platelets Not Reportable 12/02/21 15:21 Giant Platelets Not Reportable 12/02/21 15:21 Platelet Satelliting Not Reportable 12/02/21 15:21 Plt Morphology Comment Not Reportable 12/02/21 15:21 RBC Morphology Not Reportable 12/02/21 15:21 Dimorphic RBCs Not Reportable 12/02/21 15:21 Polychromasia Not Reportable 12/02/21 15:21 Hypochromasia 1+ 12/02/21 15:21 Poikilocytosis Not Reportable 12/02/21 15:21 Anisocytosis 1+ 12/02/21 15:21 Microcytosis Not Reportable 12/02/21 15:21 Macrocytosis Not Reportable 12/02/21 15:21 Spherocytes Not Reportable 12/02/21 15:21 Pappenheimer Bodies Not Reportable 12/02/21 15:21 Sickle Cells Not Reportable 12/02/21 15:21 Target Cells Not Reportable 12/02/21 15:21 Tear Drop Cells Not Reportable 12/02/21 15:21 Ovalocytes Not Reportable 12/02/21 15:21 Helmet Cells Not Reportable 12/02/21 15:21 Aguilar-Cyr Bodies Not Reportable 12/02/21 15:21 Ericson Rings Not Reportable 12/02/21 15:21 Shirley Cells Not Reportable 12/02/21 15:21 Bite Cells Not Reportable 12/02/21 15:21 Crenated Cell Not Reportable 12/02/21 15:21 Elliptocytes Not Reportable 12/02/21 15:21 Acanthocytes (Spur) Not Reportable 12/02/21 15:21 Rouleaux Not Reportable 12/02/21 15:21 Hemoglobin C Crystals Not Reportable 12/02/21 15:21 Schistocytes Not Reportable 12/02/21 15:21 Malaria parasites Not Reportable 12/02/21 15:21 Josh Bodies Not Reportable 12/02/21 15:21 Hem Pathologist Commnt No 12/02/21 15:21 PT 19.7 Sec. (12.2-14.9) H 12/02/21 15:21 INR 1.48 (0.87-1.13) H 12/02/21 15:21 ABG pH 7.322 pH Units (7.350-7.450) L 12/02/21 22:40 ABG pCO2 25.5 mm Hg 12/02/21 22:40 ABG pO2 240.4 mm Hg (80.0-90.0) H 12/02/21 22:40 ABG HCO3 12.9 mmol/L (20.0-26.0) L 12/02/21 22:40 ABG O2 Saturation 99.4 % (95.0-99.0) H 12/02/21 22:40 ABG O2 Content 15.9 (0.0-44) 12/02/21 22:40 ABG Base Excess -11.6 mmol/L (-2.0-3.0) L 12/02/21 22:40 ABG Hemoglobin 11.1 gm/dl (14.0-18.0) L 12/02/21 22:40 ABG Carboxyhemoglobin 1.0 % (0.0-5.0) 12/02/21 22:40 ABG Methemoglobin 0.6 % (0.0-1.5) 12/02/21 22:40 Oxyhemoglobin 97.9 % (95.0-99.0) 12/02/21 22:40 FiO2 100 % 12/02/21 22:40 Sodium 142 mmol/L (137-145) 12/07/21 05:50 Potassium 3.4 mmol/L (3.6-5.0) L 12/07/21 05:50 Chloride 101.2 mmol/L (98-107) 12/07/21 05:50 Carbon Dioxide 34 mmol/L (22-30) H 12/07/21 05:50 Anion Gap 10 mmol/L 12/07/21 05:50 BUN 18 mg/dL (9-20) 12/07/21 05:50 Creatinine 1.6 mg/dL (0.8-1.3) H 12/07/21 05:50 Estimated GFR 51 ml/min 12/07/21 05:50 BUN/Creatinine Ratio 11 % 12/07/21 05:50 Glucose 118 mg/dL (75-100) H 12/07/21 05:50 POC Glucose 122 mg/dL (70-105) H 12/07/21 08:54 Lactic Acid 1.90 mmol/L (0.7-2.0) 12/05/21 04:50 Calcium 8.0 mg/dL (8.4-10.2) L 12/07/21 05:50 Phosphorus 3.00 mg/dL (2.5-4.5) D 12/07/21 05:50 Magnesium 1.50 mg/dL (1.7-2.3) L 12/07/21 05:50 Total Bilirubin 0.20 mg/dL (0.1-1.2) 12/03/21 04:00 AST 27 units/L (5-40) 12/03/21 04:00 ALT 10 units/L (7-56) 12/03/21 04:00 Alkaline Phosphatase 71 units/L (35-129) 12/03/21 04:00 Troponin T 0.045 ng/mL (0.00-0.029) H 12/03/21 23:16 C-Reactive Protein 0.30 mg/dL (0.00-1.30) 12/02/21 22:26 NT-Pro-B Natriuret Pep 453.1 pg/mL (0-900) 12/02/21 15:21 Total Protein 5.6 g/dL (6.3-8.2) L D 12/03/21 04:00 Albumin 3.1 g/dL (3.9-5) L 12/03/21 04:00 Albumin/Globulin Ratio 1.2 % 12/03/21 04:00 Triglycerides 147 mg/dL (2-149) 12/03/21 11:16 Cholesterol 133 mg/dL (50-199) 12/03/21 11:16 LDL Cholesterol Direct 69 mg/dL (50-130) 12/03/21 11:16 HDL Cholesterol 48 mg/dL (40-59) 12/03/21 11:16 Cholesterol/HDL Ratio 2.77 % 12/03/21 11:16 Procalcitonin < 0.05 ng/mL (<0.15) 12/02/21 22:26 PTH Intact 138.9 pg/mL (15-65) H 12/03/21 00:01 Urine Creatinine 44.3 mg/dL (0.1-20.0) H 12/03/21 03:15 Protein/Creatinin Ratio 0.20 12/03/21 03:15 Urine Sodium 74 mmol/L 12/03/21 03:15 Urine Total Protein 9 mg/dL (5-11.8) 12/03/21 03:15 Fluid Type Pleural 12/05/21 12:15 Fluid Color [place] 12/05/21 12:15 Fluid Appearance Cloudy 12/05/21 12:15 Fluid WBC 2100 /mm3 12/05/21 12:15 Fluid RBC 9150 /mm3 12/05/21 12:15 Fluid Seg Neutrophils 94.0 % 12/05/21 12:15 Fluid Lymphocytes 4.0 % 12/05/21 12:15 Fluid Reactive Lymphs Not Reportable 12/05/21 12:15 Fluid Monocytes 2.0 % 12/05/21 12:15 Fluid Eosinophils Not Reportable 12/05/21 12:15 Fluid Basophils Not Reportable 12/05/21 12:15 Nasal Screen MRSA (PCR) Negative (Negative) 12/03/21 07:55 Random Vancomycin 8.0 ug/mL (0-40.0) 12/04/21 05:00 Complement C3 111 mg/dL (82-185) 12/03/21 04:05 Complement C4 39 mg/dL (15-53) 12/03/21 04:05 C. difficile Tox (PCR) Negative (Negative) 12/03/21 10:55 Coronavirus (PCR) Negative (Negative) 12/03/21 07:55 Blood Type A POSITIVE 12/02/21 22:26 Antibody Screen Negative 12/02/21 22:26 Microbiology: Microbiology 12/05/21 12:15 Pleural Fluid - Pleura,Lt Lung Body Fluid Culture - Preliminary 12/02/21 16:38 Peripheral/Venous Blood Culture - Preliminary NO GROWTH AFTER 4 DAYS 12/02/21 16:38 Peripheral/Venous Blood Culture - Preliminary NO GROWTH AFTER 4 DAYS Thomas/IV: Voiding Method Urinal Active Medications - Current Medications Current Medications: Generic Name Dose Route Start Last Admin Trade Name Freq PRN Reason Stop Dose Admin Acetaminophen 650 mg 12/02/21 19:05 Acetaminophen 325 Mg Tab PO Q6H PRN Pain MILD(1-3)/Fever >100.5/FAJARDO Albuterol 2.5 mg 12/02/21 19:05 Albuterol 2.5 Mg/3 Ml Nebu IH Q3HRT PRN Shortness Of Breath Dextrose 50 ml 12/03/21 18:00 Dextrose 50% In Water (25gm) 50 Ml Syringe IV Q30MIN PRN Hypoglycemia Protocol Famotidine 20 mg 12/03/21 10:00 12/07/21 12:31 Famotidine 20 Mg Tab PO 20 mg QDAY BRITNEY Administration Heparin Sodium (Porcine) 5,000 unit 12/03/21 14:00 12/07/21 15:10 Heparin 5,000 Unit/1 Ml Vial SUB-Q 5,000 unit Q8HR BRITNEY Administration Hydromorphone HCl 0.25 mg 12/02/21 19:05 12/06/21 00:01 Hydromorphone 0.5 Mg/0.5 Ml Inj IV 0.25 mg Q4H PRN Administration Pain, Moderate (4-6) Hydromorphone HCl 0.5 mg 12/02/21 19:05 Hydromorphone 0.5 Mg/0.5 Ml Inj IV Q3H PRN Pain , Severe (7-10) Cefepime HCl 2 gm in 100 mls @ 200 mls/hr 12/06/21 20:00 12/07/21 12:41 Cefepime/Ns 2 Gm/100 Ml IV 12/08/21 08:29 200 mls/hr Q12H BRITNEY Administration Protocol Insulin Human Regular 0 units 12/03/21 22:00 12/07/21 15:09 Insulin Regular, Human 100 Units/1 Ml SUB-Q 4 units ACHS BRITNEY Administration Protocol Midodrine 10 mg 12/05/21 16:00 12/07/21 15:08 Midodrine 10 Mg Tab PO 10 mg TID@0800,1200,1600 BRITNEY Administration Ondansetron HCl 4 mg 12/03/21 00:52 12/03/21 00:59 Ondansetron 4 Mg/2 Ml Inj IV 4 mg Q8H PRN Administration Nausea And Vomiting Oxycodone/Acetaminophen 1 tab 12/02/21 19:05 Oxycodone /Acetaminophen 5-325mg Tab PO Q6H PRN Pain, Moderate (4-6) Sodium Chloride 10 ml 12/02/21 22:00 12/07/21 12:42 Sodium Chloride 0.9% 10 Ml Flush Syringe IV 10 ml BID BRITNEY Administration Sodium Chloride 10 ml 12/02/21 19:05 12/06/21 09:09 Sodium Chloride 0.9% 10 Ml Flush Syringe IV 10 ml PRN PRN Administration LINE FLUSH Tamsulosin HCl 0.4 mg 12/06/21 18:00 12/07/21 12:32 Tamsulosin 0.4 Mg Cap PO 0.4 mg QDAY BRITNEY Administration Thiamine HCl 100 mg 12/03/21 19:00 12/07/21 12:31 Thiamine 100 Mg Tab PO 100 mg QDAY BRITNEY Administration Nutrition/Malnutrition Assess - Dietary Evaluation Nutrition/Malnutrition Findings: Nutrition Notes Start: 12/03/21 09:55 Freq: Status: Active Protocol: Document 12/03/21 09:55 CIERRA (Rec: 12/03/21 10:23 CIERRA [id number]) Nutrition Notes Need for Assessment generated from: MD Order Initial or Follow up Assessment Current Diagnosis Acute Kidney Injury,Diabetes, Respiratory Failure Other Pertinent Diagnosis NSTEMI, Dehydration, Pneumonia , Metastatic Lung CA/Pleural Effusion,... Current Diet Renal Diet + D Suppl (since L 12/03). Labs/Tests 12/03: CO2 18, BUN 72, Crea 5. 3/ Pertinent Medications 12/03: Nutritionally unremarkable. 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 No reports available on Pt's PO intake at the time, will assess at F/U. I will prescribe dietary supplements to compensate for poor or insufficient PO intake of meals during LOS. Pt is on NIV/Bi-PaP+, O2 saturation @ 98%, according to Physical Assessment History notes. Pt has missing teeth, according to Physical Assessment History notes. 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 Percent of energy/protein needs met: Prescribed Renal Diet provides for energy/protein needs (2, 072 Kcal/77 g) during LOS; additionally, Dietary Supplements will compensate for possible poor or insufficient PO intake of meals with 850 Kcal and 38 g of protein. Burn Absent Trauma Absent GI Symptoms Nausea,Vomiting,Diarrhea Food Allergy No Skin Integrity/Comment Assessment WNL. Minimum of two criteria No Fluid Accumulation N/A Reduced Shaper Operator Strength Measurably Reduced (severe) Protein-Calorie Malnutrition N\A #1 Nutrition Diagnosis Predicted suboptimal energy intake Etiology PEDRO, Dehydration, Pneumonia, Metastatic Lung CA. As Evidenced by Signs and Symptoms No reports available on Pt's PO intake at the time, will assess at F/U. Is patient on ventilator? No Is Patient Ambulatory and/or Out of Bed Yes REE-([facility]-ambulatory/OOB) [ [id number] [id number]] Calculation Used for Recommendations [facility] Additional Notes Protein: 0.8-1.2 g/Kg ABW; 51- 77 g/day. Fluids: 1 ml/Kcal, or as per MD. Nutrition Intervention Change Diet Order: Continue Renal Diet as tolerated. Add Supplement/Snack (indicate name/kcal Start 8 fl oz Nepro w/ /protein ) CARBSTEADY; BID. Provides kCal: 850 Provides Protein (gm) 38 Goal #1 Compensate, through dietary supplementation, for possible poor or insufficient PO intake of meals during LOS. Follow-Up By: 12/09/21 Additional Comments Continue monitoring food tolerance, %PO intake of meals , dietary supplements, and BM.
[2021-12-07 15:35] LABS: Myeloperoxidase Antibody <1.0 AI (<1.0)
[2021-12-07 18:20] LABS: Albumin 2.9 g/dL (3.8-4.8)
[2021-12-08] MEDS: HEPARIN 5,000 UNIT/1 ML VIAL SUB-Q SCH (05:57)
[2021-12-08] MEDS ORDERED: MAGNESIUM OXIDE 400 MG TAB PO SCH (10:00)
[2021-12-08] MEDS ORDERED: POTASSIUM CHLORIDE ER 20 MEQ TAB PO SCH (10:00)
[2021-12-08] MEDS: INSULIN REGULAR, HUMAN 100 UNITS/1 ML SUB-Q SCH ×2 (10:30→13:28)
[2021-12-08] MEDS: FAMOTIDINE 20 MG TAB PO SCH (11:19)
[2021-12-08] MEDS: THIAMINE 100 MG TAB PO SCH (11:19)
[2021-12-08] MEDS: MIDODRINE 10 MG TAB PO SCH ×2 (11:20→13:24)
[2021-12-08] MEDS: TAMSULOSIN 0.4 MG CAP PO SCH (11:21)
[2021-12-08 12:45] LABS: ANA Screen, IFA Negative (Negative)
--- NOTE | 2021-12-08 13:47 | Discharge Summary ---
Providers - Providers Date of Admission: 12/02/21 19:05 Date of discharge: 12/08/21 Attending physician: JUNIOR KHOURY MD 12/02/21 18:59 Consult to Physician [CONS] Stat Comment: Consulting Provider: RIKKI WHITE Physician Instructions: Reason For Exam: Acute renal failure/hyperkalemia 12/02/21 19:47 Consult to Physician [CONS] Routine Comment: Consulting Provider: TANNA LOW Physician Instructions: Reason For Exam: sepsis 12/03/21 01:56 Consult to Dietitian/Nutrition [CONS] Routine Physician Instructions: Reason For Exam: Reason for Consult: Pt needs oral supplement 12/03/21 10:41 Consult to Physician [CONS] Routine Comment: Consulting Provider: LESTER BELTRAN Physician Instructions: Reason For Exam: Septic Shock-Hx Lung Ca w/ pleurx Cath 12/06/21 17:24 Consult to Physician [CONS] Routine Comment: left message/reji Consulting Provider: LORRIE SALDANA Physician Instructions: Reason For Exam: urinary retention Primary care physician: CHRIS CASON Hospitalization Reason for admission: back pain Condition: Serious Hospital course: Interval history: This is a 76-year-old male with DM, lung cancer with metastatic disease and malignant pleural effusions s/p pleural drain placement, chronic back pain and PVD s/p bilateral AKA who presented to the emergency department on with complaints of back pain 10/10, constant, worsened with movement and relieved without movement localized over the spine with the and shortness of breath over the past week on 12/02. Patient was hypoxic in the emergency department to 79% on room air and CXR revealed bilateral pneumonia which was complicated by septic shock, metabolic acidosis, acute kidney injury, hyperkalemia, volume depletion and malignant pleural effusion. Patient was admitted to the ICU on sepsis protocol with acute hypoxic respiratory failure, PEDRO, hyperkalemia and volume depletion with consults to [facility] and nephrology. Hospital Course to Date: 12/03: Patient remains on Levophed and NaBcarb gtts. Patient reported he was recently hospitalized 3 weeks ago for pneumonia and was discharge with some PCN. Patient is afebrile with leukocytosis and Lactic acidosis, cultures and procal pending. Continue current IV abx for now. Patient is also reported frequent loose stools/diarrhea for the past 3 weeks. Will check for C.Diff and PO Vanc and Flagyl added. ID consulted for further recs. Renal function with some improvement, continue bcarb gtt per nephro. Obtain records from the [facility] in [place]. 12/04: Remains afebrile, ST on the monitor, still on Levophed and bcarb gtt. C.Diff PCR pending, procal and CRP are unremarkable. Continue current IV Abx for now, ID consult pending. Renal function continue to improved, continue bcab gtt per Nephro. Monitor and replace electrolytes as needed. 12/05: Remains on low dose Levophed gtt, off bcarb gtt, renal funstion continue to improve. Will add Midodrine TID, titrate pressors for MAP above 65. CDiff PCR came back negative, PO vanco and Flagyl D/karen. Pleurix cath drained this am, sample sent to the lab. Continue current IV abx, ID consulted. Right upper chest Port accessed, removed Right fem CVC. Monitor and replace electrolytes as needed. 12/06: Remains off levophed, repelte K and phos today. Will transfer to floor. 12/07: Hemodynamically stable. Urology consulted yesterday for thomas, s/p placement. Anticipate d/c tomorrow. 12/08: Thomas in place, functioning properly. Discharge patient home today with thomas. 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 Follow up with primary care physician outpatient. Discharge medications: Flomax, potassium chloride, magnesium oxide, midodrine Assessment and Plan: Neuro: h/o chronic back pain -Reorientation as needed -Maintain sleep-wake cycle -As needed analgesia Cardiac: Hypotension, elevated troponin -S/p vasopressor support with Levophed -Midodrine 3 times daily -Blood pressure monitoring per protocol -Troponin 0.105, 0.051, 0.045 Respiratory: Acute hypoxic respiratory failure -[facility] consulted, appreciate recommendations -NIPPV q hs -Supplemental oxygenation as needed -Pulmonary hygiene -SPO2 monitor per protocol GI: Mild protein calorie malnutrition -24 hours -57 mL -PPI -CC renal diet with supplementation : Hypokalemia, Hypophosphatemia, acute kidney injury due to vasomotor nephr opathy -Nephrology consulted, appreciate recommendations -Strict intake and output -Renally dose medications -Avoid nephrotoxic medications -s/p bicarb gtt -Trend BMP ID: Septic shock POA, community acquired pneumonia POA -Infectious disease consulted, appreciate recommendation -COVID PCR (-), C diff PCR (-) -Antibiotic therapy with cefepime (12/06-12/08) -f/u blood culture -blood culture with no growth to date for 72 hours -Monitor WBC and temperature curve Endo: history of type 2 diabetes -Avoid hypoglycemia -SSI -Accu-Cheks ACHS -Long-acting insulin, titrate as needed Heme: NAD -Trend CBC -Transfuse hemoglobin less than 7 -SCDs to BLE while in bed Oncology: Metastatic Lung Cancer and left sided malignant pleural effusions s/p left pleural drain placement -Currently undergoing chemotherapy -s/p Pleural drain -Pleural fluid is pink, cloudy, WBC 2100, RBC 9150, Seg neutrophils 94, lymphocytes 4, monocytes 2 -Continue supportive care Disposition: 01 HOME / SELF CARE / HOMELESS Final Discharge Diagnosis (Prints w/discharge instructions): Acute hypoxic respiratory failure, hypokalemia, hypophosphatemia, acute kidney injury due to vasomotor nephropathy, septic shock, community-acquired pneumonia, malignant left-sided pleural effusion, metastatic lung cancer Time spent for discharge: 35 Core Measure Documentation - Palliative Care Palliative Care/ Comfort Measures: Not Applicable - Core Measures Any of the following diagnoses?: none Exam - Physical Exam Narrative exam: General appearance: Present: no acute distress, well-nourished, obese - EENT Eyes: Present: PERRL, EOM intact ENT: hearing intact, poor dentition - Neck Neck: Present: normal ROM - Respiratory Respiratory effort: normal Respiratory: bilateral: diminished - Cardiovascular Rhythm: regular Heart Sounds: Present: S1 & S2. Absent: systolic murmur, diastolic murmur - Extremities Extremities: no ischemia, pulses intact, pulses symmetrical, No edema, normal temperature, normal color Peripheral Pulses: within normal limits (except bka) - Abdominal General gastrointestinal: soft, non-tender, non-distended - Integumentary Integumentary: Present: warm, dry - Psychiatric Psychiatric: appropriate mood/affect, cooperative - Neurologic Neurologic: CNII-XII intact, moves all extremities - Allied Health Allied health notes reviewed: nursing, RT, social work - Constitutional Vitals: Temp Pulse Resp BP Pulse Ox 98.7 F 80 18 91/57 97 12/07/21 05:50 12/08/21 04:00 12/08/21 00:10 12/07/21 05:50 12/08/21 09:37 Plan Follow up with: CHRIS CASON MD [Primary Care Provider] - 3-5 Days
[2021-12-08] MEDS ORDERED: CEFEPIME/NS 2 GM/100 ML 2 GM/100 ML BAG IV SCH (14:00)
--- NOTE | 2021-12-08 16:52 | Progress Note ---
Assessment and Plan pt discharged prior to being seen. - Patient Problems (1) Acute hypoxemic respiratory failure Status: Acute (2) Acute kidney injury (PEDRO) with acute tubular necrosis (ATN) Status: Acute Plan to address problem: . (3) Diabetes mellitus Status: Acute Plan to address problem: . (4) Malignant pleural effusion Status: Acute Plan to address problem: . (5) Metastatic lung cancer (metastasis from lung to other site) Status: Acute (6) Pneumonia Status: Acute Plan to address problem: (7) Sepsis Status: Acute Plan to address problem: . (8) Septic shock Status: Acute Subjective Date of service: 12/08/21 Principal diagnosis: AHRF; Pneumonia; Lung CA; PEDRO; Hyperkalemia; Septic shock; NSTEMI; DM II Interval history: pt discharged before I seen him Objective Vital Signs - 12hr 12/08/21 09:37 O2 Sat by Pulse 97 Oximetry CBC and BMP: 12/07/21 05:50 12/07/21 05:50 ABG, PT/INR, D-dimer: ABG ABG pH 7.322 pH Units (7.350-7.450) L 12/02/21 22:40 ABG pCO2 25.5 mm Hg 12/02/21 22:40 ABG pO2 240.4 mm Hg (80.0-90.0) H 12/02/21 22:40 ABG O2 Saturation 99.4 % (95.0-99.0) H 12/02/21 22:40 PT/INR, D-dimer PT 19.7 Sec. (12.2-14.9) H 12/02/21 15:21 INR 1.48 (0.87-1.13) H 12/02/21 15:21 Abnormal lab findings: Abnormal Labs 12/02/21 12/02/21 12/02/21 15:21 15:21 15:21 WBC 22.7 H RBC Hgb Hct MCV 78 L MCH 25 L MCHC RDW 20.2 H Lymph % (Auto) [place] % (Auto) [place] # (Auto) Seg Neutrophils % Seg Neuts % (Manual) 87.0 H Lymphocytes % (Manual) 9.0 L Seg Neutrophils # Seg Neutrophils # Man 19.7 H PT 19.7 H INR 1.48 H ABG pH ABG pO2 ABG HCO3 ABG O2 Saturation ABG Base Excess ABG Hemoglobin Sodium 131 L Potassium 7.1 H* Chloride 94.9 L Carbon Dioxide 10 L BUN 89 H Creatinine 7.1 H Glucose 108 H POC Glucose Lactic Acid Calcium Phosphorus Magnesium Troponin T 0.105 H* Serum Total Protein Total Protein Albumin Wgxub-2-Ptcmvwxdj PEP Interpretation PTH Intact Urine Creatinine 12/02/21 12/02/21 12/02/21 16:39 17:22 22:26 WBC RBC Hgb Hct MCV MCH MCHC RDW Lymph % (Auto) [place] % (Auto) [place] # (Auto) Seg Neutrophils % Seg Neuts % (Manual) Lymphocytes % (Manual) Seg Neutrophils # Seg Neutrophils # Man PT INR ABG pH ABG pO2 ABG HCO3 ABG O2 Saturation ABG Base Excess ABG Hemoglobin Sodium Potassium 7.2 H* Chloride Carbon Dioxide BUN Creatinine Glucose POC Glucose Lactic Acid 6.80 H* 8.90 H* Calcium Phosphorus Magnesium Troponin T Serum Total Protein Total Protein Albumin Oiiut-5-Zijmesfzb PEP Interpretation PTH Intact Urine Creatinine 12/02/21 12/02/21 12/03/21 22:26 22:40 00:01 WBC RBC Hgb Hct MCV MCH MCHC RDW Lymph % (Auto) [place] % (Auto) [place] # (Auto) Seg Neutrophils % Seg Neuts % (Manual) Lymphocytes % (Manual) Seg Neutrophils # Seg Neutrophils # Man PT INR ABG pH 7.322 L ABG pO2 240.4 H ABG HCO3 12.9 L ABG O2 Saturation 99.4 H ABG Base Excess -11.6 L ABG Hemoglobin 11.1 L Sodium Potassium 5.2 H D Chloride Carbon Dioxide 15 L BUN 77 H Creatinine 6.0 H Glucose 58 L POC Glucose Lactic Acid Calcium Phosphorus Magnesium Troponin T Serum Total Protein Total Protein Albumin Vyjjf-1-Vcbyoqlwd PEP Interpretation PTH Intact 138.9 H Urine Creatinine 12/03/21 12/03/21 12/03/21 00:48 03:15 04:00 WBC 15.7 H RBC Hgb 10.7 L Hct 34.0 L MCV 78 L MCH 25 L MCHC RDW 20.0 H Lymph % (Auto) 12.5 L [place] % (Auto) 9.2 H [place] # (Auto) 1.4 H Seg Neutrophils % 78.1 H Seg Neuts % (Manual) Lymphocytes % (Manual) Seg Neutrophils # 12.2 H Seg Neutrophils # Man PT INR ABG pH ABG pO2 ABG HCO3 ABG O2 Saturation ABG Base Excess ABG Hemoglobin Sodium Potassium Chloride Carbon Dioxide BUN Creatinine Glucose POC Glucose 65 L Lactic Acid Calcium Phosphorus Magnesium Troponin T Serum Total Protein Total Protein Albumin Quhkc-2-Jsmcsdvoi PEP Interpretation PTH Intact Urine Creatinine 44.3 H 12/03/21 12/03/21 12/03/21 04:00 04:05 04:05 WBC RBC Hgb Hct MCV MCH MCHC RDW Lymph % (Auto) [place] % (Auto) [place] # (Auto) Seg Neutrophils % Seg Neuts % (Manual) Lymphocytes % (Manual) Seg Neutrophils # Seg Neutrophils # Man PT INR ABG pH ABG pO2 ABG HCO3 ABG O2 Saturation ABG Base Excess ABG Hemoglobin Sodium Potassium Chloride Carbon Dioxide 18 L BUN 72 H Creatinine 5.3 H Glucose POC Glucose Lactic Acid 4.00 H* Calcium Phosphorus Magnesium Troponin T Serum Total Protein 5.7 L Total Protein 5.6 L D Albumin 3.1 L 2.9 L Deuus-8-Jyyxyriah 0.4 H PEP Interpretation see below H PTH Intact Urine Creatinine 12/03/21 12/03/21 12/03/21 11:15 11:16 11:16 WBC RBC Hgb Hct MCV MCH MCHC RDW Lymph % (Auto) [place] % (Auto) [place] # (Auto) Seg Neutrophils % Seg Neuts % (Manual) Lymphocytes % (Manual) Seg Neutrophils # Seg Neutrophils # Man PT INR ABG pH ABG pO2 ABG HCO3 ABG O2 Saturation ABG Base Excess ABG Hemoglobin Sodium Potassium Chloride Carbon Dioxide BUN Creatinine Glucose POC Glucose 164 H Lactic Acid 6.80 H* Calcium Phosphorus Magnesium Troponin T 0.051 H D Serum Total Protein Total Protein Albumin Jpfpf-6-Uyscyqaby PEP Interpretation PTH Intact Urine Creatinine 12/03/21 12/03/21 12/03/21 16:41 21:48 23:16 WBC RBC Hgb Hct MCV MCH MCHC RDW Lymph % (Auto) [place] % (Auto) [place] # (Auto) Seg Neutrophils % Seg Neuts % (Manual) Lymphocytes % (Manual) Seg Neutrophils # Seg Neutrophils # Man PT INR ABG pH ABG pO2 ABG HCO3 ABG O2 Saturation ABG Base Excess ABG Hemoglobin Sodium Potassium Chloride Carbon Dioxide BUN Creatinine Glucose POC Glucose 167 H 171 H Lactic Acid Calcium Phosphorus Magnesium Troponin T 0.045 H Serum Total Protein Total Protein Albumin Tvtok-3-Tzitezuqg PEP Interpretation PTH Intact Urine Creatinine 12/04/21 12/04/21 12/04/21 04:00 05:00 08:03 WBC 12.2 H RBC Hgb 9.8 L Hct 31.2 L MCV 78 L MCH 24 L MCHC 31 L RDW 20.8 H Lymph % (Auto) [place] % (Auto) [place] # (Auto) Seg Neutrophils % Seg Neuts % (Manual) Lymphocytes % (Manual) Seg Neutrophils # Seg Neutrophils # Man PT INR ABG pH ABG pO2 ABG HCO3 ABG O2 Saturation ABG Base Excess ABG Hemoglobin Sodium Potassium 3.4 L D Chloride 91.5 L Carbon Dioxide 32 H D BUN 38 H Creatinine 3.0 H Glucose 264 H POC Glucose 146 H Lactic Acid Calcium 7.8 L Phosphorus Magnesium 1.10 L Troponin T Serum Total Protein Total Protein Albumin Zcivp-1-Bhgsqmoxa PEP Interpretation PTH Intact Urine Creatinine 12/04/21 12/04/21 12/04/21 09:30 11:00 11:31 WBC RBC Hgb Hct MCV MCH MCHC RDW Lymph % (Auto) [place] % (Auto) [place] # (Auto) Seg Neutrophils % Seg Neuts % (Manual) Lymphocytes % (Manual) Seg Neutrophils # Seg Neutrophils # Man PT INR ABG pH ABG pO2 ABG HCO3 ABG O2 Saturation ABG Base Excess ABG Hemoglobin Sodium Potassium 3.2 L Chloride 93.7 L Carbon Dioxide 32 H BUN 38 H Creatinine 2.8 H Glucose 195 H POC Glucose 271 H Lactic Acid 5.30 H* Calcium 7.6 L Phosphorus Magnesium Troponin T Serum Total Protein Total Protein Albumin Jbeuu-8-Hjpkvrjko PEP Interpretation PTH Intact Urine Creatinine 12/04/21 12/04/21 12/04/21 16:21 17:16 21:35 WBC RBC Hgb Hct MCV MCH MCHC RDW Lymph % (Auto) [place] % (Auto) [place] # (Auto) Seg Neutrophils % Seg Neuts % (Manual) Lymphocytes % (Manual) Seg Neutrophils # Seg Neutrophils # Man PT INR ABG pH ABG pO2 ABG HCO3 ABG O2 Saturation ABG Base Excess ABG Hemoglobin Sodium Potassium Chloride Carbon Dioxide BUN Creatinine Glucose POC Glucose 175 H 202 H Lactic Acid 3.90 H* Calcium Phosphorus Magnesium Troponin T Serum Total Protein Total Protein Albumin Qvjbc-3-Oenlofrhh PEP Interpretation PTH Intact Urine Creatinine 12/05/21 12/05/21 12/05/21 04:50 04:50 07:34 WBC 11.2 H RBC Hgb 9.2 L Hct 29.0 L MCV 78 L MCH 25 L MCHC RDW 20.4 H Lymph % (Auto) [place] % (Auto) [place] # (Auto) Seg Neutrophils % Seg Neuts % (Manual) Lymphocytes % (Manual) Seg Neutrophils # Seg Neutrophils # Man PT INR ABG pH ABG pO2 ABG HCO3 ABG O2 Saturation ABG Base Excess ABG Hemoglobin Sodium Potassium 3.2 L Chloride 92.8 L Carbon Dioxide 36 H BUN 29 H Creatinine 2.2 H Glucose 189 H POC Glucose 140 H Lactic Acid Calcium 7.5 L Phosphorus Magnesium 1.10 L Troponin T Serum Total Protein Total Protein Albumin Gaasg-4-Xlqsrznnr PEP Interpretation PTH Intact Urine Creatinine 12/05/21 12/05/21 12/05/21 11:05 15:59 21:24 WBC RBC Hgb Hct MCV MCH MCHC RDW Lymph % (Auto) [place] % (Auto) [place] # (Auto) Seg Neutrophils % Seg Neuts % (Manual) Lymphocytes % (Manual) Seg Neutrophils # Seg Neutrophils # Man PT INR ABG pH ABG pO2 ABG HCO3 ABG O2 Saturation ABG Base Excess ABG Hemoglobin Sodium Potassium Chloride Carbon Dioxide BUN Creatinine Glucose POC Glucose 246 H 240 H 237 H Lactic Acid Calcium Phosphorus Magnesium Troponin T Serum Total Protein Total Protein Albumin Bvbhi-2-Foosqbpuz PEP Interpretation PTH Intact Urine Creatinine 12/06/21 12/06/21 12/06/21 04:15 04:15 07:26 WBC RBC 3.58 L Hgb 9.1 L Hct 28.2 L MCV 79 L MCH 26 L MCHC RDW 20.2 H Lymph % (Auto) [place] % (Auto) [place] # (Auto) Seg Neutrophils % Seg Neuts % (Manual) Lymphocytes % (Manual) Seg Neutrophils # Seg Neutrophils # Man PT INR ABG pH ABG pO2 ABG HCO3 ABG O2 Saturation ABG Base Excess ABG Hemoglobin Sodium Potassium 3.3 L Chloride Carbon Dioxide 35 H BUN 22 H Creatinine 1.7 H Glucose 122 H POC Glucose 124 H Lactic Acid Calcium 7.6 L Phosphorus 2.30 L Magnesium Troponin T Serum Total Protein Total Protein Albumin Iubph-4-Mxrvegvou PEP Interpretation PTH Intact Urine Creatinine 12/06/21 12/06/21 12/06/21 11:16 15:58 21:59 WBC RBC Hgb Hct MCV MCH MCHC RDW Lymph % (Auto) [place] % (Auto) [place] # (Auto) Seg Neutrophils % Seg Neuts % (Manual) Lymphocytes % (Manual) Seg Neutrophils # Seg Neutrophils # Man PT INR ABG pH ABG pO2 ABG HCO3 ABG O2 Saturation ABG Base Excess ABG Hemoglobin Sodium Potassium Chloride Carbon Dioxide BUN Creatinine Glucose POC Glucose 285 H 144 H 258 H Lactic Acid Calcium Phosphorus Magnesium Troponin T Serum Total Protein Total Protein Albumin Nwvwb-9-Adhazkecn PEP Interpretation PTH Intact Urine Creatinine 12/07/21 12/07/21 12/07/21 05:50 05:50 08:54 WBC RBC 3.41 L Hgb 8.6 L Hct 26.4 L MCV 78 L MCH 25 L MCHC RDW 20.6 H Lymph % (Auto) [place] % (Auto) [place] # (Auto) Seg Neutrophils % Seg Neuts % (Manual) Lymphocytes % (Manual) Seg Neutrophils # Seg Neutrophils # Man PT INR ABG pH ABG pO2 ABG HCO3 ABG O2 Saturation ABG Base Excess ABG Hemoglobin Sodium Potassium 3.4 L Chloride Carbon Dioxide 34 H BUN Creatinine 1.6 H Glucose 118 H POC Glucose 122 H Lactic Acid Calcium 8.0 L Phosphorus Magnesium 1.50 L Troponin T Serum Total Protein Total Protein Albumin Dnkuj-8-Tnkwsjefx PEP Interpretation PTH Intact Urine Creatinine 12/07/21 12/07/21 12/07/21 13:44 15:58 21:03 WBC RBC Hgb Hct MCV MCH MCHC RDW Lymph % (Auto) [place] % (Auto) [place] # (Auto) Seg Neutrophils % Seg Neuts % (Manual) Lymphocytes % (Manual) Seg Neutrophils # Seg Neutrophils # Man PT INR ABG pH ABG pO2 ABG HCO3 ABG O2 Saturation ABG Base Excess ABG Hemoglobin Sodium Potassium Chloride Carbon Dioxide BUN Creatinine Glucose POC Glucose 290 H 267 H 262 H Lactic Acid Calcium Phosphorus Magnesium Troponin T Serum Total Protein Total Protein Albumin Zklkh-9-Refydtqak PEP Interpretation PTH Intact Urine Creatinine 12/08/21 12/08/21 07:34 11:34 WBC RBC Hgb Hct MCV MCH MCHC RDW Lymph % (Auto) [place] % (Auto) [place] # (Auto) Seg Neutrophils % Seg Neuts % (Manual) Lymphocytes % (Manual) Seg Neutrophils # Seg Neutrophils # Man PT INR ABG pH ABG pO2 ABG HCO3 ABG O2 Saturation ABG Base Excess ABG Hemoglobin Sodium Potassium Chloride Carbon Dioxide BUN Creatinine Glucose POC Glucose 174 H 227 H Lactic Acid Calcium Phosphorus Magnesium Troponin T Serum Total Protein Total Protein Albumin Nblam-5-Rzzpznrkn PEP Interpretation PTH Intact Urine Creatinine
--- NOTE | 2021-12-08 21:13 | Consultation ---
DATE OF CONSULTATION: 12/07/2021 PREOPERATIVE DIAGNOSES: Urinary retention, previous sepsis. History of stone disease, history of difficult catheterization and stricture. POSTOPERATIVE DIAGNOSES: Urinary retention, previous sepsis. History of stone disease, history of difficult catheterization and stricture with diabetes, bilateral amputation. PROCEDURE: Manipulation of urethra with a wire, insertion of deering catheter. SURGEON: Dr. Rivera. ANESTHESIA: Local. FINDINGS: This is a gentleman who we were called for a consult. He has mildly elevated creatinine and anemic with previous amputations. He says he has a history of stone disease, manipulation, difficult catheterization for the amputation. He is not a great historian. PAST MEDICAL HISTORY: As mentioned above, history of diabetes, hypertension, vascular disease, amputation. PAST SURGICAL HISTORY: As mentioned above. SOCIAL HISTORY: History of using multiple medications. ALLERGIES: Negative. FAMILY HISTORY: Noncontributory except for the diabetes and hypertension. REVIEW OF SYSTEMS: Difficulty voiding. Poor flow. PHYSICAL EXAMINATION: GENERAL: He is in no distress. ABDOMEN: Soft, overweight with mild suprapubic discomfort. GENITALIA: Atrophic testis. No urethral discharge. Digital rectal exam: 15 grams prostate, no nodules. Good tone. IMPRESSION: Urethral stricture. We manipulated the urethra with a wire, we actually got a catheter in and catheter should be left till followup cystoscopy after he is clinically improved. TID: [id number] RECEIPT: [id number] LUDWIN/TRELL/CASSIE
== END 2021-12-08 16:25 | disposition home or self-care (01) | DRG 871 ==
LOC: ED 13:11 → CC1 19:05 → 4A 12-06 18:13
PROVIDERS: ADMIT Internal Medicine; ATTEND Internal Medicine
PROC: 4A033R1 Measurement of Arterial Saturation, Peripheral, Percutaneous Approach (ICD-10-PCS; principal; 2021-12-02)
PROC: 02H633Z Insertion of Infusion Device into Right Atrium, Percutaneous Approach (ICD-10-PCS; 2021-12-02)
PROC: B548ZZA Ultrasonography of Superior Vena Cava, Guidance (ICD-10-PCS; 2021-12-02)
PROC: 5A09357 Assistance with Respiratory Ventilation, Less than 24 Consecutive Hours, Continuous Positive Airway Pressure (ICD-10-PCS; 2021-12-03)
PROC: 5A09357 Assistance with Respiratory Ventilation, Less than 24 Consecutive Hours, Continuous Positive Airway Pressure (ICD-10-PCS; 2021-12-04)
PROC: 5A09357 Assistance with Respiratory Ventilation, Less than 24 Consecutive Hours, Continuous Positive Airway Pressure (ICD-10-PCS; 2021-12-05)
DX: A41.9 Sepsis, unspecified organism (principal); I21.4 Non-ST elevation (NSTEMI) myocardial infarction; J18.9 Pneumonia, unspecified organism; R65.21 Severe sepsis with septic shock; N17.0 Acute kidney failure with tubular necrosis; J96.01 Acute respiratory failure with hypoxia; J91.0 Malignant pleural effusion; C79.89 Secondary malignant neoplasm of other specified sites; E44.1 Mild protein-calorie malnutrition; C34.90 Malignant neoplasm of unspecified part of unspecified bronchus or lung; Z20.822 Contact with and (suspected) exposure to COVID-19; E87.5 Hyperkalemia; E11.51 Type 2 diabetes mellitus with diabetic peripheral angiopathy without gangrene; G89.29 Other chronic pain; M54.9 Dorsalgia, unspecified; N40.0 Benign prostatic hyperplasia without lower urinary tract symptoms; E83.39 Other disorders of phosphorus metabolism; Z68.22 Body mass index [BMI] 22.0-22.9, adult; E87.6 Hypokalemia; Z83.3 Family history of diabetes mellitus; Z82.49 Family history of ischemic heart disease and other diseases of the circulatory system; Z89.512 Acquired absence of left leg below knee; Z89.511 Acquired absence of right leg below knee
CPT/HCPCS: 36415; 71045; 76770; 78580; 80048; 80053; 80061; 80202; 82140; 82570; 82803; 82947; 82962; 83520; 83605; 83735; 83880; 83970; 84100; 84132; 84145; 84156; 84160; 84165; 84300; 84484; 85007; 85025; 85027; 85610; 86021; 86038; 86140; 86160; 86850; 86900; 86901; 87040; 87116; 87493; 87641; 89051; 93005; 94644; 94660; 94760; 96374; 96375; 99285; G0378; J2354; J3490; J7510; J7517; Q9967; A9540; J0610; J0692; J0696; J1170; J1644; J1815; J2405; J3010; J3370; J3475; J7030; J7040; J7050; J7070; U0003